=== PATIENT | male | born 1960 | race Caucasian/White ===

== ENCOUNTER 2020-12-28 07:34 | Outpatient (REF) | payer MEDICARE, SELFPAY ==
[2020-12-28 08:38] LABS: Hematocrit 46.5 % (42-52); Hemoglobin 16.2 g/dl (14.0-18.0); Mean Corpuscular HGB Conc 34.8 g/dl (31.0-36.0); Mean Corpuscular Hemoglobin 30.8 pg (27.0-33.0); Mean Corpuscular Volume 88.4 fL (80-98); Mean Platelet Volume 10.3 fL (9.4-12.4); Platelet Count 209 X10*3/uL (160-400); Red Blood Count 5.26 X10*6/uL (4.60-5.80); Red Cell Distribution Width 12.3 % (11.0-16.0); White Blood Count 6.2 X10*3/uL (4.8-10.8)
[2020-12-28 08:49] LABS: Estimated Average Glucose 100 mg/dL; Hemoglobin A1c % 5.1 %
[2020-12-28 09:09] LABS: Alanine Aminotransferase 17 U/L (0-40); Albumin Level 4.7 g/dL (3.5-5.0); Alkaline Phosphatase 126 U/L (39-117); Anion Gap 12 (12-20); Aspartate Amino Transferase 16 U/L (5-37); Bilirubin Total 0.7 mg/dL (0.0-1.0); Blood Urea Nitrogen 15 mg/dL (9-16); Calcium 9.8 mg/dL (8.4-10.2); Carbon Dioxide 29 mmol/L (22-29); Chloride 103 mmol/L (96-108); Cholesterol 185 mg/dL; Estimated Glomerular Filt Rate 51; Glucose Fasting 109 mg/dL (60-99); HDL Cholesterol 32 mg/dL; LDL Cholesterol Calculated 122 mg/dl; Potassium 4.4 mmol/L (3.3-5.1); Sodium 140 mmol/L (135-145); Total Protein 7.2 g/dL (6.5-8.0); Triglycerides 159 mg/dL
[2020-12-28 09:32] LABS: Prostate Specific Antigen Scr 2.63 ng/mL (<0.05-4.0); TSH reflex Free T4 0.96 uIU/mL (0.32-4.0)
== END 2020-12-28 07:35 | disposition home or self-care (01) ==
LOC: HO.LAB 07:34
PROVIDERS: PCP Physician Assistant; Visit Provider Physician Assistant
DX: I10 Essential (primary) hypertension (principal); J45.909 Unspecified asthma, uncomplicated; Z13.1 Encounter for screening for diabetes mellitus; Z13.220 Encounter for screening for lipoid disorders; Z13.29 Encounter for screening for other suspected endocrine disorder; Z12.5 Encounter for screening for malignant neoplasm of prostate
CPT/HCPCS: 36415; 80053; 80061; 83036; 84153; 84443; 85027

== ENCOUNTER 2022-01-06 12:17 | Outpatient (REF) | payer MEDICARE, SELFPAY ==
[2022-01-06 13:05] LABS: Hematocrit 49.1 % (42.0-52.0); Hemoglobin 16.8 g/dl (14.0-18.0); Mean Corpuscular HGB Conc 34.2 g/dl (31.0-36.0); Mean Corpuscular Hemoglobin 29.3 pg (27.0-33.0); Mean Corpuscular Volume 85.7 fL (80.0-98.0); Platelet Count 181 X10*3/uL (160-400); Red Blood Count 5.73 X10*6/uL (4.60-5.80); White Blood Count 6.5 X10*3/uL (4.8-10.8)
[2022-01-06 13:27] LABS: Alanine Aminotransferase 18 U/L (0-40); Albumin Level 4.6 g/dL (3.5-5.0); Alkaline Phosphatase 103 U/L (39-117); Anion Gap 11 (12-20); Aspartate Amino Transferase 13 U/L (5-37); Bilirubin Total 0.5 mg/dL (0.0-1.0); Blood Urea Nitrogen 11 mg/dL (9-16); Calcium 9.4 mg/dL (8.4-10.2); Carbon Dioxide 30 mmol/L (22-29); Chloride 101 mmol/L (96-108); Cholesterol 184 mg/dL; Estimated Glomerular Filt Rate 54; Glucose Fasting 109 mg/dL (60-99); HDL Cholesterol 32 mg/dL; LDL Cholesterol Calculated 126 mg/dl; Sodium 138 mmol/L (135-145); Triglycerides 134 mg/dL
[2022-01-06 13:50] LABS: Prostate Specific Antigen Scr 2.54 ng/mL (<0.05-4.0); TSH reflex Free T4 1.48 uIU/mL (0.32-4.0)
== END 2022-01-06 12:18 | disposition home or self-care (01) ==
LOC: HO.LAB 12:17
PROVIDERS: PCP Physician Assistant; Visit Provider Physician Assistant
DX: Z12.5 Encounter for screening for malignant neoplasm of prostate (principal); I10 Essential (primary) hypertension; E78.5 Hyperlipidemia, unspecified
CPT/HCPCS: 36415; 80053; 80061; 82043; 84153; 84443; 85027

== ENCOUNTER 2022-05-23 07:09 | Inpatient (IN) | payer MEDICARE, SELFPAY ==
--- NOTE | ~2022-05-23 | CT_ITS ---
EXAMINATION: CT HEAD WITHOUT CONTRAST CLINICAL INFORMATION: Question previous ectopic episode. Change in mental status COMPARISON: 04/09/2010 TECHNIQUE: Contiguous axial imaging was performed from the skull base to vertex without intravenous administration of contrast. This CT examination was performed using dose optimization techniques as appropriate, variously including the following: *Automated exposure control *Adjustment of mA and/or kV according to patient size (this includes techniques or standardized protocols for targeted exams where dose is matched to indication/reason for exam; i.e. extremities or head) *Use of iterative reconstruction technique DLP: 717 mGy-cm FINDINGS: There is no evidence of acute intracranial hemorrhage or territorial infarction. No abnormal mass effect or midline shift is seen. [place]ar to white matter differentiation is well preserved. No extra-axial fluid collections are identified. No significant volume loss. No hydrocephalus. Similar appearance of patchy low density adjacent the basal ganglia bilaterally, present in 2010 as well. No new parenchymal abnormalities seen. The osseous structures and soft tissues are normal. The mastoid air cells and visualized portions of the paranasal sinuses are well aerated. CT/CT head/brain wo IV con IMPRESSION: No acute intracranial pathology.
[2022-05-23 07:31] VITALS: BP 164/72; BP 181/115; PULSE 61; PULSE 83; RESP 16; TEMP 36.4; O2SAT 100; O2SAT 97; BMI 26.6
[2022-05-23 08:00] LABS: Appearance Urine Turbid; Color Urine Yellow; Glucose Urine UA Negative (Negative); Leukocyte Esterase Urine Negative (Negative); Nitrite Urine Negative (Negative); Specific Gravity - Urine 1.015 (1.005-1.025); UMIC TRIGGER UACC YES; Urine Blood Negative (Negative); Urine Ketones 15 mg/dL (Negative); Urine Protein 30 (1+) mg/dL (Neg-Trace)
[2022-05-23 08:05] LABS: Bacteria Urine None Seen (None Seen); Hyaline Casts Urine 0-2 /LPF (0-2); RBC Urine 0-2 /HPF (0-2); Squamous Epithelial Cell Urine 0-2 /HPF (0-2); WBC Urine 0-5 /HPF (0-5)
[2022-05-23 08:14] LABS: Amphetamine Screen Urine Not Detected (Not Detect); Barbiturates, Urine Not Detected (Not Detect); Benzodiazepines Screen Urine Not Detected (Not Detect); Cannabinoid Screen Urine Not Detected (Not Detect); Cocaine Screen Urine Not Detected (Not Detect); Fentanyl, urine Not Detected (Not Detect); Opiate Screen Urine Not Detected (Not Detect); Phencyclidine Screen Urine Not Detected (Not Detect)
[2022-05-23 08:20] LABS: COVID-19 Test Negative (Negative); IDNOW Serial# 16C4AD1C
[2022-05-23 08:53] LABS: MANUAL DIFF FLAG NO
[2022-05-23 08:54] LABS: Basophils Percent Auto 0.2 % (0-2); Eosinophils Percent Auto 0.3 % (0-4); Hematocrit 44.7 % (42.0-52.0); Hemoglobin 15.6 g/dl (14.0-18.0); Imm Gran Abs Auto 0.02 X10*3/uL (0.00-0.03); Imm Gran Pct Auto 0.2 % (0.0-0.4); Lymphocytes Absolute Auto 0.7 X10*3/uL (1.2-4.9); Lymphocytes Percent Auto 6.6 % (20-40); Mean Corpuscular HGB Conc 34.9 g/dl (31.0-36.0); Mean Corpuscular Hemoglobin 29.7 pg (27.0-33.0); Mean Platelet Volume 9.6 fL (9.4-12.4); Monocytes Absolute Auto 0.4 X10*3/uL (0.1-1.2); Neutrophils Percent Auto 88.7 % (45-73); Platelet Count 177 X10*3/uL (160-400); Red Blood Count 5.26 X10*6/uL (4.60-5.80); Red Cell Distribution Width 12.1 % (11.0-16.0); White Blood Count 10.1 X10*3/uL (4.8-10.8)
[2022-05-23 09:10] LABS: Acetaminophen LAB < 1 mcg/mL (<30); Alanine Aminotransferase 15 U/L (0-40); Albumin Level 4.5 g/dL (3.5-5.0); Alkaline Phosphatase 81 U/L (39-117); Anion Gap 14 (12-20); Aspartate Amino Transferase 12 U/L (5-37); Bilirubin Total 0.7 mg/dL (0.0-1.0); Blood Urea Nitrogen 11 mg/dL (9-16); Calcium 9.3 mg/dL (8.4-10.2); Carbon Dioxide 28 mmol/L (22-29); Chloride 104 mmol/L (96-108); Creatinine Clr Calc Pharmacy 52.9; Estimated Glomerular Filt Rate 57; Ethanol < 10 mg/dL; Glucose Random 128 mg/dL (60-115); Potassium 3.9 mmol/L (3.3-5.1); Salicylate < 5.0 mg/dL (15-30); Sodium 142 mmol/L (135-145); Total Protein 6.7 g/dL (6.5-8.0)
[2022-05-23 10:04] LABS: Troponin-I High Sensitivity 5.6 ng/L (<3.5-35.0)
--- NOTE | 2022-05-23 10:20 | PC.NURSE ---
Cecilia HICKEY evaluated César & also spoke with his (Miriam) who is at the bedside. Pt is confused and requires one-word answer questions, or yes/no questions. states that a similar episode happened 12 years ago. Pt is cooperative and redirectable at this time. Just returned from CT scan. Awaiting results. Labs obtained and resulted.
--- NOTE | 2022-05-23 10:58 | ED_ITS ---
HPI - Psych General Chief Complaint: Psychiatric Symptoms <RUPERTO Antonio Last Filed: 05/23/22 17:31> Stated Complaint: Crisis <RUPERTO Antonio Last Filed: 05/23/22 17:31> Time Seen by Provider: 05/23/22 09:15 <RUPERTO Antonio Last Filed: 05/23/22 17:31> Source: patient <RUPERTO Antonio Last Filed: 05/23/22 17:31> Mode of arrival: ambulatory <RUPERTO Antonio Last Filed: 05/23/22 17:31> History of Present Illness HPI Narrative: 62-year-old male with a past medical history of osteoarthritis, HLD, HTN, GERD, asthma, presenting to ED with for brief psychotic episode this morning. states she was leaving for work when noted patient was not at baseline, starring into space, paranoid, nonverbal, then yelling out random words/phrases. ?Auditory and visual hallucinations reported by EMS. Reports similar symptoms in the past 12 years ago. Unknown if patient is compliant with medications does not keep track. Patient reports compliance. Admits patient is more lucid at this time. Denies SI/HI, ETOH or other illicit substances. Denies CP/SOB, abdominal pain, nausea/vomiting, fever <URPERTO Antonio Last Filed: 05/23/22 17:31> MD complaint: altered mental status and hallucinations <RUPERTO Antonio Last Filed: 05/23/22 17:31> Onset (ago): hour(s) <RUPERTO Antonio Last Filed: 05/23/22 17:31> Related Data Home Medications: Home Medications Medication Instructions Recorded Confirmed albuterol sulfate 90 mcg/actuation 1 inh inhalation QID 01/06/22 05/23/22 aerosol inhaler cyclobenzaprine 10 mg tablet 1 tab PO BEDTIME 05/23/22 05/23/22 Previous Rx's Medication Instructions Recorded blood pressure monitor (Blood #1 ea 01/11/21 Pressure Kit) amlodipine 2.5 mg tablet 2.5 mg PO DAILY 90 days #90 tabs 01/06/22 cetirizine 10 mg tablet 10 mg PO DAILY 90 days #90 tabs 01/06/22 bupropion HCl 150 mg tablet,12 hr 150 mg PO DAILY #90 tabs 04/26/22 sustained-release <RUPERTO Antonio Last Filed: 05/23/22 17:31> Allergies/Adverse Reactions: Allergies Allergy/AdvReac Type Severity Reaction Status Date / Time penicillin G Allergy Unknown Unknown Verified 05/23/22 07:37 penicillin V Allergy Unknown hives Verified 05/23/22 07:37 Penicillins Allergy Unknown UNKNOWN Verified 05/23/22 07:37 Quinolones Allergy Unknown Unknown Verified 05/23/22 07:37 trazodone Allergy Unknown Unknown Verified 05/23/22 07:37 lisinopril Allergy Unknown cough Uncoded 05/23/22 07:37 losartan AdvReac Intermediate Dizziness Uncoded 05/23/22 07:37 <RUPERTO Antonio Last Filed: 05/23/22 17:31> Review of Systems Review of Systems: Constitutional: No Fever, No Chills, , No Fatigue, No Malaise ENT/Mouth: No Ear Pain, No Nasal Congestion, No sore throat, No Rhinorrhea, No Swallowing Difficulty Eyes: No Eye Pain, No Swelling, No Redness, No Foreign Body, No Discharge, No Vision Changes Cardiovascular: No Chest Pain, No SOB, No Edema, No Palpitations Respiratory: No Cough, No Sputum, No Dyspnea Gastrointestinal: No Nausea, No Vomiting, No Diarrhea, No Constipation, No Abdominal pain Genitourinary: No Dysuria, No Urinary Frequency, No Hematuria, No Urinary Incontinence/retention, No Flank Pain Musculoskeletal: No joint pain, No Myalgias, No Joint Swelling Skin: No Skin Lesions, No rash Neuro: No Weakness, No Dizziness, No Headache Psych: + Anxiety/Panic, No Depression, No SI/HI/AH/VH, No Social Issues <RUPERTO Antonio Last Filed: 05/23/22 17:31> Yes all other systems are reviewed and are negative <RUPERTO Antonio Last Filed: 05/23/22 17:31> Constitutional: Constitutional: Reports as per HPI <RUPERTO Antonio Last Filed: 05/23/22 17:31> Neurologic: Denies Abnormal speech present <RUPERTO Antonio Last Filed: 05/23/22 17:31> [facility] Past Medical History Attestation statement: The following information was validated with the patient. <RUPERTO Antonio - Last Filed: 05/23/22 17:31> Medical History: Medical History Colonoscopy refused <RUPERTO Antonio - Last Filed: 05/23/22 17:31> Surgical History: Surgical History History of eye surgery <RUPERTO Antonio - Last Filed: 05/23/22 17:31> Family History Family History: Family History Mother No problems noted. Father No problems noted. <RUPERTO Antonio - Last Filed: 05/23/22 17:31> Social History Social History: Social History Housing: House Alcohol intake: never Patient Tobacco Use Status: Never used Tobacco Use of substances other than those prescribed or required for medical reasons: No Advance Directives: No Advance Directives Information Provided: No Guardian: No Current occupational status: disabled Cognitive needs: No Hearing needs: No Vision needs: No <RUPERTO Antonio - Last Filed: 05/23/22 17:31> Physical Exam Vital Signs: Vital Signs: Last Vital Signs Temp 98.3 F 05/24/22 00:27 Pulse 63 05/24/22 00:27 Resp 16 05/24/22 00:27 BP 167/81 H 05/24/22 00:27 Pulse Ox 96 05/24/22 00:27 O2 Del Method 05/24/22 00:27 BMI result Body Mass Index 26.6 <RUPERTO Antonio - Last Filed: 05/23/22 17:31> Vital Signs: Last Vital Signs Temp 98.3 F 05/24/22 00:27 Pulse 63 05/24/22 00:27 Resp 16 05/24/22 00:27 BP 167/81 H 05/24/22 00:27 Pulse Ox 96 05/24/22 00:27 O2 Del Method 05/24/22 00:27 BMI result Body Mass Index 26.6 <Magaly Armando DO - Last Filed: 05/24/22 07:18> Const: General: cooperative, healthy appearing and no acute distress <RUPERTO Antonio - Last Filed: 05/23/22 17:31> Orientation/consciousness: patient oriented x3 <RUPERTO Antonio - Last Filed: 05/23/22 17:31> Limitations: no limitations <RUPERTO Antonio - Last Filed: 05/23/22 17:31> HEENT: Head: Yes normal to inspection and Yes atraumatic <RUPERTO Antonio - Last Filed: 05/23/22 17:31> Ears: hearing grossly normal bilaterally <RUPERTO Antonio - Last Filed: 05/23/22 17:31> General nose exam: Normal external nose present <RUPERTO Antonio - Last Filed: 05/23/22 17:31> Face and sinus: Yes normal facial exam <RUPERTO Antonio - Last Filed: 1 17:31> Throat: Yes posterior oropharynx normal, Yes tonsils normal and Yes uvula midline <RUPERTO Antonio - Last Filed: 05/23/22 17:31> Eyes: General: appearance normal, both eyes and all related structures <RUPERTO Antonio - Last Filed: 05/23/22 17:31> Pupils: Equal, round and reactive pupils present <RUPERTO Antonio - Last Filed: 05/23/22 17:31> EOM: EOMs intact bilaterally <RUPERTO Antonio - Last Filed: 05/23/22 17:31> Neck: Neck: Yes normal visual inspection and Yes no meningeal signs <RUPERTO Antonio - Last Filed: 05/23/22 17:31> Resp: Effort & Inspection: normal respiratory effort and no respiratory distress <RUPERTO Antonio - Last Filed: 05/23/22 17:31> Auscultation: clear to auscultation bilaterally, no crackles, no rales, no rhon chi and no wheezes <RUPERTO Antonio - Last Filed: 05/23/22 17:31> Cardio: Rate: regular rate <Cecilia Pouliot, PA - Last Filed: 05/23/22 17:31> Heart sounds: S1 normal heart sound present and S2 normal heart sound present <Cecilia Pouliot, PA - Last Filed: 05/23/22 17:31> GI: Inspection: Yes normal to inspection <Cecilia Pouliot, PA - Last Filed: 05/23/22 17:31> Palpation (GI): Soft to palpation, nontender, no guarding and not rigid <Cecilia Pouliot, PA - Last Filed: 05/23/22 17:31> : General: Yes no CVA tenderness <Cecilia Pouliot, PA - Last Filed: 05/23/22 17:31> Back/Spine/Pelvis: Back: no CVA tenderness <Cecilia Pouliot, PA - Last Filed: 05/23/22 17:31> Skin: Rashes: no rashes <Cecilia Pouliot, PA - Last Filed: 05/23/22 17:31> Wounds: no wounds <Cecilia Pouliot, PA - Last Filed: 05/23/22 17:31> Neuro: General: patient oriented x3, tone normal, moves all extremities, no meningeal signs, no focal motor deficits and CN's II-XI intact bilaterally <Cecilia Pouliot, PA - Last Filed: 05/23/22 17:31> Cranial nerves: Yes Equal, round and reactive pupils present <Cecilia Pouliot, PA - Last Filed: 05/23/22 17:31> Speech: No Abnormal speech present <Cecilia Pouliot, PA - Last Filed: 05/23/22 17:31> Gait exam (Neuro): Normal gait present <Cecilia Pouliot, PA - Last Filed: 05/23/22 17:31> Extrem: General: Yes normal to inspection <Cecilia Pouliot, PA - Last Filed: 05/23/22 17:31> Psych: Appearance: grossly normal <Cecilia Poulsalomet, PA - Last Filed: 05/23/22 17:31> Affect: Blunted affect present <Cecilia Pouliot, PA - Last Filed: 05/23/22 17:31> Attitude: cooperative <Cecilia Pouliot, PA - Last Filed: 05/23/22 17:31> Thought content: suicidality and no homicidality <RUPERTO Antonio - Last Filed: 05/23/22 17:31> Insight: Poor insight present (Psych) <RUPERTO Antonio - Last Filed: 05/23/22 17:31> Course Course Course Narrative: -1113--no leukocytosis. Labs otherwise reassuring. UA not infected. Tox screen negative. COVID-[address] head/brain wo IV conIMPRESSION: No acute intracranial pathology. >1205--patient is medically cleared for BHN evaluation. Physician observation initiated as patient needs more time to be evaluated -1800--ED care transferred to RUPERTO Castillo pending Crisis and Psych eval <RUPERTO Antonio - Last Filed: 05/23/22 17:31> -1113--no leukocytosis. Labs otherwise reassuring. UA not infected. Tox screen negative. COVID-[address] head/brain wo IV conIMPRESSION: No acute intracranial pathology. >1205--patient is medically cleared for BHN evaluation. Physician observation initiated as patient needs more time to be evaluated -1800--ED care transferred to RUPERTO Castillo pending Crisis and Psych eval <Magaly Armando DO - Last Filed: 05/24/22 07:18> Reevaluation(s) Reevaluation #1: addendum 05/24/22 717am Physician observation continued. VS stable, no acute events overnight. CARE team eval pending this AM. Patient resting comfortably, NAD. Work up negative so far at this time. <Magaly Armando DO - Last Filed: 05/24/22 07:18> MDM - Psych MDM Narrative Medical decision making narrative: 62-year-old male with a past medical history of osteoarthritis, HLD, HTN, GERD, asthma, presenting to ED with for brief psychotic episode this morning. states she was leaving for work when noted patient was not at baseline, starring into space, paranoid, nonverbal, then yelling out random words/phrases. ?Auditory and visual hallucinations reported by EMS. On exam vital signs stable, NAD, appears withdrawn/paranoid. Concern for brief psychotic episode vs medication noncompliance. Rule out metabolic and infectious etiologies Plan: EKG, labs, UA, drug screen, head CT, crisis eval <RUPERTO Antonio - Last Filed: 05/23/22 17:31> Differential Diagnosis Differential diagnosis: Likely acute psychosis, drug-induced psychotic disorder, mood disorder and schizoaffective disorder <RUPERTO Antonio - Last Filed: 05/23/22 17:31> Medical Records Attestation: I reviewed the patient's medical records. <RUPERTO Antonio - Last Filed: 05/23/22 17:31> Lab Data Attestation: I reviewed the patient's lab results. <RUPERTO Antonio - Last Filed: 05/23/22 17:31> Result diagrams: : 05/23/22 08:47 05/23/22 08:47 <RUPERTO Antonio - Last Filed: 05/23/22 17:31> Labs: Lab Results 05/23/22 05/23/22 05/23/22 Range/Units 07:46 07:46 07:46 WBC (4.8-10.8) X10*3/uL RBC (4.60-5.80) X10*6/uL Hgb (14.0-18.0) g/dl Hct (42.0-52.0) % MCV (80.0-98.0) fL MCH (27.0-33.0) pg MCHC (31.0-36.0) g/dl RDW (11.0-16.0) % Plt Count (160-400) X10*3/uL MPV (9.4-12.4) fL Immature Gran % (Auto) (0.0-0.4) % Neut % (Auto) (45-73) % Lymph % (Auto) (20-40) % [place] % (Auto) (2-11) % Eos % (Auto) (0-4) % Baso % (Auto) (0-2) % Lymph # (Auto) (1.2-4.9) X10*3/uL [place] # (Auto) (0.1-1.2) X10*3/uL Eos # (Auto) (0.0-0.4) X10*3/uL Baso # (Auto) (0.0-0.2) X10*3/uL Abs Immat Gran (auto) (0.00-0.03) X10*3/uL Absolute Neuts (auto) (2.0-8.3) x10*3/uL Absolute Nucleated RBC (0.0-0.012) X10*3/uL Nucleated RBC % (auto) (0.0-0.2) /100WBC Sodium (135-145) mmol/L Potassium (3.3-5.1) mmol/L Chloride (96-108) mmol/L Carbon Dioxide (22-29) mmol/L Anion Gap (12-20) BUN (9-16) mg/dL Creatinine (0.5-1.4) mg/dL Estim Creat Clear Calc Estimated GFR Random Glucose (60-115) mg/dL Calcium (8.4-10.2) mg/dL Magnesium (1.6-2.6) mg/dL Total Bilirubin (0.0-1.0) mg/dL AST (5-37) U/L ALT (0-40) U/L Alkaline Phosphatase (39-117) U/L Troponin I High Sens (<3.5-35.0) ng/L Total Protein (6.5-8.0) g/dL Albumin (3.5-5.0) g/dL Urine Color Yellow Urine Appearance Turbid Urine pH 8.0 (5.0-9.0) Ur Specific [place] 1.015 (1.005-1.025) Urine Protein 30 (1+) H (Neg-Trace) mg/dL Urine Glucose (UA) Negative (Negative) mg/dL Urine Ketones 15 (Negative) mg/dL Urine Blood Negative (Negative) Urine Nitrite Negative (Negative) Ur Leukocyte Esterase Negative (Negative) Urine RBC 0-2 (0-2) /HPF Urine WBC 0-5 (0-5) /HPF Ur Squamous Epith Cells 0-2 (0-2) /HPF Urine Bacteria None Seen (None Seen) Hyaline Casts 0-2 (0-2) /LPF Salicylates (15-30) mg/dL Urine Opiates Screen Not Detected (Not Detect) Urine Fentanyl Screen Not Detected (Not Detect) Acetaminophen (<30) mcg/mL Ur Barbiturates Screen Not Detected (Not Detect) Ur Phencyclidine Scrn Not Detected (Not Detect) Ur Amphetamines Screen Not Detected (Not Detect) U Benzodiazepines Scrn Not Detected (Not Detect) Urine Cocaine Screen Not Detected (Not Detect) U Marijuana (THC) Screen Not Detected (Not Detect) Ethyl Alcohol mg/dL COVID-19 (DILEEP) Negative (Negative) COVID-19 Clin Com See Note 05/23/22 05/23/22 05/23/22 Range/Units 08:47 08:47 08:47 WBC 10.1 (4.8-10.8) X10*3/uL RBC 5.26 (4.60-5.80) X10*6/uL Hgb 15.6 (14.0-18.0) g/dl Hct 44.7 (42.0-52.0) % MCV 85.0 (80.0-98.0) fL MCH 29.7 (27.0-33.0) pg MCHC 34.9 (31.0-36.0) g/dl RDW 12.1 (11.0-16.0) % Plt Count 177 (160-400) X10*3/uL MPV 9.6 (9.4-12.4) fL Immature Gran % (Auto) 0.2 (0.0-0.4) % Neut % (Auto) 88.7 H (45-73) % Lymph % (Auto) 6.6 L (20-40) % [place] % (Auto) 4.0 (2-11) % Eos % (Auto) 0.3 (0-4) % Baso % (Auto) 0.2 (0-2) % Lymph # (Auto) 0.7 L (1.2-4.9) X10*3/uL [place] # (Auto) 0.4 (0.1-1.2) X10*3/uL Eos # (Auto) 0.0 (0.0-0.4) X10*3/uL Baso # (Auto) 0.0 (0.0-0.2) X10*3/uL Abs Immat Gran (auto) 0.02 (0.00-0.03) X10*3/uL Absolute Neuts (auto) 9.0 H (2.0-8.3) x10*3/uL Absolute Nucleated RBC 0.000 (0.0-0.012) X10*3/uL Nucleated RBC % (auto) 0.0 (0.0-0.2) /100WBC Sodium 142 (135-145) mmol/L Potassium 3.9 (3.3-5.1) mmol/L Chloride 104 (96-108) mmol/L Carbon Dioxide 28 (22-29) mmol/L Anion Gap 14 (12-20) BUN 11 (9-16) mg/dL Creatinine 1.29 (0.5-1.4) mg/dL Estim Creat Clear Calc 52.9 Estimated GFR 57 Random Glucose 128 H (60-115) mg/dL Calcium 9.3 (8.4-10.2) mg/dL Magnesium 2.0 (1.6-2.6) mg/dL Total Bilirubin 0.7 (0.0-1.0) mg/dL AST 12 (5-37) U/L ALT 15 (0-40) U/L Alkaline Phosphatase 81 D (39-117) U/L Troponin I High Sens 5.6 (<3.5-35.0) ng/L Total Protein 6.7 (6.5-8.0) g/dL Albumin 4.5 (3.5-5.0) g/dL Urine Color Urine Appearance Urine pH (5.0-9.0) Ur Specific [place] (1.005-1.025) Urine Protein (Neg-Trace) mg/dL Urine Glucose (UA) (Negative) mg/dL Urine Ketones (Negative) mg/dL Urine Blood (Negative) Urine Nitrite (Negative) Ur Leukocyte Esterase (Negative) Urine RBC (0-2) /HPF Urine WBC (0-5) /HPF Ur Squamous Epith Cells (0-2) /HPF Urine Bacteria (None Seen) Hyaline Casts (0-2) /LPF Salicylates < 5.0 L (15-30) mg/dL Urine Opiates Screen (Not Detect) Urine Fentanyl Screen (Not Detect) Acetaminophen < 1 (<30) mcg/mL Ur Barbiturates Screen (Not Detect) Ur Phencyclidine Scrn (Not Detect) Ur Amphetamines Screen (Not Detect) U Benzodiazepines Scrn (Not Detect) Urine Cocaine Screen (Not Detect) U Marijuana (THC) Screen (Not Detect) Ethyl Alcohol < 10 mg/dL COVID-19 (DILEEP) (Negative) COVID-19 Clin Com <Cecilia StricklandRUPERTO chow - Last Filed: 05/23/22 17:31> Lab Results 05/23/22 05/23/22 05/23/22 Range/Units 07:46 07:46 07:46 WBC (4.8-10.8) X10*3/uL RBC (4.60-5.80) X10*6/uL Hgb (14.0-18.0) g/dl Hct (42.0-52.0) % MCV (80.0-98.0) fL MCH (27.0-33.0) pg MCHC (31.0-36.0) g/dl RDW (11.0-16.0) % Plt Count (160-400) X10*3/uL MPV (9.4-12.4) fL Immature Gran % (Auto) (0.0-0.4) % Neut % (Auto) (45-73) % Lymph % (Auto) (20-40) % [place] % (Auto) (2-11) % Eos % (Auto) (0-4) % Baso % (Auto) (0-2) % Lymph # (Auto) (1.2-4.9) X10*3/uL [place] # (Auto) (0.1-1.2) X10*3/uL Eos # (Auto) (0.0-0.4) X10*3/uL Baso # (Auto) (0.0-0.2) X10*3/uL Abs Immat Gran (auto) (0.00-0.03) X10*3/uL Absolute Neuts (auto) (2.0-8.3) x10*3/uL Absolute Nucleated RBC (0.0-0.012) X10*3/uL Nucleated RBC % (auto) (0.0-0.2) /100WBC Sodium (135-145) mmol/L Potassium (3.3-5.1) mmol/L Chloride (96-108) mmol/L Carbon Dioxide (22-29) mmol/L Anion Gap (12-20) BUN (9-16) mg/dL Creatinine (0.5-1.4) mg/dL Estim Creat Clear Calc Estimated GFR Random Glucose (60-115) mg/dL Calcium (8.4-10.2) mg/dL Magnesium (1.6-2.6) mg/dL Total Bilirubin (0.0-1.0) mg/dL AST (5-37) U/L ALT (0-40) U/L Alkaline Phosphatase (39-117) U/L Troponin I High Sens (<3.5-35.0) ng/L Total Protein (6.5-8.0) g/dL Albumin (3.5-5.0) g/dL Urine Color Yellow Urine Appearance Turbid Urine pH 8.0 (5.0-9.0) Ur Specific [place] 1.015 (1.005-1.025) Urine Protein 30 (1+) H (Neg-Trace) mg/dL Urine Glucose (UA) Negative (Negative) mg/dL Urine Ketones 15 (Negative) mg/dL Urine Blood Negative (Negative) Urine Nitrite Negative (Negative) Ur Leukocyte Esterase Negative (Negative) Urine RBC 0-2 (0-2) /HPF Urine WBC 0-5 (0-5) /HPF Ur Squamous Epith Cells 0-2 (0-2) /HPF Urine Bacteria None Seen (None Seen) Hyaline Casts 0-2 (0-2) /LPF Salicylates (15-30) mg/dL Urine Opiates Screen Not Detected (Not Detect) Urine Fentanyl Screen Not Detected (Not Detect) Acetaminophen (<30) mcg/mL Ur Barbiturates Screen Not Detected (Not Detect) Ur Phencyclidine Scrn Not Detected (Not Detect) Ur Amphetamines Screen Not Detected (Not Detect) U Benzodiazepines Scrn Not Detected (Not Detect) Urine Cocaine Screen Not Detected (Not Detect) U Marijuana (THC) Screen Not Detected (Not Detect) Ethyl Alcohol mg/dL COVID-19 (DILEEP) Negative (Negative) COVID-19 Clin Com See Note 05/23/22 05/23/22 05/23/22 Range/Units 08:47 08:47 08:47 WBC 10.1 (4.8-10.8) X10*3/uL RBC 5.26 (4.60-5.80) X10*6/uL Hgb 15.6 (14.0-18.0) g/dl Hct 44.7 (42.0-52.0) % MCV 85.0 (80.0-98.0) fL MCH 29.7 (27.0-33.0) pg MCHC 34.9 (31.0-36.0) g/dl RDW 12.1 (11.0-16.0) % Plt Count 177 (160-400) X10*3/uL MPV 9.6 (9.4-12.4) fL Immature Gran % (Auto) 0.2 (0.0-0.4) % Neut % (Auto) 88.7 H (45-73) % Lymph % (Auto) 6.6 L (20-40) % [place] % (Auto) 4.0 (2-11) % Eos % (Auto) 0.3 (0-4) % Baso % (Auto) 0.2 (0-2) % Lymph # (Auto) 0.7 L (1.2-4.9) X10*3/uL [place] # (Auto) 0.4 (0.1-1.2) X10*3/uL Eos # (Auto) 0.0 (0.0-0.4) X10*3/uL Baso # (Auto) 0.0 (0.0-0.2) X10*3/uL Abs Immat Gran (auto) 0.02 (0.00-0.03) X10*3/uL Absolute Neuts (auto) 9.0 H (2.0-8.3) x10*3/uL Absolute Nucleated RBC 0.000 (0.0-0.012) X10*3/uL Nucleated RBC % (auto) 0.0 (0.0-0.2) /100WBC Sodium 142 (135-145) mmol/L Potassium 3.9 (3.3-5.1) mmol/L Chloride 104 (96-108) mmol/L Carbon Dioxide 28 (22-29) mmol/L Anion Gap 14 (12-20) BUN 11 (9-16) mg/dL Creatinine 1.29 (0.5-1.4) mg/dL Estim Creat Clear Calc 52.9 Estimated GFR 57 Random Glucose 128 H (60-115) mg/dL Calcium 9.3 (8.4-10.2) mg/dL Magnesium 2.0 (1.6-2.6) mg/dL Total Bilirubin 0.7 (0.0-1.0) mg/dL AST 12 (5-37) U/L ALT 15 (0-40) U/L Alkaline Phosphatase 81 D (39-117) U/L Troponin I High Sens 5.6 (<3.5-35.0) ng/L Total Protein 6.7 (6.5-8.0) g/dL Albumin 4.5 (3.5-5.0) g/dL Urine Color Urine Appearance Urine pH (5.0-9.0) Ur Specific [place] (1.005-1.025) Urine Protein (Neg-Trace) mg/dL Urine Glucose (UA) (Negative) mg/dL Urine Ketones (Negative) mg/dL Urine Blood (Negative) Urine Nitrite (Negative) Ur Leukocyte Esterase (Negative) Urine RBC (0-2) /HPF Urine WBC (0-5) /HPF Ur Squamous Epith Cells (0-2) /HPF Urine Bacteria (None Seen) Hyaline Casts (0-2) /LPF Salicylates < 5.0 L (15-30) mg/dL Urine Opiates Screen (Not Detect) Urine Fentanyl Screen (Not Detect) Acetaminophen < 1 (<30) mcg/mL Ur Barbiturates Screen (Not Detect) Ur Phencyclidine Scrn (Not Detect) Ur Amphetamines Screen (Not Detect) U Benzodiazepines Scrn (Not Detect) Urine Cocaine Screen (Not Detect) U Marijuana (THC) Screen (Not Detect) Ethyl Alcohol < 10 mg/dL COVID-19 (DILEEP) (Negative) COVID-19 Clin Com <Magaly Armando DO - Last Filed: 05/24/22 07:18> Discharge Plan Discharge Clinical Impression: Brief psychotic disorder <RUPERTO Antonio - Last Filed: 05/23/22 17:31> Patient Disposition: Still a Patient <RUPERTO Antonio - Last Filed: 05/23/22 17:31> Prescriptions: No Action cyclobenzaprine 10 mg tablet 1 tab PO BEDTIME (DME) blood pressure monitor [Blood Pressure Kit] Kit See Rx Instructions .ROUTE .MEDSUPPLY Qty: 1 0RF Rx Instructions: As directed albuterol sulfate 90 mcg/actuation HFA aerosol inhaler 1 inh inhalation QID cetirizine 10 mg tablet 10 mg PO DAILY 90 Days Qty: 90 1RF amlodipine 2.5 mg tablet 2.5 mg PO DAILY 90 Days Qty: 90 1RF bupropion HCl 150 mg tablet sustained-release 12 hr 150 mg PO DAILY Qty: 90 1RF <RUPERTO Antonio - Last Filed: 05/23/22 17:31>
--- NOTE | 2022-05-23 11:04 | PHA.MEDREC ---
Pharmacy Consult ? Medication Reconciliation Pharmacy has reviewed the medication reconciliation completed by Catarina. Janet Cole, UrsulaD
--- NOTE | 2022-05-23 11:12 | ECG_ITS ---
Test Reason : [facility] MED Blood Pressure : / mmHG Vent. Rate : 070 BPM Atrial Rate : 070 BPM P-R Int : 136 ms QRS Dur : 086 ms QT Int : 378 ms P-R-T Axes : 075 050 052 degrees QTc Int : 408 ms Normal sinus rhythm RSR' or QR pattern in V1 suggests right ventricular conduction delay Possible Left atrial enlargement Nonspecific T wave abnormality Inferior leads Abnormal ECG When compared with ECG of 03-JUN-2016 14:11, No significant change was found Referred By: Cecilia Casas Electronically Signed By:IVAN GUTIÉRREZ MD
--- NOTE | 2022-05-23 11:45 | PC.NURSE ---
bhn sheet sent
--- NOTE | 2022-05-23 13:45 | PC.NURSE ---
care team (nadira) at bedside. pt/ aware of plan of care.
--- NOTE | 2022-05-23 15:22 | PC.NURSE ---
assumed care of pt at 1500, per pt had an episode of fecal incontinence, undergarments thrown away per request, pt provided w shower supplies. remains at bedside.
[2022-05-23] MEDS: amLODIPine Besylate 2.5 MG TABLET PO (17:30)
--- NOTE | 2022-05-23 17:41 | MHC.CARE ---
Patient evaluated by CARE Team, disposition reassess in the AM with recommendations from psychiatric provider. See written report for details.
[2022-05-23 19:49] VITALS: BP 161/78; PULSE 70; RESP 18; TEMP 36.9; O2SAT 97
[2022-05-23] MEDS: Cyclobenzaprine HCl 10 MG TABLET PO (20:33)
[2022-05-24 00:27] VITALS: BP 167/81; PULSE 63; RESP 16; TEMP 36.8; O2SAT 96
--- NOTE | 2022-05-24 07:19 | PC.NURSE ---
patient appears to remain asleep at present, respirations are even and unlabored, patient appears in no distress
[2022-05-24] MEDS: Albuterol Sulfate 90 MCG 8 GM INHALER 1 PUFF INHALE (09:57)
[2022-05-24] MEDS: amLODIPine Besylate 2.5 MG TABLET PO (10:02)
[2022-05-24 10:03] VITALS: BP 167/81; PULSE 72; RESP 16; TEMP 36.6; O2SAT 98
[2022-05-24] MEDS: buPROPion HCL 75 MG TABLET PO (10:03)
[2022-05-24] MEDS: Loratadine 10 MG TABLET PO (10:04)
--- NOTE | 2022-05-24 15:10 | PC.NURSE ---
[facility] cognitive assessment administered this date, environment modified to decrease auditory and visual distraction for most objective outcome. Pts score 16/30 is indicative of moderate cognitive deficit present at this time. Pts attending OTR and [employer] [employer] notified of pt result. Pt presents initially with flat/blunted affect however during assessment exhibits an episode of transient bizarre manic type behavior, pts [employer] notified and aware of behavior.
--- NOTE | 2022-05-24 15:29 | PC.NURSE ---
offered pt 1600 inhaler, pt declined, typically only uses PRN.
[2022-05-24] MEDS: LORazepam 1 MG TABLET 2 MG PO (15:56)
[2022-05-24 21:24] VITALS: BP 185/85; PULSE 72; RESP 18; TEMP 37.4; O2SAT 97
[2022-05-24] MEDS: Cyclobenzaprine HCl 10 MG TABLET PO (21:24)
[2022-05-24] MEDS: OLANZapine 5 MG TABLET PO (21:24)
--- NOTE | 2022-05-24 21:29 | PC.NURSE ---
pt sleeping comfortably on stretcher, respirations even and unlabored. no apparent distress. pt has no current complaints or pain. bedtime medications given. water jug refilled.
[2022-05-24 23:30] VITALS: BP 161/90; PULSE 70; RESP 18; TEMP 36.1; O2SAT 99
--- NOTE | 2022-05-25 02:44 | PC.ADMIT ---
Pt is a 62 year old male admitted to the unit after referral from the CARE team at [facility]. Arrived on the unit at 2330 on a section 12b. Medical issues:osteoarthritis, HLD, HTN, GERD, asthma, c/o right hip pain of unknown etiology, hx surgery for detached retina as a child . Substance use: denies current or history of substance use. Precipitant (gathered from crisis eval): Pt was transferred to the ED by ambulance, which was initiated by his . Per her report, pt was lying in bed, wide-eyed, seemed to not be himself . She stated that he was unresponsive, then became very agitated, incoherent, and non-sensical. His recalled an incident similar to this in 2009, which resulted in an inpatient admission in [place]; during this event he was behaving erratically and appeared psychotic. She notes that there have not been any such events in the last 12 years and he has not had any outpatient mental health providers; pt's medications are prescribed by his PCP. Per crisis eval, the patient's baseline is unknown. It is noted that the patient's parents when he was 8 years old, and he had witnessed his father being angry, which he had identified as traumatic. At the time of admission, pt seemed focus on when he was going to be able to leave and the pain in his right hip, which he says he thought was going to be checked out . He denied all psych symptoms, acknowledging only disturbed sleep due to not being able to get comfortable due to the hip pain; pt denies any recent fall or injury, unsure of the cause of the pain. He reported being started on bupropion a couple years ago for his mood , states that he does feel it is working, denies any current depression or anxiety. Denies SI/HI. Pt presents slightly unsteady on his feet due to hip pain, reports ambulating independently at home. Nurse to nurse completed prior to admission. Provider notified of admission and orders obtained. Treatment plan initiated. Pt placed on 15 minute safety checks, verbalizes understanding to seek out staff if needed.
[2022-05-25 10:00] VITALS: BP 153/81; PULSE 74; RESP 16; TEMP 36.2; O2SAT 96
[2022-05-25] MEDS: amLODIPine Besylate 2.5 MG TABLET PO (10:01)
[2022-05-25] MEDS: OLANZapine 5 MG TABLET PO ×2 (10:01→21:29)
[2022-05-25 10:04] LABS: Alanine Aminotransferase 14 U/L (0-40); Albumin Level 4.3 g/dL (3.5-5.0); Alkaline Phosphatase 79 U/L (39-117); Anion Gap 13 (12-20); Aspartate Amino Transferase 11 U/L (5-37); Bilirubin Total 0.8 mg/dL (0.0-1.0); Blood Urea Nitrogen 13 mg/dL (9-16); Calcium 9.5 mg/dL (8.4-10.2); Carbon Dioxide 30 mmol/L (22-29); Chloride 102 mmol/L (96-108); Cholesterol 172 mg/dL; Creatinine Clr Calc Pharmacy 55.5; Estimated Glomerular Filt Rate > 60; Glucose Fasting 95 mg/dL (60-99); HDL Cholesterol 28 mg/dL; LDL Cholesterol Calculated 108 mg/dl; Potassium 4.3 mmol/L (3.3-5.1); Sodium 141 mmol/L (135-145); Total Protein 6.6 g/dL (6.5-8.0); Triglycerides 183 mg/dL
[2022-05-25] MEDS: Acetaminophen 325 MG TABLET 650 MG PO (10:05)
--- NOTE | 2022-05-25 10:21 | HO.PSYADMNOT ---
HPI Date of Service: 05/25/22 Chief Complaint: Mood Sources of Information: patient interviewed, chart reviewed and crisis/core team assessment reviewed Additional Sources of Information: collateral from HPI Subjective Notes: [place] Warning and Section 12B Narrative: Mr. Byrd is a 62 year-old male with unclear psych hx. Pt was brought by to [facility] after she found him, staring at ceiling not making much sense. In the ED, utox is negative. In the ED, he appears internally preoccupied. He seemed to be thought blocking some degree of catatonic features. He also noted to be crying but could not explained. Confused as to why he is here reporting he is having hip surgery. Prior, pt telling staff that he was praying for others. He had episodes of of psychomotor agitation, to episodes of staring at ceiling, lying in bed in the ED. No waxy flexibility. CBC wnl. CMP wnl. On the unit, pt reports he couldn't talk, was feeling very anxious, the day prior to bring him here. He reports he slept. He denies VH/AH but appears internally preoccupied. He denies SI/HI. He is oriented to place, month, date, some confusion still about situation and reason for hospitalization. Per , pt had mental break down in 2009. reports that he continued psychiatric treatment but she is not aware of his diagnosis or past medication trials. It does seem that there was prescription for wellbutrin which PCP continued prescribing unclear if other meds have been tried. 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 No hx of suicide attempt. does report that back then he was paranoid, not talking. Medical Evaluation Reviewed: Yes [facility] Medical History Colonoscopy refused Surgical History History of eye surgery Family History: none Social History: lives with and children Substance History: none Trauma History: none Diagnostics Vital Signs (24Hr): Vital Signs - 24 hr 05/24/22 21:24 05/24/22 23:30 05/25/22 10:00 Temperature 99.3 F 97 F 97.2 F Pulse Rate 72 70 74 Respiratory Rate 18 18 16 Blood Pressure 185/85 H 161/90 H 153/81 H Pulse Oximetry 97 99 96 Oxygen Delivery Method Room Air Room Air Room Air BMI result Body Mass Index 26.6 Labs Results: 05/23/22 08:47 05/25/22 09:00 Labs: Laboratory Results - last 48 hr 05/25/22 09:00 Sodium 141 Potassium 4.3 Chloride 102 Carbon Dioxide 30 H Anion Gap 13 BUN 13 Creatinine 1.23 Estim Creat Clear Calc 55.5 Estimated GFR > 60 Fasting Glucose 95 Calcium 9.5 Total Bilirubin 0.8 AST 11 ALT 14 Alkaline Phosphatase 79 Total Protein 6.6 Albumin 4.3 Triglycerides 183 Cholesterol 172 LDL Cholesterol, Calc 108 HDL Cholesterol 28 Imaging Radiology Impressions: ITS Impressions Head CT 05/23/22 10:24 IMPRESSION: No acute intracranial pathology. Meds/Allergies Meds Home Medications Medication Instructions Recorded Confirmed Type albuterol sulfate 90 mcg/actuation 1 inh inhalation QID 01/06/22 05/23/22 History aerosol inhaler cyclobenzaprine 10 mg tablet 1 tab PO BEDTIME 05/23/22 05/25/22 History Allergies Allergies Allergy/AdvReac Type Severity Reaction Status Date / Time penicillin G Allergy Unknown Unknown Verified 05/23/22 07:37 penicillin V Allergy Unknown hives Verified 05/23/22 07:37 Penicillins Allergy Unknown UNKNOWN Verified 05/23/22 07:37 Quinolones Allergy Unknown Unknown Verified 05/23/22 07:37 trazodone Allergy Unknown Unknown Verified 05/23/22 07:37 lisinopril Allergy Unknown cough Uncoded 05/23/22 07:37 losartan AdvReac Intermediate Dizziness Uncoded 05/23/22 07:37 Mental Status Exam Mental Status Exam Narrative: Appearance: casually groomed, fair hygiene in NAD Behavior:cooperative psychomotor:less retardation Speech:clear, some delayed in response, spontaneous Thought process:mostly linear Thought content:still appears internally preoccupied, Mood: better Affect: constricted SI:denies HI:denies VH/AH:appears internally preoccupied Delusions:overly fearful but unclear content of delusion Insight/judgment:impaired x 2. Memory/cog: alert, not oriented to situation. Assessment & Plan Assessment & Plan (1) Bipolar I disorder, most recent episode manic with catatonic features: Status: Acute Code(s): F31.10 - Bipolar disorder, current episode manic without psychotic features, unspecified; F06.1 - Catatonic disorder due to known physiological condition Patient educated on: diagnosis Guardian/Caregiver educated on: medication risk/benefits Informed Consent: understands Reason for continued inpatient stay Substantial Risk for: inability to function
[2022-05-25 14:26] LABS: Appearance Urine Clear; Color Urine Yellow; Glucose Urine UA Negative (Negative); Leukocyte Esterase Urine Negative (Negative); Nitrite Urine Negative (Negative); PH 5.5 (5.0-9.0); Specific Gravity - Urine <= 1.005 (1.005-1.025); Urine Blood Negative (Negative); Urine Ketones Negative (Negative); Urine Protein Negative (Neg-Trace)
[2022-05-25 21:22] VITALS: BP 146/89; PULSE 64; RESP 16; TEMP 36.4; O2SAT 97
[2022-05-25] MEDS: Cyclobenzaprine HCl 10 MG TABLET PO (21:29)
[2022-05-26 06:00] VITALS: BP 131/79; PULSE 86; RESP 16; TEMP 36.8; O2SAT 97
[2022-05-26 07:00] VITALS: BMI 26.8
[2022-05-26] MEDS: OLANZapine 5 MG TABLET PO (09:36)
[2022-05-26] MEDS: amLODIPine Besylate 2.5 MG TABLET PO (09:36)
[2022-05-26] MEDS: Loratadine 10 MG TABLET PO (09:36)
[2022-05-26] MEDS: LORazepam 1 MG TABLET PO ×2 (10:37→15:50)
--- NOTE | 2022-05-26 16:00 | PC.NURSE ---
Miriam Byrd: Home: ; cell [phone]
--- NOTE | 2022-05-26 16:08 | P.PNPSI_ITS ---
Subjective Subjective Date of Service: 05/26/22 Reason For Visit: Mood Subjective Notes: Section 12B Interim History: Pt more linear and coherent. Pt reports that he was feeling very anxious, unable to talk, feeling sad at times. It difficult for him to explain he denies AH/VH. Pt reports sleeping well He states he felt woozy with ativan- will d/c He denies SI/HI. MOre visible and social with peers Medication Compliance: Yes Side effects from medications: No Diagnostics Vital Signs (24Hr): Vital Signs - 24 hr 05/25/22 21:22 05/26/22 06:00 Temperature 97.6 F 98.2 F Pulse Rate 64 86 Respiratory Rate 16 16 Blood Pressure 146/89 H 131/79 Pulse Oximetry 97 97 Oxygen Delivery Method Room Air Room Air BMI result Body Mass Index 26.8 Labs Results: 05/23/22 08:47 05/25/22 09:00 Labs: Laboratory Results - last 48 hr 05/25/22 05/25/22 09:00 14:11 Sodium 141 Potassium 4.3 Chloride 102 Carbon Dioxide 30 H Anion Gap 13 BUN 13 Creatinine 1.23 Estim Creat Clear Calc 55.5 Estimated GFR > 60 Fasting Glucose 95 Calcium 9.5 Total Bilirubin 0.8 AST 11 ALT 14 Alkaline Phosphatase 79 Total Protein 6.6 Albumin 4.3 Triglycerides 183 Cholesterol 172 LDL Cholesterol, Calc 108 HDL Cholesterol 28 Urine Color Yellow Urine Appearance Clear Urine pH 5.5 Ur Specific [place] <= 1.005 Urine Protein Negative Urine Glucose (UA) Negative Urine Ketones Negative Urine Blood Negative Urine Nitrite Negative Ur Leukocyte Esterase Negative Imaging Radiology Impressions: ITS Impressions Head CT 05/23/22 10:24 IMPRESSION: No acute intracranial pathology. Medications Medications Current Medications Acetaminophen (Acetaminophen 325 Mg Tablet) 650 mg PO Q6H PRN PRN Reason: Headache/Pain Mild Scale (1-3) Last Admin: 05/25/22 10:05 Dose: 650 mg Al Hydroxide/Mg Hydroxide (Magnesium Hydrox/Alum Hydrox 30 Ml Oral.Susp) 30 ml PO Q6H PRN PRN Reason: Heartburn/Nausea Albuterol Sulfate (Albuterol Sulfate 90 Mcg 8 Gm Inhaler) 1 puff INHALE RQID PRN PRN Reason: wheeze Amlodipine Besylate (Amlodipine Besylate 2.5 Mg Tablet) 2.5 mg PO DAILY [facility]; Protocol Last Admin: 05/26/22 09:36 Dose: 2.5 mg Cyclobenzaprine HCl (Cyclobenzaprine Hcl 10 Mg Tablet) 10 mg PO BEDTIME [facility] Last Admin: 05/25/22 21:29 Dose: 10 mg Hydroxyzine HCl (Hydroxyzine Hcl 25 Mg Tablet) 25 mg PO Q6H PRN PRN Reason: Anxiety Loratadine (Loratadine 10 Mg Tablet) 10 mg PO DAILY [facility] Last Admin: 05/26/22 09:36 Dose: 10 mg Lorazepam (Lorazepam 1 Mg Tablet) 1 mg PO TID [facility] Last Admin: 05/26/22 15:50 Dose: 1 mg Magnesium Hydroxide (Milk Of Magnesia 30 Ml Oral.Susp) 30 ml PO DAILY PRN PRN Reason: Constipation Olanzapine (Olanzapine 5 Mg Tablet) 5 mg PO DAILY [facility] Olanzapine (Olanzapine 10 Mg Tablet) 10 mg PO BEDTIME [facility] Pharmacy Consult (Consult Rx Perform Med Rec) 1 each MISCELLANE ONCE PRN PRN Reason: Consult order Trazodone HCl (Trazodone Hcl 50 Mg Tablet) 50 mg PO BEDTIME PRN PRN Reason: Insomnia Allergies Allergies Allergy/AdvReac Type Severity Reaction Status Date / Time penicillin G Allergy Unknown Unknown Verified 05/23/22 07:37 penicillin V Allergy Unknown hives Verified 05/23/22 07:37 Penicillins Allergy Unknown UNKNOWN Verified 05/23/22 07:37 Quinolones Allergy Unknown Unknown Verified 05/23/22 07:37 trazodone Allergy Unknown Unknown Verified 05/23/22 07:37 lisinopril Allergy Unknown cough Uncoded 05/23/22 07:37 losartan AdvReac Intermediate Dizziness Uncoded 05/23/22 07:37 Assessment & Plan Assessment & Plan (1) Bipolar I disorder, most recent episode manic with catatonic features: Status: Acute Code(s): F31.10 - Bipolar disorder, current episode manic without psychotic features, unspecified; F06.1 - Catatonic disorder due to known physiological condition Plan 05/26 continue olanzapine, mostly at night time as AM dose makes him somnolent. I spent minutes with the patient and/or on the patient floor today, greater than?50% of which was spent counseling/coordinating care. Reason for contiued inpatient stay Substantial Risk for: inability to function
[2022-05-26 22:14] VITALS: BP 145/78; PULSE 86; RESP 18; TEMP 36.5; O2SAT 95
[2022-05-26] MEDS: OLANZapine 10 MG TABLET PO (22:20)
[2022-05-26] MEDS: Cyclobenzaprine HCl 10 MG TABLET PO (22:20)
[2022-05-26] MEDS: Acetaminophen 325 MG TABLET 650 MG PO (22:21)
[2022-05-26] MEDS: hydrOXYzine HCL 25 MG TABLET PO (22:22)
[2022-05-27 09:00] VITALS: BP 162/81; PULSE 68; RESP 20; TEMP 36.4; O2SAT 96
[2022-05-27] MEDS: Loratadine 10 MG TABLET PO (09:12)
[2022-05-27] MEDS: amLODIPine Besylate 2.5 MG TABLET PO (09:12)
[2022-05-27] MEDS: Acetaminophen 325 MG TABLET 650 MG PO ×2 (09:16→20:44)
[2022-05-27] MEDS: LORazepam 0.5 MG TABLET PO ×2 (15:00→20:45)
--- NOTE | 2022-05-27 16:16 | HO.PSYCHPN ---
Subjective Subjective Date of Service: 05/27/22 Reason For Visit: Mood Interim History: calm, cooperative. linear and relatively logical today. presents well compared with his arrival. states he slept well last night. reports his mood is good and denies safety concerns. hip feeling better with tylenol. SW joins mtg partway through as pt expressing desire to discharge today and Tx team and want him to stay. ultimately pt is convinced to stay the weekend and signs in voluntarily. agrees to restart ativan for catatonic Sx but at 0.5 mg TID rather than 1 mg TID. per staff, 12b up today. attending groups. started ativan 1 TID yesterday but it was DCed due to wooziness. clearer yesterday. took HS meds, slept well. Mental Status Exam Mental Status Exam Narrative: Appearance: casually groomed, fair hygiene in NAD Behavior:cooperative psychomotor:less retardation Speech:clear, some delayed in response, spontaneous Thought process:linear Thought content: no delusions or paranoia evident Mood: good Affect: constricted SI:denies HI:denies VH/AH:denies Insight/judgment:impaired x 2. Memory/cog: alert, oriented to situation. Diagnostics Vital Signs (24Hr): Vital Signs - 24 hr 05/26/22 22:14 05/27/22 09:00 Temperature 97.7 F 97.6 F Pulse Rate 86 68 Respiratory Rate 18 20 Blood Pressure 145/78 H 162/81 H Pulse Oximetry 95 96 Oxygen Delivery Method Room Air Room Air BMI result Body Mass Index 26.8 Labs Results: 05/23/22 08:47 05/25/22 09:00 Imaging Radiology Impressions: ITS Impressions Head CT 05/23/22 10:24 IMPRESSION: No acute intracranial pathology. Medications Medications Current Medications Acetaminophen (Acetaminophen 325 Mg Tablet) 650 mg PO Q6H PRN PRN Reason: Headache/Pain Mild Scale (1-3) Last Admin: 05/27/22 09:16 Dose: 650 mg Al Hydroxide/Mg Hydroxide (Magnesium Hydrox/Alum Hydrox 30 Ml Oral.Susp) 30 ml PO Q6H PRN PRN Reason: Heartburn/Nausea Albuterol Sulfate (Albuterol Sulfate 90 Mcg 8 Gm Inhaler) 1 puff INHALE RQID PRN PRN Reason: wheeze Amlodipine Besylate (Amlodipine Besylate 2.5 Mg Tablet) 2.5 mg PO DAILY [facility]; Protocol Last Admin: 05/27/22 09:12 Dose: 2.5 mg Cyclobenzaprine HCl (Cyclobenzaprine Hcl 10 Mg Tablet) 10 mg PO BEDTIME [facility] Last Admin: 05/26/22 22:20 Dose: 10 mg Hydroxyzine HCl (Hydroxyzine Hcl 25 Mg Tablet) 25 mg PO Q6H PRN PRN Reason: Anxiety Last Admin: 05/26/22 22:22 Dose: 25 mg Loratadine (Loratadine 10 Mg Tablet) 10 mg PO DAILY [facility] Last Admin: 05/27/22 09:12 Dose: 10 mg Lorazepam (Lorazepam 0.5 Mg Tablet) 0.5 mg PO TID [facility] Last Admin: 05/27/22 15:00 Dose: 0.5 mg Magnesium Hydroxide (Milk Of Magnesia 30 Ml Oral.Susp) 30 ml PO DAILY PRN PRN Reason: Constipation Olanzapine (Olanzapine 10 Mg Tablet) 10 mg PO BEDTIME [facility] Last Admin: 05/26/22 22:20 Dose: 10 mg Pharmacy Consult (Consult Rx Perform Med Rec) 1 each MISCELLANE ONCE PRN PRN Reason: Consult order Trazodone HCl (Trazodone Hcl 50 Mg Tablet) 50 mg PO BEDTIME PRN PRN Reason: Insomnia Allergies Allergies Allergy/AdvReac Type Severity Reaction Status Date / Time penicillin G Allergy Unknown Unknown Verified 05/23/22 07:37 penicillin V Allergy Unknown hives Verified 05/23/22 07:37 Penicillins Allergy Unknown UNKNOWN Verified 05/23/22 07:37 Quinolones Allergy Unknown Unknown Verified 05/23/22 07:37 trazodone Allergy Unknown Unknown Verified 05/23/22 07:37 lisinopril Allergy Unknown cough Uncoded 05/23/22 07:37 losartan AdvReac Intermediate Dizziness Uncoded 05/23/22 07:37 Assessment & Plan Assessment & Plan (1) Bipolar I disorder, most recent episode manic with catatonic features: Status: Acute Code(s): F31.10 - Bipolar disorder, current episode manic without psychotic features, unspecified; F06.1 - Catatonic disorder due to known physiological condition Plan 05/26 continue olanzapine, mostly at night time as AM dose makes him somnolent. 05/27: retry ativan at 0.5 mg TID rather than 1 mg TID, which left him woozy. signed CV. otherwise continue current mgmt. I spent ___35___ minutes with the patient and/or on the patient floor today, greater than?50% of which was spent counseling/coordinating care. Reason for contiued inpatient stay Substantial Risk for: inability to function and rapid decompensation
[2022-05-27 20:30] VITALS: BP 162/77; PULSE 69; RESP 16; TEMP 36.6; O2SAT 97
[2022-05-27] MEDS: Cyclobenzaprine HCl 10 MG TABLET PO (20:45)
[2022-05-27] MEDS: OLANZapine 10 MG TABLET PO (20:45)
[2022-05-28 08:31] VITALS: BP 142/88; PULSE 77; RESP 18; TEMP 36.6; O2SAT 97
[2022-05-28] MEDS: LORazepam 0.5 MG TABLET PO ×3 (08:32→22:13)
[2022-05-28] MEDS: amLODIPine Besylate 2.5 MG TABLET PO (08:32)
[2022-05-28] MEDS: Loratadine 10 MG TABLET PO (08:32)
--- NOTE | 2022-05-28 10:26 | HO.PSYCHPN ---
Subjective Subjective Date of Service: 05/28/22 Reason For Visit: Mood Interim History: calm, cooperative. thoughts are linear and logical . Calm, states he slept well last night. reports his mood is good and denies safety concerns. hip feeling better with tylenol. attending groups. Medication Compliance: Yes Side effects from medications: No Attending Groups: Yes Review of Systems Acute medical concerns: No Medical Review of Systems: unchanged Review of Systems Review of Systems Constitutional: No Fever, No Chills, , No Fatigue, No Malaise ENT/Mouth: No Ear Pain, No Nasal Congestion, No sore throat, No Rhinorrhea, No Swallowing Difficulty Eyes: No Eye Pain, No Swelling, No Redness, No Foreign Body, No Discharge, No Vision Changes Cardiovascular: No Chest Pain, No SOB, No Edema, No Palpitations Respiratory: No Cough, No Sputum, No Dyspnea Gastrointestinal: No Nausea, No Vomiting, No Diarrhea, No Constipation, No Abdominal pain Genitourinary: No Dysuria, No Urinary Frequency, No Hematuria, No Urinary Incontinence/retention, No Flank Pain Musculoskeletal: No joint pain, No Myalgias, No Joint Swelling Skin: No Skin Lesions, No rash Neuro: No Weakness, No Dizziness, No Headache Psych: + Anxiety/Panic, No Depression, No SI/HI/AH/VH, No Social Issues Yes all other systems are reviewed and are negative Constitutional: Reports as per HPI Denies Abnormal speech present Mental Status Exam Mental Status Exam Narrative: Appearance: casually groomed, fair hygiene in NAD Behavior:cooperative psychomotor:less retardation Speech:clear, some delayed in response, spontaneous Thought process:linear Thought content: no delusions or paranoia evident Mood: good Affect: constricted SI:denies HI:denies VH/AH:denies Insight/judgment:impaired x 2. Memory/cog: alert, oriented to situation. Diagnostics Vital Signs (24Hr): Vital Signs - 24 hr 05/27/22 20:30 05/28/22 08:31 Temperature 97.9 F 97.8 F Pulse Rate 69 77 Respiratory Rate 16 18 Blood Pressure 162/77 H 142/88 H Pulse Oximetry 97 97 Oxygen Delivery Method Room Air Room Air BMI result Body Mass Index 26.8 Labs Results: 05/23/22 08:47 05/25/22 09:00 Imaging Radiology Impressions: ITS Impressions Head CT 05/23/22 10:24 IMPRESSION: No acute intracranial pathology. Medications Medications Current Medications Acetaminophen (Acetaminophen 325 Mg Tablet) 650 mg PO Q6H PRN PRN Reason: Headache/Pain Mild Scale (1-3) Last Admin: 05/27/22 20:44 Dose: 650 mg Al Hydroxide/Mg Hydroxide (Magnesium Hydrox/Alum Hydrox 30 Ml Oral.Susp) 30 ml PO Q6H PRN PRN Reason: Heartburn/Nausea Albuterol Sulfate (Albuterol Sulfate 90 Mcg 8 Gm Inhaler) 1 puff INHALE RQID PRN PRN Reason: wheeze Amlodipine Besylate (Amlodipine Besylate 2.5 Mg Tablet) 2.5 mg PO DAILY [facility]; Protocol Last Admin: 05/28/22 08:32 Dose: 2.5 mg Cyclobenzaprine HCl (Cyclobenzaprine Hcl 10 Mg Tablet) 10 mg PO BEDTIME [facility] Last Admin: 05/27/22 20:45 Dose: 10 mg Hydroxyzine HCl (Hydroxyzine Hcl 25 Mg Tablet) 25 mg PO Q6H PRN PRN Reason: Anxiety Last Admin: 05/26/22 22:22 Dose: 25 mg Loratadine (Loratadine 10 Mg Tablet) 10 mg PO DAILY [facility] Last Admin: 05/28/22 08:32 Dose: 10 mg Lorazepam (Lorazepam 0.5 Mg Tablet) 0.5 mg PO TID [facility] Last Admin: 05/28/22 08:32 Dose: 0.5 mg Magnesium Hydroxide (Milk Of Magnesia 30 Ml Oral.Susp) 30 ml PO DAILY PRN PRN Reason: Constipation Olanzapine (Olanzapine 10 Mg Tablet) 10 mg PO BEDTIME [facility] Last Admin: 05/27/22 20:45 Dose: 10 mg Pharmacy Consult (Consult Rx Perform Med Rec) 1 each MISCELLANE ONCE PRN PRN Reason: Consult order Trazodone HCl (Trazodone Hcl 50 Mg Tablet) 50 mg PO BEDTIME PRN PRN Reason: Insomnia Allergies Allergies Allergy/AdvReac Type Severity Reaction Status Date / Time penicillin G Allergy Unknown Unknown Verified 05/23/22 07:37 penicillin V Allergy Unknown hives Verified 05/23/22 07:37 Penicillins Allergy Unknown UNKNOWN Verified 05/23/22 07:37 Quinolones Allergy Unknown Unknown Verified 05/23/22 07:37 trazodone Allergy Unknown Unknown Verified 05/23/22 07:37 lisinopril Allergy Unknown cough Uncoded 05/23/22 07:37 losartan AdvReac Intermediate Dizziness Uncoded 05/23/22 07:37 Assessment & Plan Assessment & Plan (1) Bipolar I disorder, most recent episode manic with catatonic features: Status: Acute Code(s): F31.10 - Bipolar disorder, current episode manic without psychotic features, unspecified; F06.1 - Catatonic disorder due to known physiological condition Plan 05/26 continue olanzapine, mostly at night time as AM dose makes him somnolent. 05/27: retry ativan at 0.5 mg TID rather than 1 mg TID, which left him woozy. signed CV. otherwise continue current mgmt. 05/28: Continue current treatment I spent ___15___ minutes with the patient and/or on the patient floor today, greater than?50% of which was spent counseling/coordinating care. Reason for contiued inpatient stay Substantial Risk for: harm to self, inability to function and rapid decompensation
[2022-05-28] MEDS: Acetaminophen 325 MG TABLET 650 MG PO ×2 (15:16→22:13)
[2022-05-28 20:01] VITALS: BP 165/79; PULSE 78; RESP 16; TEMP 36.6; O2SAT 96
[2022-05-28] MEDS: Cyclobenzaprine HCl 10 MG TABLET PO (22:13)
[2022-05-28] MEDS: OLANZapine 10 MG TABLET PO (22:15)
[2022-05-29 08:00] VITALS: BP 143/79; PULSE 74; RESP 18; TEMP 36.1; O2SAT 97
[2022-05-29] MEDS: amLODIPine Besylate 2.5 MG TABLET PO (08:07)
[2022-05-29] MEDS: Acetaminophen 325 MG TABLET 650 MG PO ×2 (08:07→22:14)
[2022-05-29] MEDS: LORazepam 0.5 MG TABLET PO ×3 (08:07→22:14)
[2022-05-29] MEDS: Loratadine 10 MG TABLET PO (08:08)
--- NOTE | 2022-05-29 18:26 | P.PNPSI_ITS ---
Subjective Subjective Date of Service: 05/29/22 Reason For Visit: Mood Interim History: Pt is calm and cooperative. He is more clear, thoughts are linear and logical . He reports he slept well last night. reports his mood is good and denies safety concerns. He says he feels safe on unit. hip feeling better with tylenol. attending groups. Medication Compliance: Yes Side effects from medications: No Attending Groups: Yes Review of Systems Acute medical concerns: No Medical Review of Systems: unchanged Review of Systems Review of Systems Constitutional: No Fever, No Chills, , No Fatigue, No Malaise ENT/Mouth: No Ear Pain, No Nasal Congestion, No sore throat, No Rhinorrhea, No Swallowing Difficulty Eyes: No Eye Pain, No Swelling, No Redness, No Foreign Body, No Discharge, No Vision Changes Cardiovascular: No Chest Pain, No SOB, No Edema, No Palpitations Respiratory: No Cough, No Sputum, No Dyspnea Gastrointestinal: No Nausea, No Vomiting, No Diarrhea, No Constipation, No Abdominal pain Genitourinary: No Dysuria, No Urinary Frequency, No Hematuria, No Urinary Incontinence/retention, No Flank Pain Musculoskeletal: No joint pain, No Myalgias, No Joint Swelling Skin: No Skin Lesions, No rash Neuro: No Weakness, No Dizziness, No Headache Psych: + Anxiety/Panic, No Depression, No SI/HI/AH/VH, No Social Issues Yes all other systems are reviewed and are negative Constitutional: Reports as per HPI Denies Abnormal speech present Mental Status Exam Mental Status Exam Narrative: Appearance: casually groomed, fair hygiene in NAD Behavior:cooperative psychomotor:less retardation Speech:clear, some delayed in response, spontaneous Thought process:linear Thought content: no delusions or paranoia evident Mood: good Affect: constricted SI:denies HI:denies VH/AH:denies Insight/judgment:impaired x 2. Memory/cog: alert, oriented to situation. Diagnostics Vital Signs (24Hr): Vital Signs - 24 hr 05/28/22 20:01 05/29/22 08:00 Temperature 97.8 F 97.0 F Pulse Rate 78 74 Respiratory Rate 16 18 Blood Pressure 165/79 H 143/79 H Pulse Oximetry 96 97 Oxygen Delivery Method Room Air Room Air BMI result Body Mass Index 26.8 Labs Results: 05/23/22 08:47 05/25/22 09:00 Imaging Radiology Impressions: ITS Impressions Head CT 05/23/22 10:24 IMPRESSION: No acute intracranial pathology. Medications Medications Current Medications Acetaminophen (Acetaminophen 325 Mg Tablet) 650 mg PO Q6H PRN PRN Reason: Headache/Pain Mild Scale (1-3) Last Admin: 05/29/22 08:07 Dose: 650 mg Al Hydroxide/Mg Hydroxide (Magnesium Hydrox/Alum Hydrox 30 Ml Oral.Susp) 30 ml PO Q6H PRN PRN Reason: Heartburn/Nausea Albuterol Sulfate (Albuterol Sulfate 90 Mcg 8 Gm Inhaler) 1 puff INHALE RQID PRN PRN Reason: wheeze Amlodipine Besylate (Amlodipine Besylate 2.5 Mg Tablet) 2.5 mg PO DAILY [facility]; Protocol Last Admin: 05/29/22 08:07 Dose: 2.5 mg Cyclobenzaprine HCl (Cyclobenzaprine Hcl 10 Mg Tablet) 10 mg PO BEDTIME AISHWARYA Last Admin: 05/28/22 22:13 Dose: 10 mg Hydroxyzine HCl (Hydroxyzine Hcl 25 Mg Tablet) 25 mg PO Q6H PRN PRN Reason: Anxiety Last Admin: 05/26/22 22:22 Dose: 25 mg Loratadine (Loratadine 10 Mg Tablet) 10 mg PO DAILY AISHWARYA Last Admin: 05/29/22 08:08 Dose: 10 mg Lorazepam (Lorazepam 0.5 Mg Tablet) 0.5 mg PO TID AISHWARYA Last Admin: 05/29/22 14:23 Dose: 0.5 mg Magnesium Hydroxide (Milk Of Magnesia 30 Ml Oral.Susp) 30 ml PO DAILY PRN PRN Reason: Constipation Olanzapine (Olanzapine 10 Mg Tablet) 10 mg PO BEDTIME [facility] Last Admin: 05/28/22 22:15 Dose: 10 mg Pharmacy Consult (Consult Rx Perform Med Rec) 1 each MISCELLANE ONCE PRN PRN Reason: Consult order Allergies Allergies Allergy/AdvReac Type Severity Reaction Status Date / Time penicillin G Allergy Unknown Unknown Verified 05/23/22 07:37 penicillin V Allergy Unknown hives Verified 05/23/22 07:37 Penicillins Allergy Unknown UNKNOWN Verified 05/23/22 07:37 Quinolones Allergy Unknown Unknown Verified 05/23/22 07:37 trazodone Allergy Unknown Unknown Verified 05/23/22 07:37 lisinopril Allergy Unknown cough Uncoded 05/23/22 07:37 losartan AdvReac Intermediate Dizziness Uncoded 05/23/22 07:37 Assessment & Plan Assessment & Plan (1) Bipolar I disorder, most recent episode manic with catatonic features: Status: Acute Code(s): F31.10 - Bipolar disorder, current episode manic without psychotic features, unspecified; F06.1 - Catatonic disorder due to known physiological condition Plan 05/26 continue olanzapine, mostly at night time as AM dose makes him somnolent. 05/27: retry ativan at 0.5 mg TID rather than 1 mg TID, which left him woozy. signed CV. otherwise continue current mgmt. 05/28: Continue current treatment 05/29 Continue treatment plan I spent __15____ minutes with the patient and/or on the patient floor today, greater than?50% of which was spent counseling/coordinating care. Reason for contiued inpatient stay Substantial Risk for: harm to self, inability to function and rapid decompensation
[2022-05-29] MEDS: Cyclobenzaprine HCl 10 MG TABLET PO (22:14)
[2022-05-29] MEDS: OLANZapine 10 MG TABLET PO (22:14)
[2022-05-30 09:00] VITALS: BP 169/83; PULSE 81; RESP 18; TEMP 36.4; O2SAT 98
[2022-05-30] MEDS: amLODIPine Besylate 2.5 MG TABLET PO (09:08)
[2022-05-30] MEDS: Loratadine 10 MG TABLET PO (09:09)
[2022-05-30] MEDS: Acetaminophen 325 MG TABLET 650 MG PO (09:09)
[2022-05-30] MEDS: LORazepam 0.5 MG TABLET PO (09:09)
--- NOTE | 2022-05-30 11:01 | PM.PSYDC ---
DS: Providers Provider Date of Service: 05/30/22 Date of admission: 05/24/22 22:39 Primary care physician: Ryan Velasquez PA-C DS: Diagnosis Discharge Diagnosis (1) Bipolar I disorder, most recent episode manic with catatonic features: Status: Acute DS: Medications Discharge Medications Home Medications: Home Medications Medication Instructions Recorded Confirmed albuterol sulfate 90 mcg/actuation 1 inh inhalation QID 01/06/22 05/23/22 aerosol inhaler cyclobenzaprine 10 mg tablet 1 tab PO BEDTIME 05/23/22 05/25/22 Previous Rx's Medication Instructions Recorded blood pressure monitor (Blood #1 ea 01/11/21 Pressure Kit) amlodipine 2.5 mg tablet 2.5 mg PO DAILY 90 days #90 tabs 01/06/22 cetirizine 10 mg tablet 10 mg PO DAILY 90 days #90 tabs 01/06/22 olanzapine 10 mg tablet 10 mg PO BEDTIME 30 days #30 tabs 05/30/22 Mental Status Exam Mental Status Exam Narrative: Appearance: casually groomed, fair hygiene in NAD Behavior:cooperative psychomotor:moderate retardation Speech:clear, some delayed in response, spontaneous Thought process:linear Thought content: no delusions or paranoia evident Mood: good Affect: blunted SI:denies HI:denies VH/AH:denies Insight/judgment:impaired x 2. Memory/cog: alert, oriented to situation. Data Data Completed and Pending Completed studies during hospitalization [Text1]: 05/25/22 05/25/22 09:00 14:11 Sodium 141 Potassium 4.3 Chloride 102 Carbon Dioxide 30 H Anion Gap 13 BUN 13 Creatinine 1.23 Estim Creat Clear Calc 55.5 Estimated GFR > 60 Fasting Glucose 95 Calcium 9.5 Total Bilirubin 0.8 AST 11 ALT 14 Alkaline Phosphatase 79 Total Protein 6.6 Albumin 4.3 Triglycerides 183 Cholesterol 172 LDL Cholesterol, Calc 108 HDL Cholesterol 28 Urine Color Yellow Urine Appearance Clear Urine pH 5.5 Ur Specific [place] <= 1.005 Urine Protein Negative Urine Glucose (UA) Negative Urine Ketones Negative Urine Blood Negative Urine Nitrite Negative Ur Leukocyte Esterase Negative Imaging Diagnostic Imaging Impressions Head CT 05/23/22 10:24 IMPRESSION: No acute intracranial pathology. DS: Summary Hospital Course Hospital Course: per 05/25 admission note: Mr. Byrd is a 62 year-old male with unclear psych hx. Pt was brought by to [facility] after she found him, staring at ceiling not making much sense. In the ED, utox is negative. In the ED, he appears internally preoccupied. He seemed to be thought blocking some degree of catatonic features. He also noted to be crying but could not explained. Confused as to why he is here reporting he is having hip surgery. Prior, pt telling staff that he was praying for others. He had episodes of of psychomotor agitation, to episodes of staring at ceiling, lying in bed in the ED. No waxy flexibility. CBC wnl. CMP wnl. On the unit, pt reports he couldn't talk, was feeling very anxious, the day prior to bring him here. He reports he slept. He denies VH/AH but appears internally preoccupied. He denies SI/HI. He is oriented to place, month, date, some confusion still about situation and reason for hospitalization. Per , pt had mental break down in 2009. reports that he continued psychiatric treatment but she is not aware of his diagnosis or past medication trials. It does seem that there was prescription for wellbutrin which PCP continued prescribing unclear if other meds have been tried. 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 No hx of suicide attempt. does report that back then he was paranoid, not talking. Medical Evaluation Reviewed: Yes [facility] Medical History? Colonoscopy refused Surgical History? History of eye surgery Family History: none Social History: lives with and children Substance History: none Trauma History: none 05/26: Pt more linear and coherent. Pt reports that he was feeling very anxious, unable to talk, feeling sad at times. It difficult for him to explain he denies AH/VH. Pt reports sleeping well He states he felt woozy with ativan- will d/c He denies SI/HI. MOre visible and social with peers 05/27: calm, cooperative.? linear and relatively logical today.? presents well compared with his arrival.? states he slept well last night.? reports his mood is good and denies safety concerns.? hip feeling better with tylenol.? SW joins mtg partway through as pt expressing desire to discharge today and Tx team and want him to stay.? ultimately pt is convinced to stay the weekend and signs in voluntarily.? agrees to restart ativan for catatonic Sx but at 0.5 mg TID rather than 1 mg TID.? per staff, 12b up today.? attending groups.? started ativan 1 TID yesterday but it was DCed due to wooziness. ? clearer yesterday.? took HS meds, slept well. 05/28: calm, cooperative. thoughts are linear and logical . Calm, states he slept well last night.? reports his mood is good and denies safety concerns.? hip feeling better with tylenol. attending groups. 05/29: Pt is calm and cooperative. He is more clear, thoughts are linear and logical . He reports he slept well last night.? reports his mood is good and denies safety concerns. He says he feels safe on unit.? hip feeling better with tylenol. attending groups. 05/30: calm, cooperative, pleasant. somewhat flat and hypoverbal. discharging at 3 pm. had visit with yesterday. attending groups. eating and sleeping well. Precis: 05/26 continue olanzapine, mostly at night time as AM dose makes him somnolent. 05/27: retry ativan at 0.5 mg TID rather than 1 mg TID, which left him woozy. ? signed CV.? otherwise continue current mgmt. 05/28: Continue current treatment 05/29: Continue treatment plan 05/30: DC ativan at discharge, today. calm, cooperative, pleasant. does appear a bit psychomotorically flat and slow, unclear if that is catatonia expressing itself or neuroleptic. outpt provider will need to tease that out in the coming weeks. may need to be put back on benzo in the one instance, or have zyprexa dose decreased in the other. Time Spent with Patient Time attestation: Total time spent providing and/or coordinating discharge services: Time spent: Greater than 30 minutes Discharge Plan Discharge Anticipated Discharge Date/Time: 05/30/22 15:00 Patient Disposition: Home, Self-Care Discharge Diagnosis: Brief Psychotic Disorder Referrals: Liya Simms (psychiatrist) [Other] - 06/21/22 11:45 am (Appointment will be over the phone) Ryan Velasquez PA-C [Primary Care Provider] - 06/06/22 10:15 am () Discharge Medications: New olanzapine 10 mg Tablet 10 mg PO BEDTIME 30 Days Qty: 30 0RF Continued cyclobenzaprine 10 mg tablet 1 tab PO BEDTIME (DME) blood pressure monitor [Blood Pressure Kit] Kit See Rx Instructions .ROUTE .MEDSUPPLY Qty: 1 0RF Rx Instructions: As directed albuterol sulfate 90 mcg/actuation HFA aerosol inhaler 1 inh inhalation QID cetirizine 10 mg tablet 10 mg PO DAILY 90 Days Qty: 90 1RF Label Comments: P&T interchange to loratadine amlodipine 2.5 mg tablet 2.5 mg PO DAILY 90 Days Qty: 90 1RF Discontinued bupropion HCl 150 mg tablet sustained-release 12 hr 150 mg PO DAILY Qty: 90 1RF Discharge Orders: Discharge Order (Routine); Ordered 05/30/22 Ordered By: Darius Mitchell Diet: Advance to usual diet Activity on Discharge: As tolerated Stand Alone Forms: Patient Portal Discharge page, Community Support Care Plan Goals: remain safe and stable in the outpatient treatment setting Health Concerns: none Plan of Treatment: take medications as prescribed, attend appointments as scheduled Assessment: not at imminent risk of harm to self or others
--- NOTE | 2022-05-30 12:11 | PC.NURSE ---
Patient aware of discharge=- reviewed belongings and discharge instructions, patient verbalized appropriate questions re: medications- answered as asked. Patient denies SI/HI, patient denies AH/VH. Denies any concerns. Verbalized understanding of discharge instructions.
--- NOTE | 2022-05-30 15:49 | PC.NURSE ---
Patient discharged to the care of his .
== END 2022-05-30 15:30 | disposition home or self-care (01) | DRG 885 ==
LOC: HO.ED 05-24 14:45 → HO.PADLT16 05-24 22:43
PROVIDERS: Physician Assistant; Admitting Provider Psychiatry & Neurology Psychiatry; Emergency Provider Student in an Organized Health Care Education/Training Program; PCP Physician Assistant; Visit Provider Social Worker
DX: F31.10 Bipolar disorder, current episode manic without psychotic features, unspecified (principal); E78.5 Hyperlipidemia, unspecified; I10 Essential (primary) hypertension; J45.909 Unspecified asthma, uncomplicated; Z20.822 Contact with and (suspected) exposure to COVID-19; Z88.0 Allergy status to penicillin; Z88.8 Allergy status to other drugs, medicaments and biological substances; Z79.899 Other long term (current) drug therapy
CPT/HCPCS: 36415; 70450; 80053; 80061; 80143; 80179; 80307; 81001; 81003; 82077; 83735; 84484; 85025; 87635; 93005; 99285

== ENCOUNTER 2022-06-06 10:58 | Outpatient (REF) | payer MEDICARE, SELFPAY ==
--- NOTE | ~2022-06-06 | XR_ITS ---
EXAMINATION: XR HIP, RIGHT CLINICAL INFORMATION: Primary osteoarthritis COMPARISON: Previous x-ray February 2018 TECHNIQUE: Two views of the right hip. FINDINGS: There is severe right hip arthritis with joint space narrowing, osteophyte formation and subchondral cyst formation. This appears increased from 2018 exam. There is atherosclerotic disease. XR/XR hip RT min 2V IMPRESSION: Severe osteoarthritis of the right hip increased from 2018 exam.
== END 2022-06-06 10:59 | disposition home or self-care (01) ==
LOC: HO.XRAY 10:58
PROVIDERS: PCP Physician Assistant; Visit Provider Physician Assistant
DX: M16.11 Unilateral primary osteoarthritis, right hip (principal)
CPT/HCPCS: 73502

== ENCOUNTER 2022-06-23 12:18 | Outpatient (REF) | payer MEDICARE, SELFPAY ==
--- NOTE | ~2022-06-23 | XR_ITS ---
EXAMINATION: XR PELVIS CLINICAL INFORMATION: Pain COMPARISON: Right hip radiographs dated 06/06/2022. TECHNIQUE: AP view of the pelvis. FINDINGS: Severe superior right hip joint space narrowing with subchondral sclerosis, subchondral cystic change, and prominent marginal osteophytes. Mild bony remodeling. Findings are similar when compared to the prior examination. Femoral neck buttressing. [id number] left hip joint space narrowing with subchondral sclerosis and marginal osteophytes as well as femoral neck buttressing. Phleboliths within the pelvis. XR/XR pelvis 1-2V IMPRESSION: Severe right hip osteoarthritis with femoral neck buttressing. [id number] left hip osteoarthritis with femoral neck buttressing.
== END 2022-06-23 12:19 | disposition home or self-care (01) ==
LOC: HO.HOSX 12:18
PROVIDERS: Visit Provider Orthopaedic Surgery
DX: M16.11 Unilateral primary osteoarthritis, right hip (principal); F31.9 Bipolar disorder, unspecified
CPT/HCPCS: 72170; 99202

== ENCOUNTER → 2022-09-06 13:33 | Outpatient (BNVA) | payer MEDICARE, SELFPAY | PROVIDERS: PCP Physician Assistant; Visit Provider Orthopaedic Surgery | DX: Z13.89 Encounter for screening for other disorder (principal) ==

== ENCOUNTER → 2022-09-29 11:13 | Outpatient (BNVA) | payer MEDICARE, SELFPAY | PROVIDERS: PCP Physician Assistant; Visit Provider Physician Assistant | DX: M16.11 Unilateral primary osteoarthritis, right hip (principal) | CPT/HCPCS: 99212 ==

== ENCOUNTER 2022-10-04 06:00 | Inpatient (IN) | payer MEDICARE, SELFPAY ==
--- NOTE | 2022-09-06 14:43 | ECG_ITS ---
Test Reason : preop Blood Pressure : / mmHG Vent. Rate : 086 BPM Atrial Rate : 086 BPM P-R Int : 136 ms QRS Dur : 082 ms QT Int : 350 ms P-R-T Axes : 080 035 022 degrees QTc Int : 418 ms Normal sinus rhythm Nonspecific T wave abnormality Abnormal ECG When compared with ECG of 23-MAY-2022 15:36, Criteria for Septal infarct are no longer Present Referred By: Scot Ramos Electronically Signed By:Chidi Warren
[2022-09-06 14:51] LABS: MANUAL DIFF FLAG NO
[2022-09-06 15:00] LABS: Basophils Percent Auto 0.6 % (0-2); Eosinophils Absolute Auto 0.1 X10*3/uL (0.0-0.4); Eosinophils Percent Auto 1.9 % (0-4); Hematocrit 45.8 % (42.0-52.0); Hemoglobin 16.1 g/dl (14.0-18.0); Imm Gran Abs Auto 0.01 X10*3/uL (0.00-0.03); Imm Gran Pct Auto 0.2 % (0.0-0.4); Lymphocytes Absolute Auto 1.3 X10*3/uL (1.2-4.9); Lymphocytes Percent Auto 19.4 % (20-40); Mean Corpuscular HGB Conc 35.2 g/dl (31.0-36.0); Mean Corpuscular Hemoglobin 28.9 pg (27.0-33.0); Mean Corpuscular Volume 82.1 fL (80.0-98.0); Mean Platelet Volume 9.3 fL (9.4-12.4); Monocytes Absolute Auto 0.6 X10*3/uL (0.1-1.2); Monocytes Percent Auto 9.6 % (2-11); Neutrophils Absolute Auto 4.4 x10*3/uL (2.0-8.3); Neutrophils Percent Auto 68.3 % (45-73); Platelet Count 161 X10*3/uL (160-400); Red Blood Count 5.58 X10*6/uL (4.60-5.80); Red Cell Distribution Width 12.4 % (11.0-16.0); White Blood Count 6.5 X10*3/uL (4.8-10.8)
[2022-09-06 15:52] LABS: Anion Gap 14 (12-20); Blood Urea Nitrogen 11 mg/dL (9-16); Calcium 9.5 mg/dL (8.4-10.2); Carbon Dioxide 27 mmol/L (22-29); Chloride 103 mmol/L (96-108); Estimated Glomerular Filt Rate > 60; Glucose Random 110 mg/dL (60-115); Potassium 4.1 mmol/L (3.3-5.1); Sodium 140 mmol/L (135-145)
[2022-09-19 13:00] LABS: Prostate Specific Antigen Scr 2.72 ng/mL (<0.05-4.0)
[2022-09-19 13:05] LABS: TSH reflex Free T4 1.81 uIU/mL (0.32-4.0)
[2022-09-27 12:14] VITALS: BP 152/89; PULSE 78; RESP 20; O2SAT 97; BMI 32.8
--- NOTE | 2022-09-27 12:27 | HO.ANESPROP2 ---
Documented by User: Veda Guzmán NP 10/03/22 09:52 HPI - Anesthesia Eval Consult details Narrative: 62yo M for Right Hip Total Replacement PCP cleared [facility] Active Problems Active Problems: All Active Problems (Updated 09/27/22 @ 12:17 by Lisa David RN) JOSE (generalized anxiety disorder) (Acute) Asthma (Acute) GERD (gastroesophageal reflux disease) (Acute) Screening for diabetes mellitus (DM) (Acute) Screening for hypercholesterolemia (Acute) Screening for hypothyroidism (Acute) Screening for prostate cancer (Acute) Adult general medical exam (Acute) Hypertension (Acute) Dyslipidemia (Acute) Obese (Acute) Osteoarthritis of right hip (Acute) Myalgia (Acute) Bipolar I disorder (Acute) Past Medical History Medical History Anxiety Asthma Bipolar disorder Colonoscopy refused Depression Elevated cholesterol GERD (gastroesophageal reflux disease) History of COVID-19 HTN (hypertension) Nephrotic syndrome Osteoarthritis Family History Family History Mother No problems noted. Father No problems noted. Family history of problems with anesthesia: No Surgical History Surgical History History of eye surgery History of Problems with Anesthesia: No Social History Social History Household Members: Significant Other Housing: House Are you a primary personal care attendant to a significant other at home: No Do you presently have visiting nurse or other home services: No Alcohol intake: never Patient Tobacco Use Status: Never used Tobacco e-Cigarette/Vaping Use: Never Used Use of substances other than those prescribed or required for medical reasons: No Currently Displaying Signs/Symptoms of Drug Intoxication Withdrawal: No Have you been hit, kicked, punched, or otherwise hurt by someone within the past year? If so, by whom?: No Are you DNR?: No Advance Directives: No ( is primary contact) Advance Directives Information Provided: Yes (brochure given) Advance Directives on File: No Recently lost weight without trying: No Eating poorly because of decreased appetite: No Nutrition Risks: No Nutritional Risk Poor oral hygiene: No (broken teeth-right upper & some missing teeth) service: No Current occupational status: disabled Sexual orientation: Straight/Heterosexual Cognitive needs: No Hearing needs: No Vision needs: No Narrative Narrative: No recent illness. No CP/SOB within limits of pain. Meds Allergies Allergy/AdvReac Type Severity Reaction Status Date / Time Penicillins Allergy Intermediate Hives Verified 09/29/22 11:25 Quinolones Allergy Intermediate Rash Verified 09/29/22 11:25 trazodone Allergy Intermediate Rash/restless Verified 09/29/22 11:25 legs lisinopril AdvReac Intermediate Cough Verified 09/29/22 11:25 losartan AdvReac Intermediate Dizziness Verified 09/29/22 11:25 Home Medications Medication Instructions Recorded Confirmed Last Taken Type albuterol sulfate 90 mcg/actuation 1 inh inhalation QID 01/06/22 10/04/22 Unknown History aerosol inhaler Exam Exam Date and Time: September 27, 2022 1227 Height,Weight and Vital Signs: Height 5 ft 4 in Weight 86.636 kg Last Vital Signs Pulse 78 09/27/22 12:14 Resp 20 09/27/22 12:14 BP 152/89 H 09/27/22 12:14 Pulse Ox 97 09/27/22 12:14 O2 Del Method 09/27/22 12:14 Pertinent Lab Results Pertinent Lab Results: Laboratory Tests 09/06/22 09/06/22 09/19/22 14:50 14:50 09:49 WBC 6.5 RBC 5.58 Hgb 16.1 Hct 45.8 MCV 82.1 MCH 28.9 MCHC 35.2 RDW 12.4 Plt Count 161 MPV 9.3 L Immature Gran % (Auto) 0.2 Neut % (Auto) 68.3 Lymph % (Auto) 19.4 L [place] % (Auto) 9.6 Eos % (Auto) 1.9 Baso % (Auto) 0.6 Lymph # (Auto) 1.3 [place] # (Auto) 0.6 Eos # (Auto) 0.1 Baso # (Auto) 0.0 Abs Immat Gran (auto) 0.01 Absolute Neuts (auto) 4.4 Absolute Nucleated RBC 0.000 Nucleated RBC % (auto) 0.0 PT INR Sodium 140 Potassium 4.1 Chloride 103 Carbon Dioxide 27 Anion Gap 14 BUN 11 Creatinine 1.18 Estim Creat Clear Calc TNP Estimated GFR > 60 Random Glucose 110 Calcium 9.5 PSA Screen 2.72 TSH 09/19/22 09/19/22 09:49 09:49 WBC RBC Hgb Hct MCV MCH MCHC RDW Plt Count MPV Immature Gran % (Auto) Neut % (Auto) Lymph % (Auto) [place] % (Auto) Eos % (Auto) Baso % (Auto) Lymph # (Auto) [place] # (Auto) Eos # (Auto) Baso # (Auto) Abs Immat Gran (auto) Absolute Neuts (auto) Absolute Nucleated RBC Nucleated RBC % (auto) PT 11.0 INR 1.0 Sodium Potassium Chloride Carbon Dioxide Anion Gap BUN Creatinine Estim Creat Clear Calc Estimated GFR Random Glucose Calcium PSA Screen TSH 1.81 Narrative Narrative: EKG 08/2022 Vent. Rate : 086 BPM ? ? Atrial Rate : 086 BPM ?? P-R Int : 136 ms? QRS Dur : 082 ms ? ? QT Int : 350 ms ? ? ? P-R-T Axes : 080 035 022 degrees ?? QTc Int : 418 ms ? Normal sinus rhythm Nonspecific T wave abnormality Abnormal ECG When compared with ECG of 23-MAY-2022 15:36, Criteria for Septal infarct are no longer Present Airway TM Dist: >3cm Neck ROM: Full Loose/Missing/Broken Teeth: Yes (Missing teeth throughout. Broken teeth upper and lower right.) Heart: RRR Lungs: CTA Assessment and Plan Assessment Anesthesia Assessment: Anesthesia Plan Discussed and PAT Visit Final Anesthetic Review Family History of Problems with Anesthesia: No History of Problems with Anesthesia: No Documented by User: Turner Westbrook MD 10/04/22 17:13 HPI - Anesthesia Eval Consult details Narrative: 62yo M for Right Hip Total Replacement Optimized per PCP [facility] Past Medical History Medical History Anxiety Asthma Bipolar disorder Colonoscopy refused Depression Elevated cholesterol GERD (gastroesophageal reflux disease) History of COVID-19 HTN (hypertension) Nephrotic syndrome Osteoarthritis Family History Family History Mother No problems noted. Father No problems noted. Surgical History Surgical History History of eye surgery History of Problems with Anesthesia: Yes (Ponv ) Social History Social History Household Members: Significant Other Housing: House Are you a primary personal care attendant to a significant other at home: No Do you presently have visiting nurse or other home services: No Alcohol intake: never Patient Tobacco Use Status: Never used Tobacco e-Cigarette/Vaping Use: Never Used Use of substances other than those prescribed or required for medical reasons: No Currently Displaying Signs/Symptoms of Drug Intoxication Withdrawal: No Have you been hit, kicked, punched, or otherwise hurt by someone within the past year? If so, by whom?: No Are you DNR?: No Advance Directives: No ( is primary contact) Advance Directives Information Provided: Yes (brochure given) Advance Directives on File: No Recently lost weight without trying: No Eating poorly because of decreased appetite: No Nutrition Risks: No Nutritional Risk Poor oral hygiene: No (broken teeth-right upper & some missing teeth) service: No Current occupational status: disabled Sexual orientation: Straight/Heterosexual Cognitive needs: No Hearing needs: No Vision needs: No Meds Allergies Allergy/AdvReac Type Severity Reaction Status Date / Time Penicillins Allergy Intermediate Hives Verified 09/29/22 11:25 Quinolones Allergy Intermediate Rash Verified 09/29/22 11:25 trazodone Allergy Intermediate Rash/restless Verified 09/29/22 11:25 legs lisinopril AdvReac Intermediate Cough Verified 09/29/22 11:25 losartan AdvReac Intermediate Dizziness Verified 09/29/22 11:25 Home Medications Medication Instructions Recorded Confirmed Last Taken Type albuterol sulfate 90 mcg/actuation 1 inh inhalation QID 01/06/22 10/04/22 Unknown History aerosol inhaler Exam Airway Mallampati Class: III Assessment and Plan Assessment Anesthesia Assessment: Chart Reviewed Final Anesthetic Review History of Problems with Anesthesia: Yes (Ponv ) NPO: Yes ASA Class: III Final Preanesthetic Review: Meds/Allgs Chart Reviewed, Consent Obtained/Reviewed and Anes Risks/Benef Reviewed Anesthetic Plan Anesthetic Plan: GA Disposition: Standard PACU
[2022-09-27 14:44] LABS: MRSA Nasal PCR NEGATIVE (Negative); SA Nasal PCR POSITIVE (Negative)
[2022-10-04] VITALS (16 sets, daily range): BP systolic 117–157; BP diastolic 66–81; PULSE 73–95; RESP 12–19; TEMP 36.1–37.9; O2SAT 93–97; BMI 31.7
--- NOTE | ~2022-10-04 | XR_ITS ---
EXAMINATION: XR PELVIS CLINICAL INFORMATION: Right total hip replacement COMPARISON: 06/23/2022 TECHNIQUE: AP view of the pelvis. FINDINGS: Since the prior study there has been a right total hip replacement. Normal immediate postoperative findings are seen with surgical loren and air in the joint space and soft tissues. The prosthesis appears normal and in good position. Severe degenerative changes are seen in the left hip. No acute fractures. XR/XR pelvis 1-2V IMPRESSION: Newly placed right total hip prosthesis in good position.
[2022-10-04 06:42] LABS: COVID-19 Test Negative (Negative)
[2022-10-04] MEDS: oxyCODONE HCl ER 10 MG TAB.ER.12H PO ×2 (06:42→20:59)
[2022-10-04] MEDS: vancomycin HCL 1,500 MG in 0.9 % Sodium Chloride 500 ML 333.33 MG IV (06:54)
[2022-10-04] MEDS: Lactated Ringers 1,000 ML 100 ML IVCONT ×3 (07:17→21:03)
--- NOTE | 2022-10-04 07:17 | PC.NURSE ---
pt with vasovagal response to iv start. bp 106/58 pale, clammy, hob flat to trendelenberg iv start #20 r fa, ivf LR w.o. diaphoretic, cool cloth, with improvement to 128/64. ivf slowed. feeling better . extra secured iv, wrapped. prep done by tour consultant, pt joking.
--- NOTE | 2022-10-04 07:35 | MHC.SHP ---
Pre-Procedural Eval Section A Date of Service: 10/04/22 The patient is an INPATIENT: No Changes since office visit: No Cold of Flu in the past 2 weeks, No New Medical Problems, No Changes in Medication and No Patient answered all questions The History & Physical has been completed within 30 days and I have reviewed it.: Yes Section B Chief Complaint: RT KAE Allergies: Allergies Allergy/AdvReac Type Severity Reaction Status Date / Time Penicillins Allergy Intermediate Hives Verified 09/29/22 11:25 Quinolones Allergy Intermediate Rash Verified 09/29/22 11:25 trazodone Allergy Intermediate Rash/restless Verified 09/29/22 11:25 legs lisinopril AdvReac Intermediate Cough Verified 09/29/22 11:25 losartan AdvReac Intermediate Dizziness Verified 09/29/22 11:25 Plan I have reviewed the history and physical and performed a pertinent physical examination on my patient. No changes have occurred unless specified. Time Spent With Patient Time: Total time managing care of this patient today ____ minutes.
--- NOTE | 2022-10-04 07:37 | PHA.MEDREC ---
Pharmacy Consult ? Medication Reconciliation Pharmacy has completed the medication reconciliation. Carlos
--- NOTE | 2022-10-04 09:54 | P.BOP_ITS ---
Brief Operative Note Date of Service: 10/04/22 Pre-op diagnosis: Right hip OA Post-op diagnosis: same Procedure: Right KAE Implants: Allyson Trident2 56/230 deg lip liner Allyson Accolade2 # 6 127 deg/ +0 26 cermic femoral head Surgeon: Scot Ramos MD Anesthesia: GETA and local Was an Training Program Assistant used for this Procedure?: No Estimated blood loss (mL): 200 IV fluids (mL): 1,000 Pathology: other Condition: stable Disposition: PACU
--- NOTE | 2022-10-04 10:10 | W.PM.OPN ---
Operative Note Operative Note Date of Service: 10/04/22 Narrative: Date of Service: 10/04/22 Pre-op diagnosis: Right hip OA Post-op diagnosis: same Procedure: Right KAE Implants: [place] Trident2 56/230 deg lip liner Allyson Accolade2 # 6 127 deg/ +0 26 ceramic femoral head Surgeon: Scot Ramos MD Anesthesia: GETA and local Was an Log Turner used for this Procedure?: No Estimated blood loss (mL): 200 IV fluids (mL): 1,000 Pathology: other Condition: stable Disposition: PACU Procedure in detail: Patient was brought into the operating room and placed in the right lateral decubitus position. All bony prominences were well padded and the limb was prepped and draped in standard sterile fashion. A time-out was called to identify proper site procedure proper surgeon IV antibiotics and 1 g of transaxemic acid were administered. I began by making a curvilinear incision over the posterolateral aspect of the greater trochanter. Dissection was taken down to the tensor fascia which was incised in line with the incision and a Charnley retractor was placed. Cautery was used to maintain hemostasis. The hip was internally rotated and the external rotators were identified. The vessels were cauterized and a full-thickness capsular/external rotator layer was developed starting just proximal to the piriformis. This layer was tagged and a dull Hohmann retractor was placed underneath the neck in the hip was dislocated. The hip was very tight with no internal rotation at baseline. A neck cut was made 1 cm proximal to the lesser trochanter and the head and neck were removed and measured 52-4mm on the back table. The head was eburnated and deformed. I then removed the labrum and cauterized the fovea. I started with a 46 reamer and medialized to the inner table. I sequentially reamed up to a size 55 and impacted a 56mm cup at 45 degrees of inclination and 20 degrees of version. I then placed a 20 deg posterior lipped liner and turned my attention to the femur. I identified the piriformis insertion and used this as a starting point for my samuel cutter. The medius tendon was protected with a Hibs retractor. A Charnley awl was inserted in the canal and a curved curette used to remove the lateral bone. I irrigated copiously. I then sequentially broached in the patient's natural version to a size 6 and placed my trial implants. I used a #6/127/+0 based on my pre-operative template. Using a trail head I took the hip through range of motion. I was satisfied with the stability and length. I removed all instrumentation and copiously irrigated. I placed my final femoral implant and again took the hip through range of motion and was satisfied with the stability and length. The final +0 implant was impacted in place and the hip reduced. I then irrigated for 3 minutes with iodine and placed 1 g of local transaxemic acid. I performed a capsular closure with 2.0 fiberwire, Salvatore's fascia with 0 Vicryl, subcuticular with 2-0 Vicryl and the skin with loren. Patient was placed into a sterile dressing. Patient was extubated brought to the recovery room in stable condition. There were no known complications.
[2022-10-04] MEDS: HYDROmorphone HCl 0.5 MG/0.5 ML SYRINGE 0.25 MG IVPUSH ×3 (10:27→22:44)
[2022-10-04] MEDS: 0.9 % Sodium Chloride Flush 3 ML SYRINGE IVFLUSH ×2 (12:43→21:00)
[2022-10-04] MEDS: Acetaminophen 325 MG TABLET 650 MG PO ×2 (12:50→23:46)
[2022-10-04] MEDS: oxyCODONE HCl Immed Release 5 MG TABLET PO (12:50)
--- NOTE | 2022-10-04 15:37 | P.CONHOSP_ITS ---
History of Present Illness Data of Consult Service Date: 10/04/22 Requesting physician: Jacqueline Soto Primary Care Provider: Ryan Velasquez PA-C HPI Reason for consult: medical management 62-year-old male with history of GERD, mild persistent asthma, general anxiety, bipolar disorder, hypertension, hyperlipidemia admitted to Orthopedic surgery for management of osteoarthritis of the right hip s/p right total hip arthroplasty pod 0 with consult placed to Hospital Medicine for medical management. According to nursing staff, the patient did experience a vasovagal episode preoperatively during IV placement. He reports he is still feeling somewhat lightheaded and nauseous but has had some improvement with scopolamine patch. Vital signs are stable blood pressure of 146/76, HR 85. He reports pain is reasonably controlled. Denies any vomiting, abdominal pain, palpitations, shortness of breath, chest pain. Review of Systems Review of Systems: Yes all other systems are reviewed and are negative [facility] Medical History Anxiety Asthma Bipolar disorder Colonoscopy refused Depression Elevated cholesterol GERD (gastroesophageal reflux disease) History of COVID-19 HTN (hypertension) Nephrotic syndrome Osteoarthritis Family History Mother No problems noted. Father No problems noted. Surgical History History of eye surgery Social History Household Members: Significant Other Housing: House Are you a primary client care specialist to a significant other at home: No Do you presently have visiting nurse or other home services: No Alcohol intake: never Patient Tobacco Use Status: Never used Tobacco e-Cigarette/Vaping Use: Never Used Use of substances other than those prescribed or required for medical reasons: No Currently Displaying Signs/Symptoms of Drug Intoxication Withdrawal: No Have you been hit, kicked, punched, or otherwise hurt by someone within the past year? If so, by whom?: No Are you DNR?: No Advance Directives: No ( is primary contact) Advance Directives Information Provided: Yes (brochure given) Advance Directives on File: No Recently lost weight without trying: No Eating poorly because of decreased appetite: No Nutrition Risks: No Nutritional Risk Poor oral hygiene: No (broken teeth-right upper & some missing teeth) service: No Current occupational status: disabled Sexual orientation: Straight/Heterosexual Cognitive needs: No Hearing needs: No Vision needs: No Meds Allergies Allergy/AdvReac Type Severity Reaction Status Date / Time Penicillins Allergy Intermediate Hives Verified 09/29/22 11:25 Quinolones Allergy Intermediate Rash Verified 09/29/22 11:25 trazodone Allergy Intermediate Rash/restless Verified 09/29/22 11:25 legs lisinopril AdvReac Intermediate Cough Verified 09/29/22 11:25 losartan AdvReac Intermediate Dizziness Verified 09/29/22 11:25 Active Medications: Current Medications Acetaminophen (Acetaminophen 325 Mg Tablet) 650 mg PO Q6H PRN PRN Reason: Pain, Mild (Pain Scale 1-3) Last Admin: 10/04/22 12:50 Dose: 650 mg Albuterol Sulfate (Albuterol Sulfate 90 Mcg 8 Gm Inhaler) 1 puff INHALE QID [facility] Cyclobenzaprine HCl (Cyclobenzaprine Hcl 10 Mg Tablet) 10 mg PO BEDTIME [facility] Fentanyl (Fentanyl Citrate/Pf 100 Mcg/2 Ml Vial) 25 mcg IVPUSH Q5M PRN; Protocol PRN Reason: Pain, Moderate (Pain Scale 4-6 Hydromorphone HCl (Hydromorphone Hcl 0.5 Mg/0.5 Ml Syringe) 0.25 mg IVPUSH Q5M PRN; Protocol PRN Reason: Pain, Severe (Pain Scale 7-10) Last Admin: 10/04/22 10:36 Dose: 0.25 mg Hydromorphone HCl (Hydromorphone Hcl 0.5 Mg/0.5 Ml Syringe) 0.25 mg IVPUSH Q4H PRN; Protocol PRN Reason: Pain, Severe (Pain Scale 7-10) Lactated Ringer's (Lr) 1,000 mls @ 100 mls/hr IVCONT .Q10H AISHWARYA Stop: 10/05/22 11:34 Last Admin: 10/04/22 12:43 Dose: 100 mls/hr Vancomycin HCl 1,500 mg/ (Sodium Chloride) 250 mls @ 250 mls/hr IV POSTOP ONE Stop: 10/04/22 19:59 Loratadine (Loratadine 10 Mg Tablet) 10 mg PO DAILY [facility] Olanzapine (Olanzapine 10 Mg Tablet) 10 mg PO BEDTIME AISHWARYA Ondansetron HCl (Ondansetron Hcl 4 Mg/2 Ml Vial) 4 mg IVPUSH Q8H PRN PRN Reason: Nausea and Vomiting Oxycodone HCl (Oxycodone Hcl Immed Release 5 Mg Tablet) 5 mg PO Q4H PRN PRN Reason: Pain, Moderate (Pain Scale 4-6 Last Admin: 10/04/22 12:50 Dose: 5 mg Oxycodone HCl (Oxycodone Hcl Er 10 Mg Tab.Er.12h) 10 mg PO BID [facility] Sodium Chloride (0.9 % Sodium Chloride Flush 3 Ml Syringe) 3 ml IVFLUSH QSHIFT [facility] Last Admin: 10/04/22 12:43 Dose: 3 ml Home Medications Medication Instructions Recorded Confirmed Last Taken Type albuterol sulfate 90 mcg/actuation 1 inh inhalation QID 01/06/22 10/04/22 Unknown History aerosol inhaler Physical Exam Vital Signs and Narrative: Vital Signs: Last Vital Signs Temp 98 F 10/04/22 15:09 Pulse 85 10/04/22 15:09 Resp 18 10/04/22 15:09 BP 146/76 H 10/04/22 15:09 Pulse Ox 94 10/04/22 15:09 O2 Del Method 10/04/22 15:09 O2 Flow Rate 3 10/04/22 11:35 BMI result Body Mass Index 31.7 Constitutional - Awake and Alert, No apparent distress Eyes - PERRLA, EOMI Cardiovascular - S1S2, RRR, No edema Respiratory - Normal lung expansion, Normal respiratory effort, No respiratory distress, CTA bilaterally Gastrointestinal - NT / ND; +BS; No rebound or guarding Extremities - no calf tenderness bilaterally, no swelling Skin - Warm/Dry Neurological - Alert & oriented x3, CN II- XII in tact Psychological - Appropriate affect Results Labs 09/06/22 14:50 09/06/22 14:50 Labs: Laboratory Results - last 24 hr 10/04/22 06:02 COVID-19 (DILEEP) Negative COVID-19 Clin Com See Note Assessment and Plan (1) Routine medical exam: Status: Acute Plan 62-year-old male with history of GERD, mild persistent asthma, general anxiety, bipolar disorder, hypertension, hyperlipidemia admitted to Orthopedic surgery for management of osteoarthritis of the right hip s/p right total hip arthroplasty pod 0 with consult placed to Hospital Medicine for medical management. # right hip osteoarthritis s/p right total hip arthroplasty -pod 0 -plan for general surgery # postoperative lightheadedness and nausea -likely effect of anesthesia -vital signs are stable. No focal neuro deficits -continue IV fluids, scopolamine patch -monitor for worsening symptoms # mild persistent asthma -not well controlled. Patient reports using albuterol inhaler twice daily every day ongoing for about 2 months -add Flovent inhaler b.i.d.. Advised to rinse mouth well following each use. Continue on discharge -continue albuterol p.r.n. # bipolar disorder/anxiety -continue home meds # hypertension-reasonably controlled -resume amlodipine a.m. Thank you for allowing me to participate in this consult. Signing off at this time. Please do not hesitate to call for further questions. Time Spent With Patient Time: Total time managing care of this patient today ____ minutes.
[2022-10-04] MEDS: vancomycin HCL 1,500 MG in 0.9 % Sodium Chloride 500 ML 250 MG IV (19:16)
[2022-10-04] MEDS: Fluticasone Propionate 100 MCG BLST.W.DEV 1 PUFF INHALE (19:50)
[2022-10-04] MEDS: Albuterol Sulfate 90 MCG 8 GM INHALER 1 PUFF INHALE (19:51)
[2022-10-04] MEDS: Cyclobenzaprine HCl 10 MG TABLET PO (20:59)
[2022-10-04] MEDS: OLANZapine 10 MG TABLET PO (21:00)
[2022-10-05] VITALS (13 sets, daily range): BP systolic 148–168; BP diastolic 71–78; PULSE 87–98; RESP 16–20; TEMP 36.8–38; O2SAT 93–95
[2022-10-05] MEDS: Acetaminophen 325 MG TABLET 650 MG PO ×2 (06:10→19:59)
[2022-10-05 07:03] LABS: MANUAL DIFF FLAG NO
[2022-10-05 07:12] LABS: Basophils Percent Auto 0.2 % (0-2); Eosinophils Absolute Auto 0.1 X10*3/uL (0.0-0.4); Eosinophils Percent Auto 0.6 % (0-4); Hematocrit 35.3 % (42.0-52.0); Hemoglobin 12.3 g/dl (14.0-18.0); Imm Gran Abs Auto 0.02 X10*3/uL (0.00-0.03); Imm Gran Pct Auto 0.2 % (0.0-0.4); Lymphocytes Absolute Auto 1.2 X10*3/uL (1.2-4.9); Lymphocytes Percent Auto 15.1 % (20-40); Mean Corpuscular HGB Conc 34.8 g/dl (31.0-36.0); Mean Corpuscular Hemoglobin 29.9 pg (27.0-33.0); Mean Corpuscular Volume 85.7 fL (80.0-98.0); Mean Platelet Volume 10.1 fL (9.4-12.4); Monocytes Absolute Auto 0.7 X10*3/uL (0.1-1.2); Monocytes Percent Auto 8.4 % (2-11); Neutrophils Absolute Auto 6.2 x10*3/uL (2.0-8.3); Neutrophils Percent Auto 75.5 % (45-73); Platelet Count 141 X10*3/uL (160-400); Red Blood Count 4.12 X10*6/uL (4.60-5.80); Red Cell Distribution Width 13.1 % (11.0-16.0); White Blood Count 8.2 X10*3/uL (4.8-10.8)
[2022-10-05 07:23] LABS: Anion Gap 11 (12-20); Blood Urea Nitrogen 11 mg/dL (9-16); Calcium 8.1 mg/dL (8.4-10.2); Carbon Dioxide 27 mmol/L (22-29); Chloride 104 mmol/L (96-108); Creatinine Clr Calc Pharmacy 62.9; Estimated Glomerular Filt Rate > 60; Glucose Fasting 136 mg/dL (60-99); Sodium 138 mmol/L (135-145)
--- NOTE | 2022-10-05 07:31 | PM.PNORT ---
Subjective Subjective Date of Service: 10/05/22 Interval history: POD1 s/p RTHA. Patient is resting in bed comfortably. No overnight events. Pain is well managed. No additional complaints. Physical Exam Vital Signs: Vital Signs: Last Vital Signs Temp 99.5 F 10/05/22 03:40 Pulse 98 10/05/22 03:40 Resp 18 10/05/22 03:40 BP 155/74 H 10/05/22 03:40 Pulse Ox 94 10/05/22 03:40 O2 Del Method 10/05/22 03:40 O2 Flow Rate 3 10/04/22 11:35 BMI result Body Mass Index 31.7 Const: General: cooperative, healthy appearing and no acute distress Resp: Effort & Inspection: normal respiratory effort and able to speak in complete sentences Cardio: Rate: regular rate Peripheral pulses: Peripheral pulses 2+ throughout GI: Palpation (GI): Soft to palpation Skin: Lesions: no lesions Rashes: no rashes Extrem: Other: Right hip Aquacel is c/d/i. able to dorsiflex and plantarflex. NVI. Procedures Date of Service Date of Service: 10/05/22 Progress Note: A&P Assessment and plan (1) S/P total right hip arthroplasty: Status: Acute Plan Continue pain mgmnt Begin Lovenox for dvt ppx begin PT for RTHA Dispo planning-PT, pain mgmnt Time Spent With Patient Time: Total time managing care of this patient today ____ minutes. Quality Stroke Does the patient have a stroke diagnosis?: No VTE Prior VTE?: No VTE Risk Level:: Medical - moderate - high VTE Device Contraindication: N/A - Device Ordered VTE Drug Contraindication: N/A - Med Ordered
[2022-10-05] MEDS: Fluticasone Propionate 100 MCG BLST.W.DEV 1 PUFF INHALE ×2 (07:53→20:27)
[2022-10-05] MEDS: Albuterol Sulfate 90 MCG 8 GM INHALER 1 PUFF INHALE ×4 (07:54→20:26)
[2022-10-05] MEDS: oxyCODONE HCl ER 10 MG TAB.ER.12H PO ×2 (08:13→20:57)
[2022-10-05] MEDS: Enoxaparin Sodium 40 MG/0.4 ML SYRINGE SUBCUT (08:13)
[2022-10-05] MEDS: Lactated Ringers 1,000 ML 100 ML IVCONT (08:17)
[2022-10-05] MEDS: 0.9 % Sodium Chloride Flush 3 ML SYRINGE IVFLUSH ×3 (08:18→20:14)
[2022-10-05] MEDS: Loratadine 10 MG TABLET PO (08:19)
--- NOTE | 2022-10-05 10:23 | MHC.CM.PN ---
pt lives has no previous servceis pt is not vax has own ride home per ptsreceoomdation pt to go homewith home servceis thru rajesh
--- NOTE | 2022-10-05 11:33 | HO.POSTANES ---
Post Anesthesia Evaluation Post Anesthesia Evaluation Vital Signs: Vital Signs Temp Pulse Resp BP Pulse Ox O2 Del Method 10/05/22 09:21 91 10/05/22 09:48 93 Room Air 10/05/22 07:53 98.2 F 87 18 148/71 H 93 Room Air 10/05/22 07:54 91 16 10/05/22 03:40 99.5 F 98 18 155/74 H 94 Room Air Anesthesia: General Mental Status: Awake Pain Control: Satisfactory Nausea/Vomiting: None Hydration: Adequate Anesthesia-Related Issues: No Anes. Related Issues
[2022-10-05] MEDS: oxyCODONE HCl Immed Release 5 MG TABLET PO ×2 (11:37→16:41)
[2022-10-05] MEDS: HYDROmorphone HCl 0.5 MG/0.5 ML SYRINGE 0.25 MG IVPUSH ×2 (12:51→19:59)
[2022-10-05] MEDS: Cyclobenzaprine HCl 10 MG TABLET PO (20:14)
[2022-10-05] MEDS: OLANZapine 10 MG TABLET PO (20:14)
[2022-10-06 03:22] VITALS: BP 139/69; PULSE 93; RESP 18; TEMP 37.5; O2SAT 94
[2022-10-06] MEDS: Acetaminophen 325 MG TABLET 650 MG PO (05:12)
[2022-10-06 06:33] LABS: MANUAL DIFF FLAG NO
[2022-10-06 06:38] LABS: Basophils Percent Auto 0.3 % (0-2); Eosinophils Absolute Auto 0.2 X10*3/uL (0.0-0.4); Eosinophils Percent Auto 2.2 % (0-4); Hematocrit 34.5 % (42.0-52.0); Hemoglobin 11.8 g/dl (14.0-18.0); Imm Gran Abs Auto 0.03 X10*3/uL (0.00-0.03); Imm Gran Pct Auto 0.3 % (0.0-0.4); Lymphocytes Absolute Auto 1.7 X10*3/uL (1.2-4.9); Lymphocytes Percent Auto 19.6 % (20-40); Mean Corpuscular HGB Conc 34.2 g/dl (31.0-36.0); Mean Corpuscular Hemoglobin 29.4 pg (27.0-33.0); Mean Platelet Volume 9.4 fL (9.4-12.4); Monocytes Absolute Auto 0.9 X10*3/uL (0.1-1.2); Monocytes Percent Auto 9.9 % (2-11); Neutrophils Absolute Auto 5.8 x10*3/uL (2.0-8.3); Neutrophils Percent Auto 67.7 % (45-73); Platelet Count 107 X10*3/uL (160-400); Red Blood Count 4.01 X10*6/uL (4.60-5.80); White Blood Count 8.6 X10*3/uL (4.8-10.8)
[2022-10-06 07:01] LABS: Anion Gap 11 (12-20); Blood Urea Nitrogen 11 mg/dL (9-16); Calcium 8.3 mg/dL (8.4-10.2); Carbon Dioxide 30 mmol/L (22-29); Chloride 101 mmol/L (96-108); Creatinine Clr Calc Pharmacy 57.2; Estimated Glomerular Filt Rate 54; Glucose Fasting 118 mg/dL (60-99); Potassium 3.9 mmol/L (3.3-5.1); Sodium 138 mmol/L (135-145)
[2022-10-06 07:21] VITALS: BP 128/61; PULSE 85; RESP 16; TEMP 36.6; O2SAT 95
[2022-10-06] MEDS: oxyCODONE HCl ER 10 MG TAB.ER.12H PO (07:50)
[2022-10-06] MEDS: Enoxaparin Sodium 40 MG/0.4 ML SYRINGE SUBCUT (07:51)
[2022-10-06] MEDS: Loratadine 10 MG TABLET PO (07:51)
[2022-10-06] MEDS: 0.9 % Sodium Chloride Flush 3 ML SYRINGE IVFLUSH (07:51)
[2022-10-06 08:16] VITALS: BP 128/61; PULSE 85; O2SAT 95
--- NOTE | 2022-10-06 09:12 | P.DS_ITS ---
DS: Providers Provider Date of Service: 10/06/22 Date of admission: 10/04/22 06:00 Primary care physician: Ryan Velasquez PA-C Consults: 10/04/22 11:35 Consult to Hospitalist Routine Consulting Provider: Hospitalist Reason For Exam: medical managment, h/o nephrotic syndrome DS: Diagnosis Discharge Diagnosis (1) S/P total right hip arthroplasty: Status: Acute DS: Summary Hospital Course Hospital Course: The patient underwent a successful Right total hip arthroplasty, they were transferred to PACU and then to the floor to recover. During their stay, their vitals were stable, afebrile at 97.9. Labs were unremarkable, H/H 11.8/34.5. POD 1 they were started on Lovenox for DVT ppx, they also received Physical Therapy services twice a day. Prior to discharge, their dressing was changed, incision clean dry and intact, new Aquacel dressing applied and the plan was to be discharged home with VNA services. Time Spent with Patient Time attestation: Total time managing care of this patient today ____ minutes. Discharge coordination time: Less than 30 minutes Quality: Safe Use of Opioids Does Pt have an Active Cancer Diagnosis on the Problem List?: No Quality: Stroke Does the patient have a stroke diagnosis?: No Physical Exam Vital Signs: Vital Signs: Last Vital Signs Temp 97.9 F 10/06/22 07:21 Pulse 85 10/06/22 08:16 Resp 16 10/06/22 07:21 BP 128/61 10/06/22 08:16 Pulse Ox 95 10/06/22 08:16 O2 Del Method 10/06/22 07:52 O2 Flow Rate 3 10/04/22 11:35 BMI result Body Mass Index 31.7 Const: General: cooperative, healthy appearing and no acute distress Resp: Effort & Inspection: normal respiratory effort and able to speak in complete sentences Cardio: Rate: regular rate Peripheral pulses: Peripheral pulses 2+ throughout GI: Palpation (GI): Soft to palpation Skin: Lesions: no lesions Rashes: no rashes Extrem: Other: Right hip Ramila intact. No erythema or drainage. Able to dorsiflex and plantarflex. NVI. DS: Data Data Completed and Pending Pending studies at discharge: Pending at discharge 10/04/22 09:16 Surgical [PTH] Routine Labs on day of discharge: Laboratory Results - last 24 hr 10/06/22 10/06/22 06:23 06:23 WBC 8.6 RBC 4.01 L Hgb 11.8 L Hct 34.5 L MCV 86.0 MCH 29.4 MCHC 34.2 RDW 13.0 Plt Count 107 L MPV 9.4 Immature Gran % (Auto) 0.3 Neut % (Auto) 67.7 Lymph % (Auto) 19.6 L Baldwin % (Auto) 9.9 Eos % (Auto) 2.2 Baso % (Auto) 0.3 Lymph # (Auto) 1.7 Baldwin # (Auto) 0.9 Eos # (Auto) 0.2 Baso # (Auto) 0.0 Abs Immat Gran (auto) 0.03 Absolute Neuts (auto) 5.8 Absolute Nucleated RBC 0.000 Nucleated RBC % (auto) 0.0 Sodium 138 Potassium 3.9 Chloride 101 Carbon Dioxide 30 H Anion Gap 11 L BUN 11 Creatinine 1.34 Estim Creat Clear Calc 57.2 Estimated GFR 54 Fasting Glucose 118 H Calcium 8.3 L Discharge Plan Discharge Anticipated Discharge Date/Time: 10/06/22 12:00 Patient Disposition: Home Health Service Discharge Diagnosis: s/p RTHA Referrals: Jacqueline Soto PA-C [Physician Day Habilitation Supervisor] - 10/20/22 1:00 pm Discharge Medications: New acetaminophen 325 mg Tablet 650 mg PO Q6H PRN (Reason: Pain, Mild (Pain Scale 1-3)) 30 Days Qty: 240 0RF oxycodone 5 mg Tablet 5 mg PO Q4H PRN (Reason: Pain, Moderate (Pain Scale 4-6) 7 Days Qty: 42 0RF Rx Instructions: Partial Fill upon patient request. enoxaparin 40 mg/0.4 mL Syringe 40 mg subcut Q24H 42 Days Qty: 16.8 0RF Continued cyclobenzaprine 10 mg tablet 10 mg PO BEDTIME 90 Days Qty: 90 1RF (DME) walker Misc See Rx Instructions .MEDSUPPLY Qty: 1 0RF Rx Instructions: Folding Front wheeled walker (DME) Raised toilet seat See Rx Instructions .ROUTE .MEDSUPPLY Qty: 1 0RF Rx Instructions: As directed (DME) blood pressure monitor [Blood Pressure Kit] Kit See Rx Instructions .ROUTE .MEDSUPPLY Qty: 1 0RF Rx Instructions: As directed albuterol sulfate 90 mcg/actuation HFA aerosol inhaler 1 inh inhalation QID amlodipine 5 mg tablet 5 mg PO DAILY 90 Days Qty: 90 1RF cetirizine 10 mg tablet 10 mg PO DAILY 90 Days Qty: 90 1RF Label Comments: P&T interchange to loratadine olanzapine 10 mg tablet 10 mg PO BEDTIME 90 Days Qty: 90 1RF Discharge Orders: Discharge Order (Routine); Ordered 10/06/22 Ordered By: Opal Shirley Diet: Advance to usual diet Activity on Discharge: Use cane or walker Stand Alone Forms: Patient Portal Discharge page Care Plan Goals: Restore fxn to right hip Health Concerns: None Plan of Treatment: Physical Therapy for total hip arthroplasty: posterior precautions, gait training, ROM, strength Limit stair climbing No showering, no tub bath-keep dressing clean, dry and intact No driving x6 weeks Continue Lovenox tabs once a day x 4 weeks Follow up with [facility] in 2 weeks Assessment: Stable for D/C
[2022-10-06] MEDS: oxyCODONE HCl Immed Release 5 MG TABLET PO (11:15)
--- NOTE | 2022-10-06 11:22 | P.F2F_ITS ---
Service Date Service Date: 10/06/22 Encounter Date of encounter: 10/06/22 Reasons for Services Signs and symptoms assessed: Pt. is considered homebound due to recent surgery. Unable to drive, poor balance, poor gait mechanics. S/P RTHA. Homebound: Leaving the home is medically contraindicated at this time without the asist of a device and/or another person due th the listed conditions above and below. Reason homebound: unsteady gait / fall risk, leg weakness, pain with ambulation, pain with transfers, poor balance / fall risk and unable to drive Homebound supporting statement: Pt. is considered homebound due to recent surgery. Unable to drive, poor balance, poor gait mechanics. Certification: Based on the above findings, I certify that this patient is confined to the home and needs intermittent assisted care, physical therapy and/or speech therapy, or continues to need occupational therapy. The patient is under my care, and I have initiated the establishment of the plan of care. The patient will be followed by a physician who will periodically review the plan of care. Time Spent With Patient Time: Total time managing care of this patient today ____ minutes.
[2022-10-06] MEDS: Albuterol Sulfate 90 MCG 8 GM INHALER 1 PUFF INHALE (11:26)
[2022-10-06 11:27] VITALS: PULSE 95; RESP 16; O2SAT 93
--- NOTE | 2022-10-06 11:29 | MHC.CM.PN ---
IMM 10/05 Patient is discharged to home with D[facility]. All info including face 2 face have been sent to the agency. The patient has arranged for transportation home.
== END 2022-10-06 13:32 | disposition home health service (06) | DRG 470 ==
LOC: HO.SSSA 07:28 → HO.S3 10:16
PROVIDERS: Nurse Practitioner Family; Physician Assistant; Admitting Provider Orthopaedic Surgery; PCP Physician Assistant; Visit Provider Orthopaedic Surgery
PROC: 0SR903A Replacement of Right Hip Joint with Ceramic Synthetic Substitute, Uncemented, Open Approach (ICD-10-PCS; CPT 27130; principal; 2022-10-04 07:30)
DX: M16.11 Unilateral primary osteoarthritis, right hip (principal); F31.9 Bipolar disorder, unspecified; J45.30 Mild persistent asthma, uncomplicated; F41.1 Generalized anxiety disorder; E78.5 Hyperlipidemia, unspecified; I10 Essential (primary) hypertension; Z20.822 Contact with and (suspected) exposure to COVID-19; Z88.0 Allergy status to penicillin; Z88.1 Allergy status to other antibiotic agents; Z88.8 Allergy status to other drugs, medicaments and biological substances; Z79.899 Other long term (current) drug therapy; Z12.5 Encounter for screening for malignant neoplasm of prostate
CPT/HCPCS: 27130; 36415; 72170; 80048; 84153; 84443; 85025; 85610; 86850; 86900; 86901; 87635; 87640; 87641; 88304; 88311; 93005; 94640; 97110; 97116; 97162; 97166; 97530; 97535; C1776; J0131; J1170; J1650; J2250; J2370; J2405; J2550; J2795; J3010; J3371

== ENCOUNTER 2022-10-20 09:43 | Outpatient (RCR) | payer MEDICARE, SELFPAY | END 2023-01-26 13:19 | disposition home or self-care (01) | LOC: HO.PT 09:43 | PROVIDERS: Visit Provider Physician Assistant | DX: M16.11 Unilateral primary osteoarthritis, right hip (principal) ==

== ENCOUNTER → 2022-10-20 12:28 | Outpatient (BNVA) | payer MEDICARE, SELFPAY | PROVIDERS: PCP Physician Assistant; Visit Provider Physician Assistant | DX: Z47.1 Aftercare following joint replacement surgery (principal); M16.11 Unilateral primary osteoarthritis, right hip; Z96.641 Presence of right artificial hip joint | CPT/HCPCS: 99212 ==

== ENCOUNTER 2022-11-17 07:08 | Outpatient (REF) | payer MEDICARE, SELFPAY ==
--- NOTE | ~2022-11-17 | XR_ITS ---
EXAMINATION: XR HIP, RIGHT CLINICAL INFORMATION: Pain in the hip COMPARISON: 10/04/2022 TECHNIQUE: Two views of the right hip. Lateral view of the pelvis. FINDINGS: There is a total right hip arthroplasty. The femoral component articulates appropriately with the acetabular component. No periprosthetic lucency or fracture. Vascular calcification seen. There is severe degenerative change of the left hip with superior joint space narrowing and [id number] appearance. Subchondral sclerosis with osteophyte formation. The pelvic rim is intact. The sacroiliac joints and pubic sepsis are intact. Normal bowel gas pattern. XR/XR hip RT w PEL1V IMPRESSION: Total right hip arthroplasty without evidence of failure. Severe degenerative changes of the left hip.
== END 2022-11-17 07:09 | disposition home or self-care (01) ==
LOC: HO.HOSX 07:08
PROVIDERS: Visit Provider Physician Assistant
DX: M25.551 Pain in right hip (principal)
CPT/HCPCS: 73502; 99212

== ENCOUNTER 2022-12-14 14:00 | Outpatient (RCR) | payer MEDICARE, SELFPAY ==
--- NOTE | 2022-10-26 15:14 | MHC.PT.EP ---
[facility] [place] Office [place] Office [place] Office [address] [phone] F: [phone] F: [phone] F: [phone] F: [phone] Physical Therapy Plan of Care Date of Evaluation: Date of Surgery: 10/04/22 Diagnosis: POST OP Rt KAE Assessment: 62 YO MALE REF TO PT S/P RIGHT KAE ON 10/04/22. HE RESIDES W HIS IN A 1 LEVEL HOME AND IS CURRENTLY AMB W A CANE. OBJECTIVE FINDINGS: PO ROM DEFICITS RIGHT HIP, TIGHT HIP FLEXORS/ CALF MM, (+) STRENGTH DEFICITS, AND MILD RIGHT PROX LE PAIN. Pt IS AWARE OF KAE RESTRICTIONS/ PRECAUTIONS. FUNCTIONALLY, Pt HAS DECR STANDING, ALTERED GAIT MECHANICS, STAIR MGMT(CURRENTLY 1 STEP AT A TIME, AND RESTRICTED WITH MORE PHYSICALLY DEMANDING ADLs. Pt WOULD BENEFIT FROM PT AT THIS TIME TO GUIDE HIM IN HIS POST-OP COURSE, DEV A PROGR HEP, ADDRESS PAIN MGMT, AND OBTAINING MAXIMAL LEVEL OF FUNCTIONAL INDEPENDENCE. Frequency and Duration: The patient will be seen 2 x WK x 5 WKS Short Term Goals: *Pt INDEP W KAE POSTERIOR APPROACH PRECAUTIONS AND SELF-MGMT OF POST-OP STATUS TO PROMOTE OPTIMAL HEALING *Pt WILL DEMON EFFICIENT GAIT MECHANICS W LEAST RESTRICTIVE ASST DEVICE ON LEVEL GROUND AND STAIRS *Pt'S LEFT HIP PAIN WILL DECR TO 2-3/10 AT MAX Long-Term Goals: *Pt WILL IMPROVE LUMBOPELVIC/ Lt LE STRENGTH TO AT LEAST 5-/5 *Pt RESUME AT LEAST PLOF EVIDENT W IMPROVED LEFI SCORE (AT EVAL 26/80 ) *Pt INDEP W PROGR HEP AND SELF-SX MGMT TECHN Treatment Plan: Modalities to reduce pain, spasms and effusion. Manual therapy to restore motion and function. Therapeutic exercise to improve strength and flexibility. Neuromuscular re-education for posture and balance. Therapeutic activities to return to functional activities of daily living. Electronically signed by: TOLU FINNEY,PT Please sign and return to therapist. Thank you for your referral.
--- NOTE | 2022-12-14 15:28 | MHC.PT.DC ---
[facility] [place] Office [place] Office [place] Office [address] Addis Harmon [address] [phone] F: [phone] F: [phone] F: [phone] F: [phone] Physical Therapy Discharge Report Diagnosis: POST OP Rt KAE Date of Surgery: 10/04/22 Date of Evaluation: 10/26/22 Date of Discharge: 12/14/22 Treatments to Date: 10 Cancellations to Date: 3 No Shows to Date: 1 Discharge Status: Achieved Goals Improved Function Independent with HEP Discharge Summary: Pt HAS PROGRESSED NICELY IN PT POST-OP Rt KAE- EVIDENT W IMPROVED LEFI SCORE FROM 32% AT EVAL TO to 78% AT DISCHARGE. THE Pt IS INDEP W HIS HEP AND HAS BEEN ABLE TO INCREASE HIS ACTIVITY GABE- HE DEMON MORE EFFICIENT GAIT MECHIANICS ON LEVAL GROUND AND STAIRS. HIS RIGHT LE STRENGTH IS 5/5 R Knee flex/Ext and 5/5 hip flex R. Electronically signed by: TOLU FINNEY,PT Please sign and return to therapist. Thank you for your referral.
== END 2022-12-14 15:28 | disposition home or self-care (01) ==
LOC: HO.PT 14:00
PROVIDERS: Visit Provider Orthopaedic Surgery
DX: M16.11 Unilateral primary osteoarthritis, right hip (principal)
CPT/HCPCS: 97110; 97140; 97161; 97530

== ENCOUNTER 2022-12-23 09:21 | Outpatient (REF) | payer MEDICARE, SELFPAY ==
--- NOTE | ~2022-12-23 | XR_ITS ---
Examination: AP pelvis and right hip COMPARISON: 11/17/2022 CLINICAL INDICATION: Pain TECHNIQUE: 2 views of the pelvis and 2 views of right hip. 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 Soft tissues of the right unremarkable. Left hip reveal changes of degenerative osteoarthritis with marginal spurring and joint space narrowing with subchondral sclerosis in the acetabulum. Pelvic bones are unremarkable. XR/XR pelvis 1-2V IMPRESSION: 1. Well-positioned right hip prosthesis. 2. Changes of osteoarthritis in the left hip.
--- NOTE | ~2022-12-23 | XR_ITS ---
Examination: AP pelvis and right hip COMPARISON: 11/17/2022 CLINICAL INDICATION: Pain TECHNIQUE: 2 views of the pelvis and 2 views of right hip. 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 Soft tissues of the right unremarkable. Left hip reveal changes of degenerative osteoarthritis with marginal spurring and joint space narrowing with subchondral sclerosis in the acetabulum. Pelvic bones are unremarkable. XR/XR hip RT 1V IMPRESSION: 1. Well-positioned right hip prosthesis. 2. Changes of osteoarthritis in the left hip.
== END 2022-12-23 09:22 | disposition home or self-care (01) ==
LOC: HO.HOSX 09:21
PROVIDERS: PCP Physician Assistant; Visit Provider Orthopaedic Surgery
DX: Z47.1 Aftercare following joint replacement surgery (principal); Z96.641 Presence of right artificial hip joint
CPT/HCPCS: 72170; 73501; 73502; 99212

== ENCOUNTER 2023-03-08 15:03 | Emergency (ER) | payer MEDICARE, SELFPAY ==
[2023-03-08] VITALS (8 sets, daily range): BP systolic 149–171; BP diastolic 81–92; PULSE 71–79; RESP 13–18; TEMP 36.4–36.7; O2SAT 94–99; BMI 34.8
--- NOTE | ~2023-03-08 | XR_ITS ---
EXAMINATION: XR CHEST CLINICAL INFORMATION: Chest pain COMPARISON: 08/22/2017 TECHNIQUE: Frontal view of the chest was obtained. FINDINGS: No significant abnormality is noted involving the heart, lungs, mediastinum, bony thorax or soft tissues. XR/XR chest 1V IMPRESSION: Unremarkable examination.
--- NOTE | 2023-03-08 15:06 | ECG_ITS ---
Test Reason : ALONSO COLLIER Blood Pressure : / mmHG Vent. Rate : 073 BPM Atrial Rate : 073 BPM P-R Int : 144 ms QRS Dur : 080 ms QT Int : 370 ms P-R-T Axes : 069 033 013 degrees QTc Int : 407 ms Normal sinus rhythm Nonspecific T wave abnormality Septal infarct , age undetermined Abnormal ECG When compared with ECG of 06-SEP-2022 14:59, Septal infarct is now Present Referred By: Generic ED Physician Electronically Signed By:BEL GONZALEZ
--- NOTE | 2023-03-08 16:15 | MHC.EDTECH ---
PATIENT BLOOD DRAWN AND SENT TO LAB .
[2023-03-08 16:17] LABS: MANUAL DIFF FLAG NO
[2023-03-08 16:19] LABS: Basophils Percent Auto 0.6 % (0-2); Eosinophils Absolute Auto 0.1 X10*3/uL (0.0-0.4); Eosinophils Percent Auto 1.8 % (0-4); Hematocrit 46.8 % (42.0-52.0); Hemoglobin 16.8 g/dl (14.0-18.0); Imm Gran Abs Auto 0.01 X10*3/uL (0.00-0.03); Imm Gran Pct Auto 0.1 % (0.0-0.4); Lymphocytes Absolute Auto 1.8 X10*3/uL (1.2-4.9); Lymphocytes Percent Auto 24.9 % (20-40); Mean Corpuscular HGB Conc 35.9 g/dl (31.0-36.0); Mean Corpuscular Hemoglobin 30.1 pg (27.0-33.0); Mean Corpuscular Volume 83.9 fL (80.0-98.0); Monocytes Absolute Auto 0.4 X10*3/uL (0.1-1.2); Neutrophils Absolute Auto 4.8 x10*3/uL (2.0-8.3); Neutrophils Percent Auto 67.6 % (45-73); Platelet Count 165 X10*3/uL (160-400); Red Blood Count 5.58 X10*6/uL (4.60-5.80); Red Cell Distribution Width 13.2 % (11.0-16.0); White Blood Count 7.2 X10*3/uL (4.8-10.8)
[2023-03-08 16:31] LABS: Prothrombin Time 11.6 SEC (11.1-13.3)
[2023-03-08 16:37] LABS: Alanine Aminotransferase 77 U/L (0-40); Albumin Level 4.7 g/dL (3.5-5.0); Alkaline Phosphatase 87 U/L (39-117); Anion Gap 14 (12-20); Aspartate Amino Transferase 34 U/L (5-37); Bilirubin Direct 0.1 mg/dL (0.0-0.5); Bilirubin Total 0.4 mg/dL (0.0-1.0); Blood Urea Nitrogen 13 mg/dL (9-16); Carbon Dioxide 29 mmol/L (22-29); Chloride 99 mmol/L (96-108); Creatinine Clr Calc Pharmacy 53.2; Estimated Glomerular Filt Rate 48; Glucose Random 126 mg/dL (60-115); Magnesium 2.4 mg/dL (1.6-2.6); Sodium 138 mmol/L (135-145); Total Protein 8.1 g/dL (6.5-8.0)
[2023-03-08 16:41] LABS: B Type Natriuretic Peptide < 10 pg/mL (<100)
[2023-03-08 16:44] LABS: Troponin-I High Sensitivity 5.1 ng/L (<3.5-35.0)
--- NOTE | 2023-03-08 17:41 | ED.DIZZY ---
HPI - Dizziness General Chief Complaint: Dizziness Stated Complaint: Dizzy Chest Pressure High Blood Pressure Time Seen by Provider: 03/08/23 17:33 Source: patient Mode of arrival: ambulatory Limitations: no limitations History of Present Illness HPI Narrative: Patient is a 63-year-old male presents emergency department for evaluation of chest pain improved. Patient reports intermittent symptoms since yesterday. States that he experiences dizziness described as the room spinning sensation that presents with position changing and rapid head movement, episodes are brief in nature lasting a few seconds before self-resolving though he does report that it feels severe like he is going to lose his balance. He additionally reports a chest pain that began today which is described as a burning in nature, and feels consistent with prior acid reflux. At this time he denies signs chest pain currently. He states that he was working outdoors 2 days ago, and endorses not drinking enough water, and feels that he may be dehydrated from this. Denies headache, shortness of breath difficulty breathing, vision changes, nausea, vomiting, abdominal pain, genitourinary symptoms, numbness or tingling of the extremities. Related Data Previous Rx's Medication Instructions Recorded blood pressure monitor (Blood #1 ea 01/11/21 Pressure Kit) Raised toilet seat #1 ea 09/26/22 walker #1 ea 09/26/22 acetaminophen 325 mg tablet 650 mg PO Q6H PRN Pain, Mild (Pain 10/06/22 Scale 1-3) 30 days #240 tabs enoxaparin 40 mg/0.4 mL 40 mg (0.4 mL) subcut Q24H 42 days 10/06/22 subcutaneous syringe #16.8 mL albuterol sulfate 90 mcg/actuation 1 inh inhalation QID #8.5 grams 10/21/22 aerosol inhaler azithromycin 250 mg tablet See Rx Instructions PO .COMPLEX #6 11/07/22 tabs hydrochlorothiazide 12.5 mg tablet 12.5 mg PO DAILY 90 days #90 tabs 11/07/22 olanzapine 10 mg tablet 10 mg PO BEDTIME 90 days #90 tabs 11/07/22 prednisone 20 mg tablet 20 mg PO DAILY 5 days #5 tabs 11/07/22 amlodipine 5 mg tablet 10 mg PO DAILY 90 days #180 tabs 12/23/22 blood pressure test kit-large #1 ea 12/23/22 cetirizine 10 mg tablet 10 mg PO DAILY 90 days #90 tabs 01/09/23 cyclobenzaprine 10 mg tablet 10 mg PO BEDTIME 90 days #90 tabs 01/09/23 meclizine 25 mg tablet 25 mg PO BID PRN dizziness #14 tabs 03/08/23 Allergies Allergy/AdvReac Type Severity Reaction Status Date / Time Penicillins Allergy Intermediate Hives Verified 12/23/22 09:31 Quinolones Allergy Intermediate Rash Verified 12/23/22 09:31 trazodone Allergy Intermediate Rash/restless Verified 12/23/22 09:31 legs lisinopril AdvReac Intermediate Cough Verified 12/23/22 09:31 losartan AdvReac Intermediate Dizziness Verified 12/23/22 09:31 Review of Systems Review of Systems: Pertinent positives as per HPI Yes all other systems are reviewed and are negative [facility] Past Medical History Attestation statement: The following information was validated with the patient. Source: old records reviewed Medical History Anxiety Asthma Bipolar disorder Colonoscopy refused Depression Elevated cholesterol GERD (gastroesophageal reflux disease) History of COVID-19 HTN (hypertension) Nephrotic syndrome Osteoarthritis Routine medical exam Surgical History History of eye surgery Family History Family History Mother No problems noted. Father No problems noted. Social History Social History Household Members: Significant Other Housing: House Are you a primary manager care to a significant other at home: No Do you presently have visiting nurse or other home services: No Alcohol intake: never Patient Tobacco Use Status: Never used Tobacco Smoked in Last 30 Days: No e-Cigarette/Vaping Use: Never Used Use of substances other than those prescribed or required for medical reasons: No Advance Directives: No Advance Directives Information Provided: No service: No Current occupational status: disabled Sexual orientation: Straight/Heterosexual Cognitive needs: No Hearing needs: No Vision needs: No Physical Exam Vital Signs: Vital Signs: Last Vital Signs Temp 97.5 F 03/08/23 20:00 Pulse 73 03/08/23 20:00 Resp 13 03/08/23 20:00 BP 169/82 H 03/08/23 20:00 Pulse Ox 96 03/08/23 20:00 O2 Del Method Room Air 03/08/23 20:00 BMI result Body Mass Index 34.8 Appearance: Alert.?Oriented to person, place and time. No acute distress.?Normal affect. Eyes: Pupils equal, round and reactive to light.? EOMI. No nystagmus. ENT: Pharynx normal.? TM normal bilaterally. ? Neck: Normal inspection.? Neck supple.??No midline cervical spine tenderness, step-offs, deformities. CVS: Heart sounds normal. Normal heart rate and rhythm.? Pulses normal.?? Respiratory: No respiratory distress.? Lung sounds clear to auscultation bilaterally?? Abdomen: Soft and non-tender. Normoactive bowel sounds. ? Skin: Skin warm and dry.? Normal skin color.? Normal skin turgor.?? Extremities: No lower extremity edema.? No calf ttp? Neuro: Moves all extremities spontaneously. Sensation intact bilaterally. CN II-XII intact. No focal neuro deficits. Ambulates with normal steady gait. Course Reevaluation(s) Reevaluation #1: CBC is overall unremarkable, CMP overall unremarkable, mildly elevated creatinine from baseline at 1.49, likely due to mild dehydration patient received 1 L normal saline IV fluids. Trialed course of meclizine for management of BPPV and reports significant improvement in his symptoms. He was ambulatory with steady gait. Denies episodic dizziness with head movement as was experiencing previously. She reviewed these findings with patient, sent prescription for meclizine to pharmacy, advised outpatient follow-up primary care provider. Discussed worrisome signs symptoms that would warrant re-evaluation emergency department. All questions were answered. Stable for discharge home at this time of his Time: 21:22 Medications Administered Discontinued Medications Generic Name Dose Route Start Last Admin Trade Name Freq PRN Reason Stop Dose Admin Sodium Chloride 1,000 mls @ 999 mls/hr 03/08/23 18:45 03/08/23 19:58 Ns IV 03/08/23 19:45 999 mls/hr .Q1H1M AISHWARYA Administration Meclizine HCl 25 mg 03/08/23 18:43 03/08/23 19:58 Meclizine Hcl 25 Mg Tablet PO 03/08/23 18:44 25 mg ONCE ONE Administration Medical Decision Making Medical Decision Making MDM Narrative: Patient is a 63-year-old male with past medical history of osteoarthritis, dyslipidemia, hypertension, GERD, asthma presenting to emergency department for evaluation of chest pain and dizziness as per HPI. At the time of my examination he is overall well-appearing. He is ambulatory with a steady gait. Has no focal neurological deficits. NIH stroke scale of 0, lower suspicion for cerebellar stroke at this time. Presentation concerning for orthostatic hypotension v. BPPV; most likely peripheral cause as it was sudden onset with severe intensity has been episodic in associated nausea, less likely central etiology, and he is without diplopia, dysarthria, dysphagia, or ataxia. Will obtain CBC to evaluate for leukocytosis/ anemia, CMP to evaluate for abnormal electrolytes /abnormal renal function/ abnormal hepatic function, EKG and troponin to evaluate for ischemia/ACS. Chest x-ray to evaluate for consolidation/ infiltrate/ mass/ pulmonary congestion and Urinalysis. Differential Diagnosis Differential Diagnoses: The differential diagnosis associated with the presentation includes (As noted above) Admission/Observation Consideration of admission/observation: Escalation of care including admission/observation considered (I considered admission for dizziness undifferentiated, see course narrative for further detail) Lab Data MDM Lab Attestation statement: I reviewed the patient's lab results. (See course narrative for further detail) 03/08/23 16:11 03/08/23 16:11 Labs: Lab Results 03/08/23 03/08/23 03/08/23 Range/Units 16:11 16:11 16:11 WBC 7.2 (4.8-10.8) X10*3/uL RBC 5.58 D (4.60-5.80) X10*6/uL Hgb 16.8 D (14.0-18.0) g/dl Hct 46.8 D (42.0-52.0) % MCV 83.9 (80.0-98.0) fL MCH 30.1 (27.0-33.0) pg MCHC 35.9 (31.0-36.0) g/dl RDW 13.2 (11.0-16.0) % Plt Count 165 D (160-400) X10*3/uL MPV 10.0 (9.4-12.4) fL Immature Gran % (Auto) 0.1 (0.0-0.4) % Neut % (Auto) 67.6 (45-73) % Lymph % (Auto) 24.9 (20-40) % [place] % (Auto) 5.0 (2-11) % Eos % (Auto) 1.8 (0-4) % Baso % (Auto) 0.6 (0-2) % Lymph # (Auto) 1.8 (1.2-4.9) X10*3/uL [place] # (Auto) 0.4 (0.1-1.2) X10*3/uL Eos # (Auto) 0.1 (0.0-0.4) X10*3/uL Baso # (Auto) 0.0 (0.0-0.2) X10*3/uL Abs Immat Gran (auto) 0.01 (0.00-0.03) X10*3/uL Absolute Neuts (auto) 4.8 (2.0-8.3) x10*3/uL Absolute Nucleated RBC 0.000 (0.0-0.012) X10*3/uL Nucleated RBC % (auto) 0.0 (0.0-0.2) /100WBC PT 11.6 (11.1-13.3) SEC INR 1.0 (0.9-1.1) Sodium 138 (135-145) mmol/L Potassium 4.0 (3.3-5.1) mmol/L Chloride 99 (96-108) mmol/L Carbon Dioxide 29 (22-29) mmol/L Anion Gap 14 (12-20) BUN 13 (9-16) mg/dL Creatinine 1.49 H (0.5-1.4) mg/dL Estim Creat Clear Calc 53.2 Estimated GFR 48 Random Glucose 126 H (60-115) mg/dL Calcium 10.0 D (8.4-10.2) mg/dL Magnesium 2.4 (1.6-2.6) mg/dL Total Bilirubin 0.4 (0.0-1.0) mg/dL Direct Bilirubin 0.1 (0.0-0.5) mg/dL AST 34 (5-37) U/L ALT 77 H (0-40) U/L Alkaline Phosphatase 87 (39-117) U/L Troponin I High Sens (<3.5-35.0) ng/L B-Natriuretic Peptide (<100) pg/mL Total Protein 8.1 H (6.5-8.0) g/dL Albumin 4.7 (3.5-5.0) g/dL 03/08/23 03/08/23 Range/Units 16:11 16:11 WBC (4.8-10.8) X10*3/uL RBC (4.60-5.80) X10*6/uL Hgb (14.0-18.0) g/dl Hct (42.0-52.0) % MCV (80.0-98.0) fL MCH (27.0-33.0) pg MCHC (31.0-36.0) g/dl RDW (11.0-16.0) % Plt Count (160-400) X10*3/uL MPV (9.4-12.4) fL Immature Gran % (Auto) (0.0-0.4) % Neut % (Auto) (45-73) % Lymph % (Auto) (20-40) % [place] % (Auto) (2-11) % Eos % (Auto) (0-4) % Baso % (Auto) (0-2) % Lymph # (Auto) (1.2-4.9) X10*3/uL [place] # (Auto) (0.1-1.2) X10*3/uL Eos # (Auto) (0.0-0.4) X10*3/uL Baso # (Auto) (0.0-0.2) X10*3/uL Abs Immat Gran (auto) (0.00-0.03) X10*3/uL Absolute Neuts (auto) (2.0-8.3) x10*3/uL Absolute Nucleated RBC (0.0-0.012) X10*3/uL Nucleated RBC % (auto) (0.0-0.2) /100WBC PT (11.1-13.3) SEC INR (0.9-1.1) Sodium (135-145) mmol/L Potassium (3.3-5.1) mmol/L Chloride (96-108) mmol/L Carbon Dioxide (22-29) mmol/L Anion Gap (12-20) BUN (9-16) mg/dL Creatinine (0.5-1.4) mg/dL Estim Creat Clear Calc Estimated GFR Random Glucose (60-115) mg/dL Calcium (8.4-10.2) mg/dL Magnesium (1.6-2.6) mg/dL Total Bilirubin (0.0-1.0) mg/dL Direct Bilirubin (0.0-0.5) mg/dL AST (5-37) U/L ALT (0-40) U/L Alkaline Phosphatase (39-117) U/L Troponin I High Sens 5.1 (<3.5-35.0) ng/L B-Natriuretic Peptide < 10 (<100) pg/mL Total Protein (6.5-8.0) g/dL Albumin (3.5-5.0) g/dL Independent Interpretation I performed an independent interpretation of an: EKG and Plain X-Ray (I have personally interpreted chest x-ray and agree with radiologist impression, no acute cardiopulmonary process, no evidence of infiltrate or pulmonary congestion) Interpretation: Rate: 73 Rhythm:? Normal sinus rhythm Normal P waves.? Normal ELLIS.?? Normal QRS complex.?? ST T wave :??No ST elevation, no ST depression, T-wave inversion in III, and aVF qTC: 407 prior studies:? August 2022 The study has been interpreted contemporaneously by me. Radiology Impression Discussion of test interpretation with radiology: I have reviewed the radiologist's reading. Radiologist Impression: XR/XR chest 1V IMPRESSION: Unremarkable examination. Independent Historian Clinical information obtained from an independent historian. History obtained from or confirmed by: Spouse ( who confirms history) External Record Review External record reviewed: Outpatient record (Primary care records from August and October of 2022) Tests considered The following testing was considered but not selected: CT of the head, see narrative above for further detail Prescription Management I considered prescription management with: Other (Meclizine) Discharge Plan Discharge Clinical Impression: Benign paroxysmal positional vertigo Patient Disposition: Home, Self-Care Instructions: Benign Paroxysmal Positional Vertigo (ED) Additional Instructions: Contact your primary care provider to schedule follow-up visit within the next 3 days. Return back to emergency department any new or worsening symptoms or concerns. Take meclizine as needed for vertigo symptoms. Prescriptions: New meclizine 25 mg tablet 25 mg PO BID PRN (Reason: dizziness) Qty: 14 0RF No Action (DME) walker Misc See Rx Instructions .MEDSUPPLY Qty: 1 0RF Rx Instructions: Folding Front wheeled walker (DME) Raised toilet seat See Rx Instructions .ROUTE .MEDSUPPLY Qty: 1 0RF Rx Instructions: As directed albuterol sulfate 90 mcg/actuation HFA aerosol inhaler 1 inh inhalation QID Qty: 8.5 0RF amlodipine 5 mg tablet 10 mg PO DAILY 90 Days Qty: 180 1RF (DME) blood pressure test kit-large Kit See Rx Instructions .Route Qty: 1 0RF Rx Instructions: As directed cyclobenzaprine 10 mg tablet 10 mg PO BEDTIME 90 Days Qty: 90 1RF cetirizine 10 mg tablet 10 mg PO DAILY 90 Days Qty: 90 2RF Patient Comments: P&T interchange to loratadine acetaminophen 325 mg Tablet 650 mg PO Q6H PRN (Reason: Pain, Mild (Pain Scale 1-3)) 30 Days Qty: 240 0RF enoxaparin 40 mg/0.4 mL Syringe 40 mg subcut Q24H 42 Days Qty: 16.8 0RF (DME) blood pressure monitor [Blood Pressure Kit] Kit See Rx Instructions .ROUTE .MEDSUPPLY Qty: 1 0RF Rx Instructions: As directed prednisone 20 mg tablet 20 mg PO DAILY 5 Days Qty: 5 0RF azithromycin 250 mg tablet See Rx Instructions PO .COMPLEX Qty: 6 0RF Rx Instructions: For 250 mg dose pack: take 500 mg today (day 1), then 250 mg for 4 days (days 2-5) PO olanzapine 10 mg tablet 10 mg PO BEDTIME 90 Days Qty: 90 2RF hydrochlorothiazide 12.5 mg tablet 12.5 mg PO DAILY 90 Days Qty: 90 1RF Referrals: Ryan Velasquez PA-C [Primary Care Provider] - Interventions: ED Discharge Assessment Last Done: 03/08/23 21:30 Discharge Date/Time: 03/08/23 21:31
[2023-03-08] MEDS: Meclizine HCl 25 MG TABLET PO (19:58)
[2023-03-08] MEDS: 0.9 % Sodium Chloride 1,000 ML 999 ML IV (19:58)
== END 2023-03-08 21:31 | disposition home or self-care (01) ==
PROVIDERS: Physician Assistant; Emergency Provider Emergency Medicine; PCP Physician Assistant
DX: H81.13 Benign paroxysmal vertigo, bilateral (principal); R07.89 Other chest pain; R06.02 Shortness of breath; Z79.899 Other long term (current) drug therapy
CPT/HCPCS: 36415; 71045; 80048; 80076; 83735; 83880; 84484; 85025; 85610; 93005; 99285

== ENCOUNTER 2023-03-16 13:44 | Outpatient (AMB) | payer MEDICARE, SELFPAY ==
[2023-03-16 13:45] VITALS: BP 144/72; PULSE 85; O2SAT 97; BMI 34.8
--- NOTE | 2023-03-16 13:45 | A.OFFPC_ITS ---
Vital Signs 03/16/23 13:45 Height 5 ft 4 in Weight 203 lb BMI 34.8 BP 144/72 H Blood Pressure Location Lt brachial Position Sitting Pulse 85 Pulse Source Pulse Oximeter Pulse Oximetry (%) 97 Oxygen Delivery Method Room Air Intake [place] [facility] [place]igo Intake Note: Patient is here to follow-up after a visit the emergency department at [facility] [place]23 for Vertigo. Extrusion Process Operator Required: No Accompanied by: Self / Same As Patient Allergies Penicillins Allergy (Intermediate, Verified 03/16/23 13:55) Hives Quinolones Allergy (Intermediate, Verified 03/16/23 13:55) Rash trazodone Allergy (Intermediate, Verified 03/16/23 13:55) Rash/restless legs lisinopril Adverse Reaction (Intermediate, Verified 03/16/23 13:55) Cough losartan Adverse Reaction (Intermediate, Verified 03/16/23 13:55) Dizziness Medication List - Last Reconciled 03/16/23 by WIL [place] acetaminophen 650 mg (2 x 325 mg) PO Q6H PRN 30 days albuterol sulfate 90 mcg/actuation 1 inh inhalation QID amlodipine 10 mg (2 x 5 mg) PO DAILY 90 days blood pressure monitor (Blood Pressure Kit) As directed blood pressure test kit-large As directed cetirizine 10 mg PO DAILY 90 days cyclobenzaprine 10 mg PO BEDTIME 90 days enoxaparin 40 mg (0.4 mL) subcut Q24H 42 days hydrochlorothiazide 12.5 mg PO DAILY 90 days meclizine 25 mg PO BID PRN olanzapine 10 mg PO BEDTIME 90 days [Raised toilet seat As directed] walker Folding Front wheeled walker Tobacco use date assessed: 11/07/22 Dental Screening Dental Screen Date: 03/16/23 Did you have a dental visit in the last 12 months?: No Did you have a dental problem in the last 6 months where you did not have access to dental care?: No Was dental information given to patient?: Patient has dentist H[place] [facility] [place] Vertigo HPI Details Patient is a 63-year-old male who presents today to follow-up after [place] [facility] visit 03/08/2023 due to vertigo. Patient of PA. Ron Per ED notes: Patient is a 63-year-old male presents emergency department for evaluation of chest pain improved. Patient reports intermittent symptoms since yesterday. States that he experiences dizziness described as the room spinning sensation that presents with position changing and rapid head movement, episodes are brief in nature lasting a few seconds before self-resolving though he does report that it feels severe like he is going to lose his balance. He additionally reports a chest pain that began today which is described as a burning in nature, and feels consistent with prior acid reflux. At this time he denies signs chest pain currently. He states that he was working outdoors 2 days ago, and endorses not drinking enough water, and feels that he may be dehydrated from this. Denies headache, shortness of breath difficulty breathing, vision changes, nausea, vomiting, abdominal pain, genitourinary symptoms, numbness or tingling of the extremities. CBC is overall unremarkable, CMP overall unremarkable, mildly elevated creatinine from baseline at 1.49, likely due to mild dehydration patient received 1 L normal saline IV fluids. Trialed course of meclizine for management of BPPV and reports significant improvement in his symptoms. He was ambulatory with steady gait. Denies episodic dizziness with head movement as was experiencing previously. She reviewed these findings with patient, sent prescription for meclizine to pharmacy, advised outpatient follow-up primary care provider. Discussed worrisome signs symptoms that would warrant re- evaluation emergency department. All questions were answered. Stable for discharge home at this time of his Today, patient reports that he takes meclizine daily and it helps with his dizziness. He denies shortness of breath or chest pain, no headache. Reports dizziness when changing position quickly or turn his head to the right side - describes as room spinning sensation. He denies any dizziness in the office today. No other concerns in the office. FOR[facility]LY [facility], [facility] Medical History Anxiety Asthma Bipolar disorder Colonoscopy refused Depression Elevated cholesterol GERD (gastroesophageal reflux disease) History of COVID-19 HTN (hypertension) Nephrotic syndrome Osteoarthritis Routine medical exam Surgical History History of eye surgery Family History Mother No problems noted. Father No problems noted. Social History Household Members: Significant Other Housing: House Are you a primary manager urgent care to a significant other at home: No Do you presently have visiting nurse or other home services: No Alcohol intake: never Patient Tobacco Use Status: Never used Tobacco e-Cigarette/Vaping Use: Never Used service: No Current occupational status: disabled Sexual orientation: Straight/Heterosexual Cognitive needs: No Hearing needs: No Vision needs: No Questionnaire Thrive Questionnaire Date Thrive assessed: 11/07/22 JOSE-7 AMB Questionnaire JOSE-7 Date JOSE - 7 assessed: 11/07/22 Source: Developed by Drs. Rohan Herndon, Lexi Graham, Jose Lorenzo and colleagues, with an educational pablo from [employer]. Review of Systems Const Denies body aches, Denies chills, Denies fever(s) and Denies headache(s) Eyes Denies change in vision ENT Reports as per HPI, Reports dizziness (Intermittent), Denies otalgia, Denies headache(s), Denies nasal discharge, Denies sinus pain and Denies sore throat Card Denies chest pain, Denies edema, Denies lightheadedness and Denies dyspnea Resp Denies cough, Denies dyspnea and Denies wheezing GI Denies abdominal pain Denies dysuria Musc Denies myalgias Skin/Breast Denies rash Neuro Reports dizziness (Intermittent) and Denies headache(s) Aller/Immun Denies wheezing Physical exam (Primary Care) Vital Signs: Last Vital Signs Pulse 85 03/16/23 13:45 BP 144/72 H 03/16/23 13:45 Pulse Ox 97 03/16/23 13:45 Oxygen Delivery Method Room Air 03/16/23 13:45 BMI result Body Mass Index 34.8 Tobacco/Smoking Status: Tobacco use Status Tobacco use date assessed 11/07/22 03/16/23 13:45 Patient Tobacco Use Status Never used Tobacco 03/16/23 13:45 e-Cigarette/Vaping Use Never Used 03/16/23 13:45 Thrive Assessment: Date of Thrive Assessment Date Thrive assessed 11/07/22 03/16/23 13:45 Const General: cooperative and no acute distress Orientation/consciousness: patient oriented x3 HENMT Head: Yes normocephalic and Yes atraumatic Mouth: oropharynx normal and moist mucous membranes Throat: Yes posterior oropharynx normal Eyes General: appearance normal, both eyes and all related structures Neck Neck: Yes normal visual inspection, Yes full ROM and Yes no lymphadenopathy Resp Effort & Inspection: normal respiratory effort and able to speak in complete sentences Auscultation: clear to auscultation bilaterally, no crackles, no rales, no rhonchi and no wheezes Cardio Rate: regular rate Rhythm: regular rhythm Heart sounds: S1 normal heart sound present and S2 normal heart sound present GI Auscultation: normal bowel sounds Skin General skin exam: no rashes or lesions noted Neuro General: patient oriented x3 Gait exam (Neuro): Normal gait present Extrem General: Yes full ROM and No edema Results AMB Hemoglobin A1c AMB Hemoglobin A1c 5.0 % Last Edit by LAURA Lubin on 03/16/23 13:57 Results Reviewed Results Reviewed: Laboratory Last Values Hgb A1c (Clinic) 5.0 % (4.0-6.0) 03/16/23 13:46 Assessment and Plan Assessment & Plan (1) Benign paroxysmal positional vertigo: Code(s): H81.10 - Benign paroxysmal vertigo, unspecified ear Plan: Physical exam normal in the office today Patient reports that he is improving Continue meclizine 25 mg b.i.d. p.r.n. Will refer to physical therapy Signs and symptoms reviewed when to notify provider or go to the emergency department Patient agreed with the plan Orders: Orders PT Evaluation and Treatment 03/16/23 H81.10 - Benign paroxysmal vertigo, unspecified ear AMB Hemoglobin A1c 03/16/23 Z13.1 - Encounter for screening for diabetes mellitus Medications: Refilled meclizine 25 mg PO BID PRN 14 tabs 0RF dizziness Coding Level of Care Code Est Pt Level 3 (19796) Diagnoses Benign paroxysmal positional vertigo H81.10
== END 2023-03-16 14:11 | disposition home or self-care (01) ==
PROVIDERS: PCP Physician Assistant; Visit Provider Nurse Practitioner Family
DX: H81.13 Benign paroxysmal vertigo, bilateral (principal); Z13.1 Encounter for screening for diabetes mellitus
CPT/HCPCS: 83036; 99213

== ENCOUNTER 2023-05-09 09:46 | Outpatient (REF) | payer MEDICARE, SELFPAY ==
[2023-05-09 10:12] LABS: Hematocrit 46.5 % (42.0-52.0); Hemoglobin 16.2 g/dl (14.0-18.0); Mean Corpuscular HGB Conc 34.8 g/dl (31.0-36.0); Mean Corpuscular Hemoglobin 29.5 pg (27.0-33.0); Mean Corpuscular Volume 84.7 fL (80.0-98.0); Mean Platelet Volume 9.6 fL (9.4-12.4); Platelet Count 165 X10*3/uL (160-400); Red Blood Count 5.49 X10*6/uL (4.60-5.80); Red Cell Distribution Width 12.7 % (11.0-16.0); White Blood Count 6.8 X10*3/uL (4.8-10.8)
[2023-05-09 10:58] LABS: Alanine Aminotransferase 61 U/L (0-40); Albumin Level 4.3 g/dL (3.5-5.0); Alkaline Phosphatase 91 U/L (39-117); Anion Gap 16 (12-20); Aspartate Amino Transferase 20 U/L (5-37); Bilirubin Total 0.5 mg/dL (0.0-1.0); Blood Urea Nitrogen 14 mg/dL (9-16); Calcium 9.7 mg/dL (8.4-10.2); Carbon Dioxide 27 mmol/L (22-29); Chloride 101 mmol/L (96-108); Cholesterol 214 mg/dL (<200); Estimated Glomerular Filt Rate 58; Glucose Fasting 115 mg/dL (60-99); HDL Cholesterol 32 mg/dL (>40); Potassium 3.9 mmol/L (3.3-5.1); Sodium 140 mmol/L (135-145); Total Protein 7.3 g/dL (6.5-8.0); Triglycerides 586 mg/dL (<150)
[2023-05-09 11:10] LABS: Prostate Specific Antigen Scr 2.04 ng/mL (<0.05-4.0)
== END 2023-05-09 09:47 | disposition home or self-care (01) ==
LOC: HO.LAB 09:46
PROVIDERS: PCP Physician Assistant; Visit Provider Physician Assistant
DX: I10 Essential (primary) hypertension (principal); E66.09 Other obesity due to excess calories; Z68.30 Body mass index [BMI] 30.0-30.9, adult; Z12.5 Encounter for screening for malignant neoplasm of prostate
CPT/HCPCS: 36415; 80053; 80061; 84153; 84443; 85027

== ENCOUNTER 2023-05-11 11:20 | Outpatient (AMB) | payer MEDICARE, SELFPAY ==
[2023-05-11 11:42] VITALS: BP 142/70; PULSE 88; RESP 16; O2SAT 96; BMI 35.1
--- NOTE | 2023-05-11 11:42 | A.OFFPC_ITS ---
Vital Signs 05/11/23 11:42 Height 5 ft 4 in Weight 204 lb 4 oz BMI 35.1 BP 142/70 H Blood Pressure Location Lt brachial Position Sitting Respiration 16 Pulse 88 Pulse Source Pulse Oximeter Pulse Oximetry (%) 96 Oxygen Delivery Method Room Air Intake Visit Reasons: PE Intake Note: Patient is here today for a physical. Manager Creative Required: No Accompanied by: Self / Same As Patient Allergies Penicillins Allergy (Intermediate, Verified 05/11/23 12:09) Hives Quinolones Allergy (Intermediate, Verified 05/11/23 12:09) Rash trazodone Allergy (Intermediate, Verified 05/11/23 12:09) Rash/restless legs lisinopril Adverse Reaction (Intermediate, Verified 05/11/23 12:09) Cough losartan Adverse Reaction (Intermediate, Verified 05/11/23 12:09) Dizziness Medication List - Last Reconciled 05/11/23 by Ryan Velasquez PA-C acetaminophen 650 mg (2 x 325 mg) PO Q6H PRN 30 days albuterol sulfate 90 mcg/actuation 1 inh inhalation QID amlodipine 10 mg (2 x 5 mg) PO DAILY 90 days blood pressure monitor (Blood Pressure Kit) As directed blood pressure test kit-large As directed cetirizine 10 mg PO DAILY 90 days cyclobenzaprine 10 mg PO BEDTIME 90 days hydrochlorothiazide 12.5 mg PO DAILY 90 days olanzapine 10 mg PO BEDTIME 90 days prednisone 10 mg PO DAILY 9 days [Raised toilet seat As directed] walker Folding Front wheeled walker Tobacco use date assessed: 11/07/22 Dental Screening Dental Screen Date: 05/11/23 Did you have a dental visit in the last 12 months?: No Did you have a dental problem in the last 6 months where you did not have access to dental care?: No Was dental information given to patient?: Yes HPI PE HPI Details Patient is a 62-year-old male here today for a follow-up visit.? Patient has a past medical history significant for moderate persistent asthma, generalized anxiety disorder, HLD, GERD and hypertension Concern--> reports having right great toe pain. Was given prednisone and reports pain gotten better. Does have history of gout was on allopurinol though felt a side effect of this medication of rash. He reports his diet has been fairly low purine. Will transition to colchicine 0.6 mg daily for gout prophylaxis. He also reports lately has noted a lot of weight gain in having gastric reflux symptoms at night. This is likely secondary to his olanzapine.. Will try to reduce his dose to 5 mg olanzapine. .. Asthma: Asthma has been generally well controlled . Only seldom using ALbuterol inhaler. He reports his asthma has been more controlled since starting antihistamine therapy. . JOSE:? He continues on olanzapine 10 mg daily has he does still suffer from anxiety from time to time.? Most of his anxiety revolves around finances. Reports he feels stable on his current dose of olanzapine. .. HTN:? Has been started on amlodipine 5mg and hydrochlorothiazide and feels better.? Blood pressure readings have been better though still slightly elevated..? He is reluctant to increase his amlodipine dose due to fears of side effects. ? He reports he feels well without any headaches, vision issues or chest discomforts. Labs: Reviewed with patient and noted elevated triglyceride. Likely secondary to anti psychotic medication and recent weight gain. Colon cancer screening: Has not had colonoscopy. Continues to decline colonoscopy. He is somewhat willing to do a Cologuard Vaccines: Up-to-date with tetanus vaccine, declines flu, COVID and pneumonia vaccines [facility] Medical History Routine medical exam History of COVID-19 Nephrotic syndrome Depression Osteoarthritis Anxiety GERD (gastroesophageal reflux disease) Asthma Elevated cholesterol HTN (hypertension) Bipolar disorder Colonoscopy refused Surgical History History of eye surgery Family History Mother No problems noted. Father No problems noted. Social History Household Members: Significant Other Housing: House Are you a primary child care attendant school to a significant other at home: No Do you presently have visiting nurse or other home services: No Alcohol intake: never Patient Tobacco Use Status: Never used Tobacco e-Cigarette/Vaping Use: Never Used service: No Current occupational status: disabled Sexual orientation: Straight/Heterosexual Cognitive needs: No Hearing needs: No Vision needs: No Questionnaire Thrive Questionnaire Date Thrive assessed: 11/07/22 JOSE-7 AMB Questionnaire JOSE-7 Date JOSE - 7 assessed: 11/07/22 Source: Developed by Drs. Rohan Herndon, Lexi Graham, Jose Lorenzo and colleagues, with an educational pablo from [employer]. Review of Systems Const Denies body aches, Denies chills, Denies excessive sweating, Denies fatigue, D enies fever(s) and Denies headache(s) Eyes Denies blurry vision ENT Denies dysphagia, Denies vertigo, Denies dizziness, Denies headache(s), Denies hearing loss and Denies tinnitus Card Denies chest pain, Denies chest pain with activity, Denies syncope, Denies irregular heart rhythm and Denies dyspnea Resp Denies chest congestion, Denies cough, Denies hemoptysis, Denies dyspnea and Denies wheezing GI Denies abdominal pain, Denies melena, Denies hematochezia, Denies coffee ground emesis, Denies dysphagia, Denies diarrhea, Denies nausea and Denies vomiting Denies difficulty urinating, Denies dysuria, Denies urinary frequency, Denies urinary hesitancy and Denies urinary urgency Musc Denies arthralgias, Denies limited range of motion, Denies muscle cramps and Denies muscle weakness Skin/Breast Denies rash and Denies skin ulcer Neuro Denies Abnormal speech present, Denies confusion, Denies vertigo, Denies dizziness, Denies syncope, Denies headache(s), Denies memory loss and Denies seizure-like activity Psych Denies anxiety, Denies confusion, Denies depression, Denies memory loss, Denies panic attacks and Denies paranoia Endo Denies excessive sweating, Denies fatigue, Denies flushing, Denies polydipsia and Denies polyuria Aller/Immun Denies wheezing Physical exam (Primary Care) Vital Signs: Last Vital Signs Pulse 88 05/11/23 11:42 Resp 16 05/11/23 11:42 BP 142/70 H 05/11/23 11:42 Pulse Ox 96 05/11/23 11:42 Oxygen Delivery Method Room Air 05/11/23 11:42 BMI result Body Mass Index 35.1 Tobacco/Smoking Status: Tobacco use Status Tobacco use date assessed 11/07/22 05/11/23 11:44 Patient Tobacco Use Status Never used Tobacco 05/11/23 11:44 e-Cigarette/Vaping Use Never Used 05/11/23 11:44 Thrive Assessment: Date of Thrive Assessment Date Thrive assessed 11/07/22 05/11/23 11:44 Const General: cooperative, comfortable, no acute distress, alert and awake; No confusion Orientation/consciousness: oriented to person, oriented to place, patient oriented x3 and No confusion HENMT Head: Yes normocephalic Ears: external ears normal and TM's normal bilaterally Face and sinus: No sinus tenderness Mouth: Normal oral and palatal mucosa present and tongue normal Teeth and gingiva: dentition normal and gingiva normal Throat: Yes posterior oropharynx normal, Yes tonsils normal and Yes uvula midline Eyes Conjunctivae: conjunctivae normal Sclerae: sclerae normal Pupils: Equal, round and reactive pupils present EOM: EOMs intact bilaterally Direct Ophthalmoscopy: No no photophobia Neck Neck: Yes no lymphadenopathy, No tender and Yes no JVD Thyroid: Thyroid normal Carotids: no bruits Chest Chest palpation & inspection: no tenderness Resp Effort & Inspection: normal respiratory effort, no audible wheezes, not labored and no stridor Auscultation: no crackles, no rales, no rhonchi and no wheezes Cardio Jugular venous distension: no JVD Rate: regular rate, not bradycardic and not tachycardic Rhythm: regular rhythm Bruits: no carotid bruits Peripheral pulses: Peripheral pulses 2+ throughout GI Inspection: Yes normal to inspection, No abdominal wall ecchymosis and No visible herniation Palpation (GI): Soft to palpation, nontender, no guarding, not rigid and No hepatosplenomegaly present Auscultation: normoactive bowel sounds General: Yes no CVA tenderness Back/Spine/Pelvis Back: no CVA tenderness and No back tenderness Cervical Spine: cervical ROM normal Thoracic/Lumbar Spine: thoracic and lumbar spine normal to inspection, straight leg raise negative bilaterally, No thoraco-lumbar ROM limited and No lumbar spinal tenderness Skin Lesions: no lesions Rashes: no rashes Wounds: no wounds Neuro General: oriented to person, oriented to place, patient oriented x3, CN's II-XI intact bilaterally and No confusion Cranial nerves: Yes Equal, round and reactive pupils present and Yes Normal accommodation reflex present Cognition (Neuro): normal cognition Speech: No Abnormal speech present Gait exam (Neuro): Normal gait present Motor exam (neuro): 5/5 motor strength present throughout Extrem Right upper extremity: full ROM; no cyanosis Left upper extremity: full ROM; no cyanosis Right lower extremity: no edema Left lower extremity: no edema Psych Appearance: grossly normal Mental Status: mental status grossly normal Affect: normal affect Attitude: cooperative Thought process: Normal thought process present Assessment and Plan Assessment & Plan (1) Adult general medical exam: Code(s): Z00.00 - Encounter for general adult medical examination without abnormal findings (2) Asthma: Code(s): J45.909 - Unspecified asthma, uncomplicated Qualifiers: Asthma complication type: uncomplicated Asthma persistence: intermittent Asthma severity: mild Qualified Code(s): J45.20 - Mild intermittent asthma, uncomplicated Plan: Asthma has been fairly well controlled with only p.r.n. use of his albuterol inhaler. (3) JOSE (generalized anxiety disorder): Code(s): F41.1 - Generalized anxiety disorder Plan: Patient's anxiety has been fairly well controlled with current dose of olanzapine. Now speaking with a mental health therapist. Unfortunately has gained significant amount of weight being on Olanzapine. Will reduce his dose to 5 mg (4) Hypertension: Code(s): I10 - Essential (primary) hypertension Qualifiers: Hypertension type: primary hypertension Qualified Code(s): I10 - Essential (primary) hypertension Plan: Patient's blood pressure slightly elevated today in office. Continues on amlodipine 5 mg those reluctant to increase the dose. We have added low-dose hydrochlorothiazide which has helped reduce his blood pressure some. Goal blood pressure is to be below 140/90 (5) Gout attack: Code(s): M10.9 - Gout, unspecified Qualifiers: Gout etiology: idiopathic Gout site: toe Laterality: right Qualified Code(s): M10.071 - Idiopathic gout, right ankle and foot Plan: Reports having a recent gout attack that required p.o. steroids. Now better though would like to start prophylactic management. Was on alopecia in although had a rash to this medication. (6) Bipolar I disorder: Code(s): F31.9 - Bipolar disorder, unspecified Plan: As above patient speaking with a mental therapist. He feels more stable on olanzapine. Unfortunately has side effect of weight gain and hyper triglycerides. Will reduce his dose of Lantus being to 5 mg (7) Colon cancer screening: Code(s): Z12.11 - Encounter for screening for malignant neoplasm of colon (8) Obese: Code(s): E66.9 - Obesity, unspecified Qualifiers: Body mass index: BMI 30.0-30.9 Obesity classification: adult class 1 (BMI 30 - 34.9) Obesity type: due to excess calories Serious obesity comorbidity presence: without serious comorbidity Qualified Code(s): E66.09 - Other obesity due to excess calories; Z68.30 - Body mass index [BMI] 30.0-30.9, adult Plan: Recent weight gain noted likely due to his antipsychotic medication. He will try to work on being more physically active and adapt to better eating habits to reduce his weight Orders: Orders Uric Acid Today M10.9 - Gout, unspecified Comprehensive [place]. Panel Fast Today I10 - Essential (primary) hypertension Lipid Panel Today E78.5 - Hyperlipidemia, unspecified Complete Blood Count no Diff Today I10 - Essential (primary) hypertension Referrals Cologuard Test Z12.11 - Encounter for screening for malignant neoplasm of colon Medications: New colchicine (gout) 0.6 mg PO DAILY 90 days 90 tabs 2RF M10.9 - Gout, unspecified olanzapine 5 mg PO BEDTIME 90 days 90 tabs 2RF F31.9 - Bipolar disorder, unspecified lorazepam For plane rides 0.5 mg PO DAILY 2 days PRN 2 tabs 0RF anxiety Refilled amlodipine 10 mg (2 x 5 mg) PO DAILY 90 days 180 tabs 1RF I10 - Essential (primary) hypertension hydrochlorothiazide 12.5 mg PO DAILY 90 days 90 tabs 1RF I10 - Essential (primary) hypertension Discontinued olanzapine Discontinued Reason: Doctor's Order 10 mg PO BEDTIME 90 days 90 tabs 2RF F06.1 - Catatonic disorder due to known physiological condition, F31.10 - Bipolar disorder, current episode manic without psychotic features, unspecified cyclobenzaprine Discontinued Reason: Doctor's Order 10 mg PO BEDTIME 90 days 90 tabs 1RF M16.11 - Unilateral primary osteoarthritis, right hip, M79.10 - Myalgia, unspecified site Coding Level of Care Code Est Pt Prev Care 40-64y(20435) Diagnoses Adult general medical exam Z00.00 Mild intermittent asthma without complication J45.20 Asthma complication type: uncomplicated Asthma persistence: intermittent Asthma severity: mild JOSE (generalized anxiety disorder) F41.1 Primary hypertension I10 Hypertension type: primary hypertension Acute idiopathic gout involving toe of right foot M10.071 Gout etiology: idiopathic Gout site: toe Laterality: right Bipolar I disorder F31.9 Colon cancer screening Z12.11 Class 1 obesity due to excess calories without serious comorbidity with body mass index (BMI) of 30.0 to 30.9 in adult E66.09; Z68.30 Body mass index: BMI 30.0-30.9 Obesity classification: adult class 1 (BMI 30 - 34.9) Obesity type: due to excess calories Serious obesity comorbidity presence: without serious comorbidity
== END 2023-05-11 12:37 | disposition home or self-care (01) ==
PROVIDERS: Visit Provider Physician Assistant
DX: F31.9 Bipolar disorder, unspecified (principal); E66.09 Other obesity due to excess calories; Z68.30 Body mass index [BMI] 30.0-30.9, adult; F41.1 Generalized anxiety disorder; J45.20 Mild intermittent asthma, uncomplicated; I10 Essential (primary) hypertension; M10.071 Idiopathic gout, right ankle and foot; Z12.11 Encounter for screening for malignant neoplasm of colon
CPT/HCPCS: 99214

== ENCOUNTER 2023-05-25 11:50 | Outpatient (AMB) | payer MEDICARE, SELFPAY ==
[2023-05-25 11:56] VITALS: BP 160/90; PULSE 88; TEMP 36.2; O2SAT 95; BMI 34.7
--- NOTE | 2023-05-25 11:56 | A.OFFVIS_ITS ---
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 Manager Home Improvement Required: No Allergies Penicillins Allergy (Intermediate, Verified 05/25/23 12:12) Hives Quinolones Allergy (Intermediate, Verified 05/25/23 12:12) Rash trazodone Allergy (Intermediate, Verified 05/25/23 12:12) Rash/restless legs lisinopril Adverse Reaction (Intermediate, Verified 05/25/23 12:12) Cough losartan Adverse Reaction (Intermediate, Verified 05/25/23 12:12) Dizziness Medication List - Last Reconciled 05/25/23 by WIL [place] acetaminophen 650 mg (2 x 325 mg) PO Q6H PRN 30 days albuterol sulfate 90 mcg/actuation 1 inh inhalation QID amlodipine 10 mg (2 x 5 mg) PO DAILY 90 days blood pressure monitor (Blood Pressure Kit) As directed blood pressure test kit-large As directed cetirizine 10 mg PO DAILY 90 days colchicine (gout) 0.6 mg PO DAILY 90 days hydrochlorothiazide 12.5 mg PO DAILY 90 days lorazepam 0.5 mg PO DAILY PRN 2 days olanzapine 5 mg PO BEDTIME 90 days [Raised toilet seat As directed] walker Folding Front wheeled walker HPI MEDICARE WELLNESS HPI Details Patient is a 63-year-old male who presents today for subsequent wellness visit. Patient of RUPERTO Velasquez. Patient reports that he recently did have a Cologuard done about 2 weeks ago, no available records yet. Patient reports history of pneumonia vaccine in the past. Tetanus vaccine 05/2016. [place] of care was reviewed with the patient and he was provided with a screening schedule. Patient has declined the end of life planning of conversation at this visit. In addition, patient reports ongoing cough with some sputum production for the past couple days. History of asthma. Reports using allergy medication and inhaler with no much improvement. No fever or chills. [facility] Medical History (Updated 05/25/23 @ 12:46 by WIL [place]) Osteoarthritis of left hip Myalgia Osteoarthritis of right hip Routine medical exam History of COVID-19 Nephrotic syndrome Depression Osteoarthritis Anxiety GERD (gastroesophageal reflux disease) Asthma Elevated cholesterol HTN (hypertension) Bipolar disorder Colonoscopy refused Surgical History (Updated 05/25/23 @ 12:46 by WIL [place]) S/P total right hip arthroplasty History of eye surgery Family History Mother No problems noted. Father No problems noted. Social History Household Members: Significant Other Housing: House Are you a primary animal care service worker to a significant other at home: No Do you presently have visiting nurse or other home services: No Alcohol intake: never Patient Tobacco Use Status: Never used Tobacco e-Cigarette/Vaping Use: Never Used service: No Current occupational status: disabled Sexual orientation: Straight/Heterosexual Cognitive needs: No Hearing needs: No Vision needs: No Questionnaire Medicare Wellness Checkup What is your age?: 65-69 (63) What gender do you identify with?: male During the past 4 weeks, how much have you been bothered by emotional problems such as feeling anxious, depressed, irritable, sad or downhearted, and blue?: slightly During the past 4 weeks, has your physical & emotional health limited your social activities with family, friends, neighbors, or groups?: slightly During the past 4 weeks, how much bodily pain have you generally had?: mild pain During the past 4 weeks, was someone available to help you if you needed & wanted help?: yes, as much as I wanted During the past 4 weeks, what was the hardest physical activity you could do for at least 2 minutes?: moderate Can you get to places out of walking distance without help? (For eg., can you travel alone on buses, taxis or drive your car?): Yes Can you go shopping for groceries or clothes without someone's help?: Yes Can you prepare your own meals?: Yes Can you do your housework without help?: Yes Because of any health problems, do you need the help of another person with your personal care needs such as eating, bathing, dressing or getting around the house?: No Can you handle your own money without help?: Yes During the past 4 weeks, how would you rate your health in general?: fair During the past 4 weeks how have things been going for you?: good & bad parts about equal Are you having difficulties driving your car?: no Do you always fasten your seat belt when you are in a car?: yes, usually During past 4 weeks, have you been bothered by the following: seldom: Trouble eating well? and Problems using the telephone?, sometimes: Falling or dizzy when standing up, Sexual problems? and Teeth or denture problems? and often: Tiredness or fatigue? Have you fallen 2 or more times in the past year?: No Are you afraid of falling?: No Are you a smoker?: no During the past 4 weeks, how many drinks of wine, beer, or other alcoholic beverages did you have?: no alcohol at all Do you exercise for about 20 minutes 3 or more times a week?: yes, some of the time Have you been given information to help with the following?: no: Hazards in your house that might hurt you? and no: Keeping track of your medications? How often do you have trouble taking medicines the way you have been told to take them?: I always take medicine as prescribed How confident are you that you can control & manage most of your health problems?: somewhat confident What is your race?: White Mini Mental State Exam (MMSE) Orientation What is the (year) (season) (date) (day) (month)?: year, season, date, day and month Score Score: 5 Activity of Daily Living Bathing - sponge bath, tub bath or shower: receives no assistance (gets in/out by self, if usual bathing means Dressing - getting clothes from closets & drawers, including inner/outer garments & fasteners.: gets clothes & gets completely dressed without help Toileting - going to the 'toilet room' for urine/bowel elimination & cleaning self/arranging clothes: goes to toilet room, cleans self, arranges clothes without help Transfer: moves in & out of bed and chair without help (may use support object) Continence: controls urination/bowel movements completely by self Feeding: feeds self without help Total Score: 0 Information obtained from: patient Using telephone: independent Traveling: independent Shopping: independent Preparing meals: independent Housework: independent Taking medicine: independent Managing money: independent PHQ-9 Over the last 2 weeks, how often have you been bothered by any of the following problems? 1. Little interest or pleasure in doing things: more than half the days 2. Feeling down, depressed, or hopeless: more than half the days 3. Trouble falling or staying asleep, or sleeping too much: several days 4. Feeling tired or having little energy: several days 5. Poor appetite or overeating: not at all 6. Feeling bad about yourself - or that you are a failure or have let yourself or your family down: not at all 7. Trouble concentrating on things, such as reading the newspaper or watching television: several days 8. Moving or speaking so slowly that other people could have noticed. Or the o pposite - being so fidgety or restless that you have been moving around a lot more than usual: not at all 9. Thoughts that you would be better off or of hurting yourself in some way: not at all Total score: 7 Depression Screening Interpretation: Negative Depression Screening Done: Yes [id number] - PHQ-9 Billing: Yes Source: Developed by Drs. Rohan Herndon, Lexi Graham, Jose Lorenzo and colleagues, with an educational pablo from [employer]. Review of Systems Resp Reports as per HPI Physical Exam Vital Signs: Last Vital Signs Temp 97.2 F 05/25/23 11:56 Pulse 88 05/25/23 11:56 BP 160/90 H 05/25/23 11:56 Pulse Ox 95 05/25/23 11:56 Oxygen Delivery Method Room Air 05/25/23 11:56 BMI result Body Mass Index 34.7 Const General: cooperative and no acute distress Orientation/consciousness: patient oriented x3 HEENT Other: Whisper test: pass Eyes General: appearance normal, both eyes and all related structures Resp Effort & Inspection: normal respiratory effort and Actively coughing Auscultation: clear to auscultation bilaterally (Bilateral upper lungs) and wheezes (Bilateral lower expiratory) Cardio Rate: regular rate Rhythm: regular rhythm Heart sounds: S1 normal heart sound present and S2 normal heart sound present GI Auscultation: normal bowel sounds Neuro Other: Balance: Normal Get up and walk: able to Romberg: negative Tandem gait: able to General: patient oriented x3 Assessment & Plan Assessment & Plan (1) Dyslipidemia: Code(s): E78.5 - Hyperlipidemia, unspecified Plan: Low-cholesterol diet (2) Hypertension: Code(s): I10 - Essential (primary) hypertension Qualifiers: Hypertension type: primary hypertension Qualified Code(s): I10 - Essential (primary) hypertension Plan: Goal BP equal or less than 140/90 Continue amlodipine and hydrochlorothiazide (3) Adult general medical exam: Code(s): Z00.00 - Encounter for general adult medical examination without abnormal findings (4) GERD (gastroesophageal reflux disease): Code(s): K21.9 - Gastro-esophageal reflux disease without esophagitis Qualifiers: Esophagitis presence: without esophagitis Qualified Code(s): K21.9 - Gastro-esophageal reflux disease without esophagitis Plan: Avoid GERD trigger foods Do not lay down 2-3 hours after evening meal (5) Asthma: Code(s): J45.909 - Unspecified asthma, uncomplicated Qualifiers: Asthma severity: mild Asthma persistence: intermittent Asthma complication type: uncomplicated Qualified Code(s): J45.20 - Mild intermittent asthma, uncomplicated Plan: Will treat for asthma exacerbation with Z-Ugo and prednisone Continue albuterol inhaler p.r.n. Notify office if no improvement after finishing treatment (6) Colon cancer screening: Code(s): Z12.11 - Encounter for screening for malignant neoplasm of colon Plan: Cologuard results pending (7) Gout attack: Code(s): M10.9 - Gout, unspecified Qualifiers: Gout site: toe Gout etiology: idiopathic Laterality: right Qualified Code(s): M10.071 - Idiopathic gout, right ankle and foot Plan: Stable (8) JOSE (generalized anxiety disorder): Code(s): F41.1 - Generalized anxiety disorder Plan: Stable (9) Bipolar I disorder: Code(s): F31.9 - Bipolar disorder, unspecified Plan: Stable Medications: New prednisone 40 mg (2 x 20 mg) PO DAILY 5 days 10 tabs 0RF J45.909 - Unspecified asthma, uncomplicated azithromycin take 500 mg today (day 1), then 250 mg for 4 days (days 2-5) PO 6 tabs 0RF J45.909 - Unspecified asthma, uncomplicated Quality Reporting (2019) Depression/Bipolar (159/160/161/177) PHQ-9: Total score: 7 Coding Level of Care Code Medicare Subsequent (G0439) Est Pt Level 3 (29172) Diagnoses Dyslipidemia E78.5 Primary hypertension I10 Hypertension type: primary hypertension Adult general medical exam Z00.00 Gastroesophageal reflux disease without esophagitis K21.9 Esophagitis presence: without esophagitis Mild intermittent asthma without complication J45.20 Asthma severity: mild Asthma persistence: intermittent Asthma complication type: uncomplicated Colon cancer screening Z12.11 Acute idiopathic gout involving toe of right foot M10.071 Gout site: toe Gout etiology: idiopathic Laterality: right JOSE (generalized anxiety disorder) F41.1 Bipolar I disorder F31.9 CPT Codes Advance Care Planning - Time spent: 1-15 minutes, not on file ([id number]) Advance Care Planning Advance Care Planning discussion: Declined forms Date of discussion: 05/25/23 Who was present: pt and clinical documentation clerk Forms completed: None Time spent: 1-15 minutes, not on file Actual minutes spent: 1 Did not discuss due to Cultural/Spiritual beliefs: No
[2023-05-25 12:26] VITALS: BP 148/82
== END 2023-05-25 12:33 | disposition home or self-care (01) ==
PROVIDERS: Visit Provider Nurse Practitioner Family
DX: Z00.00 Encounter for general adult medical examination without abnormal findings (principal); J45.20 Mild intermittent asthma, uncomplicated; E78.5 Hyperlipidemia, unspecified; F31.9 Bipolar disorder, unspecified; I10 Essential (primary) hypertension; K21.9 Gastro-esophageal reflux disease without esophagitis; Z12.11 Encounter for screening for malignant neoplasm of colon; M10.071 Idiopathic gout, right ankle and foot; F41.1 Generalized anxiety disorder
CPT/HCPCS: 1124F; 99213; G0439

== ENCOUNTER 2023-06-27 10:43 | Outpatient (AMB) | payer MEDICARE, SELFPAY ==
--- NOTE | 2023-06-27 10:46 | A.OFFPC_ITS ---
Vital Signs 3 06/27/23 10:47 Height 5 ft 4 in Weight 200 lb BMI 34.3 BP 152/62 H Blood Pressure Location Lt brachial Position Sitting Pulse 94 Pulse Source Pulse Oximeter Pulse Oximetry (%) 97 Oxygen Delivery Method Room Air Intake Visit Reasons: painful lump on buttocks, fever Intake Note: The patient is presenting with a potential abscess on the buttocks, experiencing pain since Monday, and noting that it is worsening. The patient is unable to sit and is also unable to have a bowel movement due to the pain. Glass Cylinder Flanger Required: No Accompanied by: Self / Same As Patient Allergies Penicillins Allergy (Intermediate, Verified 06/27/23 10:53) Hives Quinolones Allergy (Intermediate, Verified 06/27/23 10:53) Rash trazodone Allergy (Intermediate, Verified 06/27/23 10:53) Rash/restless legs lisinopril Adverse Reaction (Intermediate, Verified 06/27/23 10:53) Cough losartan Adverse Reaction (Intermediate, Verified 06/27/23 10:53) Dizziness Tobacco use date assessed: 11/07/22 Dental Screening Dental Screen Date: 06/27/23 Did you have a dental visit in the last 12 months?: Yes Did you have a dental problem in the last 6 months where you did not have access to dental care?: No Was dental information given to patient?: Patient has dentist HPI HPI Comments 2 History of Present Illness0 Details 63-year-old male past medical history si gnificant for generalized anxiety, asthma, GERD, hypertension, dyslipidemia, bipolar and obesity. Patient of Alessandro Velasquez presents today for lump on buttock since last monday, patient reports that was notably getting bigger on Monday and Monday. Patient states if buttock is firm, reports no notable redness. Patient reports the pain is so bad that he is unable to sit, unable to have bowel movement and it is very difficult avoid. Patient reports urine is very dark in color complete brown. Patient has been running a low-grade fever 99.9-100.8 on antipyretic medication. On exam length of left buttock firm, tender to touch, no noted erythema. Given patient having difficulty using the bathroom, severe pain related to the pressure down. Patient recommended to seek emergency medical attention for further evaluation of left buttock mass. Patient verbalizes understanding, in no acute distress. States he feels able to proceed to the emergency room himself and does not require ambulance transportation. ER called with expect at 11:13. [facility] Medical History (Updated 06/27/23 @ 11:53 by WIL [place]) Osteoarthritis of left hip Myalgia Osteoarthritis of right hip Routine medical exam History of COVID-19 Nephrotic syndrome Depression Osteoarthritis Anxiety GERD (gastroesophageal reflux disease) Asthma Elevated cholesterol HTN (hypertension) Bipolar disorder Colonoscopy refused Surgical History S/P total right hip arthroplasty History of eye surgery Family History Mother No problems noted. Father No problems noted. Social History Household Members: Significant Other Housing: House Are you a primary rn care manager to a significant other at home: No Do you presently have visiting nurse or other home services: No Alcohol intake: never Patient Tobacco Use Status: Never used Tobacco e-Cigarette/Vaping Use: Never Used service: No Current occupational status: disabled Sexual orientation: Straight/Heterosexual Cognitive needs: No Hearing needs: No Vision needs: No Questionnaire Thrive Questionnaire Date Thrive assessed: 11/07/22 JOSE-7 AMB Questionnaire JOSE-7 Date JOSE - 7 assessed: 11/07/22 Source: Developed by Drs. Rohan Herndon, Lexi Graham, Jose Lorenzo and colleagues, with an educational pablo from [employer]. Review of Systems Const Denies chills, Denies fatigue, Reports fever(s) and Denies poor appetite Eyes Denies no additional complaints ENT Reports Normal hearing present Card Denies chest pain, Denies syncope, Denies rapid heart rate and Denies dyspnea Resp Denies cough and Denies dyspnea GI Denies change in stool character, Denies constipation, Denies diarrhea, Denies nausea, Denies vomiting and Reports other (difficulty having BM's) Reports difficulty urinating, Denies dysuria, Denies urinary frequency and Denies urinary urgency Skin/Breast Reports other (Buttock lump ) Neuro Reports Normal hearing present, Denies confusion and Denies syncope Psych Denies confusion Endo Denies fatigue Physical exam (Primary Care) Vital Signs: Last Vital Signs Pulse 94 06/27/23 10:47 BP 152/62 H 06/27/23 10:47 Pulse Ox 97 06/27/23 10:47 Oxygen Delivery Method Room Air 06/27/23 10:47 BMI result Body Mass Index 34.3 Tobacco/Smoking Status: Tobacco use Status Tobacco use date assessed 11/07/22 06/27/23 10:46 Patient Tobacco Use Status Never used Tobacco 06/27/23 10:46 e-Cigarette/Vaping Use Never Used 06/27/23 10:46 Thrive Assessment: Date of Thrive Assessment Date Thrive assessed 11/07/22 06/27/23 10:46 Const General: No confusion Orientation/consciousness: No confusion Skin Full body images: 2 1. length of left buttock, firm, tender to touch, no erythema, no obvious abscess, no fluctuation/induration. Neuro General: No confusion Cranial nerves: Yes Normal hearing present Assessment and Plan Assessment & Plan (1) Mass of buttock: Code(s): R22.2 - Localized swelling, mass and lump, trunk Plan: Given patient experiencing severe left buttock pain, increasing left buttock mass with difficulty urinating and having bowel movements as well as low-grade temp 100.8. Patient advised to seek emergency medical attention for her stat imaging and labs for further evaluation and treatment of this. Patient agreeable to plan of care, in no acute distress states he will go to the emergency room. Declines the need for ambulance transfer. Coding Level of Care Code Est Pt Level 3 (34695) Diagnoses Mass of buttock R22.2
[2023-06-27 10:47] VITALS: BP 152/62; PULSE 94; O2SAT 97; BMI 34.3
== END 2023-06-27 11:28 | disposition home or self-care (01) ==
PROVIDERS: PCP Physician Assistant; Visit Provider Nurse Practitioner Family
DX: R22.2 Localized swelling, mass and lump, trunk (principal)
CPT/HCPCS: 99213

== ENCOUNTER 2023-06-27 11:14 | Inpatient (IN) | payer MEDICARE, SELFPAY ==
--- NOTE | ~2023-06-27 | CT_ITS ---
EXAMINATION: CT ABDOMEN AND PELVIS WITH CONTRAST CLINICAL INFORMATION: Left buttock mass. Induration. COMPARISON: None available. TECHNIQUE: Multidetector volumetric images were obtained from the superior aspect of the liver through the pubic symphysis following administration 85 mL of Omnipaque 350 intravenous contrast. Sagittal and coronal reformatted images were obtained on the technologist's workstation. Oral contrast: Yes This CT examination was performed using dose optimization techniques as appropriate, variously including the following: *Automated exposure control *Adjustment of mA and/or kV according to patient size (this includes techniques or standardized protocols for targeted exams where dose is matched to indication/reason for exam; i.e. extremities or head) *Use of iterative reconstruction technique DLP: 763 mGy-cm FINDINGS: LUNG BASES: 5 mm right lower lobe nodule. LIVER, GALLBLADDER, AND BILIARY TREE: The liver is low in attenuation suggestive of fatty infiltration. The liver is normal in size and contour. The gallbladder is unremarkable with no evidence of radiopaque gallstones, gallbladder wall thickening, or obvious pericholecystic inflammatory changes. PANCREAS: Unremarkable. SPLEEN: Unremarkable. ADRENAL GLANDS: Unremarkable. KIDNEYS AND URETERS: The kidneys are normal in size, shape, and attenuation. No hydronephrosis, hydroureter, or calculi seen. No perinephric stranding. BLADDER: Unremarkable. GASTROINTESTINAL TRACT: The bowel is abnormally rotated with the cecum located in the left mid abdomen. Diverticulosis of the colon. No evidence of diverticulitis. The small and large bowel are otherwise unremarkable. The rectum is normal. There is a large left loculated perianal abscess measuring 7 x 8 x 5 cm in AP and longitudinal and transverse dimension. There are smaller loculated midline fluid collections posterior to the anus as well. There is overlying skin thickening and stranding of the fat. The appendix is unremarkable. ABDOMINAL WALL: No significant hernia is appreciated. LYMPH NODES: Normal. VASCULAR: Unremarkable. PELVIC VISCERA: Central calcifications in the prostate gland. Prostate gland does not appear enlarged. OSSEOUS STRUCTURES: Right hip replacement. Degenerative changes spine and left hip. CT/CT abdomen pelvis w IV con IMPRESSION: Large multiloculated left perianal abscess with smaller midline posterior components. 5 mm right lower lobe nodule. According to the UPDATED 2017 Fleischner Society recommendations, the advised follow-up imaging for less than 6 mm solid nodule: Low risk, no chest CT follow-up and high risk, optional chest CT follow-up in one year. Fleischner guidelines were followed.
[2023-06-27 11:57] VITALS: BP 150/72; PULSE 88; RESP 18; TEMP 37.1; O2SAT 97; BMI 34.2
--- NOTE | 2023-06-27 12:00 | ED_ITS ---
HPI - General Adult General Chief complaint: Skin/Abscess/Foreign Body Stated complaint: growth on buttocks Time Seen by Provider: 06/27/23 17:55 Source: patient Mode of arrival: ambulatory Limitations: no limitations History of Present Illness HPI narrative: Patient is a 63-year-old male who presents emergency department for evaluation of infection to left buttock. He states he be seen as primary care doctor's office and referred to the emergency department for further management and treatment. Reports symptom onset 1.5 weeks ago progressively worsening with increasing pain. Feels as though he is unable to his buttocks to the pain. Has had intermittent fevers at home, T-max 100.8 degrees which responds to Tylenol. He has attempted applying hot compresses to this area but the pain continues to increase. He states he is having difficulty having a bowel movement hours as it is painful to push. Denies any additional skin wounds or lesions. Related Data Home Medications Medication Instructions Recorded Confirmed cyclobenzaprine 10 mg tablet 10 mg PO BEDTIME 06/27/23 06/27/23 Previous Rx's Medication Instructions Recorded blood pressure monitor (Blood #1 ea 01/11/21 Pressure Kit) Raised toilet seat #1 ea 09/26/22 walker #1 ea 09/26/22 albuterol sulfate 90 mcg/actuation 1 inh inhalation QID #8.5 grams 10/21/22 aerosol inhaler blood pressure test kit-large #1 ea 12/23/22 cetirizine 10 mg tablet 10 mg PO DAILY 90 days #90 tabs 01/09/23 amlodipine 5 mg tablet 10 mg (2 x 5 mg) PO DAILY 90 days 05/11/23 #180 tabs colchicine 0.6 mg tablet 0.6 mg PO DAILY 90 days #90 tabs 05/11/23 hydrochlorothiazide 12.5 mg tablet 12.5 mg PO DAILY 90 days #90 tabs 05/11/23 lorazepam 0.5 mg tablet 0.5 mg PO DAILY PRN anxiety 2 days 05/11/23 #2 tabs olanzapine 5 mg tablet 5 mg PO BEDTIME 90 days #90 tabs 05/11/23 Allergies Allergy/AdvReac Type Severity Reaction Status Date / Time Penicillins Allergy Intermediate Hives Verified 06/27/23 10:53 Quinolones Allergy Intermediate Rash Verified 06/27/23 10:53 trazodone Allergy Intermediate Rash/restless Verified 06/27/23 10:53 legs lisinopril AdvReac Intermediate Cough Verified 06/27/23 10:53 losartan AdvReac Intermediate Dizziness Verified 06/27/23 10:53 Review of Systems 2 Review of Systems: Yes all other systems are reviewed and are negative [facility] Past Medical History Attestation statement: The following information was validated with the patient. Source: old records reviewed Medical History Osteoarthritis of left hip Myalgia Osteoarthritis of right hip Routine medical exam History of COVID-19 Nephrotic syndrome Depression Osteoarthritis Anxiety GERD (gastroesophageal reflux disease) Asthma Elevated cholesterol HTN (hypertension) Bipolar disorder Colonoscopy refused Surgical History S/P total right hip arthroplasty History of eye surgery Family History Family History Mother No problems noted. Father No problems noted. Social History Social History Household Members: Significant Other Housing: House Are you a primary care manager to a significant other at home: No Do you presently have visiting nurse or other home services: No Alcohol intake: never Patient Tobacco Use Status: Never used Tobacco Smoked in Last 30 Days: No e-Cigarette/Vaping Use: Never Used Use of substances other than those prescribed or required for medical reasons: No Advance Directives: No Advance Directives Information Provided: No Nutrition Risks: No Nutritional Risk service: No Current occupational status: disabled Sexual orientation: Straight/Heterosexual Cognitive needs: No Hearing needs: No Vision needs: No Physical Exam ED Vital Signs: Vital Signs - 24 hr 06/27/23 11:57 06/27/23 15:33 06/27/23 18:20 Temperature 98.8 F 99.7 F 98.9 F Pulse Rate 88 81 Respiratory Rate 18 20 Blood Pressure 150/72 H 125/65 Pulse Oximetry 97 96 Oxygen Delivery Method Room Air Room Air BMI result Body Mass Index 34.2 Appearance: Alert.?Oriented to person, place and time. No acute distress.?Normal affect. Eyes: Pupils equal, round and reactive to light.? ENT: Pharynx normal.?? Neck: Normal inspection.? Neck supple.?? CVS: Heart sounds normal. Normal heart rate and rhythm.? Pulses normal.?? Respiratory: No respiratory distress.? Lung sounds clear to auscultation bilaterally?? Abdomen: Soft and non-tender. Normoactive bowel sounds. No pulsatile mass.?? Skin: Skin warm and dry.? Normal skin color.? 7cm X 8cm area of induration with scattered areas of systemic fluctuance extending to the anus, scant erythema, + warmth Extremities: No lower extremity edema.? Neuro: Moves all extremities spontaneously. Sensation intact bilaterally. Ambulates with normal steady gait. Course Course Course Narrative: This is a rapid medical exam: Additional HPI, ROS, PE not included below will be deferred to primary provider. Patient is a 63-year-old male with history of HTN presenting to the ED from PCP office for evaluation of mass to left buttock. Patient reports symptoms began 06/18 and have worsened. Low grade fever, tmax of 100.8 at home. Area not visualized in triage due to privacy concerns. Patient has been applying heating pad, states pain is causing difficulty urinating and with bowel movements. Plan: cultures, labs Reevaluation(s) Reevaluation #1: CT revealing a large multiloculated left perianal abscess with smaller midline posterior components. Given the extent of this have concerns for sufficient drainage at bedside. Reviewed this case with ED attending Dr. Armando who agrees, and advises consultation with general surgery. I consulted Dr. Curtis, general surgery, who agrees to admit patient to surgical service for incision and drainage tomorrow. Patient agreeable with plan of care. Time: 21:14 Reevaluation #2: Medications Administered Generic Name Dose Route Start Last Admin Trade Name Freq PRN Reason Stop Dose Admin Lactated Ringer's 1,000 mls @ 100 mls/hr 06/27/23 21:30 06/27/23 21:32 Lr IVCONT 100 mls/hr .Q10H AISHWARYA Administration Discontinued Medications Generic Name Dose Route Start Last Admin Trade Name Freq PRN Reason Stop Dose Admin Acetaminophen 975 mg 06/27/23 15:09 06/27/23 15:31 Acetaminophen 325 Mg Tablet PO 06/27/23 15:10 975 mg ONCE ONE Administration Acetaminophen 975 mg 06/27/23 21:26 06/27/23 21:33 Acetaminophen 325 Mg Tablet PO 06/27/23 21:27 975 mg ONCE ONE Administration Sodium Chloride 1,000 mls @ 999 mls/hr 06/27/23 18:30 06/27/23 20:18 Ns IV 06/27/23 19:30 Infused .Q1H1M AISHWARYA Infusion Metronidazole 500 mg in 100 mls @ 100 mls/hr 06/27/23 18:29 06/27/23 20:17 Flagyl IV 06/27/23 19:28 Infused ONCE ONE Infusion Ceftriaxone Sodium 2 gm/ 50 mls @ 100 mls/hr 06/27/23 18:29 06/27/23 19:11 Sodium Chloride IV 06/27/23 18:58 Infused ONCE ONE Infusion Ibuprofen 600 mg 06/27/23 15:09 06/27/23 15:31 Ibuprofen 600 Mg Tablet PO 06/27/23 15:10 600 mg ONCE ONE Administration Ibuprofen 600 mg 06/27/23 21:26 06/27/23 21:33 Ibuprofen 600 Mg Tablet PO 06/27/23 21:27 600 mg ONCE ONE Administration Iohexol 100 ml 06/27/23 18:45 06/27/23 18:45 Iohexol 350 Mg/Ml 100 Ml Infus..Btl IV 06/27/23 18:46 85 ml ONCE ONE Administration Morphine Sulfate 4 mg 06/27/23 18:23 06/27/23 18:45 Morphine Sulfate 4 Mg/Ml Cartridge IVPUSH 06/27/23 18:24 4 mg ONCE ONE Administration Protocol Ondansetron HCl 4 mg 06/27/23 18:23 06/27/23 18:46 Ondansetron Hcl 4 Mg/2 Ml Vial IVPUSH 06/27/23 18:24 4 mg ONCE ONE Administration Medical Decision Making Medical Decision Making MDM Narrative: Patient is a 63-year-old male with past medical history significant for generalized anxiety, asthma, GERD, hypertension, dyslipidemia, bipolar and obesity presenting to emergency department for evaluation of pain to the left buttock. Notable tenderness upon palpation, concern for perirectal versus perianal abscess. Will obtain CT of the abdomen and pelvis for further evaluation. Antibiotic coverage with ceftriaxone and metronidazole due to allergies. Patient will receive 1 L IV fluid, morphine IV for pain, Zofran IV for nausea. Differential Diagnosis Differential Diagnoses: The differential diagnosis associated with the presentation includes (As noted above) Admission/Observation Consideration of admission/observation: Escalation of care including admission/observation considered Consult Healthcare Provider Management of the patient was discussed with: Termite Control Representative (General surgery as per course) Lab Data MDM Lab Attestation statement: I reviewed the patient's lab results. CBC revealing leukocytosis with left shift. CMP overall unremarkable. Urinalysis unremarkable. 06/27/23 12:14 06/27/23 12:14 Labs: Lab Results 06/27/23 06/27/23 Range/Units 12:14 16:11 WBC 17.4 H (4.8-10.8) X10*3/uL RBC 5.16 (4.60-5.80) X10*6/uL Hgb 15.6 (14.0-18.0) g/dl Hct 45.8 (42.0-52.0) % MCV 88.8 (80.0-98.0) fL MCH 30.2 (27.0-33.0) pg MCHC 34.1 (31.0-36.0) g/dl RDW 13.2 (11.0-16.0) % Plt Count 226 D (160-400) X10*3/uL MPV 9.5 (9.4-12.4) fL Immature Gran % (Auto) 0.5 H (0.0-0.4) % Neut % (Auto) 84.0 H (45-73) % Lymph % (Auto) 7.1 L (20-40) % [place] % (Auto) 5.9 (2-11) % Eos % (Auto) 2.2 (0-4) % Baso % (Auto) 0.3 (0-2) % Lymph # (Auto) 1.2 (1.2-4.9) X10*3/uL [place] # (Auto) 1.0 (0.1-1.2) X10*3/uL Eos # (Auto) 0.4 (0.0-0.4) X10*3/uL Baso # (Auto) 0.1 (0.0-0.2) X10*3/uL Abs Immat Gran (auto) 0.08 H (0.00-0.03) X10*3/uL Absolute Neuts (auto) 14.6 H (2.0-8.3) x10*3/uL Absolute Nucleated RBC 0.000 (0.0-0.012) X10*3/uL Nucleated RBC % (auto) 0.0 (0.0-0.2) /100WBC Sodium 140 (135-145) mmol/L Potassium 4.2 (3.3-5.1) mmol/L Chloride 99 (96-108) mmol/L Carbon Dioxide 31 H (22-29) mmol/L Anion Gap 14 (12-20) BUN 13 (9-16) mg/dL Creatinine 1.23 (0.5-1.4) mg/dL Estim Creat Clear Calc 63.9 Estimated GFR 60 Random Glucose 106 (60-115) mg/dL Calcium 9.9 (8.4-10.2) mg/dL Urine Color Yellow Urine Appearance Clear Urine pH 6.5 (5.0-9.0) Ur Specific [place] 1.020 (1.005-1.025) Urine Protein Trace (Neg-Trace) mg/dL Urine Glucose (UA) Negative (Negative) mg/dL Urine Ketones Negative (Negative) mg/dL Urine Blood Negative (Negative) Urine Nitrite Negative (Negative) Ur Leukocyte Esterase Negative (Negative) Independent Interpretation I performed an independent interpretation of an: CT Scan Radiology Impression Discussion of test interpretation with radiology: I have reviewed the radiologist's reading. Radiologist Impression: CT/CT abdomen pelvis w IV con IMPRESSION: Large multiloculated left perianal abscess with smaller midline posterior components. 5 mm right lower lobe nodule. According to the UPDATED 2017 Fleischner Society recommendations, the advised follow-up imaging for less than 6 mm solid nodule: Low risk, no chest CT follow-up and high risk, optional chest CT follow-up in one year. Independent Historian Clinical information obtained from an independent historian. History obtained from or confirmed by: Spouse (Present who confirms history) External Record Review External record reviewed: Prior outpatient labs Discharge Plan Discharge Clinical Impression: Abscess, perianal Patient Disposition: Admitted As Inpatient
[2023-06-27 12:26] LABS: MANUAL DIFF FLAG NO
[2023-06-27 12:27] LABS: Basophils Absolute Auto 0.1 X10*3/uL (0.0-0.2); Basophils Percent Auto 0.3 % (0-2); Eosinophils Absolute Auto 0.4 X10*3/uL (0.0-0.4); Eosinophils Percent Auto 2.2 % (0-4); Hematocrit 45.8 % (42.0-52.0); Hemoglobin 15.6 g/dl (14.0-18.0); Imm Gran Abs Auto 0.08 X10*3/uL (0.00-0.03); Imm Gran Pct Auto 0.5 % (0.0-0.4); Lymphocytes Absolute Auto 1.2 X10*3/uL (1.2-4.9); Lymphocytes Percent Auto 7.1 % (20-40); Mean Corpuscular HGB Conc 34.1 g/dl (31.0-36.0); Mean Corpuscular Hemoglobin 30.2 pg (27.0-33.0); Mean Corpuscular Volume 88.8 fL (80.0-98.0); Mean Platelet Volume 9.5 fL (9.4-12.4); Monocytes Percent Auto 5.9 % (2-11); Neutrophils Absolute Auto 14.6 x10*3/uL (2.0-8.3); Platelet Count 226 X10*3/uL (160-400); Red Blood Count 5.16 X10*6/uL (4.60-5.80); Red Cell Distribution Width 13.2 % (11.0-16.0); White Blood Count 17.4 X10*3/uL (4.8-10.8)
[2023-06-27 12:42] LABS: Anion Gap 14 (12-20); Blood Urea Nitrogen 13 mg/dL (9-16); Calcium 9.9 mg/dL (8.4-10.2); Carbon Dioxide 31 mmol/L (22-29); Chloride 99 mmol/L (96-108); Creatinine Clr Calc Pharmacy 63.9; Estimated Glomerular Filt Rate 60; Glucose Random 106 mg/dL (60-115); Potassium 4.2 mmol/L (3.3-5.1); Sodium 140 mmol/L (135-145)
[2023-06-27] MEDS: Ibuprofen 600 MG TABLET PO ×2 (15:31→21:33)
[2023-06-27] MEDS: Acetaminophen 325 MG TABLET 975 MG PO ×2 (15:31→21:33)
[2023-06-27 15:33] VITALS: TEMP 37.6
[2023-06-27 16:39] LABS: Appearance Urine Clear; Color Urine Yellow; Glucose Urine UA Negative (Negative); Leukocyte Esterase Urine Negative (Negative); Nitrite Urine Negative (Negative); PH 6.5 (5.0-9.0); Urine Blood Negative (Negative); Urine Ketones Negative (Negative); Urine Protein Trace mg/dL (Neg-Trace)
[2023-06-27 18:20] VITALS: BP 125/65; PULSE 81; RESP 20; TEMP 37.2; O2SAT 96
[2023-06-27] MEDS: 0.9 % Sodium Chloride 1,000 ML 999 ML IV (18:45)
[2023-06-27] MEDS: Morphine Sulfate 4 MG/ML CARTRIDGE IVPUSH (18:45)
[2023-06-27] MEDS: cefTRIAXone sodium 2 GM in 0.9 % Sodium Chloride 50 ML IV (18:45)
[2023-06-27] MEDS: iohexoL 350 MG/ML 100 ML INFUS..BTL IV (18:45)
[2023-06-27] MEDS: ondansetron HCL 4 MG/2 ML VIAL IVPUSH (18:46)
[2023-06-27] MEDS: metroNIDAZOLE/NS 500 MG/100 ML PIGGYBACK 100 MG IV (19:11)
--- NOTE | 2023-06-27 21:23 | PM.HPGS ---
History of Present Illness History of Present Illness Date of Service: 06/28/23 Chief complaint: Perianal Abscess Narrative: César Byrd is a 63 year old male with perianal abscess, asthma, GERD, HTN, lipid d/o, and bipolar 1 who presented to the ED with a perianal abscess on CT. Given size, the ED provider was not comfortable with bedside I&D so I was asked to manage the pt. This morning, 06/28/2023, the patient reports continued pain and notes that he is having difficulty with bowel movements for the past several days due to a no rectal pain. He denies prior history of abscess in this location but notes that he had a prior buttock abscess higher up towards his tailbone that drained on its own. He denies any known history of inflammatory bowel disease, Crohn's disease or chronic diarrhea symptoms. Review of Systems Review of Systems: Yes all other systems are reviewed and are negative Constitutional: Constitutional: Reports as per [facility] Past Medical History Medical History Osteoarthritis of left hip Myalgia Osteoarthritis of right hip Routine medical exam History of COVID-19 Nephrotic syndrome Depression Osteoarthritis Anxiety GERD (gastroesophageal reflux disease) Asthma Elevated cholesterol HTN (hypertension) Bipolar disorder Colonoscopy refused Family History Family History Mother No problems noted. Father No problems noted. Surgical History Surgical History S/P total right hip arthroplasty History of eye surgery Social History Social History Household Members: Spouse Housing: House Are you a primary director of patient care to a significant other at home: No Do you presently have visiting nurse or other home services: No Alcohol intake: never Patient Tobacco Use Status: Never used Tobacco Smoked in Last 30 Days: No e-Cigarette/Vaping Use: Never Used Use of substances other than those prescribed or required for medical reasons: No Have you been hit, kicked, punched, or otherwise hurt by someone within the past year? If so, by whom?: No Do you feel safe in your current relationship?: Yes Is there a partner from a previous relationship who is making you feel unsafe now?: No Are you made to feel afraid or neglected: No Advance Directives: No Advance Directives Information Provided: No Do you have thoughts of harming others: None Do you have a plan to hurt others: No Plan Recently lost weight without trying: No Eating poorly because of decreased appetite: Yes Nutrition Risks: Poor intake 0-25% >4 days Poor oral hygiene: No service: No Current occupational status: disabled Sexual orientation: Straight/Heterosexual Cognitive needs: No Hearing needs: No Vision needs: No Meds Allergies Allergy/AdvReac Type Severity Reaction Status Date / Time Penicillins Allergy Intermediate Hives Verified 06/27/23 10:53 Quinolones Allergy Intermediate Rash Verified 06/27/23 10:53 trazodone Allergy Intermediate Rash/restless Verified 06/27/23 10:53 legs lisinopril AdvReac Intermediate Cough Verified 06/27/23 10:53 losartan AdvReac Intermediate Dizziness Verified 06/27/23 10:53 Active Medications: Current Medications Docusate Sodium (Docusate Sodium 100 Mg Capsule) 200 mg PO BID AISHWARYA Hydromorphone HCl (Hydromorphone Hcl 0.5 Mg/0.5 Ml Syringe) 0.25 mg IVPUSH Q2H PRN; Protocol PRN Reason: Pain, Moderate(Pain Scale 4-6) Lactated Ringer's (Lr) 1,000 mls @ 100 mls/hr IVCONT .Q10H AISHWARYA Metronidazole (Flagyl) 500 mg in 100 mls @ 100 mls/hr IV ONCE ONE Stop: 06/27/23 22:18 Ondansetron HCl (Ondansetron Hcl 4 Mg/2 Ml Vial) 4 mg IVPUSH Q6H PRN PRN Reason: Nausea and Vomiting Home Medications Medication Instructions Recorded Confirmed Last Taken Type cyclobenzaprine 10 mg tablet 10 mg PO BEDTIME 06/27/23 06/27/23 06/26/23 History Physical Exam Vital Signs: Vital Signs: Last Vital Signs Temp 98.9 F 06/27/23 18:20 Pulse 81 06/27/23 18:20 Resp 20 06/27/23 18:20 BP 125/65 06/27/23 18:20 Pulse Ox 96 06/27/23 18:20 O2 Del Method Room Air 06/27/23 18:20 BMI result Body Mass Index 34.2 On exam, the patient is nontoxic He is in no acute respiratory distress On left lateral decubitus position, and the left medial buttock/perianal tissue there is a large fluctuant abscess. Results Results Labs: Short CBC 06/27/23 Range/Units 12:14 WBC 17.4 H (4.8-10.8) X10*3/uL Hgb 15.6 (14.0-18.0) g/dl Hct 45.8 (42.0-52.0) % Plt Count 226 D (160-400) X10*3/uL BMP 06/27/23 12:14 Sodium 140 Potassium 4.2 Chloride 99 Carbon Dioxide 31 H BUN 13 Creatinine 1.23 Calcium 9.9 Urine 06/27/23 Range/Units 16:11 Urine Color Yellow Urine Appearance Clear Urine pH 6.5 (5.0-9.0) Ur Specific [place] 1.020 (1.005-1.025) Urine Protein Trace (Neg-Trace) mg/dL Urine Glucose (UA) Negative (Negative) mg/dL Abdomen CT scan report/results: report reviewed and image reviewed CT scan - pelvis: report reviewed and image reviewed Assessment and Plan (1) Abscess, perianal: Status: Acute (2) JOSE (generalized anxiety disorder): Status: Acute (3) Asthma: Qualifiers: Asthma complication type: uncomplicated Asthma persistence: intermittent Asthma severity: mild Qualified Code(s): J45.20 - Mild intermittent asthma, uncomplicated Status: Acute (4) GERD (gastroesophageal reflux disease): Qualifiers: Esophagitis presence: without esophagitis Qualified Code(s): K21.9 - Gastro-esophageal reflux disease without esophagitis Status: Acute (5) Hypertension: Qualifiers: Hypertension type: primary hypertension Qualified Code(s): I10 - Essential (primary) hypertension Status: Acute (6) Dyslipidemia: Status: Acute (7) Bipolar I disorder: Status: Acute (8) Obese: Qualifiers: Body mass index: BMI 30.0-30.9 Obesity classification: adult class 1 (BMI 30 - 34.9) Obesity type: due to excess calories Serious obesity comorbidity presence: without serious comorbidity Qualified Code(s): E66.09 - Other obesity due to excess calories; Z68.30 - Body mass index [BMI] 30.0-30.9, adult Status: Acute Plan Admit Pt received Ceftriaxone & Flagyl NPO, IVF Analgesics & bowel regime Will discuss I&D options in a.m. with pt given risks, benefits & options. Trend labs 06/28/23 0700 I have recommended incision and drainage and reviewed the inherent risks of bleeding, infection, recurrence, need for additional procedures especially if a fistula were to develop. Patient seemed understand, his questions were answered and he would like to proceed. Will return later this morning for bedside I and D. Quality Stroke Does the patient have a stroke diagnosis?: No VTE Prior VTE?: No VTE Risk Level:: Surgical - moderate VTE Device Contraindication: N/A - Device Ordered VTE Drug Contraindication: Treatment Not Indicated Procedures Date of Service Date of Service: 06/28/23
[2023-06-27 21:27] VITALS: BP 138/60; PULSE 89; RESP 16; TEMP 36.7; O2SAT 95
[2023-06-27] MEDS: Lactated Ringers 1,000 ML 100 ML IVCONT (21:32)
--- NOTE | 2023-06-27 21:34 | PHA.MEDREC ---
Pharmacy Consult ? Medication Reconciliation Pharmacy has completed the medication reconciliation. Patient had list of medications that match claim history/ Janet Cole PharmD
--- NOTE | 2023-06-27 23:51 | PC.NURSE ---
Took over care From RAJESH Warner, pt sleeping at this time, no sign of distress.
[2023-06-28] VITALS (7 sets, daily range): BP systolic 130–144; BP diastolic 63–70; PULSE 74–88; RESP 14–20; TEMP 36.8–37.2; O2SAT 93–98; BMI 35.2
--- NOTE | 2023-06-28 00:33 | PC.NURSE ---
pt denies any pain at this time, pt lay on his side for comfort, no sign of distress.
[2023-06-28] MEDS: HYDROmorphone HCl 0.5 MG/0.5 ML SYRINGE 0.25 MG IVPUSH ×3 (01:46→20:33)
[2023-06-28] MEDS: ondansetron HCL 4 MG/2 ML VIAL IVPUSH (03:05)
[2023-06-28] MEDS: Ketorolac Tromethamine 30 MG/ML VIAL IVPUSH (03:13)
[2023-06-28] MEDS: metroNIDAZOLE/NS 500 MG/100 ML PIGGYBACK 100 MG IV ×3 (03:16→18:34)
[2023-06-28 07:32] LABS: MANUAL DIFF FLAG NO
[2023-06-28 07:47] LABS: Basophils Absolute Auto 0.1 X10*3/uL (0.0-0.2); Basophils Percent Auto 0.3 % (0-2); Eosinophils Absolute Auto 0.5 X10*3/uL (0.0-0.4); Eosinophils Percent Auto 3.4 % (0-4); Hematocrit 41.7 % (42.0-52.0); Hemoglobin 13.8 g/dl (14.0-18.0); Imm Gran Abs Auto 0.06 X10*3/uL (0.00-0.03); Imm Gran Pct Auto 0.4 % (0.0-0.4); Lymphocytes Absolute Auto 1.3 X10*3/uL (1.2-4.9); Lymphocytes Percent Auto 7.9 % (20-40); Mean Corpuscular HGB Conc 33.1 g/dl (31.0-36.0); Mean Corpuscular Hemoglobin 29.5 pg (27.0-33.0); Mean Corpuscular Volume 89.1 fL (80.0-98.0); Mean Platelet Volume 9.6 fL (9.4-12.4); Monocytes Absolute Auto 1.1 X10*3/uL (0.1-1.2); Monocytes Percent Auto 6.7 % (2-11); Neutrophils Absolute Auto 12.8 x10*3/uL (2.0-8.3); Neutrophils Percent Auto 81.3 % (45-73); Platelet Count 204 X10*3/uL (160-400); Red Blood Count 4.68 X10*6/uL (4.60-5.80); Red Cell Distribution Width 13.2 % (11.0-16.0); White Blood Count 15.8 X10*3/uL (4.8-10.8)
[2023-06-28 08:00] LABS: Anion Gap 14 (12-20); Blood Urea Nitrogen 12 mg/dL (9-16); Calcium 8.8 mg/dL (8.4-10.2); Carbon Dioxide 30 mmol/L (22-29); Chloride 101 mmol/L (96-108); Creatinine Clr Calc Pharmacy 65.9; Estimated Glomerular Filt Rate > 60; Glucose Random 92 mg/dL (60-115); Potassium 3.5 mmol/L (3.3-5.1); Sodium 141 mmol/L (135-145)
[2023-06-28] MEDS: Colchicine 0.6 MG TABLET PO (08:22)
[2023-06-28] MEDS: amLODIPine Besylate 10 MG TABLET PO (08:22)
[2023-06-28] MEDS: Docusate Sodium 100 MG CAPSULE 200 MG PO ×2 (08:22→20:31)
[2023-06-28] MEDS: Loratadine 10 MG TABLET PO (08:22)
[2023-06-28] MEDS: hydroCHLOROthiazide 12.5 MG TABLET PO (08:22)
[2023-06-28] MEDS: Lactated Ringers 1,000 ML 100 ML IVCONT ×2 (08:22→18:37)
--- NOTE | 2023-06-28 09:20 | HO.WOUND ---
Wound Consult: Initial 63yr old male admitted to [facility] on?06/27/23 21:19 - See progress notes and H&P for detailed history. Wound consult placed for Perianal abscess assessment. Currently pt is followed by surgery and plan to perform I&D. Tissue assessed this am reveals intact red indurated left buttock extending from the anus - induration extends toward the scrotum not yet at scrotum. Perianal Etiology: Perianal Abscess Measurements: 17cm x 10cm Wound Bed: red intact tissue Drainage / Odor: None Edges: ? Advancing per family Poly wound: ? red warm firm Induration, Fluctuance and Warmth noted Pain: painful to touch Goals of Treatment: ? Defer to Surgery - reconsult if topical wound care recommendations are needed. Recommendations: Defer to Surgery for topical recommendations. Re-consult wound care Nurse for wound deterioration or wound changes.
--- NOTE | 2023-06-28 11:27 | PCN2_ITS ---
Brief Operative Note Date of procedure: 06/28/23 Pre-op diagnosis: Left perianal abscess Post-op diagnosis: same Procedure: Incision and drainage of left perianal abscess With the patient in left lateral decubitus, risks, benefits and options were all discussed with the patient including the inherent risk of bleeding, infection, fistula and need for additional procedures. The option of a 2nd opinion was reviewed and the need for follow-up with a colorectal surgeon in 2-3 months to assess for fistula was discussed. Patient seemed understand his options, declined interpretive services in wanted to proceed. Procedure: Skin was prepped with Betadine that was allowed to dry. Local of 1% xylocaine with epi was infiltrated with excellent effect an 11 blade used to incise the skin into the subcutaneous tissues were grossly malodorous purulence to a total of roughly 40 cc was demonstrated with Gram stain and culture obtained. Forceps were inserted to assess for loculations and the pocket irrigated copiously with 50 cc of sterile saline until it returned clear. Half- inch packing was placed loosely. Area was washed and dried, patient tolerated the procedure well. Anesthesia: local Surgeon: Jung Curtis Pathology: other (Gram stain & culture obtained) Condition: stable Disposition: no change
--- NOTE | 2023-06-28 12:42 | MHC.CM.PN ---
IMM DELIVERED. PATIENT FROM HOME WITH . [facility]. NO ACTIVE SERVICES, BUT HAD HOME PT VIA [facility] EARLIER THIS YEAR AFTER HIP REPLACEMENT. PCP: RUPERTO RENAE HCP: CM PROVIDED EDUCATION, PATIENT DECLINES TO COMPLETE AT THIS TIME. DP: HOME, TO TRANSPORT, MAY REQUIRE [facility] FOR WOUND CARE AND WOULD PREFER TO USE [facility] AGAIN. CM WILL CONTINUE TO FOLLOW.
[2023-06-28] MEDS: Albuterol Sulfate 90 MCG 8 GM INHALER 1 PUFF INHALE ×2 (15:09→19:23)
--- NOTE | 2023-06-28 15:32 | PM.EVENT ---
Event Note Date of Service: 06/28/23 Event Note: Patient is seen and about 15:15. He requested I speak with his and son. Explained that he had an abscess of his skin or possibly an anal rectal abscess that could result in fistula. Treatment plan including I and D, expected purulence, malodorous drainage and bowel regime as well as antibiotics were discussed. GNR noted on Gram stain. Time Spent With Patient Time: Total time managing care of this patient today ____ minutes.
[2023-06-28] MEDS: cefTRIAXone sodium 1 GM in 0.9 % Sodium Chloride 50 ML IV (16:17)
[2023-06-28] MEDS: polyethylene glycoL 3350 17 GM POWD.PACK PO (16:21)
[2023-06-28] MEDS: OLANZapine 5 MG TABLET PO (20:31)
[2023-06-28] MEDS: Cyclobenzaprine HCl 10 MG TABLET PO (20:31)
[2023-06-28] MEDS: Acetaminophen 325 MG TABLET 650 MG PO (22:48)
[2023-06-28] MEDS: LORazepam 0.5 MG TABLET PO (22:51)
[2023-06-29] VITALS (7 sets, daily range): BP systolic 124–131; BP diastolic 65–80; PULSE 67–77; RESP 18; TEMP 36.4–37.4; O2SAT 92–94
[2023-06-29] MEDS: metroNIDAZOLE/NS 500 MG/100 ML PIGGYBACK 100 MG IV ×2 (03:09→12:12)
[2023-06-29] MEDS: Lactated Ringers 1,000 ML 100 ML IVCONT ×2 (05:32→13:30)
[2023-06-29] MEDS: HYDROmorphone HCl 0.5 MG/0.5 ML SYRINGE 0.25 MG IVPUSH ×2 (05:39→13:26)
--- NOTE | 2023-06-29 06:21 | PM.PNGS ---
Subjective Subjective Date of Service: 06/29/23 Patient reports: feels better Interval history: The patient reports he is 90% better after drainage. He reports he is having expected drainage and his change the bandages several times. He is tolerating his diet, passing gas but has not had a bowel movement yet. He otherwise denies new complaints like chest pain, difficulty breathing or shortness of breaths per Physical Exam Vital Signs: Vital Signs: Last Vital Signs Temp 97.5 F 06/29/23 03:15 Pulse 67 06/29/23 03:15 Resp 18 06/29/23 03:15 BP 130/80 06/29/23 03:15 Pulse Ox 94 06/29/23 03:15 O2 Del Method Room Air 06/29/23 03:15 BMI result Body Mass Index 35.2 On exam he is nontoxic and in good spirits With the patient in left lateral decubitus position, the packing was removed and the dressing change. There is much less redness and swelling and expected drainage is noted Objective Data Active Medications Acetaminophen (Acetaminophen 325 Mg Tablet) 650 mg PO Q6H PRN PRN Reason: pain/ fever Last Admin: 06/28/23 22:48 Dose: 650 mg Documented By: DUANE Albuterol Sulfate (Albuterol Sulfate 90 Mcg 8 Gm Inhaler) 1 puff INHALE RQID [facility] Last Admin: 06/28/23 19:23 Dose: 1 puff Documented By: CHRISTIN Amlodipine Besylate (Amlodipine Besylate 10 Mg Tablet) 10 mg PO DAILY [facility]; Protocol Last Admin: 06/28/23 08:22 Dose: 10 mg Documented By: RAJESH Colchicine (Colchicine 0.6 Mg Tablet) 0.6 mg PO DAILY [facility] Last Admin: 06/28/23 08:22 Dose: 0.6 mg Documented By: RAJESH Cyclobenzaprine HCl (Cyclobenzaprine Hcl 10 Mg Tablet) 10 mg PO BEDTIME [facility] Last Admin: 06/28/23 20:31 Dose: 10 mg Documented By: DUANE Comments: giving with dilaudid Docusate Sodium (Docusate Sodium 100 Mg Capsule) 200 mg PO BID [facility] Last Admin: 06/28/23 20:31 Dose: 200 mg Documented By: DUANE Hydrochlorothiazide (Hydrochlorothiazide 12.5 Mg Tablet) 12.5 mg PO DAILY [facility]; Protocol Last Admin: 06/28/23 08:22 Dose: 12.5 mg Documented By: RAJESH Hydromorphone HCl (Hydromorphone Hcl 0.5 Mg/0.5 Ml Syringe) 0.25 mg IVPUSH Q2H PRN; Protocol PRN Reason: Pain, Moderate(Pain Scale 4-6) Last Admin: 06/29/23 05:39 Dose: 0.25 mg Documented By: DUANE Lactated Ringer's (Lr) 1,000 mls @ 100 mls/hr IVCONT .Q10H AISHWARYA Last Admin: 06/29/23 05:32 Dose: 100 mls/hr Documented By: DUANE Metronidazole (Flagyl) 500 mg in 100 mls @ 100 mls/hr IV Q8H AISHWARYA Last Infusion: 06/29/23 04:23 Dose: Infused Documented By: DUANE Ceftriaxone Sodium 1 gm/ (Sodium Chloride) 50 mls @ 100 mls/hr IV Q24H [facility] Last Infusion: 06/28/23 16:54 Dose: Infused Documented By: RAJESH Loratadine (Loratadine 10 Mg Tablet) 10 mg PO DAILY [facility] Last Admin: 06/28/23 08:22 Dose: 10 mg Documented By: RAJESH Lorazepam (Lorazepam 0.5 Mg Tablet) 0.5 mg PO DAILY PRN PRN Reason: anxiety Last Admin: 06/28/23 22:51 Dose: 0.5 mg Documented By: DUANE Olanzapine (Olanzapine 5 Mg Tablet) 5 mg PO BEDTIME [facility] Last Admin: 06/28/23 20:31 Dose: 5 mg Documented By: DUANE Ondansetron HCl (Ondansetron Hcl 4 Mg/2 Ml Vial) 4 mg IVPUSH Q6H PRN PRN Reason: Nausea and Vomiting Last Admin: 06/28/23 03:05 Dose: 4 mg Documented By: RENE Labs 06/28/23 06:11 06/28/23 06:11 Labs: Laboratory Results - last 24 hr 06/28/23 06:11 MCV 89.1 MCH 29.5 MCHC 33.1 RDW 13.2 Plt Count 204 MPV 9.6 Immature Gran % (Auto) 0.4 Neut % (Auto) 81.3 H Lymph % (Auto) 7.9 L [place] % (Auto) 6.7 Eos % (Auto) 3.4 Baso % (Auto) 0.3 Lymph # (Auto) 1.3 [place] # (Auto) 1.1 Eos # (Auto) 0.5 H Baso # (Auto) 0.1 Abs Immat Gran (auto) 0.06 H Absolute Neuts (auto) 12.8 H Absolute Nucleated RBC 0.000 Nucleated RBC % (auto) 0.0 Anion Gap 14 Estim Creat Clear Calc 65.9 Estimated GFR > 60 Random Glucose 92 Calcium 8.8 D Microbiology Microbiology Results: Microbiology 06/27/23 18:28 Blood Culture - Preliminary Blood - Venous No growth after 24 hours. 06/27/23 12:14 Blood Culture - Preliminary Blood - Venous No growth after 24 hours. 06/28/23 11:10 Gram Stain - Final Abscess Rectal GNR on Gram stain; speciation & sens pending. Expect E. coli or other coliform. Procedures Date of Service Date of Service: 06/29/23 Progress Note: A&P Assessment and plan (1) Abscess, perianal: Status: Acute (2) JOSE (generalized anxiety disorder): Status: Acute Plan Packing removed Okay to shower, see orders, instructions reviewed regarding dressing and local wound care Wound care consult canceled, I have no idea how this was ordered and it is not required Possible discharge later today if the patient has a bowel movement. Need for follow-up with colorectal surgeon in 2 months to assess for fistula reviewed. Time Spent With Patient Time: Total time managing care of this patient today ____ minutes. Quality Stroke Does the patient have a stroke diagnosis?: No VTE Prior VTE?: No VTE Risk Level:: Surgical - moderate VTE Device Contraindication: N/A - Device Ordered VTE Drug Contraindication: Treatment Not Indicated
[2023-06-29] MEDS: Albuterol Sulfate 90 MCG 8 GM INHALER 1 PUFF INHALE ×3 (07:49→16:16)
[2023-06-29] MEDS: polyethylene glycoL 3350 17 GM POWD.PACK PO (08:31)
[2023-06-29] MEDS: Loratadine 10 MG TABLET PO (08:31)
[2023-06-29] MEDS: amLODIPine Besylate 10 MG TABLET PO (08:31)
[2023-06-29] MEDS: hydroCHLOROthiazide 12.5 MG TABLET PO (08:31)
[2023-06-29] MEDS: Colchicine 0.6 MG TABLET PO (08:31)
[2023-06-29] MEDS: Docusate Sodium 100 MG CAPSULE 200 MG PO (08:31)
[2023-06-29] MEDS: Acetaminophen 325 MG TABLET 650 MG PO (12:12)
[2023-06-29] MEDS: cefTRIAXone sodium 1 GM in 0.9 % Sodium Chloride 50 ML IV (14:09)
--- NOTE | 2023-06-29 16:46 | PM.DS ---
DS: Providers Provider Date of Service: 06/29/23 Date of admission: 06/27/23 21:19 Primary care physician: Ryan Velasquez PA-C DS: Diagnosis Discharge Diagnosis (1) Abscess, perianal: Status: Acute (2) JOSE (generalized anxiety disorder): Status: Acute DS: Summary Hospital Course Hospital Course: See surgical H and P for full details. Briefly, this 63-year-old gentleman presented to the emergency room with a large perianal abscess that the emergency staff was uncomfortable managing so the patient was admitted and underwent a bedside drainage. Culture showed no growth, but Gram-negative rods were seen on Gram stain. The patient cannot tolerate penicillin due to hives or quinolones due to rash so he was discharged on Bactrim DS in improved condition. Follow-up instructions including BID showers and dressing care is reviewed Time Attestation Discharge coordination time: Less than 30 minutes Quality: Safe Use of Opioids Does Pt have an Active Cancer Diagnosis on the Problem List?: No Quality: Stroke Does the patient have a stroke diagnosis?: No Physical Exam Vital Signs: Vital Signs: Last Vital Signs Temp 98.0 F 06/29/23 14:55 Pulse 74 06/29/23 16:18 Resp 18 06/29/23 16:18 BP 126/65 06/29/23 14:55 Pulse Ox 93 06/29/23 14:55 O2 Del Method Room Air 06/29/23 14:55 BMI result Body Mass Index 35.2 DS: Data Data Completed and Pending Completed studies during hospitalization [Text1]: Procedures Replacement of Right Hip Joint with Ceramic Synthetic Substitute, Uncemented, Open Approach (10/04/22) Labs on day of discharge: Preliminary micro results at discharge 06/27/23 12:14 Blood Culture - Preliminary Blood - Venous No growth after 48 hours. 06/28/23 11:10 Routine Culture - Preliminary Abscess Rectal No growth to date. 06/27/23 18:28 Blood Culture - Preliminary Blood - Venous No growth after 24 hours. Discharge Plan Discharge Anticipated Discharge Date/Time: 06/29/23 16:44 Patient Disposition: Home, Self-Care Discharge Diagnosis: perianal abscess Referrals: Ryan Velasquez PA-C [Primary Care Provider] - 1 Week Jung Curtis MD, JUVENCIO, KRISTOPHER [Physician] - 1 Week Discharge Medications: New sulfamethoxazole-trimethoprim [Bactrim DS] 800-160 mg tablet 1 tab PO Q12H Qty: 14 0RF Continued (DME) walker Misc See Rx Instructions .MEDSUPPLY Qty: 1 0RF Rx Instructions: Folding Front wheeled walker (DME) Raised toilet seat See Rx Instructions .ROUTE .MEDSUPPLY Qty: 1 0RF Rx Instructions: As directed albuterol sulfate 90 mcg/actuation HFA aerosol inhaler 1 inh inhalation QID Qty: 8.5 0RF (DME) blood pressure test kit-large Kit See Rx Instructions .Route Qty: 1 0RF Rx Instructions: As directed cetirizine 10 mg tablet 10 mg PO DAILY 90 Days Qty: 90 2RF Patient Comments: P&T interchange to loratadine cyclobenzaprine 10 mg tablet 10 mg PO BEDTIME (DME) blood pressure monitor [Blood Pressure Kit] Kit See Rx Instructions .ROUTE .MEDSUPPLY Qty: 1 0RF Rx Instructions: As directed colchicine 0.6 mg tablet 0.6 mg PO DAILY 90 Days Qty: 90 2RF olanzapine 5 mg tablet 5 mg PO BEDTIME 90 Days Qty: 90 2RF amlodipine 5 mg tablet 10 mg PO DAILY 90 Days Qty: 180 1RF hydrochlorothiazide 12.5 mg tablet 12.5 mg PO DAILY 90 Days Qty: 90 1RF lorazepam 0.5 mg tablet 0.5 mg PO DAILY PRN (Reason: anxiety) 2 Days Qty: 2 0RF Rx Instructions: For plane rides Discharge Orders: Discharge Order (Routine); Ordered 06/29/23 Ordered By: Jung Curtis Diet: Advance to usual diet Activity on Discharge: As tolerated Stand Alone Forms: Patient Portal Discharge page Activity Restrictions/Additional Instructions: You had an abscess drained. It is normal to experience drainage of pus and some blood for several days to up to a week. Wash the area thoroughly in the shower with free running water and soap for a minimum of 5 minutes at least twice a day (morning and evening) and can be done 4 times a day if the area becomes soiled. Warm referred but avoid hot, scalding water to prevent hoskins. You should change the dressings as often as you need to. It is advisable to keep wet, messy dressings off your skin since this can cause additional irritation or infection. Avoid tape; use clothing to hold the dressings in place. Any type of clean dressing to catch the drainage can be used instead of sterile dressings, which are expensive. Many people will use feminine hygiene pads to collect the drainage. Pain in this area can cause severe constipation. Until you are experiencing normal bowel movements, you should take docusate, 100 mg, 2 tablets in the morning and 2 tablets in the evening. You can use any gentle laxative such as milk of magnesia or MiraLax, both of which are available [id number]. You will need to be examined by Dr. Castro in 2-3 months to check for an abscess; call to schedule an appointment at [phone]. [address] Dr[address] Curtis at [phone] for a f/u appt next Mon or Care Plan Goals: Allow adequate healing, local wound care Health Concerns: Allow adequate healing and local wound care Plan of Treatment: Antibiotics and local wound care Assessment: Perianal abscess
[2023-06-29] MEDS: Sulfamethox/Trimeth 800/160 TABLET 1 TAB PO (17:04)
== END 2023-06-29 17:19 | disposition home or self-care (01) | DRG 395 ==
LOC: HO.ED 21:18 → HO.EDOVER 21:30 → HO.S3 06-28 00:29
PROVIDERS: Registered Nurse Emergency; Admitting Provider Surgery; Emergency Provider Student in an Organized Health Care Education/Training Program; PCP Physician Assistant; Visit Provider Surgery
DX: K61.0 Anal abscess (principal); F31.9 Bipolar disorder, unspecified; F41.1 Generalized anxiety disorder; K21.9 Gastro-esophageal reflux disease without esophagitis; I10 Essential (primary) hypertension; E66.9 Obesity, unspecified; Z68.35 Body mass index [BMI] 35.0-35.9, adult; Z79.899 Other long term (current) drug therapy
CPT/HCPCS: 36415; 74177; 80048; 81003; 85025; 87040; 87070; 87205; 94640; 99285; J0696; J1170; J1836; J1885; J2270; J2405; J7120; Q9967

== ENCOUNTER → 2023-06-27 21:19 | Outpatient (BNV) | payer MEDICARE, SELFPAY | PROVIDERS: Admitting Provider Surgery; Emergency Provider Student in an Organized Health Care Education/Training Program; PCP Physician Assistant; Visit Provider Surgery | DX: K61.0 Anal abscess (principal); F41.1 Generalized anxiety disorder | CPT/HCPCS: 46050; 99024; 99222; 99499 ==

== ENCOUNTER 2023-07-04 14:49 | Outpatient (AMB) | payer MEDICARE, SELFPAY ==
--- NOTE | 2023-07-04 14:51 | MHC.OFFVIS ---
Intake Intake Visit Reasons: post op Allergies Penicillins Allergy (Intermediate, Verified 07/04/23 14:56) Hives Quinolones Allergy (Intermediate, Verified 07/04/23 14:56) Rash trazodone Allergy (Intermediate, Verified 07/04/23 14:56) Rash/restless legs lisinopril Adverse Reaction (Intermediate, Verified 07/04/23 14:56) Cough losartan Adverse Reaction (Intermediate, Verified 07/04/23 14:56) Dizziness HPI HPI Comments History of Present Illness Details The patient comes to the office for follow-up after I and D of a perianal abscess last week. He noted that on Monday/Monday he started feeling more pain/pressure in the anterolateral left perineum. He did not call the office since he was going to be seen. He has a day and a half of Bactrim DS left. Last bowel movement was earlier today and he denies fevers, chills or other new problems [facility] Medical History (Updated 07/03/23 @ 08:02 by Kaya Rodriguez CMA) Osteoarthritis of left hip Myalgia Osteoarthritis of right hip Routine medical exam History of COVID-19 Nephrotic syndrome Depression Osteoarthritis Anxiety GERD (gastroesophageal reflux disease) Asthma Elevated cholesterol HTN (hypertension) Bipolar disorder Colonoscopy refused Surgical History (Updated 07/03/23 @ 08:03 by Kaya Rodriguez CMA) Hx of drainage of abscess S/P total right hip arthroplasty History of eye surgery Family History Mother No problems noted. Father No problems noted. Social History Household Members: Spouse Housing: House Are you a primary resident caregiver to a significant other at home: No Do you presently have visiting nurse or other home services: No Alcohol intake: never Patient Tobacco Use Status: Never used Tobacco e-Cigarette/Vaping Use: Never Used service: No Current occupational status: disabled Sexual orientation: Straight/Heterosexual Cognitive needs: No Hearing needs: No Vision needs: No Review of Systems Const All systems reviewed & are unremarkable except as noted in HPI and below Physical Exam With the patient in left lateral decubitus position, he is examined and there is a new perianal abscess in the left anterolateral region. Recommended I and D with the inherent risks of bleeding, infection, fistula, possible need for additional procedures in the event of reaccumulation was discussed and apparently understood. Patient wanted to proceed. Office Procedures Incision and Drainage Incision and drainage performed by: Jung Curtis Informed consent given: Yes Consent signed: Yes Location: Left anterolat perianal Anesthesia: local Incision with: #11 blade Drainage quality: purulent Probed cavity: Yes Culture taken: No Lesion: fluctuance and induration Hemostasis: pressure Cavity management: irrigated and packing Dressing: gauze Patient tolerated procedure: well Complications: No Additional details: Using 2% lidocaine with epi, the area was prepped with Betadine, local infiltrated with excellent effect an 11 blade used to incise the skin into the subcutaneous tissues with demonstration of grossly malodorous pus. The area was irrigated copiously with 25+ cc of remaining local, probed for loculations and then packed with quarter-inch packing. Areas washed and dried and 4x4s placed that were held by the patient's underwear. He tolerated the procedure well. Assessment & Plan Assessment & Plan (1) Abscess, perianal: Code(s): K61.0 - Anal abscess (2) JOSE (generalized anxiety disorder): Code(s): F41.1 - Generalized anxiety disorder (3) Asthma: Code(s): J45.909 - Unspecified asthma, uncomplicated Qualifiers: Asthma severity: mild Asthma persistence: intermittent Asthma complication type: uncomplicated Qualified Code(s): J45.20 - Mild intermittent asthma, uncomplicated Plan Scripts for another week of Bactrim DS as well as oxycodone and bowel regime were discussed. Patient will shower before his appointment tomorrow. I will reassess him in the morning need to follow-up with Dr. Castro in 1 week and again in 2 months to assess for fistula was reviewed. Questions for the patient and his were answered. Medications: New oxycodone Partial Fill upon patient request. 5 mg PO QID PRN 12 tabs 0RF pain Coding Level of Care Code Est Pt Level 4 (67830) Diagnoses Abscess, perianal K61.0 JOSE (generalized anxiety disorder) F41.1 Mild intermittent asthma without complication J45.20 Asthma severity: mild Asthma persistence: intermittent Asthma complication type: uncomplicated
== END 2023-07-04 15:44 | disposition home or self-care (01) ==
PROVIDERS: PCP Physician Assistant; Visit Provider Surgery
DX: K61.0 Anal abscess (principal); F41.1 Generalized anxiety disorder; J45.20 Mild intermittent asthma, uncomplicated
CPT/HCPCS: 99024

== ENCOUNTER → 2023-07-04 14:49 | Outpatient (BNVA) | payer MEDICARE, SELFPAY | PROVIDERS: PCP Physician Assistant; Visit Provider Surgery | DX: K61.0 Anal abscess (principal); F41.1 Generalized anxiety disorder; J45.20 Mild intermittent asthma, uncomplicated; Z79.2 Long term (current) use of antibiotics | CPT/HCPCS: 46050; 99212 ==

== ENCOUNTER 2023-07-05 09:04 | Outpatient (AMB) | payer MEDICARE, SELFPAY ==
--- NOTE | 2023-07-05 09:13 | A.OFFVIS_ITS ---
Intake Vital Signs 07/05/23 09:19 Height 5 ft 4 in Weight 198 lb 2 oz BMI 34.0 BP 143/73 H Blood Pressure Location Rt brachial Position Sitting Pulse 92 Pulse Source Pulse Oximeter Temp 96.3 F L Temp Source Tympanic Pulse Oximetry (%) 93 Oxygen Delivery Method Room Air Intake Visit Reasons: post op Audit Partner Required: No Learning Manager: Learning Manager offered & declined Allergies Penicillins Allergy (Intermediate, Verified 07/05/23 09:20) Hives Quinolones Allergy (Intermediate, Verified 07/05/23 09:20) Rash trazodone Allergy (Intermediate, Verified 07/05/23 09:20) Rash/restless legs lisinopril Adverse Reaction (Intermediate, Verified 07/05/23 09:20) Cough losartan Adverse Reaction (Intermediate, Verified 07/05/23 09:20) Dizziness Medication List - Last Reconciled 07/05/23 by Jung Curtis MD, FACS, FASMBS albuterol sulfate 90 mcg/actuation 1 inh inhalation QID amlodipine 10 mg (2 x 5 mg) PO DAILY 90 days blood pressure monitor (Blood Pressure Kit) As directed blood pressure test kit-large As directed cetirizine 10 mg PO DAILY 90 days colchicine 0.6 mg PO DAILY 90 days cyclobenzaprine 10 mg PO BEDTIME hydrochlorothiazide 12.5 mg PO DAILY 90 days lorazepam 0.5 mg PO DAILY PRN 2 days olanzapine 5 mg PO BEDTIME 90 days oxycodone 5 mg PO QID PRN [Raised toilet seat As directed] sulfamethoxazole-trimethoprim 800-160 mg (Bactrim DS) 1 tab PO Q12H walker Folding Front wheeled walker HPI HPI Comments History of Present Illness Details The patient reports he feels much better. He only took 1 oxycodone last night. He showered but noted that the Bactrim DS that I attempted to reorder yesterday was not filled. He denies any fevers or chills and is noted, notes improvement in his pain and symptoms. [facility] Medical History Osteoarthritis of left hip Myalgia Osteoarthritis of right hip Routine medical exam History of COVID-19 Nephrotic syndrome Depression Osteoarthritis Anxiety GERD (gastroesophageal reflux disease) Asthma Elevated cholesterol HTN (hypertension) Bipolar disorder Colonoscopy refused Surgical History (Reviewed 07/05/23 @ 09:33 by Jung Curtis MD, JUVENCIO, [facility]) Hx of drainage of abscess S/P total right hip arthroplasty History of eye surgery Family History (Reviewed 07/05/23 @ 09:33 by Jung Curtis MD, JUVENCIO, [facility]) Mother No problems noted. Father No problems noted. Social History (Reviewed 07/05/23 @ 09:33 by Jung Curtis MD, JUVENCIO, [facility]) Household Members: Spouse Housing: House Are you a primary animal care giver to a significant other at home: No Do you presently have visiting nurse or other home services: No Alcohol intake: never Patient Tobacco Use Status: Never used Tobacco e-Cigarette/Vaping Use: Never Used service: No Current occupational status: disabled Sexual orientation: Straight/Heterosexual Cognitive needs: No Hearing needs: No Vision needs: No Review of Systems Const All systems reviewed & are unremarkable except as noted in HPI and below Physical Exam Vital Signs: Last Vital Signs Temp 96.3 F L 07/05/23 09:19 Pulse 92 07/05/23 09:19 BP 143/73 H 07/05/23 09:19 Pulse Ox 93 07/05/23 09:19 Oxygen Delivery Method Room Air 07/05/23 09:19 BMI result Body Mass Index 34.0 The patient is nontoxic and in good spirits He is having no respiratory difficulty With the patient in left lateral decubitus position his perianal tissue was examined. There is much less redness and tenderness in the packing was removed. Serosanguineous drainage is present at today's visit the area was redressed. Assessment & Plan Assessment & Plan (1) Abscess, perianal: Code(s): K61.0 - Anal abscess (2) JOSE (generalized anxiety disorder): Code(s): F41.1 - Generalized anxiety disorder (3) Asthma: Code(s): J45.909 - Unspecified asthma, uncomplicated Qualifiers: Asthma severity: mild Asthma persistence: intermittent Asthma complication type: uncomplicated Qualified Code(s): J45.20 - Mild intermittent asthma, uncomplicated (4) Hypertension: Code(s): I10 - Essential (primary) hypertension Qualifiers: Hypertension type: primary hypertension Qualified Code(s): I10 - Essential (primary) hypertension (5) Dyslipidemia: Code(s): E78.5 - Hyperlipidemia, unspecified Plan Bactrim was successfully sent to his pharmacy downstairs. He will continue for the next week. Local wound care instructions including to shower at least twice a day and p.r.n., dressing changes at least twice a day and p.r.n. were revi ewed. Patient's questions seemed to be satisfactorily answered. Patient will follow-up with Dr. Castro next week in my absence and contact the office before then if he has any issues or problems. Medications: Refilled sulfamethoxazole-trimethoprim 800-160 mg (Bactrim DS) 1 tab PO Q12H 14 tabs 0RF Coding Level of Care Code Est Pt Level 3 (85404) Diagnoses Abscess, perianal K61.0 JOSE (generalized anxiety disorder) F41.1 Mild intermittent asthma without complication J45.20 Asthma severity: mild Asthma persistence: intermittent Asthma complication type: uncomplicated Primary hypertension I10 Hypertension type: primary hypertension Dyslipidemia E78.5
[2023-07-05 09:19] VITALS: BP 143/73; PULSE 92; TEMP 35.7; O2SAT 93; BMI 34.0
== END 2023-07-05 09:37 | disposition home or self-care (01) ==
PROVIDERS: PCP Physician Assistant; Visit Provider Surgery
DX: K61.0 Anal abscess (principal); F41.1 Generalized anxiety disorder; J45.20 Mild intermittent asthma, uncomplicated; I10 Essential (primary) hypertension; E78.5 Hyperlipidemia, unspecified
CPT/HCPCS: 99024

== ENCOUNTER → 2023-07-05 09:04 | Outpatient (BNVA) | payer MEDICARE, SELFPAY | PROVIDERS: PCP Physician Assistant; Visit Provider Surgery | DX: Z48.815 Encounter for surgical aftercare following surgery on the digestive system (principal); Z87.19 Personal history of other diseases of the digestive system; F41.1 Generalized anxiety disorder; J45.20 Mild intermittent asthma, uncomplicated; I10 Essential (primary) hypertension; E78.5 Hyperlipidemia, unspecified | CPT/HCPCS: 99212 ==

== ENCOUNTER 2023-07-12 09:30 | Outpatient (AMB) | payer MEDICARE, SELFPAY ==
--- NOTE | 2023-07-12 09:33 | A.OFFVIS_ITS ---
Intake Vital Signs 07/12/23 09:40 Height 5 ft 4 in Weight 196 lb 3.382 oz BMI 33.7 Intake Visit Reasons: Perianal abscess Intake Note: This patient of presents for a post-op assessment status post I&D of perianal abscess. Patient c/o; reports drainage, reports has a small scab. Vp Of Global Marketing Required: No Accompanied by: Other Relationship Allergies Penicillins Allergy (Intermediate, Verified 07/12/23 09:41) Hives Quinolones Allergy (Intermediate, Verified 07/12/23 09:41) Rash trazodone Allergy (Intermediate, Verified 07/12/23 09:41) Rash/restless legs lisinopril Adverse Reaction (Intermediate, Verified 07/12/23 09:41) Cough losartan Adverse Reaction (Intermediate, Verified 07/12/23 09:41) Dizziness HPI Perianal abscess HPI Details He had undergone an I&D with Dr. Curtis for a perianal abscess last 06/28/2023. He was last seen by him weeks ago and the area seems to have been improving well. He had been on antibiotics and is supposed to finish his course of Bactrim tomorrow. He says that the area of the swelling along with the pain and tenderness have been improving steadily. He says that the drainage is also decreased significantly. [facility]LY [facility] Medical History Osteoarthritis of right hip Osteoarthritis of left hip Myalgia Routine medical exam History of COVID-19 Nephrotic syndrome Depression Osteoarthritis Anxiety GERD (gastroesophageal reflux disease) Asthma Elevated cholesterol HTN (hypertension) Bipolar disorder Colonoscopy refused Surgical History Hx of drainage of abscess S/P total right hip arthroplasty History of eye surgery Family History Mother No problems noted. Father No problems noted. Social History Household Members: Spouse Housing: House Are you a primary daycare worker to a significant other at home: No Do you presently have visiting nurse or other home services: No Alcohol intake: never Patient Tobacco Use Status: Never used Tobacco e-Cigarette/Vaping Use: Never Used service: No Current occupational status: disabled Sexual orientation: Straight/Heterosexual Cognitive needs: No Hearing needs: No Vision needs: No Review of Systems Const Denies chills and Denies fever(s) Card Denies chest pain, Denies dyspnea and Denies dyspnea on exertion Resp Denies cough, Denies dyspnea and Denies dyspnea on exertion GI Denies hematochezia and Denies change in bowel habits Denies hematuria and Denies difficulty urinating Musc Denies back pain and Denies limited range of motion Neuro Denies focal weakness and Denies convulsions Psych Denies depression and Denies mood swings Physical Exam Const General: comfortable and no acute distress Resp Effort & Inspection: normal respiratory effort GI Other: Rectal exam shows the I&D site on the left seemed to have healed. There is still some residual induration but no significant tenderness. Assessment & Plan Assessment & Plan (1) Abscess, perianal: Code(s): K61.0 - Anal abscess Plan: He had an I and D done with Dr. Curtis. The I&D site seems to be healing well. There is no significant drainage or pain and tenderness. There is still a little bit of residual induration I did tell him that there is always small likelihood that he may have a fistula so there is a chance of recurrence or persistent drainage. If this is the case, I told him that he should come back to the office if he notices worsening or non improvement down the line. Coding Level of Care Code Est Pt Level 2 (27395) Diagnoses Abscess, perianal K61.0
[2023-07-12 09:40] VITALS: BMI 33.7
== END 2023-07-12 09:49 | disposition home or self-care (01) ==
PROVIDERS: PCP Physician Assistant; Visit Provider Surgery
DX: K61.0 Anal abscess (principal)
CPT/HCPCS: 99212

== ENCOUNTER → 2023-07-12 09:30 | Outpatient (BNVA) | payer MEDICARE, SELFPAY | PROVIDERS: PCP Physician Assistant; Visit Provider Surgery | DX: K61.0 Anal abscess (principal) | CPT/HCPCS: 99212 ==

== ENCOUNTER 2023-07-13 12:13 | Outpatient (AMB) | payer MEDICARE, SELFPAY ==
--- NOTE | 2023-07-13 14:04 | MHC.OFFWIV ---
Intake Vital Signs 07/13/23 14:06 Height 5 ft 4 in Weight 196 lb BMI 33.6 BP 150/70 H Blood Pressure Location Lt brachial Position Sitting Pulse 87 Pulse Source Pulse Oximeter Temp 97.2 F Temp Source Temporal Artery Scan Pulse Oximetry (%) 96 Oxygen Delivery Method Room Air Intake Visit Reasons: EP congestion/wheezing [id number] Intake Note: pt is here today for congestion wheezing started monday Patient Tobacco Use Status: Never used Tobacco Allergies Penicillins Allergy (Intermediate, Verified 07/13/23 14:07) Hives Quinolones Allergy (Intermediate, Verified 07/13/23 14:07) Rash trazodone Allergy (Intermediate, Verified 07/13/23 14:07) Rash/restless legs lisinopril Adverse Reaction (Intermediate, Verified 07/13/23 14:07) Cough losartan Adverse Reaction (Intermediate, Verified 07/13/23 14:07) Dizziness Do you need a note to return to daycare/school/sports/work: No HPI HPI Comments History of Present Illness Details The patient presents to urgent care for evaluation of cough and shortness of breath started last week. He has a history of asthma and this has caused him to develop an asthma attack. He used his albuterol nebulizer this morning with some mild relief. He denies fever chills nausea vomiting chest pain PFSH Medical History Osteoarthritis of right hip Osteoarthritis of left hip Myalgia Routine medical exam History of COVID-19 Nephrotic syndrome Depression Osteoarthritis Anxiety GERD (gastroesophageal reflux disease) Asthma Elevated cholesterol HTN (hypertension) Bipolar disorder Colonoscopy refused Surgical History Hx of drainage of abscess S/P total right hip arthroplasty History of eye surgery Family History Mother No problems noted. Father No problems noted. Social History Household Members: Spouse Housing: House Are you a primary laboratory animal caretaker to a significant other at home: No Do you presently have visiting nurse or other home services: No Alcohol intake: never Patient Tobacco Use Status: Never used Tobacco e-Cigarette/Vaping Use: Never Used service: No Current occupational status: disabled Sexual orientation: Straight/Heterosexual Cognitive needs: No Hearing needs: No Vision needs: No Review of Systems Card Denies rapid heart rate, Denies dyspnea and Denies dyspnea on exertion Resp Denies dyspnea and Denies dyspnea on exertion GI Denies dyspepsia and Denies heartburn Musc Denies arthralgias and Denies muscle cramps Neuro Denies focal weakness and Denies Other visual disturbances Physical Exam Vital Signs: Last Vital Signs Temp 97.2 F 07/13/23 14:06 Pulse 87 07/13/23 14:06 BP 150/70 H 07/13/23 14:06 Pulse Ox 96 07/13/23 14:06 Oxygen Delivery Method Room Air 07/13/23 14:06 BMI result Body Mass Index 33.6 Const General: healthy appearing and no acute distress HEENT Mouth: Normal oral and palatal mucosa present Resp Effort & Inspection: normal respiratory effort and able to speak in complete sentences Auscultation: clear to auscultation bilaterally Cardio Rate: regular rate Rhythm: regular rhythm Assessment & Plan Assessment & Plan (1) Asthma exacerbation: Code(s): J45.901 - Unspecified asthma with (acute) exacerbation Plan symptoms consistent with a viral URI precipitating asthma exacerbation. Will prescribe albuterol and prednisone. He believes his albuterol nebulizer solution is and is requesting prescription for this as well. Medications: New albuterol sulfate 0.63 mg (3 mL) inhalation QID PRN 75 mL 0RF shortness of breath or wheezing prednisone Take 4 tabs p.o. daily x 3 days, take 2 tab x 2 days 10 mg PO DAILY 16 tabs 0RF Refilled albuterol sulfate 90 mcg/actuation 1 inh inhalation QID 8.5 grams 0RF Coding Level of Care Code Est Pt Level 3 (43477) Diagnoses Asthma exacerbation J45.901
[2023-07-13 14:06] VITALS: BP 150/70; PULSE 87; TEMP 36.2; O2SAT 96; BMI 33.6
== END 2023-07-13 15:23 | disposition home or self-care (01) ==
PROVIDERS: PCP Physician Assistant; Visit Provider Emergency Medicine
DX: J45.901 Unspecified asthma with (acute) exacerbation (principal)
CPT/HCPCS: 99213

== ENCOUNTER 2023-07-27 09:21 | Inpatient (IN) | payer MEDICARE, SELFPAY ==
[2023-07-27] VITALS (10 sets, daily range): BP systolic 136–162; BP diastolic 76–93; PULSE 84–110; RESP 16–20; TEMP 36.4–36.8; O2SAT 87–100; BMI 33.3; BMI 34.7
--- NOTE | 2023-07-27 09:57 | ED.ASTHMA ---
HPI - Asthma General Chief Complaint: Asthma Stated Complaint: JUNE MULLINS PER EMS Time Seen by Provider: 07/27/23 09:39 Source: patient Mode of arrival: EMS History of Present Illness HPI Narrative: 63-year-old male with known asthma denies any smoking history comes in with worsening shortness of breath over the past 2-3 weeks. Patient states that in general he has had persistent cough and difficulty breathing for over 1 week. Related Data Previous Rx's Medication Instructions Recorded blood pressure monitor (Blood #1 ea 01/11/21 Pressure Kit) Raised toilet seat #1 ea 09/26/22 walker #1 ea 09/26/22 blood pressure test kit-large #1 ea 12/23/22 cetirizine 10 mg tablet 10 mg PO DAILY 90 days #90 tabs 01/09/23 amlodipine 5 mg tablet 10 mg (2 x 5 mg) PO DAILY 90 days 05/11/23 #180 tabs colchicine 0.6 mg tablet 0.6 mg PO DAILY 90 days #90 tabs 05/11/23 hydrochlorothiazide 12.5 mg tablet 12.5 mg PO DAILY 90 days #90 tabs 05/11/23 lorazepam 0.5 mg tablet 0.5 mg PO DAILY PRN anxiety 2 days 05/11/23 #2 tabs olanzapine 5 mg tablet 5 mg PO BEDTIME 90 days #90 tabs 05/11/23 oxycodone 5 mg tablet 5 mg PO QID PRN pain #12 tabs 07/04/23 sulfamethoxazole 800 1 tab PO Q12H #14 tabs 07/05/23 mg-trimethoprim 160 mg tablet (Bactrim DS) cyclobenzaprine 10 mg tablet 10 mg PO BEDTIME 30 days #30 tabs 07/10/23 doxycycline monohydrate 100 mg 100 mg PO BID 5 days #10 caps 07/13/23 capsule prednisone 10 mg tablet 10 mg PO DIRECTED 9 days #18 07/13/23 tabs prednisone 10 mg tablet 10 mg PO DAILY #16 tabs 07/13/23 albuterol sulfate 0.63 mg/3 mL 0.63 mg (3 mL) inhalation QID PRN 07/25/23 solution for nebulization shortness of breath or wheezing #75 mL albuterol sulfate 90 mcg/actuation 1 inh inhalation QID #8.5 grams 07/25/23 aerosol inhaler guaifenesin 600 mg tablet, 600 mg PO BID 7 days #14 tabs 07/26/23 extended release 12 hr (Mucinex) Allergies Allergy/AdvReac Type Severity Reaction Status Date / Time Penicillins Allergy Intermediate Hives Verified 07/13/23 14:07 Quinolones Allergy Intermediate Rash Verified 07/13/23 14:07 trazodone Allergy Intermediate Rash/restless Verified 07/13/23 14:07 legs lisinopril AdvReac Intermediate Cough Verified 07/13/23 14:07 losartan AdvReac Intermediate Dizziness Verified 07/13/23 14:07 Review of Systems Review of Systems: Pertinent positives and negatives as stated in the [facility] Past Medical History Source: nursing notes reviewed Onset Date is defined in the Problem List Problems that require an onset date and time if occurred within 24 hrs of arrival to the ED Aortic Dissection and Rupture; Neurologic impairment; Cardiopulmonary Arrest; Endotracheal Intubation; Insertion or Replacement of Mechanical Circulatory Assist Device Medical History Osteoarthritis of right hip Osteoarthritis of left hip Myalgia Routine medical exam History of COVID-19 Nephrotic syndrome Depression Osteoarthritis Anxiety GERD (gastroesophageal reflux disease) Asthma Elevated cholesterol HTN (hypertension) Bipolar disorder Colonoscopy refused Surgical History Hx of drainage of abscess S/P total right hip arthroplasty History of eye surgery Family History Family History Mother No problems noted. Father No problems noted. Social History Social History Household Members: Spouse Housing: House Are you a primary account executive healthcare to a significant other at home: No Do you presently have visiting nurse or other home services: No Alcohol intake: never Patient Tobacco Use Status: Never used Tobacco Smoked in Last 30 Days: No e-Cigarette/Vaping Use: Never Used Use of substances other than those prescribed or required for medical reasons: No Advance Directives: No Advance Directives Information Provided: Yes service: No Current occupational status: disabled Sexual orientation: Straight/Heterosexual Cognitive needs: No Hearing needs: No Vision needs: No Physical Exam Vital Signs: Vital Signs: Last Vital Signs Temp 97.6 F 07/27/23 09:35 Pulse 91 07/27/23 11:09 Resp 16 07/27/23 11:09 BP 141/93 H 07/27/23 11:09 Pulse Ox 93 07/27/23 11:10 O2 Del Method Nasal Cannula 07/27/23 11:10 O2 Flow Rate 2 07/27/23 11:10 BMI result Body Mass Index 33.3 VITAL SIGNS: Reviewed. GENERAL: Well developed, well nourished, in no acute distress. HEAD: Normocephalic/atraumatic EYES: PERRLA, EOMI EARS: Ext canals without abnormality, TMs non-bulging and non-erythematous NOSE: Nares patent bilateral OROPHARYNX: no oral lesions noted, posterior pharynx clear and non-erythematous without noted tonsillar enlargement/erythema/exudates NECK: Supple, no adenopathy LUNGS: Tachypnea, increased work of breathing, expiratory wheeze with rhonchi throughout, SpO2<98> CARDIOVASCULAR: Regular rate and rhythm without noted murmurs, no JVD or lower extremity edema. ABDOMEN: Soft, non-tender, non-distended with bowel sounds. MUSCULOSKELETAL: No tenderness, deformities, or effusions noted on gross inspection. EXTREMITIES: No cyanosis, clubbing or edema. SKIN: Inspection of the skin reveals no rashes NEUROLOGIC: Alert and oriented x 4. Strength and sensation to light touch were grossly intact x 4. Medications Administered Discontinued Medications Generic Name Dose Route Start Last Admin Trade Name Freq PRN Reason Stop Dose Admin Albuterol Sulfate 2.5 mg/ 0 mg 07/27/23 10:09 07/27/23 10:12 Albuterol/Ipratropium 3 ml INHALE 07/27/23 10:10 1 dose ONCE ONE Administration Magnesium Sulfate 2 gm in 50 mls @ 150 mls/hr 07/27/23 11:16 07/27/23 11:26 Magnesium Sulfate/H2o IV 07/27/23 11:35 150 mls/hr ONCE ONE Administration Methylprednisolone Sodium Succinate 125 mg 07/27/23 09:55 07/27/23 10:06 Methylprednisolone Sod Succ 125 Mg/2 Ml Vial IVPUSH 07/27/23 09:56 125 mg ONCE ONE Administration Medical Decision Making Medical Decision Making MDM Narrative: 63-year-old male who presents with history and clinical presentation, DDX: Asthma exacerbation, viral illness, lower clinical suspicion for pneumonia, outside possibility of fluid overload though patient has no prior history and does not report any chest pain to suggest missed ACS. 1115: Nursing informed me that the oximetry dropped to 87%, patient has received DuoNebs, steroids, will proceed with magnesium sulfate and patient dispo will definitely be for admission. I reviewed all investigations and there is no leukocytosis/anemia but there is noted thrombocytopenia which is not new. X-ray is negative for evidence of infiltrate but or venous congestion otherwise my interpretation is in agreement with radiology's impression. Patient has remained afebrile and viral testing is negative for evidence of viral infection. Chemistry indices are grossly within normal limits, there is no evidence of OLY her electrolytes/liver enzyme abnormalities other than the chronically detected ALT. INTERVENTION: Nebulized treatments, steroids, magnesium sulfate 1136: I have discussed this with the inpatient hospitalist who accepts admission. Differential Diagnosis Differential Diagnoses: The differential diagnosis associated with the presentation includes Please see the discussion above Admission/Observation Consideration of admission/observation: Escalation of care including admission/observation considered Please see the discussion above Consult Healthcare Provider Management of the patient was discussed with: Hospitalist Please see the discussion above Lab Data MDM Lab Attestation statement: I reviewed the patient's lab results. Please see the discussion above 07/27/23 10:06 07/27/23 10:06 Labs: Lab Results 07/27/23 Range/Units 10:06 WBC 7.8 (4.8-10.8) X10*3/uL RBC 5.37 (4.60-5.80) X10*6/uL Hgb 16.0 (14.0-18.0) g/dl Hct 45.0 (42.0-52.0) % MCV 83.8 (80.0-98.0) fL MCH 29.8 (27.0-33.0) pg MCHC 35.6 (31.0-36.0) g/dl RDW 13.6 (11.0-16.0) % Plt Count 134 L D (160-400) X10*3/uL MPV 9.7 (9.4-12.4) fL Immature Gran % (Auto) 0.3 (0.0-0.4) % Neut % (Auto) 76.9 H (45-73) % Lymph % (Auto) 13.2 L (20-40) % [place] % (Auto) 4.6 (2-11) % Eos % (Auto) 4.5 H (0-4) % Baso % (Auto) 0.5 (0-2) % Lymph # (Auto) 1.0 L (1.2-4.9) X10*3/uL [place] # (Auto) 0.4 (0.1-1.2) X10*3/uL Eos # (Auto) 0.4 (0.0-0.4) X10*3/uL Baso # (Auto) 0.0 (0.0-0.2) X10*3/uL Abs Immat Gran (auto) 0.02 (0.00-0.03) X10*3/uL Absolute Neuts (auto) 6.0 (2.0-8.3) x10*3/uL Absolute Nucleated RBC 0.000 (0.0-0.012) X10*3/uL Nucleated RBC % (auto) 0.0 (0.0-0.2) /100WBC Sodium 140 (135-145) mmol/L Potassium 3.5 (3.3-5.1) mmol/L Chloride 99 (96-108) mmol/L Carbon Dioxide 30 H (22-29) mmol/L Anion Gap 15 (12-20) BUN 11 (9-16) mg/dL Creatinine 1.08 (0.5-1.4) mg/dL Estim Creat Clear Calc 71.8 Estimated GFR > 60 Random Glucose 136 H (60-115) mg/dL Calcium 9.4 D (8.4-10.2) mg/dL Total Bilirubin 0.4 (0.0-1.0) mg/dL AST 23 (5-37) U/L ALT 58 H (0-40) U/L Alkaline Phosphatase 82 (39-117) U/L Total Protein 7.4 (6.5-8.0) g/dL Albumin 4.6 (3.5-5.0) g/dL Influenza Type A (PCR) NEGATIVE (Negative) Influenza Type B (PCR) NEGATIVE (Negative) RSV RNA Qual (PCR) NEGATIVE (Negative) SARS-CoV-2 RNA (RT-PCR) NEGATIVE (Negative) Independent Interpretation I performed an independent interpretation of an: EKG Interpretation: Normal sinus rhythm, HR-85, no STEMI, [place]/QRS/QTC is within normal limits. Radiology Impression Discussion of test interpretation with radiology: I have reviewed the radiologist's reading. Radiologist Impression: Please see the discussion above External Record Review External record reviewed: Outpatient record, Prior outpatient labs and Prior outpatient radiology Chronic Conditions Patient?s care impacted by: Hypertension Critical Care Time Critical Care Time Critical Care Time: Yes Total Critical Care Time: 60 Attestation: I personally attest to this time spent taking care of the patient. Discharge Plan Discharge Clinical Impression: Asthma exacerbation, Hypoxia Patient Disposition: Admitted As Inpatient Prescriptions: No Action (DME) walker Misc See Rx Instructions .MEDSUPPLY Qty: 1 0RF Rx Instructions: Folding Front wheeled walker (DME) Raised toilet seat See Rx Instructions .ROUTE .MEDSUPPLY Qty: 1 0RF Rx Instructions: As directed (DME) blood pressure test kit-large Kit See Rx Instructions .Route Qty: 1 0RF Rx Instructions: As directed cetirizine 10 mg tablet 10 mg PO DAILY 90 Days Qty: 90 2RF Patient Comments: P&T interchange to loratadine cyclobenzaprine 10 mg tablet 10 mg PO BEDTIME 30 Days Qty: 30 1RF prednisone 10 mg tablet 10 mg PO DIRECTED 9 Days Qty: 18 0RF Rx Instructions: Take 3 tablets x3 days, 2 tablets x3 days, 1 tablet x3 days doxycycline monohydrate 100 mg capsule 100 mg PO BID 5 Days Qty: 10 0RF albuterol sulfate 90 mcg/actuation HFA aerosol inhaler 1 inh inhalation QID Qty: 8.5 0RF albuterol sulfate 0.63 mg/3 mL solution for nebulization 0.63 mg inhalation QID PRN (Reason: shortness of breath or wheezing) Qty: 75 0RF guaifenesin [Mucinex] 600 mg tablet extended release 12hr 600 mg PO BID 7 Days Qty: 14 0RF (DME) blood pressure monitor [Blood Pressure Kit] Kit See Rx Instructions .ROUTE .MEDSUPPLY Qty: 1 0RF Rx Instructions: As directed prednisone 10 mg tablet 10 mg PO DAILY Qty: 16 0RF Rx Instructions: Take 4 tabs p.o. daily x 3 days, take 2 tab x 2 days colchicine 0.6 mg tablet 0.6 mg PO DAILY 90 Days Qty: 90 2RF olanzapine 5 mg tablet 5 mg PO BEDTIME 90 Days Qty: 90 2RF amlodipine 5 mg tablet 10 mg PO DAILY 90 Days Qty: 180 1RF hydrochlorothiazide 12.5 mg tablet 12.5 mg PO DAILY 90 Days Qty: 90 1RF lorazepam 0.5 mg tablet 0.5 mg PO DAILY PRN (Reason: anxiety) 2 Days Qty: 2 0RF Rx Instructions: For plane rides oxycodone 5 mg tablet 5 mg PO QID PRN (Reason: pain) Qty: 12 0RF Rx Instructions: Partial Fill upon patient request. sulfamethoxazole-trimethoprim [Bactrim DS] 800-160 mg tablet 1 tab PO Q12H Qty: 14 0RF
--- NOTE | 2023-07-27 10:08 | PC.NURSE ---
pt a&ox3, vss, manager monitoring nsr, pt speaking in full sentences, audible wheezing noted, upon auscultation pt has in/ex wheezing throughout, pt c/o chest tightness with breathing, denies other pain, pt medicated per order, call farooq within reach, will continue to monitor.
--- NOTE | 2023-07-27 11:10 | PC.NURSE ---
patient a&ox3, monitor technician intact, upon this nurse entering room, pt looked to be sob, pt stated he was sob- O2 sat on room air was going between 87-88%, this nurse applied 2L NC pt has slowly increased to 93-94%. pt stated when he went for his cxr that it took all he could to stand for the xray. vitals otherwise stable, call farooq within reach, will notify provider and continue to monitor.
--- NOTE | 2023-07-27 11:31 | PC.NURSE ---
magnesium started per order
--- NOTE | 2023-07-27 12:09 | PC.NURSE ---
patient a&ox3, monitor technician intact nsr 80s, vss, pt in/ex wheezing continues- pt is now able to speak in full sentences after having the magnesium bolus, family at bedside, call farooq within reach, will continue to monitor
--- NOTE | 2023-07-27 13:00 | PM.IMHP ---
History of Present Illness Date of Service: 07/27/23 Attending physician on admission: Aime King Chief Complaint: SOB Pt is a 63-year-old male with a PMH significant for?moderate persistent asthma, HTN, anxiety, depression, and hx of gout who presents to the ED for evaluation of worsening?wheezing, SOB, and difficulty breathing. Patient states he has been having difficulty breathing and worsening asthma since before . Has been evaluated by PCP and been to urgent care if least 2 times since then. Has been treated with 3 rounds of steroids and Z-packs. Has a 25 year history but has not been on regular maintenance inhalers until the past 2 months. States they have been helping and patient has been experiencing increased shortness of breath difficulty breathing especially the past week. Previously had productive cough of green and brown colored sputum, which stopped last week. For the past few days patient's that he has had having increased shortness of breath not alleviated by inhalers, worsening cough productive of whitish sputum, in worsening wheezing. This morning patient states he felt lightheaded when he tried to stand, and had difficulty walking even across the room. Has never experienced anything like this before, and never been hospitalized for an asthma exacerbation before. Has chest pain and tightness associated with cough. Denies fever, chills, nausea, vomiting, abdominal pain. No change to bowel bladder habits. In the ED pt was afebrile with heart rate as high as 93, hypertensive up to 157/83, and satting at 87% on RA. Labs were grossly unremarkable. No leukocytosis. Stable H&H. Platelets 134, similar to previous. Electrolytes WNL. Renal and hepatic function baseline. Patient tested negative for influenza a and B, RSV, and COVID. CXR was unremarkable. EKG demonstrated normal sinus rhythm with T-wave abnormality, but no significant ST elevations or depressions. Pt was treated with Solu-Medrol, DuoNeb, and Mag sulfate. Pt will be admitted to the hospital for treatment further evaluation of acute hypoxic respiratory failure in the setting of acute asthma exacerbation. Review of Systems Review of Systems: SOB, GONZALEZ Lightheadedness, dizziness Cough Pleuritic chest pain and tightness Wheezing Denies fever, chills, nausea, vomiting, abdominal pain PMFSH Medical History Osteoarthritis of right hip Osteoarthritis of left hip Myalgia Routine medical exam History of COVID-19 Nephrotic syndrome Depression Osteoarthritis Anxiety GERD (gastroesophageal reflux disease) Asthma Elevated cholesterol HTN (hypertension) Bipolar disorder Colonoscopy refused Family History Mother No problems noted. Father No problems noted. Surgical History Hx of drainage of abscess S/P total right hip arthroplasty History of eye surgery Social History Household Members: Spouse Housing: House Are you a primary rn care manager to a significant other at home: No Do you presently have visiting nurse or other home services: No Alcohol intake: never Patient Tobacco Use Status: Never used Tobacco Smoked in Last 30 Days: No e-Cigarette/Vaping Use: Never Used Use of substances other than those prescribed or required for medical reasons: No Advance Directives: No Advance Directives Information Provided: Yes service: No Current occupational status: disabled Sexual orientation: Straight/Heterosexual Cognitive needs: No Hearing needs: No Vision needs: No Meds Allergies Allergy/AdvReac Type Severity Reaction Status Date / Time Penicillins Allergy Intermediate Hives Verified 07/13/23 14:07 Quinolones Allergy Intermediate Rash Verified 07/13/23 14:07 trazodone Allergy Intermediate Rash/restless Verified 07/13/23 14:07 legs lisinopril AdvReac Intermediate Cough Verified 07/13/23 14:07 losartan AdvReac Intermediate Dizziness Verified 07/13/23 14:07 Active Medications: Current Medications Lorazepam (Lorazepam 0.5 Mg Tablet) 0.5 mg PO ONCE ONE Stop: 07/27/23 13:00 Physical Exam Vital Signs and Narrative: Vital Signs: Last Vital Signs Temp 98.1 F 07/27/23 12:08 Pulse 84 07/27/23 12:08 Resp 20 07/27/23 12:08 BP 157/83 H 07/27/23 12:08 Pulse Ox 95 07/27/23 12:08 O2 Del Method Nasal Cannula 07/27/23 12:08 O2 Flow Rate 2 07/27/23 12:08 BMI result Body Mass Index 33.3 Constitutional: Alert, in no acute distress. Audibly wheezy. Mental Status: Oriented to person, place and time. Eyes: Pupils are equal, round, and reactive to light. Ear, Nose, and Throat: Oropharynx clear, mucous membranes moist. Ears and nose without deformities. Trachea midline. Respiratory: Significant bilateral diffuse wheezing. Patient capable of speaking in full sentences. In no respiratory distress. Cardiovascular: S1, S2 regular. No murmurs, rubs, or gallops. Gastrointestinal: Abdomen soft, non-tender, non-distended. Normal bowel sounds. Neurologic: Cranial nerves II-XII are grossly intact bilaterally. No focal neurological deficits. Moves all extremities spontaneously. Skin: Warm, dry. Musculoskeletal: No cyanosis or clubbing. Extremities: No edema. Psychiatric: Normal mood and affect. Results Labs 07/27/23 10:06 07/27/23 10:06 Labs: Laboratory Results - last 24 hr 07/27/23 10:06 MCV 83.8 MCH 29.8 MCHC 35.6 RDW 13.6 Plt Count 134 L D MPV 9.7 Immature Gran % (Auto) 0.3 Neut % (Auto) 76.9 H Lymph % (Auto) 13.2 L [place] % (Auto) 4.6 Eos % (Auto) 4.5 H Baso % (Auto) 0.5 Lymph # (Auto) 1.0 L [place] # (Auto) 0.4 Eos # (Auto) 0.4 Baso # (Auto) 0.0 Abs Immat Gran (auto) 0.02 Absolute Neuts (auto) 6.0 Absolute Nucleated RBC 0.000 Nucleated RBC % (auto) 0.0 Anion Gap 15 Estim Creat Clear Calc 71.8 Estimated GFR > 60 Random Glucose 136 H Calcium 9.4 D Total Bilirubin 0.4 AST 23 ALT 58 H Alkaline Phosphatase 82 B-Natriuretic Peptide < 10 Total Protein 7.4 Albumin 4.6 Influenza Type A (PCR) NEGATIVE Influenza Type B (PCR) NEGATIVE RSV RNA Qual (PCR) NEGATIVE SARS-CoV-2 RNA (RT-PCR) NEGATIVE Imaging Radiologist's Impressions: Impressions Chest X-Ray 07/27/23 10:54 IMPRESSION: Unremarkable examination. Assessment and Plan (1) Hypoxia: Status: Acute (2) Asthma exacerbation: Status: Acute Plan Pt is a 63-year-old male with a PMH significant for?moderate persistent asthma, HTN, anxiety, depression, and hx of gout who presents to the ED for evaluation of worsening?wheezing, SOB, and difficulty breathing. Pt will be admitted to the hospital for treatment further evaluation of acute hypoxic respiratory failure in the setting of acute asthma exacerbation. Acute hypoxic respiratory failure in the setting of acute moderate persistent asthma exacerbation Dyspnea, cough, wheezing past few days, satting as low as 87% on RA Been experiencing worsening asthma and cough since before [place], started on daily nebulizer for past 2 months, has been on 3 courses of prednisone and Z-packs since then Pt has significant wheezing on exam despite receiving multiple rounds of breathing treatments as well as Solu-Medrol and Mag sulfate in ED Will treat with Duonebs, Solu-Medrol, Mucinex Continue cetirizine No indication of pneumonia on CXR, no fever or leukocytosis, no indication for antibiotics at this time Will check respiratory viral panel Titrate supplemental O2 >92, wean as tolerated Monitor respiratory status HTN Continue amlodipine, hydrochlorothiazide Anxiety/depression Continue olanzapine Hx of gout Continue colchicine Full Code Attending:? DVT Prophylaxis: Lovenox Pt will require a hospitalization of at least two nights for treatment of?acute hypoxic respiratory failure in the setting of acute moderate persistent asthma exacerbation. Patient require treatment with IV steroids, breathing treatments, supplemental oxygen, and close monitoring of respiratory status. Quality Stroke Does the patient have a stroke diagnosis?: No VTE Prior VTE?: No VTE Risk Level:: Medical - moderate - high VTE Device Contraindication: Treatment Not Indicated VTE Drug Contraindication: N/A - Med Ordered
--- NOTE | 2023-07-27 13:04 | PHA.MEDREC ---
Pharmacy Consult ? Medication Reconciliation Pharmacy has completed the medication reconciliation. Patient with list in wallet that matches claim history
--- NOTE | 2023-07-27 13:16 | PC.NURSE ---
pt a&ox3, pt states he feels like he cant breathe, pt continues to have in/.ex wheezing, O2 sat is 94% on 2l NC, vitals otherwise continue to be stable, family at bedside, pt medicated with ativan per order, call faoroq within reach, will continue to monitor.
--- NOTE | 2023-07-27 15:16 | PC.NURSE ---
report given to Overflow Jessica Webster
--- NOTE | 2023-07-27 16:26 | PC.NURSE ---
Pt refused mucinex stating it has not been helping him at home
[2023-07-28] VITALS (9 sets, daily range): BP systolic 138–177; BP diastolic 70–82; PULSE 95–105; RESP 16–22; TEMP 36.1–37.1; O2SAT 88–98
--- NOTE | 2023-07-28 09:40 | MHC.CM.PN ---
Interview conducted w/Pt: lives w/, no prev services, no ADs at home, still drives. PCP on file is accurate. HCP requested. Pt requesting that his D/C medication scripts please be sent to [facility] pharmacy; this is more convenient for him going forward. D/C plan is to return home w/ via . CM to follow.
--- NOTE | 2023-07-28 15:09 | HO.PM.IMPN ---
Subjective Subjective Date of Service: 07/28/23 Interval History: seen and examined this morning follow up asthma exacerbation still reporting sob and wheezing, productive cough. no fever or chills Review of Systems Review of Systems: Yes all other systems are reviewed and are negative Constitutional Constitutional: Denies chills and Denies fever(s) Cardiovascular Cardiovascular: Denies chest pain, Denies palpitations and Reports dyspnea Respiratory Respiratory: Reports cough and Reports dyspnea Gastrointestinal Gastrointestinal: Denies abdominal pain Endocrine Endocrine: Denies palpitations Physical Exam Vital Signs: Vital Signs: Last Vital Signs Temp 98.3 F 07/28/23 07:32 Pulse 105 H 07/28/23 12:01 Resp 16 07/28/23 12:01 BP 138/78 07/28/23 07:32 Pulse Ox 88 L 07/28/23 09:02 O2 Del Method Room Air 07/28/23 09:02 O2 Flow Rate 3 07/28/23 07:32 BMI result Body Mass Index 34.7 Const: General: cooperative, comfortable, alert and awake Nutritional Appearance: average body habitus Orientation/consciousness: patient oriented x3 Resp: Other: b/l wheezing Effort & Inspection: no respiratory distress and no use of accessory muscles Cardio: Rate: tachycardic GI: Inspection: No distended Palpation (GI): Soft to palpation and nontender Neuro: General: patient oriented x3, moves all extremities and CN's II-XI intact bilaterally Extrem: General: Yes no pedal edema Objective Data Active Medications Acetaminophen (Acetaminophen 325 Mg Tablet) 650 mg PO Q6H PRN PRN Reason: Pain, Mild (Pain Scale 1-3) Albuterol/Ipratropium (Albuterol/Iprat 2.5/0.5mg 3 Ml Ampul.Neb) 3 ml INHALE RQ4H WHILE AWAKE [facility] Last Admin: 07/28/23 12:01 Dose: 3 ml Documented By: BETH Amlodipine Besylate (Amlodipine Besylate 10 Mg Tablet) 10 mg PO DAILY [facility]; Protocol Last Admin: 07/28/23 08:56 Dose: 10 mg Documented By: WILIAM Benzonatate (Benzonatate 100 Mg Capsule) 200 mg PO TID PRN PRN Reason: Cough Colchicine (Colchicine 0.6 Mg Tablet) 0.6 mg PO DAILY [facility] Last Admin: 07/28/23 08:56 Dose: 0.6 mg Documented By: WILIAM Cyclobenzaprine HCl (Cyclobenzaprine Hcl 10 Mg Tablet) 10 mg PO BEDTIME [facility] Last Admin: 07/27/23 20:56 Dose: 10 mg Documented By: ALLEN Docusate Sodium (Docusate Sodium 100 Mg Capsule) 100 mg PO DAILY PRN PRN Reason: Constipation Enoxaparin Sodium (Enoxaparin Sodium 40 Mg/0.4 Ml Syringe) 40 mg SUBCUT Q24H [facility] Last Admin: 07/27/23 16:17 Dose: 40 mg Documented By: BAKARI Guaifenesin/Dextromethorphan (Guaifenesin Dm 200/20/10 Ml 10 Ml Syrup) 10 ml PO Q4H PRN PRN Reason: Cough Hydrochlorothiazide (Hydrochlorothiazide 12.5 Mg Tablet) 12.5 mg PO DAILY [facility]; Protocol Last Admin: 07/28/23 08:55 Dose: 12.5 mg Documented By: WILIAM Doxycycline Hyclate 100 mg/ (Sodium Chloride) 250 mls @ 166.67 mls/hr IV BID [facility] Last Infusion: 07/28/23 13:16 Dose: Infused Documented By: WILIAM Loratadine (Loratadine 10 Mg Tablet) 10 mg PO DAILY [facility] Last Admin: 07/28/23 08:56 Dose: 10 mg Documented By: WILIAM Melatonin (Melatonin 3 Mg Tablet) 6 mg PO BEDTIME PRN PRN Reason: Insomnia Methylprednisolone Sodium Succinate (Methylprednisolone Sod Succ 40 Mg/Ml Vial) 40 mg IVPUSH Q12H [facility] Last Admin: 07/28/23 08:55 Dose: 40 mg Documented By: WILIAM Olanzapine (Olanzapine 5 Mg Tablet) 5 mg PO BEDTIME [facility] Last Admin: 07/27/23 20:56 Dose: 5 mg Documented By: ALLEN Ondansetron HCl (Ondansetron Hcl 4 Mg/2 Ml Vial) 4 mg IVPUSH Q8H PRN PRN Reason: Nausea and Vomiting Sodium Chloride (0.9 % Sodium Chloride Flush 3 Ml Syringe) 3 ml IVFLUSH QSHIFT [facility] Last Admin: 07/28/23 08:56 Dose: 3 ml Documented By: WILIAM Labs 07/28/23 11:48 07/27/23 10:06 Labs: Laboratory Results - last 24 hr 07/27/23 07/28/23 07/28/23 14:35 10:17 11:48 MCV 84.8 MCH 30.0 MCHC 35.4 RDW 13.9 Plt Count 150 L MPV 9.8 Immature Gran % (Auto) 0.7 H Neut % (Auto) 93.4 H Lymph % (Auto) 3.3 L [place] % (Auto) 2.4 Eos % (Auto) 0.1 Baso % (Auto) 0.1 Lymph # (Auto) 0.6 L [place] # (Auto) 0.5 Eos # (Auto) 0.0 Baso # (Auto) 0.0 Abs Immat Gran (auto) 0.13 H Absolute Neuts (auto) 17.7 H Absolute Nucleated RBC 0.000 Nucleated RBC % (auto) 0.0 Smear Tech's Comments VERIFIED Respiratory Panel Rodríguez Cancelled See Note Adenovirus (Rapid PCR) Cancelled Not Detected B.pert (TEM-PCR) Cancelled Not Detected B.parapertussis DNA PCR Cancelled Not Detected C. pneumoniae DNA (PCR) Cancelled Not Detected Coronavirus OC43 (PCR) Cancelled Not Detected Coronavirus HKU1 (PCR) Cancelled Not Detected Coronavirus 229E (PCR) Cancelled Not Detected Coronavirus NL63 (PCR) Cancelled Not Detected Human Metapneumovir PCR Cancelled Not Detected Influenza A (RT-PCR) Cancelled Not Detected Influenza B (RT-PCR) Cancelled Not Detected M. pneumoniae (PCR) Cancelled Not Detected Parainfluenza 1 (PCR) Cancelled Not Detected Parainfluenza 2 (PCR) Cancelled Not Detected Parainfluenza 3 (PCR) Cancelled Not Detected Parainfluenza 4 (PCR) Cancelled Not Detected RSV (PCR) Cancelled Not Detected Entero/Rhino (PCR) Cancelled Not Detected SARS-CoV-2 RNA (RT-PCR) Cancelled Not Detected Assessment and Plan (1) Asthma exacerbation: Status: Acute Plan Pt is a 63-year-old male with a PMH significant for?moderate persistent asthma, HTN, anxiety, depression, and hx of gout who presents to the ED for evaluation of worsening?wheezing, SOB, and difficulty breathing. Pt will be admitted to the hospital for treatment further evaluation of acute hypoxic respiratory failure in the setting of acute asthma exacerbation. Acute hypoxic respiratory failure due to acute asthma exacerbation/acute bronchitis ongoing Dyspnea, productive cough, wheezing. no history of intubation s/p 3 courses of prednisone/ Z-packs as outpatient RPP negative continue Duonebs, Solu-Medrol, Mucinex IV doxycycline Titrate supplemental O2 >92, wean as tolerated Monitor respiratory status closely HTN Continue amlodipine, hydrochlorothiazide Anxiety/depression Continue olanzapine Hx of gout Continue colchicine Mood continue zyprexa Full Code Attending:?Dr. King DVT Prophylaxis: Lovenox requires ongoing inpatient stay for?acute hypoxic respiratory failure for supplemental oxygen, and close monitoring of respiratory status. Quality Stroke Does the patient have a stroke diagnosis?: No VTE Prior VTE?: No VTE Risk Level:: Medical - moderate - high VTE Device Contraindication: Treatment Not Indicated VTE Drug Contraindication: N/A - Med Ordered
[2023-07-29] VITALS (8 sets, daily range): BP systolic 126–167; BP diastolic 64–80; PULSE 83–100; RESP 18–20; TEMP 36.6–37; O2SAT 90–95
--- NOTE | 2023-07-29 07:41 | HO.PM.IMPN ---
Subjective Subjective Date of Service: 07/29/23 Interval History: seen and examined this morning follow up asthma exacerbation still reporting sob and wheezing, productive cough. no fever or chills, no chest pain Review of Systems Review of Systems: Yes all other systems are reviewed and are negative Constitutional Constitutional: Denies chills and Denies fever(s) Cardiovascular Cardiovascular: Denies chest pain, Denies palpitations and Reports dyspnea Respiratory Respiratory: Reports cough and Reports dyspnea Gastrointestinal Gastrointestinal: Denies abdominal pain Endocrine Endocrine: Denies palpitations Physical Exam Vital Signs: Vital Signs: Last Vital Signs Temp 98.5 F 07/29/23 03:02 Pulse 88 07/29/23 04:09 Resp 20 07/29/23 04:09 BP 165/77 H 07/29/23 03:02 Pulse Ox 93 07/29/23 03:02 O2 Del Method Nasal Cannula 07/29/23 03:02 O2 Flow Rate 2 07/29/23 03:02 BMI result Body Mass Index 34.7 Constitutional - Awake and Alert, No apparent distress Eyes - PERRLA, EOMI Cardiovascular - S1S2, RRR, No edema Respiratory - Normal lung expansion, Normal respiratory effort, No respiratory distress on 2L o2, diminished bases, course lungs sounds with expiratory wheezing Gastrointestinal - NT / ND; +BS; No rebound or guarding Extremities - no calf tenderness bilaterally, no swelling Skin - Warm/Dry Neurological - Alert & oriented x3 Psychological - Appropriate affect Objective Data Active Medications Acetaminophen (Acetaminophen 325 Mg Tablet) 650 mg PO Q6H PRN PRN Reason: Pain, Mild (Pain Scale 1-3) Albuterol/Ipratropium (Albuterol/Iprat 2.5/0.5mg 3 Ml Ampul.Neb) 3 ml INHALE RQ4H WHILE AWAKE [facility] Last Admin: 07/29/23 04:08 Dose: 3 ml Documented By: JANICE Amlodipine Besylate (Amlodipine Besylate 10 Mg Tablet) 10 mg PO DAILY [facility]; Protocol Last Admin: 07/28/23 08:56 Dose: 10 mg Documented By: WILIAM Benzonatate (Benzonatate 100 Mg Capsule) 200 mg PO TID PRN PRN Reason: Cough Colchicine (Colchicine 0.6 Mg Tablet) 0.6 mg PO DAILY [facility] Last Admin: 07/28/23 08:56 Dose: 0.6 mg Documented By: WILIAM Cyclobenzaprine HCl (Cyclobenzaprine Hcl 10 Mg Tablet) 10 mg PO BEDTIME [facility] Last Admin: 07/28/23 20:17 Dose: 10 mg Documented By: ALLEN Docusate Sodium (Docusate Sodium 100 Mg Capsule) 100 mg PO DAILY PRN PRN Reason: Constipation Enoxaparin Sodium (Enoxaparin Sodium 40 Mg/0.4 Ml Syringe) 40 mg SUBCUT Q24H [facility] Last Admin: 07/28/23 15:39 Dose: 40 mg Documented By: WILIAM Guaifenesin/Dextromethorphan (Guaifenesin Dm 200/20/10 Ml 10 Ml Syrup) 10 ml PO Q4H PRN PRN Reason: Cough Last Admin: 07/29/23 04:27 Dose: 10 ml Documented By: ALLEN Hydrochlorothiazide (Hydrochlorothiazide 12.5 Mg Tablet) 12.5 mg PO DAILY [facility]; Protocol Last Admin: 07/28/23 08:55 Dose: 12.5 mg Documented By: WILIAM Doxycycline Hyclate 100 mg/ (Sodium Chloride) 250 mls @ 166.67 mls/hr IV BID [facility] Last Infusion: 07/28/23 21:45 Dose: Infused Documented By: ALLEN Loratadine (Loratadine 10 Mg Tablet) 10 mg PO DAILY [facility] Last Admin: 07/28/23 08:56 Dose: 10 mg Documented By: WILIAM Melatonin (Melatonin 3 Mg Tablet) 6 mg PO BEDTIME PRN PRN Reason: Insomnia Methylprednisolone Sodium Succinate (Methylprednisolone Sod Succ 40 Mg/Ml Vial) 40 mg IVPUSH Q12H [facility] Last Admin: 07/28/23 20:16 Dose: 40 mg Documented By: ALLEN Olanzapine (Olanzapine 5 Mg Tablet) 5 mg PO BEDTIME [facility] Last Admin: 07/28/23 20:17 Dose: 5 mg Documented By: ALLEN Ondansetron HCl (Ondansetron Hcl 4 Mg/2 Ml Vial) 4 mg IVPUSH Q8H PRN PRN Reason: Nausea and Vomiting Sodium Chloride (0.9 % Sodium Chloride Flush 3 Ml Syringe) 3 ml IVFLUSH QSHIFT [facility] Last Admin: 07/28/23 20:18 Dose: 3 ml Documented By: ALLEN Labs 07/28/23 11:48 07/27/23 10:06 Labs: Laboratory Results - last 24 hr 07/27/23 07/28/23 07/28/23 14:35 10:17 11:48 MCV 84.8 MCH 30.0 MCHC 35.4 RDW 13.9 Plt Count 150 L MPV 9.8 Immature Gran % (Auto) 0.7 H Neut % (Auto) 93.4 H Lymph % (Auto) 3.3 L [place] % (Auto) 2.4 Eos % (Auto) 0.1 Baso % (Auto) 0.1 Lymph # (Auto) 0.6 L [place] # (Auto) 0.5 Eos # (Auto) 0.0 Baso # (Auto) 0.0 Abs Immat Gran (auto) 0.13 H Absolute Neuts (auto) 17.7 H Absolute Nucleated RBC 0.000 Nucleated RBC % (auto) 0.0 Smear Tech's Comments VERIFIED Respiratory Panel Rodríguez Cancelled See Note Adenovirus (Rapid PCR) Cancelled Not Detected B.pert (TEM-PCR) Cancelled Not Detected B.parapertussis DNA PCR Cancelled Not Detected C. pneumoniae DNA (PCR) Cancelled Not Detected Coronavirus OC43 (PCR) Cancelled Not Detected Coronavirus HKU1 (PCR) Cancelled Not Detected Coronavirus 229E (PCR) Cancelled Not Detected Coronavirus NL63 (PCR) Cancelled Not Detected Human Metapneumovir PCR Cancelled Not Detected Influenza A (RT-PCR) Cancelled Not Detected Influenza B (RT-PCR) Cancelled Not Detected M. pneumoniae (PCR) Cancelled Not Detected Parainfluenza 1 (PCR) Cancelled Not Detected Parainfluenza 2 (PCR) Cancelled Not Detected Parainfluenza 3 (PCR) Cancelled Not Detected Parainfluenza 4 (PCR) Cancelled Not Detected RSV (PCR) Cancelled Not Detected Entero/Rhino (PCR) Cancelled Not Detected SARS-CoV-2 RNA (RT-PCR) Cancelled Not Detected Assessment and Plan (1) Asthma exacerbation: Status: Acute Plan Pt is a 63-year-old male with a PMH significant for?moderate persistent asthma, HTN, anxiety, depression, and hx of gout who presents to the ED for evaluation of worsening?wheezing, SOB, and difficulty breathing. Pt will be admitted to the hospital for treatment further evaluation of acute hypoxic respiratory failure in the setting of acute asthma exacerbation. Acute hypoxic respiratory failure due to acute asthma exacerbation/acute bronchitis RPP negative continue Duonebs q4h increase iv solumedrol to 40mg q8h robitussin ac IV doxycycline check chest ct Titrate supplemental O2 >92, wean as tolerated Monitor respiratory status closely HTN Continue amlodipine, hydrochlorothiazide Anxiety/depression Continue olanzapine Hx of gout Continue colchicine Mood continue zyprexa Full Code DVT Prophylaxis: Lovenox requires ongoing inpatient stay for?acute hypoxic respiratory failure for supplemental oxygen and still with coarse lung sounds requiring increase in IV steroids, and close monitoring of respiratory status. Quality Stroke Does the patient have a stroke diagnosis?: No VTE Prior VTE?: No VTE Risk Level:: Medical - moderate - high VTE Device Contraindication: Treatment Not Indicated VTE Drug Contraindication: N/A - Med Ordered
[2023-07-30] VITALS (8 sets, daily range): BP systolic 145–161; BP diastolic 72–83; PULSE 80–93; RESP 18–22; TEMP 36.3–36.7; O2SAT 90–93
--- NOTE | 2023-07-30 07:32 | HO.PM.IMPN ---
Subjective Subjective Date of Service: 07/30/23 Interval History: seen and examined this morning follow up asthma exacerbation still reporting sob and wheezing, productive cough- improved. Feels slighlty better Review of Systems Review of Systems: Yes all other systems are reviewed and are negative Physical Exam Vital Signs: Vital Signs: Last Vital Signs Temp 97.7 F 07/30/23 04:00 Pulse 82 07/30/23 04:00 Resp 20 07/30/23 04:00 BP 145/72 H 07/30/23 04:00 Pulse Ox 92 07/30/23 04:00 O2 Del Method Nasal Cannula 07/30/23 04:00 O2 Flow Rate 2 07/30/23 04:00 BMI result Body Mass Index 34.7 Constitutional - Awake and Alert, No apparent distress Eyes - PERRLA, EOMI Cardiovascular - S1S2, RRR, No edema Respiratory - Normal lung expansion, Normal respiratory effort, No respiratory distress, diffuse expiratory wheezing, diminished bases Gastrointestinal - NT / ND; +BS; No rebound or guarding Extremities - no calf tenderness bilaterally, no swelling Skin - Warm/Dry Neurological - Alert & oriented x3 Psychological - Appropriate affect Objective Data Active Medications Acetaminophen (Acetaminophen 325 Mg Tablet) 650 mg PO Q6H PRN PRN Reason: Pain, Mild (Pain Scale 1-3) Albuterol/Ipratropium (Albuterol/Iprat 2.5/0.5mg 3 Ml Ampul.Neb) 3 ml INHALE RQ4H WHILE AWAKE [facility] Last Admin: 07/29/23 19:17 Dose: 3 ml Documented By: CLARISSA Amlodipine Besylate (Amlodipine Besylate 10 Mg Tablet) 10 mg PO DAILY [facility]; Protocol Last Admin: 07/29/23 08:14 Dose: 10 mg Documented By: QUOC Benzonatate (Benzonatate 100 Mg Capsule) 200 mg PO TID PRN PRN Reason: Cough Colchicine (Colchicine 0.6 Mg Tablet) 0.6 mg PO DAILY [facility] Last Admin: 07/29/23 08:14 Dose: 0.6 mg Documented By: QUOC Cyclobenzaprine HCl (Cyclobenzaprine Hcl 10 Mg Tablet) 10 mg PO BEDTIME [facility] Last Admin: 07/29/23 20:23 Dose: 10 mg Documented By: ALLEN Docusate Sodium (Docusate Sodium 100 Mg Capsule) 100 mg PO DAILY PRN PRN Reason: Constipation Enoxaparin Sodium (Enoxaparin Sodium 40 Mg/0.4 Ml Syringe) 40 mg SUBCUT Q24H [facility] Last Admin: 07/29/23 14:38 Dose: 40 mg Documented By: QUOC Fluticasone Propionate (Fluticasone Propionate 100 Mcg Blst.W.Dev) 2 puff INHALE RBID [facility] Last Admin: 07/29/23 19:16 Dose: 2 puff Documented By: CLARISSA Guaifenesin/Codeine Phosphate (Guaifen/Codeine Sf 200/20/10ml 10 Ml Liquid) 5 ml PO Q4H [facility] Last Admin: 07/30/23 04:43 Dose: Not Given Documented By: ALLEN Non-Admin Reason: Patient Asleep Hydrochlorothiazide (Hydrochlorothiazide 12.5 Mg Tablet) 12.5 mg PO DAILY [facility]; Protocol Last Admin: 07/29/23 08:14 Dose: 12.5 mg Documented By: QUOC Doxycycline Hyclate 100 mg/ (Sodium Chloride) 250 mls @ 166.67 mls/hr IV BID [facility] Last Infusion: 07/29/23 21:54 Dose: Infused Documented By: ALLEN Loratadine (Loratadine 10 Mg Tablet) 10 mg PO DAILY [facility] Last Admin: 07/29/23 08:14 Dose: 10 mg Documented By: QUOC Melatonin (Melatonin 3 Mg Tablet) 6 mg PO BEDTIME PRN PRN Reason: Insomnia Methylprednisolone Sodium Succinate (Methylprednisolone Sod Succ 40 Mg/Ml Vial) 40 mg IVPUSH Q8H [facility] Last Admin: 07/29/23 23:28 Dose: 40 mg Documented By: ALLEN Olanzapine (Olanzapine 5 Mg Tablet) 5 mg PO BEDTIME [facility] Last Admin: 07/29/23 20:24 Dose: 5 mg Documented By: ALLEN Ondansetron HCl (Ondansetron Hcl 4 Mg/2 Ml Vial) 4 mg IVPUSH Q8H PRN PRN Reason: Nausea and Vomiting Sodium Chloride (0.9 % Sodium Chloride Flush 3 Ml Syringe) 3 ml IVFLUSH QSHIFT [facility] Last Admin: 07/29/23 19:55 Dose: 3 ml Documented By: ALLEN Labs 07/30/23 05:59 07/30/23 05:59 Labs: Laboratory Results - last 24 hr 07/29/23 10:16 MCV 85.9 MCH 29.9 MCHC 34.8 RDW 14.2 Plt Count 147 L MPV 10.4 Immature Gran % (Auto) 0.9 H Neut % (Auto) 94.3 H Lymph % (Auto) 3.4 L [place] % (Auto) 1.4 L Eos % (Auto) 0.0 Baso % (Auto) 0.0 Lymph # (Auto) 0.7 L [place] # (Auto) 0.3 Eos # (Auto) 0.0 Baso # (Auto) 0.0 Abs Immat Gran (auto) 0.18 H Absolute Neuts (auto) 19.0 H Absolute Nucleated RBC 0.000 Nucleated RBC % (auto) 0.0 Smear Tech's Comments VERIFIED Anion Gap 16 Estim Creat Clear Calc 63.9 Estimated GFR 59 Random Glucose 160 H Calcium 9.3 Assessment and Plan (1) Asthma exacerbation: Status: Acute Plan Pt is a 63-year-old male with a PMH significant for?moderate persistent asthma, HTN, anxiety, depression, and hx of gout who presents to the ED for evaluation of worsening?wheezing, SOB, and difficulty breathing. Pt will be admitted to the hospital for treatment further evaluation of acute hypoxic respiratory failure in the setting of acute asthma exacerbation. Acute hypoxic respiratory failure due to acute asthma exacerbation/acute bronchitis RPP negative continue Duonebs q4h albuterol prn continue iv solumedrol to 40mg q8h robitussin ac IV doxycycline (initiated 07/28) add flovent BID Incentive spiprometry chest ct negative for pneumonia Titrate supplemental O2 >92, wean as tolerated Monitor respiratory status closely HTN Continue amlodipine, hydrochlorothiazide Anxiety/depression Continue olanzapine Hx of gout Continue colchicine Mood continue zyprexa Full Code DVT Prophylaxis: Lovenox requires ongoing inpatient stay for?acute hypoxic respiratory failure for supplemental oxygen and still with diminished andre sounds requiring increase in IV steroids, and close monitoring of respiratory status. Quality Stroke Does the patient have a stroke diagnosis?: No VTE Prior VTE?: No VTE Risk Level:: Medical - moderate - high VTE Device Contraindication: Treatment Not Indicated VTE Drug Contraindication: N/A - Med Ordered
[2023-07-30 07:57] LABS: Anion Gap 14 (12-20); Blood Urea Nitrogen 20 mg/dL (9-16); Calcium 9.3 mg/dL (8.4-10.2); Carbon Dioxide 31 mmol/L (22-29); Chloride 98 mmol/L (96-108); Creatinine Clr Calc Pharmacy 81.7; Estimated Glomerular Filt Rate > 60; Glucose Random 136 mg/dL (60-115); Potassium 3.6 mmol/L (3.3-5.1); Sodium 139 mmol/L (135-145)
[2023-07-31 03:54] VITALS: BP 159/82; PULSE 93; RESP 18; TEMP 36; O2SAT 93
[2023-07-31 05:43] LABS: Basophils Percent Auto 0.1 % (0-2); Lymphocytes Percent Auto 7.1 % (20-40); Mean Corpuscular HGB Conc 34.7 g/dl (31.0-36.0); Mean Corpuscular Hemoglobin 30.1 pg (27.0-33.0); PLT CLUMP 1; SCAN SMEAR FLAG 1
[2023-07-31 05:45] LABS: Hematocrit 42.6 % (42.0-52.0); Hemoglobin 14.8 g/dl (14.0-18.0); Imm Gran Abs Auto 0.16 X10*3/uL (0.00-0.03); Imm Gran Pct Auto 1.3 % (0.0-0.4); Lymphocytes Absolute Auto 0.9 X10*3/uL (1.2-4.9); Mean Corpuscular Volume 86.6 fL (80.0-98.0); Mean Platelet Volume 9.8 fL (9.4-12.4); Monocytes Absolute Auto 0.5 X10*3/uL (0.1-1.2); Monocytes Percent Auto 3.9 % (2-11); Neutrophils Absolute Auto 10.5 x10*3/uL (2.0-8.3); Neutrophils Percent Auto 87.6 % (45-73); Red Blood Count 4.92 X10*6/uL (4.60-5.80); Red Cell Distribution Width 13.5 % (11.0-16.0)
[2023-07-31 05:48] LABS: MANUAL DIFF FLAG NO; Platelet Count 138 X10*3/uL (160-400)
[2023-07-31 05:57] LABS: Anion Gap 14 (12-20); Blood Urea Nitrogen 26 mg/dL (9-16); Calcium 8.9 mg/dL (8.4-10.2); Carbon Dioxide 30 mmol/L (22-29); Chloride 98 mmol/L (96-108); Creatinine Clr Calc Pharmacy 67.1; Estimated Glomerular Filt Rate > 60; Glucose Random 149 mg/dL (60-115); Potassium 3.8 mmol/L (3.3-5.1); Sodium 138 mmol/L (135-145)
[2023-07-31 07:31] VITALS: BP 138/81; PULSE 77; RESP 18; TEMP 36.3; O2SAT 95
[2023-07-31 07:52] VITALS: PULSE 82; RESP 18; O2SAT 93
--- NOTE | 2023-07-31 10:46 | PM.DS ---
DS: Providers Provider Date of Service: 07/31/23 Date of admission: 07/27/23 14:10 Date of discharge: 07/31/23 Primary care physician: Ryan Velasquez PA-C Admitting clinician: Barry Bella Attending physician on admission: Aime King Attending physician on discharge: Ryan [facility] Discharging clinician: Shirlene Houston DS: Diagnosis Discharge Diagnosis (1) Asthma exacerbation: Status: Acute DS: Summary Hospital Course Hospital Course: HPI on admission by Barry Bella PA-C on 07/27/23: Pt is a 63-year-old male with a PMH significant for?moderate persistent asthma, HTN, anxiety, depression, and hx of gout who presents to the ED for evaluation of worsening?wheezing, SOB, and difficulty breathing. Patient states he has been having difficulty breathing and worsening asthma since before . Has been evaluated by PCP and been to urgent care if least 2 times since then. Has been treated with 3 rounds of steroids and Z-packs. Has a 25 year history but has not been on regular maintenance inhalers until the past 2 months. States they have been helping and patient has been experiencing increased shortness of breath difficulty breathing especially the past week. Previously had productive cough of green and brown colored sputum, which stopped last week. For the past few days patient's that he has had having increased shortness of breath not alleviated by inhalers, worsening cough productive of whitish sputum, in worsening wheezing. This morning patient states he felt lightheaded when he tried to stand, and had difficulty walking even across the room. Has never experienced anything like this before, and never been hospitalized for an asthma exacerbation before. Has chest pain and tightness associated with cough. Denies fever, chills, nausea, vomiting, abdominal pain. No change to bowel bladder habits. In the ED pt was afebrile with heart rate as high as 93, hypertensive up to 157/83, and satting at 87% on RA. Labs were grossly unremarkable. No leukocytosis. Stable H&H. Platelets 134, similar to previous. Electrolytes WNL. Renal and hepatic function baseline. Patient tested negative for influenza a and B, RSV, and COVID. CXR was unremarkable. EKG demonstrated normal sinus rhythm with T-wave abnormality, but no significant ST elevations or depressions. Pt was treated with Solu-Medrol, DuoNeb, and Mag sulfate. Pt will be admitted to the hospital for treatment further evaluation of acute hypoxic respiratory failure in the setting of acute asthma exacerbation. Hospital course: Patient admitted to med/surg for further management of acute asthma exacerbation with suspicion for superimposed bacterial infection. Chest x-ray was negative for pneumonia. Chest CT was also negative for any acute pulmonary abnormality. Viral respiratory panel was negative. He was treated with IV steroids, scheduled DuoNebs, and doxycycline 100 mg twice daily. He was successfully weaned from supplemental O2. On day of discharge, maintaining oximetry around 95% on room air and with ambulation 92-95% on room air. During admission, vital signs were otherwise stable except for intermittent tachycardia secondary to albuterol usage and labs were unremarkable. He will be discharged on prednisone 40 mg daily x5 days as well as doxycycline 100 mg b.i.d. x3 days. He has prescribed a Flovent inhaler 2 puffs twice daily and is advised to rinse his mouth well following each use. He can continue using albuterol inhaler as needed for shortness of breath and wheezing and is also provided a short course of albuterol/ipratropium nebulizer solution to use as needed. He is advised to follow-up with primary care provider soon with recommendation for pulmonary function testing. He should continue all other home medications. Time Attestation Discharge coordination time: Greater than 30 minutes Quality: Safe Use of Opioids Does Pt have an Active Cancer Diagnosis on the Problem List?: No Quality: Stroke Does the patient have a stroke diagnosis?: No Physical Exam Vital Signs: Vital Signs: Last Vital Signs Temp 97.3 F 07/31/23 07:31 Pulse 82 07/31/23 07:52 Resp 18 07/31/23 07:52 BP 138/81 07/31/23 07:31 Pulse Ox 95 07/31/23 07:31 O2 Del Method Nasal Cannula 07/31/23 07:31 O2 Flow Rate 1 07/31/23 07:31 BMI result Body Mass Index 34.7 Constitutional - Awake and Alert, No apparent distress Eyes - PERRLA, EOMI Cardiovascular - S1S2, RRR, No edema Respiratory - Normal lung expansion, Normal respiratory effort, No respiratory distress, CTA bilaterally Extremities - no calf tenderness bilaterally, no swelling Skin - Warm/Dry Neurological - Alert & oriented x3 Psychological - Appropriate affect DS: Data Data Completed and Pending Completed studies during hospitalization [Text1]: Procedures Drainage of Perineum Subcutaneous Tissue and Fascia, Open Approach (06/27/23) Replacement of Right Hip Joint with Ceramic Synthetic Substitute, Uncemented, Open Approach (10/04/22) Labs on day of discharge: Laboratory Results - last 24 hr 07/31/23 05:17 WBC 12.0 H RBC 4.92 Hgb 14.8 Hct 42.6 MCV 86.6 MCH 30.1 MCHC 34.7 RDW 13.5 Plt Count 138 L MPV 9.8 Immature Gran % (Auto) 1.3 H Neut % (Auto) 87.6 H Lymph % (Auto) 7.1 L [place] % (Auto) 3.9 Eos % (Auto) 0.0 Baso % (Auto) 0.1 Lymph # (Auto) 0.9 L [place] # (Auto) 0.5 Eos # (Auto) 0.0 Baso # (Auto) 0.0 Abs Immat Gran (auto) 0.16 H Absolute Neuts (auto) 10.5 H Absolute Nucleated RBC 0.000 Nucleated RBC % (auto) 0.0 Sodium 138 Potassium 3.8 Chloride 98 Carbon Dioxide 30 H Anion Gap 14 BUN 26 H Creatinine 1.18 Estim Creat Clear Calc 67.1 Estimated GFR > 60 Random Glucose 149 H Calcium 8.9 Discharge Plan Discharge Anticipated Discharge Date/Time: 07/31/23 11:10 Patient Disposition: Home, Self-Care Discharge Diagnosis: asthma exacerbation, hypoxia Referrals: Ryan Velasquez PA-C [Primary Care Provider] - 1 Week Discharge Medications: New prednisone 20 mg Tablet 40 mg PO DAILY Qty: 10 0RF benzonatate 100 mg Capsule 100 mg PO TID PRN (Reason: Cough) Qty: 60 0RF doxycycline hyclate 100 mg capsule 100 mg PO BID Qty: 6 0RF Rx Instructions: Take with food and a full glass of water. Do not lay down for 1 hour after taking medication fluticasone propionate 110 mcg/actuation HFA aerosol inhaler 2 puff inhalation BID Qty: 12 1RF Rx Instructions: Rinse mouth well following use ipratropium-albuterol 0.5 mg-3 mg(2.5 mg base)/3 mL Solution For Nebulization 3 ml inhalation RQ4H WHILE AWAKE Qty: 30 0RF Continued (DME) walker Misc See Rx Instructions .MEDSUPPLY Qty: 1 0RF Rx Instructions: Folding Front wheeled walker (DME) Raised toilet seat See Rx Instructions .ROUTE .MEDSUPPLY Qty: 1 0RF Rx Instructions: As directed (DME) blood pressure test kit-large Kit See Rx Instructions .Route Qty: 1 0RF Rx Instructions: As directed cetirizine 10 mg tablet 10 mg PO DAILY 90 Days Qty: 90 2RF Patient Comments: P&T interchange to loratadine cyclobenzaprine 10 mg tablet 10 mg PO BEDTIME 30 Days Qty: 30 1RF albuterol sulfate 90 mcg/actuation HFA aerosol inhaler 1 inh inhalation QID Qty: 8.5 0RF albuterol sulfate 0.63 mg/3 mL solution for nebulization 0.63 mg inhalation QID PRN (Reason: shortness of breath or wheezing) Qty: 75 0RF (DME) blood pressure monitor [Blood Pressure Kit] Kit See Rx Instructions .ROUTE .MEDSUPPLY Qty: 1 0RF Rx Instructions: As directed colchicine 0.6 mg tablet 0.6 mg PO DAILY 90 Days Qty: 90 2RF olanzapine 5 mg tablet 5 mg PO BEDTIME 90 Days Qty: 90 2RF amlodipine 5 mg tablet 10 mg PO DAILY 90 Days Qty: 180 1RF hydrochlorothiazide 12.5 mg tablet 12.5 mg PO DAILY 90 Days Qty: 90 1RF Discharge Orders: Discharge Order (Routine); Ordered 07/31/23 Ordered By: Shirlene Houston Diet: Advance to usual diet Activity on Discharge: As tolerated Stand Alone Forms: Patient Portal Discharge page Care Plan Goals: Continue treating asthma exacerbation and prevent recurrent exacerbation Health Concerns: Asthma exacerbation Hypoxia Plan of Treatment: Asthma exacerbation -Continue prednisone 40mg daily x 5 days -Use flovent inhaler/discus 2 puffs twice daily as a maintenance inhaler to prevent recurrent exacerbations. This is not a rescue inhaler so you will not feel it working like albuterol. Rinse mouth well after use to prevent thrush -Use albuterol inhaler as needed for shortness of breath/wheezing -Use cetirizine/loratidine daily -Continue doxycycline 100mg twice daily for possible superimposed bacterial infection. Chest CT and Chest xray were negative for pneumonia however -You should follow up with PCP and should be considered for pulmonary function testing ordered per PCP Assessment: See above. See discharge summary
--- NOTE | 2023-07-31 11:00 | MHC.CM.PN ---
PER MD ROUNDS, PT WILL DC HOME TODAY WITH NO SERVICES FAMILY TO TRANSPORT
--- NOTE | 2023-07-31 11:32 | P.PNIM_ITS ---
Subjective Subjective Date of Service: 07/31/23 Interval History: seen and examined this morning follow up asthma exacerbation Feeling better. No sob, bautista, cp. Cough improved. No hypoxia at rest. 89-91% RA with ambulation but no sob Review of Systems Review of Systems: Yes all other systems are reviewed and are negative Physical Exam 2 Vital Signs: Vital Signs: Last Vital Signs Temp 97.3 F 07/31/23 07:31 Pulse 82 07/31/23 07:52 Resp 18 07/31/23 07:52 BP 138/81 07/31/23 07:31 Pulse Ox 95 07/31/23 07:31 O2 Del Method Nasal Cannula 07/31/23 07:31 O2 Flow Rate 1 07/31/23 07:31 BMI result Body Mass Index 34.7 Constitutional - Awake and Alert, No apparent distress Eyes - PERRLA, EOMI Cardiovascular - S1S2, RRR, No edema Respiratory - Normal lung expansion, Normal respiratory effort, No respiratory distress, CTA bilaterally Gastrointestinal - NT / ND; +BS; No rebound or guarding Extremities - no calf tenderness bilaterally, no swelling Skin - Warm/Dry Neurological - Alert & oriented x3 Psychological - Appropriate affect Objective Data Active Medications Acetaminophen (Acetaminophen 325 Mg Tablet) 650 mg PO Q6H PRN PRN Reason: Pain, Mild (Pain Scale 1-3) Albuterol/Ipratropium (Albuterol/Iprat 2.5/0.5mg 3 Ml Ampul.Neb) 3 ml INHALE RQ4H WHILE AWAKE [facility] Last Admin: 07/31/23 07:51 Dose: 3 ml Documented By: HAFSA Amlodipine Besylate (Amlodipine Besylate 10 Mg Tablet) 10 mg PO DAILY [facility]; Protocol Last Admin: 07/31/23 07:43 Dose: 10 mg Documented By: ALFREDO Benzonatate (Benzonatate 100 Mg Capsule) 200 mg PO TID PRN PRN Reason: Cough Colchicine (Colchicine 0.6 Mg Tablet) 0.6 mg PO DAILY [facility] Last Admin: 07/31/23 07:43 Dose: 0.6 mg Documented By: ALFREDO Cyclobenzaprine HCl (Cyclobenzaprine Hcl 10 Mg Tablet) 10 mg PO BEDTIME [facility] Last Admin: 07/30/23 20:46 Dose: 10 mg Documented By: ALLEN Docusate Sodium (Docusate Sodium 100 Mg Capsule) 100 mg PO DAILY PRN PRN Reason: Constipation Enoxaparin Sodium (Enoxaparin Sodium 40 Mg/0.4 Ml Syringe) 40 mg SUBCUT Q24H [facility] Last Admin: 07/30/23 14:42 Dose: 40 mg Documented By: QUOC Fluticasone Propionate (Fluticasone Propionate 100 Mcg Blst.W.Dev) 2 puff INHALE RBID [facility] Last Admin: 07/31/23 07:51 Dose: 2 puff Documented By: HAFSA Fluticasone Propionate (Fluticasone Propionate Nasal 16 Gm Roland) 2 spray NOSTRIL-B DAILY [facility] Last Admin: 07/31/23 10:30 Dose: 2 spray Documented By: ALFREDO Guaifenesin/Codeine Phosphate (Guaifen/Codeine Sf 200/20/10ml 10 Ml Liquid) 5 ml PO Q4H [facility] Last Admin: 07/31/23 07:44 Dose: 5 ml Documented By: ALFREDO Hydrochlorothiazide (Hydrochlorothiazide 12.5 Mg Tablet) 12.5 mg PO DAILY [facility]; Protocol Last Admin: 07/31/23 07:43 Dose: 12.5 mg Documented By: ALFREDO Doxycycline Hyclate 100 mg/ (Sodium Chloride) 250 mls @ 166.67 mls/hr IV BID [facility] Last Admin: 07/31/23 09:51 Dose: 166.67 mls/hr Documented By: ALFREDO Loratadine (Loratadine 10 Mg Tablet) 10 mg PO DAILY [facility] Last Admin: 07/31/23 07:43 Dose: 10 mg Documented By: ALFREDO Melatonin (Melatonin 3 Mg Tablet) 6 mg PO BEDTIME PRN PRN Reason: Insomnia Olanzapine (Olanzapine 5 Mg Tablet) 5 mg PO BEDTIME [facility] Last Admin: 07/30/23 20:46 Dose: 5 mg Documented By: ALLEN Ondansetron HCl (Ondansetron Hcl 4 Mg/2 Ml Vial) 4 mg IVPUSH Q8H PRN PRN Reason: Nausea and Vomiting Prednisone (Prednisone 20 Mg Tablet) 40 mg PO DAILY [facility] Last Admin: 07/31/23 09:51 Dose: 40 mg Documented By: ALFREDO Sodium Chloride (0.9 % Sodium Chloride Flush 3 Ml Syringe) 3 ml IVFLUSH QSHIFT [facility] Last Admin: 07/31/23 07:44 Dose: 3 ml Documented By: ALFREDO Labs 07/31/23 05:17 07/31/23 05:17 Labs: Laboratory Results - last 24 hr 07/31/23 05:17 MCV 86.6 MCH 30.1 MCHC 34.7 RDW 13.5 Plt Count 138 L MPV 9.8 Immature Gran % (Auto) 1.3 H Neut % (Auto) 87.6 H Lymph % (Auto) 7.1 L [place] % (Auto) 3.9 Eos % (Auto) 0.0 Baso % (Auto) 0.1 Lymph # (Auto) 0.9 L [place] # (Auto) 0.5 Eos # (Auto) 0.0 Baso # (Auto) 0.0 Abs Immat Gran (auto) 0.16 H Absolute Neuts (auto) 10.5 H Absolute Nucleated RBC 0.000 Nucleated RBC % (auto) 0.0 Anion Gap 14 Estim Creat Clear Calc 67.1 Estimated GFR > 60 Random Glucose 149 H Calcium 8.9 Quality Stroke Does the patient have a stroke diagnosis?: No VTE Prior VTE?: No VTE Risk Level:: Medical - moderate - high VTE Device Contraindication: Treatment Not Indicated VTE Drug Contraindication: N/A - Med Ordered
[2023-07-31 11:47] VITALS: PULSE 85; RESP 18; O2SAT 92
[2023-07-31 15:08] VITALS: BP 153/72; PULSE 86; RESP 18; TEMP 36.4; O2SAT 94
[2023-07-31 15:39] VITALS: PULSE 86; RESP 18; O2SAT 97
== END 2023-07-31 18:29 | disposition home or self-care (01) | DRG 202 ==
LOC: HO.ED 11:59 → HO.EDOVER 14:33 → HO.S3 16:17
PROVIDERS: Admitting Provider Student in an Organized Health Care Education/Training Program; Emergency Provider Student in an Organized Health Care Education/Training Program; PCP Physician Assistant; Visit Provider Physician Assistant
DX: J45.41 Moderate persistent asthma with (acute) exacerbation (principal); J96.01 Acute respiratory failure with hypoxia; J20.9 Acute bronchitis, unspecified; I10 Essential (primary) hypertension; F41.9 Anxiety disorder, unspecified; F32.A Depression, unspecified; M10.9 Gout, unspecified; Z20.822 Contact with and (suspected) exposure to COVID-19; Z79.899 Other long term (current) drug therapy
CPT/HCPCS: 0241U; 36415; 71046; 71250; 80048; 80053; 83880; 85025; 87633; 93005; 94640; 99285; J1650; J2920; J2930; J3475

== ENCOUNTER → 2023-07-27 11:17 | Outpatient (BNV) | payer MEDICARE, SELFPAY | PROVIDERS: Emergency Provider Student in an Organized Health Care Education/Training Program; PCP Physician Assistant; Visit Provider Internal Medicine Cardiovascular Disease | DX: R94.31 Abnormal electrocardiogram [ECG] [EKG] (principal) | CPT/HCPCS: 93010 ==

== ENCOUNTER → 2023-07-27 14:10 | Outpatient (BNV) | payer MEDICARE, SELFPAY | PROVIDERS: Admitting Provider Student in an Organized Health Care Education/Training Program; Emergency Provider Student in an Organized Health Care Education/Training Program; PCP Physician Assistant; Visit Provider Student in an Organized Health Care Education/Training Program | DX: J96.01 Acute respiratory failure with hypoxia (principal); J45.901 Unspecified asthma with (acute) exacerbation | CPT/HCPCS: 99223; 99232; 99233; 99239 ==

== ENCOUNTER 2023-08-14 11:06 | Outpatient (AMB) | payer MEDICARE, SELFPAY ==
[2023-08-14 11:17] VITALS: BP 158/64; PULSE 97; O2SAT 96; BMI 34.6
--- NOTE | 2023-08-14 11:17 | A.OFFPC_ITS ---
Vital Signs 08/14/23 11:17 Height 5 ft 4 in Weight 201 lb 8 oz BMI 34.6 BP 158/64 H Blood Pressure Location Lt brachial Position Sitting Pulse 97 Pulse Source Pulse Oximeter Pulse Oximetry (%) 96 Oxygen Delivery Method Room Air Intake Visit Reasons: [facility], SOB, Intake Note: Patient is here for hospital discharge follow up. Patient was discharged from [facility] on 08/01/23 for Hypoxia. 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 Accompanied by: Self / Same As Patient Allergies Penicillins Allergy (Intermediate, Verified 08/14/23 11:28) Hives Quinolones Allergy (Intermediate, Verified 08/14/23 11:28) Rash trazodone Allergy (Intermediate, Verified 08/14/23 11:28) Rash/restless legs lisinopril Adverse Reaction (Intermediate, Verified 08/14/23 11:28) Cough losartan Adverse Reaction (Intermediate, Verified 08/14/23 11:28) Dizziness Medication List - Last Reconciled 08/14/23 by Ryan Velasquez PA-C albuterol sulfate 90 mcg/actuation 1 inh inhalation QID albuterol sulfate 0.63 mg (3 mL) inhalation QID PRN amlodipine 10 mg (2 x 5 mg) PO DAILY 90 days blood pressure monitor (Blood Pressure Kit) As directed blood pressure test kit-large As directed cetirizine 10 mg PO DAILY 90 days colchicine 0.6 mg PO DAILY 90 days cyclobenzaprine 10 mg PO BEDTIME 30 days fluticasone propionate 110 mcg/actuation 2 puffs inhalation BID hydrochlorothiazide 12.5 mg PO DAILY 90 days ipratropium-albuterol 0.5 mg-3 mg(2.5 mg base)/3 mL 3 mL inhalation RQ4H WHILE AWAKE olanzapine 5 mg PO BEDTIME 90 days [Raised toilet seat As directed] walker Folding Front wheeled walker Tobacco use date assessed: 08/14/23 Dental Screening Dental Screen Date: 08/14/23 Did you have a dental visit in the last 12 months?: Yes Did you have a dental problem in the last 6 months where you did not have access to dental care?: No Was dental information given to patient?: Patient has dentist HPI [facility], SOB, HPI Details Patient is a 63-year-old male here today for hospital discharge follow- up. He was seen at the [facility] for acute respiratory distress and found to have an asthma exacerbation. He was started on IV steroids, scheduled DuoNebs and doxycycline. He was placed on supplemental O2 that was weaned during his hospitalization. He was discharged on doxycycline and prednisone 40 mg. 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 Currently since his discharge he is doing much better and has no wheeze. Does report Flovent Diskus powder was helpful though is very expensive and not able to afford. He has not been using his rescue inhaler as he does report some side effect of jitteriness . He does use his albuterol nebulizer from time to time. Will need further workup with pulmonary function test [facility] Medical History Osteoarthritis of right hip Osteoarthritis of left hip Myalgia Routine medical exam History of COVID-19 Nephrotic syndrome Depression Osteoarthritis Anxiety GERD (gastroesophageal reflux disease) Asthma Elevated cholesterol HTN (hypertension) Bipolar disorder Colonoscopy refused Surgical History Hx of drainage of abscess S/P total right hip arthroplasty History of eye surgery Family History Mother No problems noted. Father No problems noted. Social History Household Members: Significant Other Housing: House Are you a primary healthcare corporate account director to a significant other at home: No Do you presently have visiting nurse or other home services: No Alcohol intake: never Patient Tobacco Use Status: Never used Tobacco e-Cigarette/Vaping Use: Never Used Second Hand Smoke Exposure: No service: No Current occupational status: disabled Sexual orientation: Straight/Heterosexual Cognitive needs: No Hearing needs: No Vision needs: No Questionnaire PHQ-9 Over the last 2 weeks, how often have you been bothered by any of the following problems? 1. Little interest or pleasure in doing things: not at all 2. Feeling down, depressed, or hopeless: not at all 3. Trouble falling or staying asleep, or sleeping too much: not at all 4. Feeling tired or having little energy: not at all 5. Poor appetite or overeating: not at all 6. Feeling bad about yourself - or that you are a failure or have let yourself or your family down: not at all 7. Trouble concentrating on things, such as reading the newspaper or watching television: not at all 8. Moving or speaking so slowly that other people could have noticed. Or the opposite - being so fidgety or restless that you have been moving around a lot more than usual: not at all 9. Thoughts that you would be better off or of hurting yourself in some way: not at all Total score: 0 Depression Screening Interpretation: Negative Depression Screening Done: Yes 05403 - PHQ-9 Billing: Yes Source: Developed by Drs. Rohan Herndon, Lexi Graham, Jose Lorenzo and colleagues, with an educational pablo from [employer]. Thrive Questionnaire Date Thrive assessed: 08/14/23 I am a: Patient Within the past 12 months, did the food you bought not last and you didn't have the money to get more?: Never true Within the past 12 months, did you worry whether your food would run out before you got money to buy more?: Never true Do you have trouble paying for medicines?: No Do you have trouble getting transportation to medical appointments?: No Do you have trouble paying your heating and electricity bill?: No Do you have trouble taking care of your child, family member or friend?: No Do you have trouble with day-to-day activities such as bathing, preparing meals, shopping, managing finances, etc.?: No Are you currently unemployed and looking for a job?: No Are you interested in more education?: No Please select the resources that you would like help with: None Currently or been in a relationship where the following occur: no concerns reported THRIVE Score: 0 AUDIT C Alcohol Use Questionnaire (AUDIT-C) 1. How often do you have a drink containing alcohol?: Never 3. How often do you have six or more drinks on one occasion?: Never Total Score: 0 JOSE-7 AMB Questionnaire JOSE-7 Date JOSE - 7 assessed: 08/14/23 Feeling nervous, anxious, or on edge: 0 = Not at all Not being able to stop or control worryin = Not at all Worrying too much about different things: 0 = Not at all Trouble relaxin = Not at all Being so restless that it is hard to sit still: 0 = Not at all Becoming easily annoyed or irritable: 0 = Not at all Feeling afraid as if something awful might happen: 0 = Not at all Total JOSE-7 score (0-4 normal; 5-9 mild; 10-14 moderate; 15-21 severe): 0 Source: Developed by Drs. Rohan Herndon, Lexi Graham, Jose Lorenzo and colleagues, with an educational pablo from [employer]. JOSE-7 Assessment Billing JOSE-7 Assessment Tool: JOSE-7 Assessment 79833 ACT Questionnaire In the past 4 weeks, how much of the time did your asthma keep you from getting as much done at work, school or at home?: A little of the time During the past 4 weeks, how often have you had shortness of breath?: 1-2 times a week During the past 4 weeks, how often did your asthma symptoms wake you up at night or earlier than usual in the morning?: Not at all During the past 4 weeks, how often have you had to use your rescue inhaler or nebulizer medication?: Not at all How would you rate your asthma control during the past 4 weeks?: Somewhat controlled ACT Interpretation: Negative Score: 21 Review of Systems Const Denies headache(s) Eyes Denies loss of vision ENT Denies vertigo, Denies dizziness, Denies headache(s) and Denies sore throat Card Denies chest pain, Denies leg edema and Denies lightheadedness Resp Denies cough, Denies hemoptysis and Denies wheezing GI Denies abdominal pain, Denies melena, Denies constipation, Denies diarrhea and Denies vomiting Denies dysuria, Denies urinary frequency and Denies urinary urgency Musc Denies arthralgias, Denies joint swelling, Denies numbness and Denies tingling Neuro Denies Abnormal speech present, Denies behavioral changes, Denies vertigo, Denies dizziness, Denies headache(s), Denies loss of vision, Denies memory loss, Denies numbness and Denies tingling Psych Denies anxiety, Denies behavioral changes, Denies depression, Denies memory loss and Denies panic attacks Chris/Lymph Denies easy bleeding and Denies easy bruising Aller/Immun Denies wheezing Physical exam (Primary Care) Vital Signs: Last Vital Signs Pulse 97 08/14/23 11:17 BP 158/64 H 08/14/23 11:17 Pulse Ox 96 08/14/23 11:17 Oxygen Delivery Method Room Air 08/14/23 11:17 BMI result Body Mass Index 34.6 Tobacco/Smoking Status: Tobacco use Status Tobacco use date assessed 08/14/23 08/14/23 11:22 Patient Tobacco Use Status Never used Tobacco 08/14/23 11:22 e-Cigarette/Vaping Use Never Used 08/14/23 11:22 PHQ-9: PHQ-9 Score PHQ-9: Total score 0 08/14/23 11:30 Depression Screening Interpretation: Negative Thrive Assessment: Date of Thrive Assessment Date Thrive assessed 08/14/23 08/14/23 11:22 Currently or been in a relationship where the following occur: no concerns reported Const General: healthy appearing, no acute distress, alert and awake Nutritional Appearance: well nourished Orientation/consciousness: oriented to person, oriented to place and oriented to time HENMT Ears: TM's normal bilaterally General nose exam: Normal nasal mucous membranes and turbinates present Eyes Conjunctivae: conjunctivae normal Sclerae: sclerae normal Pupils: Equal, round and reactive pupils present Neck Neck: Yes no lymphadenopathy and Yes no JVD Thyroid: Thyroid normal Carotids: no bruits Resp Effort & Inspection: normal respiratory effort and not tachypneic Auscultation: no crackles, no rales, no rhonchi and no wheezes Cardio Rate: regular rate Rhythm: regular rhythm Heart sounds: no murmurs and normal S1 and S2 GI Palpation (GI): Soft to palpation, nontender, no hepatomegaly and no splenomegaly Auscultation: normal bowel sounds Skin General skin exam: no rashes or lesions noted and dry skin Neuro General: oriented to person, oriented to place and oriented to time Cranial nerves: Yes Equal, round and reactive pupils present Speech: No Abnormal speech present Gait exam (Neuro): Normal gait present Motor exam (neuro): no tremor noted Extrem Right upper extremity: full ROM Left upper extremity: full ROM Right lower extremity: full ROM; no edema Left lower extremity: full ROM; no edema Psych Mental Status: mental status grossly normal Speech and movement: Normal speech and movement present Affect: normal affect Attitude: cooperative Thought process: Normal thought process present Assessment and Plan Assessment & Plan (1) Asthma: Code(s): J45.909 - Unspecified asthma, uncomplicated Qualifiers: Asthma complication type: uncomplicated Asthma persistence: intermittent Asthma severity: mild Qualified Code(s): J45.20 - Mild inte rmittent asthma, uncomplicated Plan: As per HPI patient recently admitted for 5 day hospital stay due to asthma exacerbation. X-rays and CT without any pneumonia. Patient was treated with antibiotics, IV steroids and DuoNebs. He does report Flovent discuss was helpful though was much too expensive for him to continue. Will send for pulmonary function testing (2) RLS (restless legs syndrome): Code(s): G25.81 - Restless legs syndrome Plan: Will supply patient with magnesium for leg cramps at night. Orders: Orders PFT pulmonary function test Today J45.20 - Mild intermittent asthma, uncomplicated Prostate Specific Antigen Scr Today J45.20 - Mild intermittent asthma, uncomplicated, Z12.5 - Encounter for screening for malignant neoplasm of prostate Medications: New amlodipine 10 mg PO DAILY 90 days 90 tabs 1RF I10 - Essential (primary) hypertension magnesium oxide 400 mg PO DAILY 90 days 90 tabs 1RF G25.81 - Restless legs syndrome Discontinued amlodipine Discontinued Reason: Doctor's Order 10 mg (2 x 5 mg) PO DAILY 90 days 180 tabs 1RF I10 - Essential (primary) hypertension Coding Level of Care Code Est Pt Level 4 (50775) Diagnoses Mild intermittent asthma without complication J45.20 Asthma complication type: uncomplicated Asthma persistence: intermittent Asthma severity: mild RLS (restless legs syndrome) G25.81 Additional Codes JOSE-7 Assessment Billing - JOSE-7 Assessment Tool: JOSE-7 Assessment 50884 ([id number])
== END 2023-08-14 11:49 | disposition home or self-care (01) ==
PROVIDERS: PCP Physician Assistant; Visit Provider Physician Assistant
DX: J45.20 Mild intermittent asthma, uncomplicated (principal); G25.81 Restless legs syndrome
CPT/HCPCS: 99214

== ENCOUNTER 2023-08-14 12:00 | Outpatient (REF) | payer MEDICARE, SELFPAY ==
[2023-08-14 12:54] LABS: Hemoglobin 16.6 g/dl (14.0-18.0); Mean Corpuscular HGB Conc 34.6 g/dl (31.0-36.0); Mean Corpuscular Hemoglobin 30.3 pg (27.0-33.0); Mean Corpuscular Volume 87.6 fL (80.0-98.0); Mean Platelet Volume 9.8 fL (9.4-12.4); Platelet Count 137 X10*3/uL (160-400); Red Blood Count 5.48 X10*6/uL (4.60-5.80); Red Cell Distribution Width 13.2 % (11.0-16.0); White Blood Count 5.9 X10*3/uL (4.8-10.8)
[2023-08-14 13:16] LABS: Alanine Aminotransferase 70 U/L (0-40); Albumin Level 4.5 g/dL (3.5-5.0); Alkaline Phosphatase 75 U/L (39-117); Anion Gap 14 (12-20); Aspartate Amino Transferase 26 U/L (5-37); Bilirubin Total 0.5 mg/dL (0.0-1.0); Blood Urea Nitrogen 9 mg/dL (9-16); Carbon Dioxide 33 mmol/L (22-29); Chloride 100 mmol/L (96-108); Cholesterol 240 mg/dL (<200); Estimated Glomerular Filt Rate 54; Glucose Fasting 112 mg/dL (60-99); HDL Cholesterol 37 mg/dL (>40); Potassium 3.9 mmol/L (3.3-5.1); Sodium 143 mmol/L (135-145); Total Protein 7.2 g/dL (6.5-8.0); Triglycerides 544 mg/dL (<150); Uric Acid 11.2 mg/dL (3.4-7.0)
[2023-08-14 13:29] LABS: TSH reflex Free T4 1.11 uIU/mL (0.32-4.0)
[2023-08-14 13:35] LABS: Prostate Specific Antigen Scr 3.29 ng/mL (<0.05-4.0)
== END 2023-08-14 12:01 | disposition home or self-care (01) ==
LOC: HO.LAB 12:00
PROVIDERS: PCP Physician Assistant; Visit Provider Physician Assistant
DX: E78.5 Hyperlipidemia, unspecified (principal); J45.20 Mild intermittent asthma, uncomplicated; M10.9 Gout, unspecified; I10 Essential (primary) hypertension; Z13.1 Encounter for screening for diabetes mellitus; Z12.5 Encounter for screening for malignant neoplasm of prostate
CPT/HCPCS: 36415; 80053; 80061; 84153; 84443; 84550; 85027

== ENCOUNTER 2023-10-10 14:48 | Outpatient (AMB) | payer MEDICARE, MEDICAID, SELFPAY ==
--- NOTE | 2023-10-10 14:52 | A.OFFVIS_ITS ---
Intake Vital Signs 10/10/23 14:53 Height 5 ft 4 in Weight 208 lb 5.389 oz BMI 35.8 BP 148/68 H Blood Pressure Location Lt brachial Position Sitting Pulse 94 Pulse Source Pulse Oximeter Pulse Oximetry (%) 93 Oxygen Delivery Method Room Air Intake Visit Reasons: Asthma Intake Note: pt is here as a new patient, was in HH for low oxygen for 5 days, and 2 days ago mucous again, starting yellow and dark, using nebulizer and inhalers. 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 Allergies Penicillins Allergy (Intermediate, Verified 10/10/23 15:32) Hives Quinolones Allergy (Intermediate, Verified 10/10/23 15:32) Rash trazodone Allergy (Intermediate, Verified 10/10/23 15:32) Rash/restless legs lisinopril Adverse Reaction (Intermediate, Verified 10/10/23 15:32) Cough losartan Adverse Reaction (Intermediate, Verified 10/10/23 15:32) Dizziness Medication List - Last Reconciled 10/10/23 by Tomas Key MD albuterol sulfate 90 mcg/actuation 1 inh inhalation QID albuterol sulfate 0.63 mg (3 mL) inhalation QID PRN amlodipine 10 mg PO DAILY 90 days ascorbic acid (vitamin C) mg PO blood pressure monitor (Blood Pressure Kit) As directed blood pressure test kit-large As directed cetirizine 10 mg PO DAILY 90 days colchicine 0.6 mg PO DAILY PRN cyclobenzaprine 10 mg PO BEDTIME 90 days fenofibrate 54 mg PO DAILY 30 days fluticasone propion-salmeterol 250-50 mcg/dose (Wixela Inhub) 1 inh inhalation BID 30 days hydrochlorothiazide 12.5 mg PO DAILY 90 days ipratropium-albuterol 0.5 mg-3 mg(2.5 mg base)/3 mL 3 mL inhalation RQ4H WHILE AWAKE magnesium oxide 400 mg PO DAILY 90 days olanzapine 5 mg PO BEDTIME 90 days [Raised toilet seat As directed] walker Folding Front wheeled walker Do you need a note to return to daycare/school/sports/work: No HPI Asthma HPI Details THIS 63 YEARS OLD GENTLEMAN IS BEING SEEN FOR THE 1ST TIME, FOR HIS BREATHING. IN JULY OF THIS YEAR HE WAS ADMITTED TO THE HOSPITAL WITH AN ACUTE EXACERBATION OF COPD/BRONCHIAL ASTHMA. HIS CHEST X-RAY AND CT SCAN DID NOT SHOW ANY PNEUMONIA. HE RESPONDED TO A COURSE OF ANTIBIOTICS AND IV SOLU-MEDROL FOLLOWED BY [facility] PREDNISONE. DURING HIS HOSPITALIZATION O2 SAT WAS LOW BUT IT CAME UP TO LOW 90S AT THE TIME OF DISCHARGE. HE WAS SENT HOME ON WIXELA 250-50 1 INHALATION B.I.D. AND ALSO PROAIR 2 PUFFS Q 4-6 HOURS P.R.N.. HE WAS ALSO SENT HOME ON NEBULIZER WITH IPRATROPIUM/ALBUTEROL SOLUTION WHICH HE HAS BEEN USING ABOUT TWICE A DAY. FOR HIM THE WORST TIME IS IN THE MORNING WHEN HE WAKES UP, AND HE HAS TO USE THE NEBULIZER TO FEEL BETTER SINCE HIS DISCHARGE HOME LONG HE WAS ON PREDNISONE HE FELT BETTER. AFTERWARDS HE CONTINUES TO HAVE INTERMITTENT WHEEZING AND GETS SHORT OF BREATH ON WALKING. HE DOES NOT HAVE COVERAGE FOR MEDS, AND COULD NOT AFFORD TO HAVE WIXELA OUT OF HIS POCKET. CURRENTLY USING HE UNIT GIVEN BY HIS MOTHER. SIMILARLY HE IS NOT ABLE TO AFFORD TO BUY THE IPRATROPIUM-ALBUTEROL SOLUTION, AND HE IS USING ONLY TWICE A DAY. HE STATES THAT IN YOUNGER AGE HE HAD BRONCHIAL ASTHMA, AND OUTGREW IN HIS ADULTHOOD, ONLY RECENTLY STARTING TO HAVE THESE SYMPTOMS DESCRIBED ABOVE. HE DID NOT SMOKE CIGARETTES. IN YOUNGER AGE HE DID SMOKE MARIJUANA BUT THEN GAVE UP MANY YEARS AGO. HE IS KNOWN TO HAVE BIPOLAR DISORDER WHICH IS BEING TREATED WITH OLANZAPINE 5 MG DAILY AT BEDTIME HE USES CETIRIZINE 10 MG ONCE A DAY P.R.N. FOR NASAL CONGESTION. 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 HE USES MAGNESIUM OXIDE 400 MG DAILY. MANY YEARS AGO HE WAS ALSO TREATED FOR NEPHRITIS. [facility] Medical History (Updated 10/10/23 @ 17:00 by Tomas Key MD) COPD (chronic obstructive pulmonary disease) Osteoarthritis of right hip Osteoarthritis of left hip Myalgia Routine medical exam History of COVID-19 Nephrotic syndrome Depression Osteoarthritis Anxiety GERD (gastroesophageal reflux disease) Asthma Elevated cholesterol HTN (hypertension) Bipolar disorder Colonoscopy refused Surgical History Hx of drainage of abscess S/P total right hip arthroplasty History of eye surgery Family History Mother No problems noted. Father No problems noted. Social History Household Members: Significant Other Housing: House Are you a primary acute care physician to a significant other at home: No Do you presently have visiting nurse or other home services: No Alcohol intake: never Patient Tobacco Use Status: Never used Tobacco e-Cigarette/Vaping Use: Never Used Second Hand Smoke Exposure: No service: No Current occupational status: disabled Sexual orientation: Straight/Heterosexual Cognitive needs: No Hearing needs: No Vision needs: No Review of Systems Const All systems reviewed & are unremarkable except as noted in HPI and below Eyes Reports no additional complaints ENT Reports no additional complaints Card Denies chest pain, Reports irregular heart rhythm and Reports leg edema Resp Reports as per HPI GI Reports no additional complaints Reports no additional complaints Musc Reports no additional complaints Skin/Breast Reports system reviewed and no additional complaints, except as documented Neuro Reports no additional complaints Psych Reports other (Being treated for bipolar disorder) Chris/Lymph Reports no additional complaints Physical Exam Vital Signs: Last Vital Signs Pulse 94 10/10/23 14:53 BP 148/68 H 10/10/23 14:53 Pulse Ox 93 10/10/23 14:53 Oxygen Delivery Method Room Air 10/10/23 14:53 BMI result Body Mass Index 35.8 Const General: comfortable, no acute distress, alert and awake Orientation/consciousness: patient oriented x3 HEENT Head: Yes normal to inspection General nose exam: No nasal polyps present and No nasal discharge present Face and sinus: Yes sinuses nontender Mouth: oropharynx normal Throat: Yes posterior oropharynx normal Eyes General: appearance normal, both eyes and all related structures Neck Neck: Yes normal visual inspection, Yes no lymphadenopathy, Yes trachea midline and Yes no JVD Thyroid: Thyroid normal Chest Chest palpation & inspection: normal inspection of the chest, normal palpation of entire chest wall and no tenderness Resp Other: Percussion note is resonant, breath sounds are moderately. Distant with prolonged expiratory phase There are a few scattered expiratory wheezes. Over the back of the chest . Cardio Palpation: normal PMI Rate: regular rate Rhythm: regular rhythm Heart sounds: no gallops and no murmurs GI Palpation (GI): Soft to palpation, nontender, No hepatosplenomegaly present and no masses Auscultation: normal bowel sounds Back/Spine/Pelvis Thoracic/Lumbar Spine: thoracic and lumbar spine normal to inspection Skin General skin exam: no rashes or lesions noted Neuro General: patient oriented x3 and no focal motor deficits Cranial nerves: Yes CN's II-XII intact bilaterally Extrem General: Yes normal to inspection, Yes no clubbing, cyanosis or edema and Yes no calf tenderness Psych Appearance: grossly normal and well kempt Speech and movement: Normal speech and movement present Results Reviewed Results Reviewed: Pulmonary function test in 2018, . Performed at [facility] Was consistent with moderate degree of obstructive airway disorder. Assessment & Plan Assessment & Plan (1) COPD (chronic obstructive pulmonary disease): Comment: This gentleman gives history of recent onset of the cough wheezing and shortness of breath. He is history is negative for smoking. However as per PFT in 2018 he does have moderately severe obstructive airway disorder, most likely combination of asthma/COPD. Code(s): J44.9 - Chronic obstructive pulmonary disease, unspecified Plan: Advised to continue Wixela 250-51 inhalation b.i.d. ProAir 2 puffs Q 4-6 hours p.r.n.. Prednisone 5 mg Q alternate days for the time being. * it should be noted that patient has difficulty in getting his prescriptions at this time due to out of pocket payments. He claims that his insurance will be changing in October and then he will be able to afford the co-payment. He is being scheduled for pulmonary function test. (2) Asthma: Comment: See the note for COPD Code(s): J45.909 - Unspecified asthma, uncomplicated Qualifiers: Asthma severity: mild Asthma persistence: intermittent Asthma compli cation type: uncomplicated Qualified Code(s): J45.20 - Mild intermittent asthma, uncomplicated Plan: C treatment under COPD (3) Obese: Comment: He is moderately obese, Denies symptoms of sleep apnea. Code(s): E66.9 - Obesity, unspecified Qualifiers: Obesity type: due to excess calories Obesity classification: adult class 1 (BMI 30 - 34.9) Serious obesity comorbidity presence: without serious comorbidity Body mass index: BMI 30.0-30.9 Qualified Code(s): E66.09 - Other obesity due to excess calories; Z68.30 - Body mass index [BMI] 30.0-30.9, adult Plan: I talked to him about his weight he should lose about 10-15 lb of weight, which may be difficult for him. I have explained the diet to patient and his , mainly he needs to cut down the intake of carbohydrates. Orders: Orders PFT pulmonary function test Today J44.9 - Chronic obstructive pulmonary disease, unspecified, J45.909 - Unspecified asthma, uncomplicated Medications: New prednisone 5 mg PO Q OTHER DAY 14 tabs 3RF ASTHMA 28 days Changed From colchicine 0.6 mg PO DAILY 90 days 90 tabs 2RF M10.9 - Gout, unspecified To colchicine 0.6 mg PO DAILY PRN M10.9 - Gout, unspecified Refilled fluticasone propion-salmeterol 250-50 mcg/dose (Wixela Inhub) 1 inh inhalation BID 60 ea 2RF 30 days J45.901 - Unspecified asthma with (acute) exacerbation Coding Level of Care Code New Pt Level 4 (86586) Diagnoses COPD (chronic obstructive pulmonary disease) J44.9 Mild intermittent asthma without complication J45.20 Asthma severity: mild Asthma persistence: intermittent Asthma complication type: uncomplicated Class 1 obesity due to excess calories without serious comorbidity with body mass index (BMI) of 30.0 to 30.9 in adult E66.09; Z68.30 Obesity type: due to excess calories Obesity classification: adult class 1 (BMI 30 - 34.9) Serious obesity comorbidity presence: without serious comorbidity Body mass index: BMI 30.0-30.9
[2023-10-10 14:53] VITALS: BP 148/68; PULSE 94; O2SAT 93; BMI 35.8
== END 2023-10-10 15:33 | disposition home or self-care (01) ==
PROVIDERS: PCP Physician Assistant; Visit Provider Internal Medicine
DX: J44.9 Chronic obstructive pulmonary disease, unspecified (principal); J45.20 Mild intermittent asthma, uncomplicated; E66.09 Other obesity due to excess calories; Z68.30 Body mass index [BMI] 30.0-30.9, adult
CPT/HCPCS: 99204

== ENCOUNTER → 2023-10-10 14:48 | Outpatient (BNVA) | payer MEDICARE, MEDICAID, SELFPAY | PROVIDERS: PCP Physician Assistant; Visit Provider Internal Medicine | DX: J44.9 Chronic obstructive pulmonary disease, unspecified (principal); J45.20 Mild intermittent asthma, uncomplicated | CPT/HCPCS: 99202 ==

== ENCOUNTER 2023-11-13 13:55 | Outpatient (REF) | payer MEDICARE, MEDICAID, SELFPAY ==
[2023-11-13 08:48] VITALS: PULSE 101; RESP 16; O2SAT 95
--- NOTE | 2023-11-13 15:49 | PFT_ITS ---
Indication: Asthma Spirometry [FEV1 to FVC 62%; FEV1 2.2 L; FVC 3.6 L. No significant response to bronchodilators noted. Maximum voluntary ventilation 71% predicted] Lung Volumes [Total lung capacity 96% predicted] Diffusion Capacity [Diffusing capacity 120% predicted] Comparisons [None] Interpretation [There has an obstructive ventilatory defect consistent with COPD. No significant response to bronchodilators noted. Mild decrease in maximum voluntary ventilation secondary to likely deconditioning. Lung volumes and diffusing capacity within normal limits. Clinical correlation warranted.] MTDD
== END 2023-11-13 13:56 | disposition home or self-care (01) ==
LOC: HO.RESP 13:55
PROVIDERS: PCP Physician Assistant; Visit Provider Internal Medicine
DX: J44.9 Chronic obstructive pulmonary disease, unspecified (principal)
CPT/HCPCS: 94010; 94640; 94727; 94729

== ENCOUNTER → 2023-11-13 15:49 | Outpatient (BNV) | payer MEDICARE, MEDICAID, SELFPAY | PROVIDERS: PCP Physician Assistant; Visit Provider Hospitalist | DX: J44.9 Chronic obstructive pulmonary disease, unspecified (principal) | CPT/HCPCS: 94060; 94727; 94729 ==

== ENCOUNTER 2023-11-22 13:49 | Outpatient (AMB) | payer MEDICARE, MEDICAID, SELFPAY ==
--- NOTE | 2023-11-22 14:04 | MHC.OFFVIS ---
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: No Allergies Penicillins Allergy (Intermediate, Verified 11/22/23 15:00) Hives Quinolones Allergy (Intermediate, Verified 11/22/23 15:00) Rash trazodone Allergy (Intermediate, Verified 11/22/23 15:00) Rash/restless legs lisinopril Adverse Reaction (Intermediate, Verified 11/22/23 15:00) Cough losartan Adverse Reaction (Intermediate, Verified 11/22/23 15:00) Dizziness Medication List - Last Reconciled 11/22/23 by Tomas Key MD albuterol sulfate 90 mcg/actuation 1 inh inhalation QID albuterol sulfate 0.63 mg (3 mL) inhalation QID PRN amlodipine 10 mg PO DAILY 90 days ascorbic acid (vitamin C) mg PO blood pressure monitor (Blood Pressure Kit) As directed blood pressure test kit-large As directed cetirizine 10 mg PO DAILY 90 days colchicine 0.6 mg PO DAILY PRN cyclobenzaprine 10 mg PO BEDTIME 90 days fenofibrate 54 mg PO DAILY 30 days fluticasone propion-salmeterol 250-50 mcg/dose (Wixela Inhub) 1 inh inhalation BID 30 days hydrochlorothiazide 12.5 mg PO DAILY 90 days ipratropium-albuterol 0.5 mg-3 mg(2.5 mg base)/3 mL 3 mL inhalation RQ4H WHILE AWAKE magnesium oxide 400 mg PO DAILY 90 days olanzapine 5 mg PO BEDTIME 90 days prednisone 5 mg PO Q OTHER DAY 28 days [Raised toilet seat As directed] walker Folding Front wheeled walker Do you need a note to return to daycare/school/sports/work: No HPI HPI Asthma/PFT Follow Up: Details: JUJU IS DEFINITELY FEELING BETTER. HIS SHORTNESS OF BREATH AND WHEEZING OR DOWN TO MINIMAL. STILL HAS MILD INTERMITTENT COUGH. HE THINKS THE REGULAR USE OF INHALER AND DUONEB UPDRAFTS ARE HELPING . STILL GETS SHORT OF BREATH ON MINIMAL WALKING. [facility] Medical History COPD (chronic obstructive pulmonary disease) Osteoarthritis of right hip Osteoarthritis of left hip Myalgia Routine medical exam History of COVID-19 Nephrotic syndrome Depression Osteoarthritis Anxiety GERD (gastroesophageal reflux disease) Asthma Elevated cholesterol HTN (hypertension) Bipolar disorder Colonoscopy refused Surgical History Hx of drainage of abscess S/P total right hip arthroplasty History of eye surgery Family History Mother No problems noted. Father No problems noted. Social History Household Members: Significant Other Housing: House Are you a primary child care team lead to a significant other at home: No Do you presently have visiting nurse or other home services: No Alcohol intake: never Patient Tobacco Use Status: Never used Tobacco e-Cigarette/Vaping Use: Never Used Second Hand Smoke Exposure: No service: No Current occupational status: disabled Sexual orientation: Straight/Heterosexual Cognitive needs: No Hearing needs: No Vision needs: No Review of Systems Const All systems reviewed & are unremarkable except as noted in HPI and below Eyes Reports no additional complaints ENT Reports no additional complaints Card Denies chest pain, Reports irregular heart rhythm and Reports leg edema Resp Reports as per HPI GI Reports no additional complaints Reports no additional complaints Musc Reports no additional complaints Skin/Breast Reports system reviewed and no additional complaints, except as documented Neuro Reports no additional complaints Psych Reports other (Being treated for bipolar disorder) Chris/Lymph Reports no additional complaints Physical Exam Vital Signs: Last Vital Signs Pulse 78 11/22/23 14:05 BP 140/70 H 11/22/23 14:05 Pulse Ox 96 11/22/23 14:05 Oxygen Delivery Method Room Air 11/22/23 14:05 BMI result Body Mass Index 35.6 Const General: comfortable, no acute distress, alert and awake Orientation/consciousness: patient oriented x3 HEENT Head: Yes normal to inspection General nose exam: No nasal polyps present and No nasal discharge present Face and sinus: Yes sinuses nontender Mouth: oropharynx normal Throat: Yes posterior oropharynx normal Eyes General: appearance normal, both eyes and all related structures Neck Neck: Yes normal visual inspection, Yes no lymphadenopathy, Yes trachea midline and Yes no JVD Thyroid: Thyroid normal Chest Chest palpation & inspection: normal inspection of the chest, normal palpation of entire chest wall and no tenderness Resp Other: Percussion note is resonant, breath sounds are moderately. Distant with prolonged expiratory phase There are a few scattered expiratory wheezes. Over the back of the chest especially across the upper parts of the chest. Cardio Palpation: normal PMI Rate: regular rate Rhythm: regular rhythm Heart sounds: no gallops and no murmurs GI Palpation (GI): Soft to palpation, nontender, No hepatosplenomegaly present and no masses Auscultation: normal bowel sounds Back/Spine/Pelvis Thoracic/Lumbar Spine: thoracic and lumbar spine normal to inspection Skin General skin exam: no rashes or lesions noted Neuro General: patient oriented x3 and no focal motor deficits Cranial nerves: Yes CN's II-XII intact bilaterally Extrem General: Yes normal to inspection, Yes no clubbing, cyanosis or edema and Yes no calf tenderness Psych Appearance: grossly normal and well kempt Speech and movement: Normal speech and movement present Results Reviewed Results Reviewed: Pulmonary function test on 11/13/23 Moderate amount of obstructive airway disorder with good response to bronchodilator therapy. c/w asthma/COPD overlap syndrome Assessment & Plan Assessment & Plan (1) COPD (chronic obstructive pulmonary disease): Comment: This gentleman gives history of recent onset of the cough wheezing and shortness of breath. He is history is negative for smoking. However as per PFT in 2018 he does have moderately severe obstructive airway disorder, most likely combination of asthma/COPD.. Which will be reduced gradually The current pulmonary function test confirms the diagnosis of COPD/asthma. He is doing much better with the use of Wixela and DuoNeb updrafts. He is still using small dose prednisone Code(s): J44.9 - Chronic obstructive pulmonary disease, unspecified Category: Medical Plan: Continue Wixela 250-51 inhalation b.i.d. Ipratropium-albuterol nebulizer Q 6 hours p.r.n. Albuterol HFA 2 puffs Q 4-6 hours p.r.n. when outdoors PREDNISONE. 5 MG ONLY TWICE A WEEK WITH THE GOAL TO STOP IT COMPLETELY PERHAPS BY HIS NEXT VISIT (2) Asthma: Comment: See the note for COPD Code(s): J45.909 - Unspecified asthma, uncomplicated Category: Medical Qualifiers: Asthma severity: mild Asthma persistence: intermittent Asthma complication type: uncomplicated Qualified Code(s): J45.20 - Mild intermittent asthma, uncomplicated Plan: TREATMENT UNDER COPD Coding Level of Care Code Est Pt Level 3 (42411) Diagnoses COPD (chronic obstructive pulmonary disease) J44.9 Mild intermittent asthma without complication J45.20 Asthma severity: mild Asthma persistence: intermittent Asthma complication type: uncomplicated
[2023-11-22 14:05] VITALS: BP 140/70; PULSE 78; O2SAT 96; BMI 35.6
== END 2023-11-22 14:31 | disposition home or self-care (01) ==
PROVIDERS: PCP Physician Assistant; Visit Provider Internal Medicine
DX: J44.9 Chronic obstructive pulmonary disease, unspecified (principal); J45.20 Mild intermittent asthma, uncomplicated
CPT/HCPCS: 99213

== ENCOUNTER → 2023-11-22 13:49 | Outpatient (BNVA) | payer MEDICARE, MEDICAID, SELFPAY | PROVIDERS: PCP Physician Assistant; Visit Provider Internal Medicine | DX: J44.9 Chronic obstructive pulmonary disease, unspecified (principal); J45.20 Mild intermittent asthma, uncomplicated | CPT/HCPCS: 99212 ==

== ENCOUNTER 2024-01-23 13:38 | Outpatient (AMB) | payer MEDICARE, MEDICAID, SELFPAY ==
[2024-01-23 13:47] VITALS: BP 130/70; PULSE 80; O2SAT 94; BMI 35.6
--- NOTE | 2024-01-23 13:47 | MHC.OFFVIS ---
Vital Signs 01/23/24 13:47 Height 5 ft 4 in Weight 207 lb 3.752 oz BMI 35.6 BP 130/70 Blood Pressure Location Lt brachial Position Sitting Pulse 80 Pulse Source Pulse Oximeter Pulse Oximetry (%) 94 Oxygen Delivery Method Room Air Intake Visit Reasons: Asthma Intake Note: pt is here for follow up and states he is feeling congested on left side of nostril and coughing up yellow/green stuff. Allergies Penicillins Allergy (Intermediate, Verified 01/23/24 13:58) Hives Quinolones Allergy (Intermediate, Verified 01/23/24 13:58) Rash trazodone Allergy (Intermediate, Verified 01/23/24 13:58) Rash/restless legs lisinopril Adverse Reaction (Intermediate, Verified 01/23/24 13:58) Cough losartan Adverse Reaction (Intermediate, Verified 01/23/24 13:58) Dizziness Medication List - Last Reconciled 01/23/24 by Tomas Key MD albuterol sulfate 90 mcg/actuation 1 inh inhalation QID albuterol sulfate 0.63 mg (3 mL) inhalation QID PRN amlodipine 10 mg PO DAILY 90 days ascorbic acid (vitamin C) mg PO blood pressure monitor (Blood Pressure Kit) As directed blood pressure test kit-large As directed cetirizine 10 mg PO DAILY 90 days colchicine 0.6 mg PO DAILY PRN cyclobenzaprine 10 mg PO BEDTIME 90 days fenofibrate 54 mg PO DAILY 30 days fluticasone propion-salmeterol 250-50 mcg/dose (Advair Diskus) 1 inh inhalation BID hydrochlorothiazide 12.5 mg PO DAILY 90 days ipratropium-albuterol 0.5 mg-3 mg(2.5 mg base)/3 mL 3 mL inhalation RQ4H WHILE AWAKE magnesium oxide 400 mg PO DAILY 90 days olanzapine 5 mg PO BEDTIME 90 days prednisone 5 mg PO DIRECTED [Raised toilet seat As directed] walker Folding Front wheeled walker Do you need a note to return to daycare/school/sports/work: No HPI HPI Asthma: Details: 63 YEARS OLD GENTLEMAN IS HERE AFTER 2 MONTHS FOR FOLLOW-UP. HE IS USING ADVAIR 250-51 INHALATION B.I.D.. HE IS ALSO ON IPRATROPIUM/ALBUTEROL UPDRAFTS Q. 6 HOURS WHILE AWAKE HE DOES USE ALBUTEROL INHALER 1 OR 2 PUFFS Q 6 HOURS P.R.N. WHEN OUTDOORS HE IS STILL USING PREDNISONE 5 MG TWICE A DAY OVERALL STAYING VERY STABLE BUT STILL HAS INTERMITTENT WHEEZING. NOW HE IS FEELING CONGESTED IN THE LEFT NOSTRIL, AND BRINGING UP SOME YELLOWISH PHLEGM FOR THE LAST 2-3 DAYS. HE HAS NO SINUS PAIN OR FEVER DENIES SMOKING. [facility], [facility] Medical History COPD (chronic obstructive pulmonary disease) Osteoarthritis of right hip Osteoarthritis of left hip Myalgia Routine medical exam History of COVID-19 Nephrotic syndrome Depression Osteoarthritis Anxiety GERD (gastroesophageal reflux disease) Asthma Elevated cholesterol HTN (hypertension) Bipolar disorder Colonoscopy refused Surgical History Hx of drainage of abscess S/P total right hip arthroplasty History of eye surgery Family History Mother No problems noted. Father No problems noted. Social History Household Members: Significant Other Housing: House Are you a primary career coach to a significant other at home: No Do you presently have visiting nurse or other home services: No Alcohol intake: never Patient Tobacco Use Status: Never used Tobacco e-Cigarette/Vaping Use: Never Used Second Hand Smoke Exposure: No service: No Current occupational status: disabled Sexual orientation: Straight/Heterosexual Cognitive needs: No Hearing needs: No Vision needs: No Review of Systems Const All systems reviewed & are unremarkable except as noted in HPI and below Eyes Reports no additional complaints ENT Reports no additional complaints Card Denies chest pain, Reports irregular heart rhythm and Reports leg edema Resp Reports as per HPI GI Reports no additional complaints Reports no additional complaints Musc Reports no additional complaints Skin/Breast Reports system reviewed and no additional complaints, except as documented Neuro Reports no additional complaints Psych Reports other (Being treated for bipolar disorder) Chris/Lymph Reports no additional complaints Physical Exam Vital Signs: Last Vital Signs Pulse 80 01/23/24 13:47 BP 130/70 01/23/24 13:47 Pulse Ox 94 01/23/24 13:47 Oxygen Delivery Method Room Air 01/23/24 13:47 BMI result Body Mass Index 35.6 Const General: comfortable, no acute distress, alert and awake Orientation/consciousness: patient oriented x3 HEENT Head: Yes normal to inspection General nose exam: No nasal polyps present and No nasal discharge present Face and sinus: Yes sinuses nontender Mouth: oropharynx normal Throat: Yes posterior oropharynx normal Eyes General: appearance normal, both eyes and all related structures Neck Neck: Yes normal visual inspection, Yes no lymphadenopathy, Yes trachea midline and Yes no JVD Thyroid: Thyroid normal Chest Chest palpation & inspection: normal inspection of the chest, normal palpation of entire chest wall and no tenderness Resp Other: Percussion note is resonant, breath sounds are moderately Distant with prolonged expiratory phase . There are a few scattered expiratory wheezes. Cardio Palpation: normal PMI Rate: regular rate Rhythm: regular rhythm Heart sounds: no gallops and no murmurs GI Palpation (GI): Soft to palpation, nontender, No hepatosplenomegaly present and no masses Auscultation: normal bowel sounds Back/Spine/Pelvis Thoracic/Lumbar Spine: thoracic and lumbar spine normal to inspection Skin General skin exam: no rashes or lesions noted Neuro General: patient oriented x3 and no focal motor deficits Cranial nerves: Yes CN's II-XII intact bilaterally Extrem General: Yes normal to inspection, Yes no clubbing, cyanosis or edema and Yes no calf tenderness Psych Appearance: grossly normal and well kempt Speech and movement: Normal speech and movement present Assessment & Plan Assessment & Plan (1) COPD (chronic obstructive pulmonary disease): Comment: This gentleman gives history of recent onset of the cough wheezing and shortness of breath. He is nonsmoker. However as per PFT in 2018 he does have moderately severe obstructive airway disorder, most likely combination of asthma/COPD.. The pulmonary function test confirmed the diagnosis of COPD/asthma. He is doing much better with the use of Advair 250-50 2 puffs bid . He is still using small dose prednisone 5 mg on Mondays and . Code(s): J44.9 - Chronic obstructive pulmonary disease, unspecified Category: Medical Plan: Advised to continue the present regimen. Will recheck in 3 months. Medications: Changed From prednisone 5 mg PO Q OTHER DAY 28 days 14 tabs 3RF ASTHMA To prednisone monday and Monday 5 mg PO DIRECTED ASTHMA Coding Level of Care Code Est Pt Level 3 (17672) Diagnoses COPD (chronic obstructive pulmonary disease) J44.9
== END 2024-01-23 14:09 | disposition home or self-care (01) ==
PROVIDERS: PCP Physician Assistant; Visit Provider Internal Medicine
DX: J44.9 Chronic obstructive pulmonary disease, unspecified (principal)
CPT/HCPCS: 99213

== ENCOUNTER → 2024-01-23 13:38 | Outpatient (BNVA) | payer MEDICARE, MEDICAID, SELFPAY | PROVIDERS: PCP Physician Assistant; Visit Provider Internal Medicine | DX: J44.9 Chronic obstructive pulmonary disease, unspecified (principal); J45.909 Unspecified asthma, uncomplicated | CPT/HCPCS: 99212 ==

== ENCOUNTER 2024-04-29 13:41 | Outpatient (AMB) | payer MEDICARE, MEDICAID, SELFPAY ==
--- NOTE | 2024-04-29 13:45 | MHC.OFFVIS ---
Vital Signs 04/29/24 13:46 Height 5 ft 4 in Weight 206 lb 2.115 oz BMI 35.4 BP 150/58 H Blood Pressure Location Lt brachial Position Sitting Pulse 78 Pulse Source Pulse Oximeter Pulse Oximetry (%) 95 Oxygen Delivery Method Room Air Intake Visit Reasons: Asthma Intake Note: pt is here for follow up and the prednisone 5mg 2x a week was really helping., has been out waiting for a refill. 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 Allergies Penicillins Allergy (Intermediate, Verified 04/29/24 13:56) Hives Quinolones Allergy (Intermediate, Verified 04/29/24 13:56) Rash trazodone Allergy (Intermediate, Verified 04/29/24 13:56) Rash/restless legs lisinopril Adverse Reaction (Intermediate, Verified 04/29/24 13:56) Cough losartan Adverse Reaction (Intermediate, Verified 04/29/24 13:56) Dizziness Medication List - Last Reconciled 04/29/24 by Tomas Key MD albuterol sulfate 90 mcg/actuation 1 inh inhalation QID albuterol sulfate 0.63 mg (3 mL) inhalation QID PRN amlodipine 10 mg PO DAILY 90 days ascorbic acid (vitamin C) mg PO blood pressure monitor (Blood Pressure Kit) As directed blood pressure test kit-large As directed cetirizine 10 mg PO DAILY 90 days colchicine 0.6 mg PO DAILY PRN cyclobenzaprine 10 mg PO BEDTIME 90 days fenofibrate 54 mg PO DAILY 30 days fluticasone furoate-vilanterol 100-25 mcg/dose (Breo Ellipta) 1 inh inhalation Q24H 30 days hydrochlorothiazide 12.5 mg PO DAILY 90 days ipratropium-albuterol 0.5 mg-3 mg(2.5 mg base)/3 mL 3 mL inhalation RQ4H WHILE AWAKE magnesium oxide 400 mg PO DAILY 90 days olanzapine 5 mg PO BEDTIME prednisone 5 mg PO DIRECTED 28 days [Raised toilet seat As directed] walker Folding Front wheeled walker Do you need a note to return to daycare/school/sports/work: No HPI HPI Asthma: Details: 64 YEARS OLD GENTLEMAN, IS HERE FOR FOLLOW-UP AFTER 3 MONTHS. HE HAS LONGSTANDING CASE OF BRONCHIAL ASTHMA. HAS BEEN RELATIVELY STEROIDS DEPENDENT. I HAD CUT DOWN THE USE OF HIS PREDNISONE TO 5 MG TWICE A WEEK . HE CLAIMS THAT LONG HE WAS TAKING PREDNISONE TWICE A DAY WEAK HE WAS DOING FAIRLY WELL. NOW THAT HE IS OUT OF PREDNISONE FOR THE LAST FEW WEEKS HE IS STARTING TO HAVE INCREASED COUGH AND SOME WHEEZING. HE FEELS SOMEWHAT CONGESTED. IN THE CHEST HE HAS HAD NO RECENT RESPIRATORY INFECTION. HE TELLS ME THAT HE DRINKS A FEW GLASSES OF MILK EVERY DAY, AND HE LIKES TO EAT SWEETS , SO HAS PUT ON SOME WEIGHT. HE HAS HAD A SLEEP STUDY WHICH WAS NEGATIVE FOR SLEEP APNEA. HE IS A NONSMOKER ( HIS FATHER WAS BEL SWAN A LONG-TIME PATIENT OF MINE, WHO USED TO BE A SMOKER ) [facility] Medical History COPD (chronic obstructive pulmonary disease) Osteoarthritis of right hip Osteoarthritis of left hip Myalgia Routine medical exam History of COVID-19 Nephrotic syndrome Depression Osteoarthritis Anxiety GERD (gastroesophageal reflux disease) Asthma Elevated cholesterol HTN (hypertension) Bipolar disorder Colonoscopy refused Surgical History Hx of drainage of abscess S/P total right hip arthroplasty History of eye surgery Family History Mother No problems noted. Father No problems noted. Social History Household Members: Significant Other Housing: House Are you a primary respiratory care faculty to a significant other at home: No Do you presently have visiting nurse or other home services: No Alcohol intake: never Patient Tobacco Use Status: Never used Tobacco e-Cigarette/Vaping Use: Never Used Second Hand Smoke Exposure: No service: No Current occupational status: disabled Sexual orientation: Straight/Heterosexual Cognitive needs: No Hearing needs: No Vision needs: No Review of Systems Const All systems reviewed & are unremarkable except as noted in HPI and below Eyes Reports no additional complaints ENT Reports no additional complaints Card Denies chest pain, Reports irregular heart rhythm and Reports leg edema Resp Reports as per HPI GI Reports no additional complaints Reports no additional complaints Musc Reports no additional complaints Skin/Breast Reports system reviewed and no additional complaints, except as documented Neuro Reports no additional complaints Psych Reports other (Being treated for bipolar disorder) Chris/Lymph Reports no additional complaints Physical Exam Vital Signs: Last Vital Signs Pulse 78 04/29/24 13:46 BP 150/58 H 04/29/24 13:46 Pulse Ox 95 04/29/24 13:46 Oxygen Delivery Method Room Air 04/29/24 13:46 BMI result Body Mass Index 35.4 Const General: comfortable, no acute distress, alert and awake Orientation/consciousness: patient oriented x3 HEENT Head: Yes normal to inspection General nose exam: No nasal polyps present and No nasal discharge present Face and sinus: Yes sinuses nontender Mouth: oropharynx normal Throat: Yes posterior oropharynx normal Eyes General: appearance normal, both eyes and all related structures Neck Neck: Yes normal visual inspection, Yes no lymphadenopathy, Yes trachea midline and Yes no JVD Thyroid: Thyroid normal Chest Chest palpation & inspection: normal inspection of the chest, normal palpation of entire chest wall and no tenderness Resp Other: Percussion note is resonant, breath sounds are moderately Distant with prolonged expiratory phase . There are a few scattered expiratory wheezes. Cardio Palpation: normal PMI Rate: regular rate Rhythm: regular rhythm Heart sounds: no gallops and no murmurs GI Palpation (GI): Soft to palpation, nontender, No hepatosplenomegaly present and no masses Auscultation: normal bowel sounds Back/Spine/Pelvis Thoracic/Lumbar Spine: thoracic and lumbar spine normal to inspection Skin General skin exam: no rashes or lesions noted Neuro General: patient oriented x3 and no focal motor deficits Cranial nerves: Yes CN's II-XII intact bilaterally Extrem General: Yes normal to inspection, Yes no clubbing, cyanosis or edema and Yes no calf tenderness Psych Appearance: grossly normal and well kempt Speech and movement: Normal speech and movement present Assessment & Plan Assessment & Plan (1) COPD (chronic obstructive pulmonary disease): Comment: This gentleman gives history of recent onset of the cough wheezing and shortness of breath. He is nonsmoker. However as per PFT in 2018 he does have moderately severe obstructive airway disorder, most likely combination of asthma/COPD.. The pulmonary function test confirmed the diagnosis of COPD/asthma. He is doing much better with the use of Advair 250-50 2 puffs bid, NOW CHNAGED TO BREO 100-25 ONE INH DAILY . He is still using small dose prednisone 5 mg on Mondays and . Code(s): J44.9 - Chronic obstructive pulmonary disease, unspecified Category: Medical Plan: CONTINUE TO USE BREO 100-251 INHALATION DAILY. PREDNISONE 5 MG ON MONDAYS AND THURSDAYS, AND WHEN FEELING BETTER TRY TO GO OFF PREDNISONE FOR A WHILE. ALBUTEROL HFA 2 PUFFS Q 6 HOURS P.R.N. ALTERNATIVELY WHEN AT HOME MAY USE ALBUTEROL SOLUTION 0.63 ( 3 ML ) IN THE NEBULIZER Q 6 HOURS P.R.N. (2) Asthma: Comment: See the note for COPD Code(s): J45.909 - Unspecified asthma, uncomplicated Category: Medical Qualifiers: Asthma severity: mild Asthma persistence: intermittent Asthma complication type: uncomplicated Qualified Code(s): J45.20 - Mild intermittent asthma, uncomplicated Plan: SAME UNDER COPD (3) Bipolar I disorder: Comment: HISTORY OF BIPOLAR DISORDER WHICH IS CONTROLLED WITH OLANZAPINE. AND HE USES CLONAZEPAM 0.5 MG AT BEDTIME TO SLEEP Code(s): F31.9 - Bipolar disorder, unspecified Category: Medical Plan: CONTINUED FOLLOW-UP WITH MENTAL HEALTH, TEAM. Medications: Changed From olanzapine 5 mg PO BEDTIME 90 days 90 tabs 2RF F31.9 - Bipolar disorder, unspecified To olanzapine 2 x a week, monday and 5 mg PO BEDTIME F31.9 - Bipolar disorder, unspecified Coding Level of Care Code Est Pt Level 3 (20444) Diagnoses COPD (chronic obstructive pulmonary disease) J44.9 Mild intermittent asthma without complication J45.20 Asthma severity: mild Asthma persistence: intermittent Asthma complication type: uncomplicated Bipolar I disorder F31.9
[2024-04-29 13:46] VITALS: BP 150/58; PULSE 78; O2SAT 95; BMI 35.4
== END 2024-04-29 14:10 | disposition home or self-care (01) ==
PROVIDERS: PCP Physician Assistant; Visit Provider Internal Medicine
DX: J44.9 Chronic obstructive pulmonary disease, unspecified (principal); J45.20 Mild intermittent asthma, uncomplicated; F31.9 Bipolar disorder, unspecified
CPT/HCPCS: 99213

== ENCOUNTER → 2024-04-29 13:41 | Outpatient (BNVA) | payer MEDICARE, MEDICAID, SELFPAY | PROVIDERS: PCP Physician Assistant; Visit Provider Internal Medicine | DX: J44.9 Chronic obstructive pulmonary disease, unspecified (principal); J45.20 Mild intermittent asthma, uncomplicated; F31.9 Bipolar disorder, unspecified | CPT/HCPCS: 99212 ==

== ENCOUNTER 2024-05-13 11:26 | Outpatient (AMB) | payer MEDICARE, MEDICAID, SELFPAY ==
--- NOTE | 2024-05-13 11:30 | AM.OFFVISMDC ---
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 Accompanied by: Self / Same As Patient Allergies Penicillins Allergy (Intermediate, Verified 05/13/24 11:40) Hives Quinolones Allergy (Intermediate, Verified 05/13/24 11:40) Rash trazodone Allergy (Intermediate, Verified 05/13/24 11:40) Rash/restless legs lisinopril Adverse Reaction (Intermediate, Verified 05/13/24 11:40) Cough losartan Adverse Reaction (Intermediate, Verified 05/13/24 11:40) Dizziness Medication List - Last Reconciled 05/13/24 by Ryan Velasquez PA-C albuterol sulfate 90 mcg/actuation 1 inh inhalation QID albuterol sulfate 0.63 mg (3 mL) inhalation QID PRN amlodipine 10 mg PO DAILY 90 days ascorbic acid (vitamin C) mg PO blood pressure monitor (Blood Pressure Kit) As directed blood pressure test kit-large As directed cetirizine 10 mg PO DAILY 90 days colchicine 0.6 mg PO DAILY PRN cyclobenzaprine 10 mg PO BEDTIME 90 days fenofibrate 54 mg PO DAILY 30 days fluticasone furoate-vilanterol 100-25 mcg/dose (Breo Ellipta) 1 inh inhalation Q24H 30 days hydrochlorothiazide 12.5 mg PO DAILY 90 days ipratropium-albuterol 0.5 mg-3 mg(2.5 mg base)/3 mL 3 mL inhalation RQ4H WHILE AWAKE magnesium oxide 400 mg PO DAILY 90 days olanzapine 5 mg PO BEDTIME prednisone 5 mg PO DIRECTED 28 days [Raised toilet seat As directed] walker Folding Front wheeled walker HPI Annual Exam HPI Details Patient is a 64-year-old male here today for an annual wellness visit.? Patient has a past medical history significant for moderate persistent asthma, generalized anxiety disorder, HLD, GERD and hypertension Today we discussed patient's end of life planning and [place] of care. Given patient MOLST form. Also we did discuss patient's comprehensive care plan which was scanned in the patient's documents. Asthma: Followed by pulmonology here in [place]. Continues on prednisone 5 mg twice a week. Asthma has been generally well controlled . Only seldom using ALbuterol inhaler. He reports his asthma has been more controlled since starting antihistamine therapy. . JOSE:? He continues on olanzapine 10 mg daily has he does still suffer from anxiety from time to time.? Most of his anxiety revolves around finances. Reports he feels stable on his current dose of olanzapine. .. Labs: Reviewed with patient and noted elevated triglyceride. Likely secondary to anti psychotic medication and recent weight gain. Colon cancer screening: Cologuard done in 2022 was negative, repeat 3 years Vaccines: Up-to-date with tetanus vaccine, declines flu, COVID and pneumonia vaccines Laboratory Tests 10/05/22 10/06/22 05/09/23 06:09 06:23 10:03 RBC 4.12 L D 4.01 L 5.49 Hgb 11.8 L Creatinine 1.34 Random Glucose Fasting Glucose 118 H 115 H ALT 61 H Triglycerides 586 H Cholesterol 214 H PSA Screen 2.04 TSH 1.20 07/30/23 07/31/23 08/14/23 05:59 05:17 12:22 RBC Hgb Creatinine Random Glucose 136 H 149 H Fasting Glucose 112 H ALT Triglycerides 544 H Cholesterol 240 H PSA Screen 3.29 TSH HPI Comments History of Present Illness Details reviewed past medical history- yes reviewed surgical / hospitalization history- yes reviewed current medications- yes reviewed family history- yes home safety throw rugs? grab bars? raised toilet seat? working smoke detectors? activities of daily living difficulty bathing or showering? difficulty dressing? difficulty using the toilet? difficulty getting in and out of bed? difficulty walking? receives help from other person's with any of the above tasks? instrumental activities of daily living uses telephone - gets to place out of walking distance- go shopping for groceries- repairs own meals- does own minor home maintenance- does own laundry- does own housework- manages own money- currently takes medication- end of life planning discussed advanced directives- yes advanced directives on file? discussed wishes expressed in advanced directives. fall risk have you had any falls with injuries in the past year? have you had 2 or more falls in the past year? fall risk assessment: [facility] Medical History COPD (chronic obstructive pulmonary disease) Osteoarthritis of right hip Osteoarthritis of left hip Myalgia Routine medical exam History of COVID-19 Nephrotic syndrome Depression Osteoarthritis Anxiety GERD (gastroesophageal reflux disease) Asthma Elevated cholesterol HTN (hypertension) Bipolar disorder Colonoscopy refused Surgical History Hx of drainage of abscess S/P total right hip arthroplasty History of eye surgery Family History Mother No problems noted. Father No problems noted. Social History Household Members: Significant Other Housing: House Are you a primary care manager cna to a significant other at home: No Do you presently have visiting nurse or other home services: No Alcohol intake: never Patient Tobacco Use Status: Never used Tobacco e-Cigarette/Vaping Use: Never Used Second Hand Smoke Exposure: No service: No Current occupational status: disabled Sexual orientation: Straight/Heterosexual Cognitive needs: No Hearing needs: No Vision needs: No Questionnaire Mini Mental State Exam (MMSE) Orientation What is the (year) (season) (date) (day) (month)?: year Where are we (state) (county) (town or city) (hospital) (floor)?: town or city Attention & Calculation (CHOOSE ONE) Spell WORLD backwards (DLROW): 5 letters Score Score: 7 Activity of Daily Living Bathing - sponge bath, tub bath or shower: receives no assistance (gets in/out by self, if usual bathing means Dressing - getting clothes from closets & drawers, including inner/outer garments & fasteners.: gets clothes & gets completely dressed without help Toileting - going to the 'toilet room' for urine/bowel elimination & cleaning self/arranging clothes: goes to toilet room, cleans self, arranges clothes without help Transfer: moves in & out of bed and chair without help (may use support object) Continence: controls urination/bowel movements completely by self Feeding: feeds self without help Total Score: 0 Information obtained from: patient Using telephone: independent Traveling: needs assistance Shopping: independent Preparing meals: independent Housework: independent Taking medicine: independent Managing money: independent Physical Exam Vital Signs: Last Vital Signs Pulse 78 05/13/24 11:31 BP 157/72 H 05/13/24 11:31 Pulse Ox 93 05/13/24 11:31 Oxygen Delivery Method Room Air 05/13/24 11:31 BMI result Body Mass Index 35.2 HEENT Other: hearing screening whisper test- pass Eyes Other: vision screening- 20 20 OS OD OU Other: urinary incontinence? no Neuro Other: balance Romberg- normal tandem walk test- able walk-in turned test- able rise from sit to stand-within 2 seconds Immunizations pneumoc 20-rashi conj-dip cr(PF) 0.5 mL IM syringe Performing Provider: Ryan Velasquez PA-C Performing Location: [facility] [place] [facility] Administered by: ALEXANDER Pantoja on 05/13/24 12:19 Dose Route Admin Location Dispensed Lot Number Expiration Date NDC Windows System Admin 0.5 mL IM Left Deltoid 0.5 mL [id number] 06/23/25 [employer] VIS Given Date VIS Provided VIS Publication Date 05/13/24 Single Vaccine 21 Eligibility Eligibility Date Funding Source Not VF Eligible 05/13/24 Private Assessment & Plan Assessment & Plan (1) Medicare annual wellness visit, initial: Code(s): Z00.00 - Encounter for general adult medical examination without abnormal findings Plan: As per [facility] Orders: Orders Pneumococcal 20 Immunization Today Z23 - Encounter for immunization Lipid Panel Today E78.5 - Hyperlipidemia, unspecified Prostate Specific Antigen Scr Today I10 - Essential (primary) hypertension, Z12.5 - Encounter for screening for malignant neoplasm of prostate Uric Acid Today M10.071 - Idiopathic gout, right ankle and foot Complete Blood Count no Diff Today K21.9 - Gastro-esophageal reflux disease without esophagitis Comprehensive [place]. Panel Fast Today I10 - Essential (primary) hypertension Microalbumin, Random (w Creat) Today I10 - Essential (primary) hypertension Medications: Changed From fenofibrate 54 mg PO DAILY 30 days 30 tabs 3RF E78.1 - Pure hyperglyceridemia To fenofibrate 54 mg PO DAILY 90 tabs 2RF 90 days E78.1 - Pure hyperglyceridemia Coding Level of Care Code Medicare First (G0438) Diagnoses Medicare annual wellness visit, initial Z00.00
[2024-05-13 11:31] VITALS: BP 157/72; PULSE 78; O2SAT 93; BMI 35.2
== END 2024-05-13 12:22 | disposition home or self-care (01) ==
PROVIDERS: PCP Physician Assistant; Visit Provider Physician Assistant
DX: Z00.00 Encounter for general adult medical examination without abnormal findings (principal); Z23 Encounter for immunization

== ENCOUNTER → 2024-05-13 11:26 | Outpatient (BNVA) | payer MEDICARE, MEDICAID, SELFPAY | PROVIDERS: PCP Physician Assistant; Visit Provider Physician Assistant | DX: Z00.00 Encounter for general adult medical examination without abnormal findings (principal); Z23 Encounter for immunization; J45.40 Moderate persistent asthma, uncomplicated; F41.1 Generalized anxiety disorder; E78.5 Hyperlipidemia, unspecified; K21.9 Gastro-esophageal reflux disease without esophagitis; I10 Essential (primary) hypertension; Z79.899 Other long term (current) drug therapy | CPT/HCPCS: 90471; 90677 ==

== ENCOUNTER → 2024-05-31 12:04 | Outpatient (BNVA) | payer MEDICARE, MEDICAID, SELFPAY | PROVIDERS: PCP Physician Assistant ==

== ENCOUNTER 2024-08-07 08:21 | Outpatient (REF) | payer MEDICARE, MEDICAID, SELFPAY ==
--- OUTSIDE RECORDS SUMMARY | 2024-08-07 08:34 | XMS_ITS | Clinical Summary ---
Author Organization Unknown Care Team Providers Care Proof Technician Name Role Phone CARMELINA MARTINEZ Unavailable Unavailable [employer]ET[employer] SPECIALIST, BERTHA Unavailable Unavailable GABRIELLA RN, SARAI Unavailable Unavailable WILLIE ([facility] - PT, LAUREL Unavailable U navailable K[employer]ET[employer]PA[employer]ET[employer] SPECIALIST, JESSICA Unavailable Unavailab Wilder RN, CLAUDE Unavailable Unavailable Payers Payer Name Policy Type Policy Number Effective Date Expira tion Date MEDICARE - [facility]/DC - [id number] Problems Condition Name Condition Details Condition Category Status Onset Date Resolution Date Last Treatment Date Treating Clinician Comments AFTERCARE FOLLOWING JOINT REPLACEMENT SURGERY Active 10-07 00:00: 00 HYPERTENSIVE HEART DISEASE WITH HEART FAILURE Active 10-07 00:00: 00 HEART FAILURE, UNSPECIFIED Active 10-07 00:00: 00 MILD PERSISTENT ASTHMA, UNCOMPLICATE D Active 10-07 00:00: 00 ANXIETY DISORDER, UNSPECIFIED Active 10-07 00:00: 00 BIPOLAR DISORDER, UNSPECIFIED Active 10-07 00:00: 00 HYPERLIPIDEM IA, UNSPECIFIED Active 10-07 00:00: 00 GASTRO-ESOPH AGEAL REFLUX DISEASE WITHOUT ESOPHAGITIS Active 10-07 00:00: 00 ASSISTED (CURRENT) USE OF ANTICOAGULAN TS Active 10-07 00:00: 00 ASSISTED (CURRENT) USE OF OPIATE ANALGESIC Active 10-07 00:00: 00 PRESENCE OF RIGHT ARTIFICIAL HIP JOINT Active 10-07 00:00: 00 PERSONAL HISTORY OF COVID-19 Active 10-07 00:00: 00 Allergies, Adverse Reactions, Alerts Allergy Name Allergy Type Status Severity Reaction(s) Onset Date Inactive Date Treating Clinician Comments PENICILINS Propensity to adverse reactions Active 10-07 10:23: 24 QUINOLONES Propensity to adverse reactions Active 10-07 10:23: 33 TRAZODONE Propensity to adverse reactions Active 10-07 10:23: 53 LISINOPRIL Propensity to adverse reactions Active 10-07 10:24: 04 LOSARTAN Propensity to adverse reactions Active 10-07 10:24: 10 Medications Ordered Medication Name Filled Medication Name Start Date Stop Date Current Medication? Ordering Clinician Indication Dosage Frequency Signature (SIG) Comments Components olanzapine 10 mg tablet 09-27 00:00: 00 06-27 23:59 :00 No [id number] 1 tablet AT BEDTIME 1 tablet AT BEDTIME (route: oral) Med Classific ation: Central Nervous System Agents amlodipine 5 mg tablet 09-17 00:00: 00 06-27 23:59 :00 No [id number] 1 tablet ONCE DAILY 1 tablet ONCE DAILY (route: oral) Med Classific ation: Cardiovas cular Therapy Agents cetirizine 10 mg tablet 09-17 00:00: 00 06-27 23:59 :00 No [id number] 1 tablet ONCE DAILY 1 tablet ONCE DAILY (route: oral) Med Classific ation: Respirato ry Therapy Agents cyclobenzap rine 10 mg tablet 09-17 00:00: 00 06-27 23:59 :00 No [id number] 1 tablet AT BEDTIME 1 tablet AT BEDTIME (route: oral) Med Classific ation: Locomotor System albuterol sulfate HFA 90 mcg/actuati on aerosol inhaler 10-07 00:00: 00 06-27 23:59 :00 No [id number] 1 puff 4 TIMES DAILY 1 puff 4 TIMES DAILY (route: inhalation ) Med Classific ation: Respirato ry Therapy Agents Lovenox 40 mg/0.4 mL subcutaneou s syringe 10-07 00:00: 00 11-17 23:59 :00 No [id number] 0.4 mL DAILY 0.4 mL DAILY (route: subcutaneo us) Med Classific ation: Hematolog ical Agents oxycodone 5 mg tablet 10-07 00:00: 00 06-27 23:59 :00 No [id number] 1 tablet EVERY 4 HOURS 1 tablet EVERY 4 HOURS (route: oral) Med Classific ation: Analgesic , Anti-infl ammatory or Antipyret ic Tylenol 325 mg tablet 10-07 00:00: 00 06-27 23:59 :00 No [id number] 2 tablet EVERY 6 HOURS 2 tablet EVERY 6 HOURS (route: oral) Med Classific ation: Analgesic , Anti-infl ammatory or Antipyret ic Vital Signs Vital Name Observation Time Observation Value Commen ts Temperature 2022-10-19 19:07:00.000 98.6 [degF] Temperature 2022-10-18 11:03:00.000 97.3 [degF] Temperature 2022-10-13 10:55:00.000 97.2 [degF] Temperature 2022-10-11 11:13:00.000 97.2 [degF] Temperature 2022-10-11 10:36:00.000 97.2 [degF] Temperature 2022-10-10 19:28:00.000 98.4 [degF] Temperature 2022-10-09 13:08:00.000 97.9 [degF] Temperature 2022-10-08 14:36:00.000 97.8 [degF] Temperature 2022-10-07 14:28:00.000 97.4 [degF] Temperature 2022-10-07 08:04:00.000 98.1 [degF] BMI (%) 2022-10-07 08:04:00.000 31 kg/m2 Height 2022-10-07 08:04:00.000 64 [in_us] Pulse 2022-10-19 19:07:00.000 68 /min Pulse 2022-10-18 11:03:00.000 60 /min Pulse 2022-10-13 10:55:00.000 90 /min Pulse 2022-10-11 11:13:00.000 90 /min Pulse 2022-10-11 10:36:00.000 90 /min Pulse 2022-10-10 19:28:00.000 80 /min Pulse 2022-10-10 15:29:00.000 90 /min Pulse 2022-10-09 13:08:00.000 91 /min Pulse 2022-10-08 14:36:00.000 91 /min Pulse 2022-10-07 14:28:00.000 77 /min Pulse 2022-10-07 08:04:00.000 89 /min O2 Saturation (%) 2022-10-11 10:36:00.000 98 % O2 Saturation (%) 2022-10-10 15:29:00.000 100 % O2 Saturation (%) 2022-10-09 13:08:00.000 96 % O2 Saturation (%) 2022-10-08 14:36:00.000 95 % O2 Saturation (%) 2022-10-07 08:04:00.000 95 % Respirations 2022-10-19 19:07:00.000 22 /min Respirations 2022-10-18 11:03:00.000 18 /min Respirations 2022-10-13 10:55:00.000 18 /min Respirations 2022-10-11 11:13:00.000 18 /min Respirations 2022-10-11 10:36:00.000 20 /min Respirations 2022-10-10 19:28:00.000 18 /min Respirations 2022-10-09 13:08:00.000 18 /min Respirations 2022-10-08 14:36:00.000 18 /min Respirations 2022-10-07 14:28:00.000 18 /min Respirations 2022-10-07 08:04:00.000 18 /min Weight (lbs) 2022-10-19 19:09:00.000 185 [lb_av] Weight (lbs) 2022-10-07 08:04:00.000 185 [lb_av] Systolic Blood Pressure 2022-10-19 19:07:00.000 158 mm [Hg] Systolic Blood Pressure 2022-10-18 11:03:00.000 150 mm [Hg] Systolic Blood Pressure 2022-10-13 10:55:00.000 140 mm [Hg] Systolic Blood Pressure 2022-10-11 11:13:00.000 140 mm [Hg] Systolic Blood Pressure 2022-10-11 10:36:00.000 140 mm [Hg] Systolic Blood Pressure 2022-10-10 19:28:00.000 160 mm [Hg] Systolic Blood Pressure 2022-10-10 15:29:00.000 142 mm [Hg] Systolic Blood Pressure 2022-10-09 13:08:00.000 168 mm [Hg] Systolic Blood Pressure 2022-10-08 14:36:00.000 150 mm [Hg] Systolic Blood Pressure 2022-10-07 14:28:00.000 152 mm [Hg] Systolic Blood Pressure 2022-10-07 08:04:00.000 170 mm [Hg] Diastolic Blood Pressure 2022-10-19 19:07:00.000 68 mm [Hg] Diastolic Blood Pressure 2022-10-18 11:03:00.000 60 mm [Hg] Diastolic Blood Pressure 2022-10-13 10:55:00.000 78 mm [Hg] Diastolic Blood Pressure 2022-10-11 11:13:00.000 80 mm [Hg] Diastolic Blood Pressure 2022-10-11 10:36:00.000 72 mm [Hg] Diastolic Blood Pressure 2022-10-10 19:28:00.000 70 mm [Hg] Diastolic Blood Pressure 2022-10-10 15:29:00.000 78 mm [Hg] Diastolic Blood Pressure 2022-10-09 13:08:00.000 78 mm [Hg] Diastolic Blood Pressure 2022-10-08 14:36:00.000 78 mm [Hg] Diastolic Blood Pressure 2022-10-07 14:28:00.000 64 mm [Hg] Diastolic Blood Pressure 2022-10-07 08:04:00.000 77 mm [Hg] Plan of Treatment Planned Activity Planned Date Details Comments Future Scheduled Test SKILLED NU RSE TO EVALUATE PATIENT, IDENTIFY PRIMARY AND CO-MORBID CONDITIONS CODED PER CODING GUIDELINES, AND DEVELOP PATIENT SPECIFIC PLAN OF CARE THAT INCLUDES PATIENT GOAL FOR HOME HEALTH. CLINICAL SUMMARY SOC THE PATIENT IS RECEIVING HOMECARE DUE TO R TOTAL HIP RECENT HOSPITALIZATION/INPATIENT ADMISSION RELATED TO: OSTEOARTHRITIS NEW OR CHANGED MEDICATIONS: TYLENOL, LOVENOX, OXYCODONE PATIENT LIVING SITUATION/CAREGIVER STATUS: LIVES WITH RECENT FALLS: NA SUMMARIZE SKILLED NEED: SN ADDITIONAL DISCIPLINES NEEDED OR DECLINED ORDERED SERVICES: PT, OT [code = SKILLED NURSE TO EVALUATE PATIENT, IDENTIFY PRIMARY AND CO-MORBID CONDITIONS CODED PER CODING GUIDELINES, AND DEVELOP PATIENT SPECIFIC PLAN OF CARE THAT INCLUDES PATIENT GOAL FOR HOME HEALTH. CLINICAL SUMMARY SOC THE PATIENT IS RECEIVING HOMECARE DUE TO R TOTAL HIP RECENT HOSPITALIZATION/INPATIENT ADMISSION RELATED TO: OSTEOARTHRITIS NEW OR CHANGED MEDICATIONS: TYLENOL, LOVENOX, OXYCODONE PATIENT LIVING SITUATION/CAREGIVER STATUS: LIVES WITH RECENT FALLS: NA SUMMARIZE SKILLED NEED: SN ADDITIONAL DISCIPLINES NEEDED OR DECLINED ORDERED SERVICES: PT, OT] Future Scheduled Test SKILLED NU RSE TO REVIEW PATIENT MEDICATIONS. INSTRUCT PATIENT/CAREGIVER ON MONITORING OF EFFECTIVENESS, ADVERSE DRUG REACTIONS, SIDE EFFECTS OF ALL MEDICATIONS (PRESCRIPTION/-OTC), AND HOW AND WHEN TO REPORT PROBLEMS. [code = SKILLED NURSE TO REVIEW PATIENT MEDICATIONS. INSTRUCT PATIENT/CAREGIVER ON MONITORING OF EFFECTIVENESS, ADVERSE DRUG REACTIONS, SIDE EFFECTS OF ALL MEDICATIONS (PRESCRIPTION/-OTC), AND HOW AND WHEN TO REPORT PROBLEMS.] Future Scheduled Test SKILLED NU RSE TO PERFORM HOME SAFETY AND FALL ASSESSMENT AND PROVIDE INSTRUCTION TO IMPLEMENT HOME SAFETY AND FALL PREVENTION STRATEGIES. [code = SKILLED NURSE TO PERFORM HOME SAFETY AND FALL ASSESSMENT AND PROVIDE INSTRUCTION TO IMPLEMENT HOME SAFETY AND FALL PREVENTION STRATEGIES.] Future Scheduled Test SKILLED NU RSE FOR O/A OF ALTERED MOOD R/T BIPOLAR DISORDER. [code = SKILLED NURSE FOR O/A OF ALTERED MOOD R/T BIPOLAR DISORDER. ] Future Scheduled Test SKILLED NU RSE TO PROVIDE ASSESSMENT AND TEACHING/REINFORCEMENT OF MANAGEMENT OF DEPRESSION INCLUDING DISEASE PROCESS, MEDICATION MANAGEMENT, COPING SKILLS AND IDENTIFY CHANGES ASSOCIATED WITH DEPRESSIVE DISORDERS FOR EARLY INTERVENTION. [code = SKILLED NURSE TO PROVIDE ASSESSMENT AND TEACHING/REINFORCEMENT OF MANAGEMENT OF DEPRESSION INCLUDING DISEASE PROCESS, MEDICATION MANAGEMENT, COPING SKILLS AND IDENTIFY CHANGES ASSOCIATED WITH DEPRESSIVE DISORDERS FOR EARLY INTERVENTION.] Future Scheduled Test SKILLED NU RSE TO INSTRUCT PATIENT/CAREGIVER ON AFTERCARE FOLLOWING R HIP JOINT REPLACEMENT, INCLUDING PRECAUTIONS, SIGNS AND SYMPTOMS OF POST-OP COMPLICATIONS, PAIN MANAGEMENT TECHNIQUES [code = SKILLED NURSE TO INSTRUCT PATIENT/CAREGIVER ON AFTERCARE FOLLOWING R HIP JOINT REPLACEMENT, INCLUDING PRECAUTIONS, SIGNS AND SYMPTOMS OF POST-OP COMPLICATIONS, PAIN MANAGEMENT TECHNIQUES] Future Scheduled Test PATIENT BARKSDALE S A RISK OF HOSPITALIZATION AND ED USE. SKILLED NURSE TO ESTABLISH SUPPORT MEASURES TO MINIMIZE RISK OF HOSPITALIZATION AND ED USE, AND INSTRUCT PATIENT/CAREGIVER ON METHODS TO REDUCE AVOIDABLE HOSPITALIZATION AND ED USE. [code = PATIENT HAS A RISK OF HOSPITALIZATION AND ED USE. SKILLED NURSE TO ESTABLISH SUPPORT MEASURES TO MINIMIZE RISK OF HOSPITALIZATION AND ED USE, AND INSTRUCT PATIENT/CAREGIVER ON METHODS TO REDUCE AVOIDABLE HOSPITALIZATION AND ED USE.] Future Scheduled Test SKILLED NU RSE TO PROVIDE INSTRUCTION TO PATIENT/CAREGIVER RELATED TO DISCHARGE PLANNING. [code = SKILLED NURSE TO PROVIDE INSTRUCTION TO PATIENT/CAREGIVER RELATED TO DISCHARGE PLANNING. ] Future Scheduled Test SKILLED NU RSE FOR OBSERVATION AND ASSESSMENT OF PATIENTS PAIN LEVEL AND EFFECTIVENESS OF PAIN MANAGEMENT REGIMEN. SKILLED NURSE TO INSTRUCT PATIENT/CAREGIVER REGARDING PHARMACOLOGIC AND NON-PHARMACOLOGIC PAIN CONTROL MEASURES. SKILLED NURSE TO REPORT TO PHYSICIAN IF PAIN IS UNCONTROLLED WITH CURRENT PAIN MANAGEMENT REGIMEN. [code = SKILLED NURSE FOR OBSERVATION AND ASSESSMENT OF PATIENTS PAIN LEVEL AND EFFECTIVENESS OF PAIN MANAGEMENT REGIMEN. SKILLED NURSE TO INSTRUCT PATIENT/CAREGIVER REGARDING PHARMACOLOGIC AND NON-PHARMACOLOGIC PAIN CONTROL MEASURES. SKILLED NURSE TO REPORT TO PHYSICIAN IF PAIN IS UNCONTROLLED WITH CURRENT PAIN MANAGEMENT REGIMEN.] Future Scheduled Test SKILLED NU RSE FOR O/A, TEACHING RELATED TO GERD FOR EARLY IDENTIFICATION OF EXACERBATION OF DISEASE PROCESS. [code = SKILLED NURSE FOR O/A, TEACHING RELATED TO GERD FOR EARLY IDENTIFICATION OF EXACERBATION OF DISEASE PROCESS.] Future Scheduled Test SKILLED NU RSE FOR O/A, TEACHING AND MANAGEMENT OF NEPHROTIC SYNDROM FOR EARLY IDENTIFICATION OF EXACERBATION OF DISEASE PROCESS [code = SKILLED NURSE FOR O/A, TEACHING AND MANAGEMENT OF NEPHROTIC SYNDROM FOR EARLY IDENTIFICATION OF EXACERBATION OF DISEASE PROCESS] Future Scheduled Test OCCUPATION AL THERAPIST TO EVALUATE PATIENT FOR ADLS [code = OCCUPATIONAL THERAPIST TO EVALUATE PATIENT FOR ADLS] Future Scheduled Test SKILLED NU RSE FOR O/A OF RESPIRATORY SYSTEM TO IDENTIFY CHANGES ASSOCIATED WITH EXACERBATION AND TO PROVIDE SKILLED TEACHING ON MANAGEMENT OF ASTHMA RESPIRATORY DISEASE PROCESS. [code = SKILLED NURSE FOR O/A OF RESPIRATORY SYSTEM TO IDENTIFY CHANGES ASSOCIATED WITH EXACERBATION AND TO PROVIDE SKILLED TEACHING ON MANAGEMENT OF ASTHMA RESPIRATORY DISEASE PROCESS.] Future Scheduled Test NEED FOR S KILLED TEACHING AND INTERVENTION RELATED TO R HIP INCISION. SKILLED NURSE OR TRAINED PATIENT/CAREGIVER TO OBSERVE SURGICAL SITE FOR S/S OF INFECTION. PT TO CLEANSE SITE IN SHOWER WITH WARM SOAPY WATER WHEN APPROVED BY SURGEON. [code = NEED FOR SKILLED TEACHING AND INTERVENTION RELATED TO R HIP INCISION. SKILLED NURSE OR TRAINED PATIENT/CAREGIVER TO OBSERVE SURGICAL SITE FOR S/S OF INFECTION. PT TO CLEANSE SITE IN SHOWER WITH WARM SOAPY WATER WHEN APPROVED BY SURGEON. ] Future Scheduled Test SKILLED NU RSE FOR ADMINISTRATION AND TEACHING OF PRESCRIBED INJECTION THERAPY FOR LOVENOX [code = SKILLED NURSE FOR ADMINISTRATION AND TEACHING OF PRESCRIBED INJECTION THERAPY FOR LOVENOX] Future Scheduled Test SKILLED NU RSE FOR O/A OF MUSCULOSKELETAL STATUS AND TEACHING ON MEASURES TO MANAGE R TOTAL HIP AND TO MAINTAIN SAFETY WITH ACTIVITY [code = SKILLED NURSE FOR O/A OF MUSCULOSKELETAL STATUS AND TEACHING ON MEASURES TO MANAGE R TOTAL HIP AND TO MAINTAIN SAFETY WITH ACTIVITY] Future Scheduled Test SKILLED NU RSE TO ASSESS HOME SAFETY FOR PATIENT WITH IMPAIRED VISION AND INSTRUCT PATIENT/CAREGIVER ON SAFETY TECHNIQUES FOR ADLS AND IADLS, MEDICATION MANAGEMENT, AND HOME ADAPTATION. [code = SKILLED NURSE TO ASSESS HOME SAFETY FOR PATIENT WITH IMPAIRED VISION AND INSTRUCT PATIENT/CAREGIVER ON SAFETY TECHNIQUES FOR ADLS AND IADLS, MEDICATION MANAGEMENT, AND HOME ADAPTATION.] Future Scheduled Test SKILLED NU RSE TO ASSESS PATIENT'S SKIN INTEGRITY AND INSTRUCT PATIENT/CAREGIVER ON MEASURES TO PREVENT PRESSURE ULCERS [code = SKILLED NURSE TO ASSESS PATIENT'S SKIN INTEGRITY AND INSTRUCT PATIENT/CAREGIVER ON MEASURES TO PREVENT PRESSURE ULCERS] Future Scheduled Test PHYSICAL T HERAPIST TO EVALUATE PATIENT FOR GAIT [code = PHYSICAL THERAPIST TO EVALUATE PATIENT FOR GAIT] Future Scheduled Test SKILLED NU RSE TO PROVIDE TEACHING ON SIGNS AND SYMPTOMS AND MANAGEMENT OF HYPERTENSION. [code = SKILLED NURSE TO PROVIDE TEACHING ON SIGNS AND SYMPTOMS AND MANAGEMENT OF HYPERTENSION.] Future Scheduled Test SKILLED NU RSE FOR O/A AND SKILLED TEACHING RELATED TO SIGNS AND SYMPTOMS AND MANAGEMENT OF R TOTAL HIP [code = SKILLED NURSE FOR O/A AND SKILLED TEACHING RELATED TO SIGNS AND SYMPTOMS AND MANAGEMENT OF R TOTAL HIP ] Future Scheduled Test VIRTUAL SIT FREQUENCY: 1-6 PER WEEK X 2 WEEKS AND 6 PRN VIRTUAL VISITS MAY BE PERFORMED UTILIZING [employer] OneICATIONS SYSTEM TO OPTIMIZE SKILLED SERVICES FURNISHED ON THE PLAN OF CARE. SKILLED NURSE TO ESTABLISH SUPPORT MEASURES TO MINIMIZE RISK OF REHOSPITALIZATION, AND INSTRUCT PATIENT/CAREGIVER ON METHODS TO REDUCE AVOIDABLE HOSPITALIZATION. [code = VIRTUAL VISIT FREQUENCY: 1-6 PER WEEK X 2 WEEKS AND 6 PRN VIRTUAL VISITS MAY BE PERFORMED UTILIZING TELECOMM[employer]ICATION[employer] SYSTEM TO OPTIMIZE SKILLED SERVICES FURNISHED ON THE PLAN OF CARE. SKILLED NURSE TO ESTABLISH SUPPORT MEASURES TO MINIMIZE RISK OF REHOSPITALIZATION, AND INSTRUCT PATIENT/CAREGIVER ON METHODS TO REDUCE AVOIDABLE HOSPITALIZATION.] Future Scheduled Test PHYSICAL T HERAPIST TO EVALUATE PATIENT SECONDARY TO FUNCTIONAL DEFICITS/SAFETY CONCERNS.EVALUATION AND ASSESSMENT PERFORMED FOR THE NEEDS OF A SKILLED PHYSICAL THERAPIST IN THE HOME. 62-YEAR-OLD MALE REFERRED FOR HOME PHYSICAL THERAPY SERVICE FOLLOWING [facility] STAY STATUS POST RIGHT TOTAL HIP ARTHROPLASTY PROCEDURE. PAST MEDICAL HISTORY SIGNIFICANT FOR OSTEOARTHRITIS, HYPERTENSION, G E R D. PATIENT RESIDES IN A SINGLE FAMILY HOME WITH SUPPORTIVE LIFE WHO IS ABLE TO ASSIST HIM WITH ACTIVITIES OF DAILY LIVING UNTIL SUCH TIME THAT SHE RETURNS TO WORK. THERE ARE TWO STEPS TO ENTER AN EXIT THE HOME WITH RAIL. BEDROOM AND BATHROOM ALL ON THE FIRST LEVEL OF THE HOME. PATIENT EQUIPMENT INCLUDES A FRONT WHEELED WALKER FOR ASSISTANCE WITH AMBULATION AND TRANSFERS. USP ALSO INVOLVED FOR EDUCATION REGARDING BLOOD THINNER MEDICATION. UPON EVALUATION PATIENT REPORTING FEELING BETTER LAST COUPLE OF DAYS, REPORTS PAIN FIVE OUT OF 10 RIGHT HIP JOINT MANAGING WITH MEDICATIONS. PRESENTS WITH IMMOVABLE DRESSING OVER THE RIGHT LATERAL HIP JOINT NO BRUISING NOR EDEMA NOTED. PATIENT AND CAREGIVER EDUCATED REGARDING SIGNS AND SYMPTOMS OF POST-OPERATIVE COMPLICATIONS. BOTH VERBALIZE UNDERSTANDING. VITALS ASSESSED, STABLE, REFER TO DOCUMENTATION FOR SPECIFICS. RANGE OF MOTION AND STRENGTH UPPER EXTREMITIES BILATERALLY WITHIN FUNCTIONAL LIMITS. LEFT LOWER EXTREMITY WITHIN FUNCTIONAL LIMITS WELL. RIGHT HIP RANGE OF MOTION LIMITED DUE TO TOTAL HIP RESTRICTIONS ALSO DECREASED A RESULT OF PAIN AND WEAKNESS POSTOPERATIVELY. RIGHT KNEE AND ANKLE RANGE OF MOTION WITHIN FUNCTIONAL LIMITS. RIGHT HIP STRENGTH 3 MINUS OUT OF 5 WEAK AND PAINFUL. PATIENT REQUIRES SUPERVISION FOR BED MOBILITY REGARDING EDUCATION RELATED TO TOTAL HIP RESTRICTIONS. WITH THE AFOREMENTIONED TRAINING REQUIRED. PATIENT IS AMBULATING HOUSEHOLD DISTANCE WITH FRONT-WHEELED WALKER WEIGHT BEARING IS TOLERATED ON THE RIGHT DEMONSTRATING DECREASE IN SHANICE'S TIME ON THE RIGHT WELL STEP LENGTH AND HEIGHT OCCASIONALLY UNSTEADY WHEN TURNING REQUIRING SUPERVISION. TIMED UP AND GO 20 SECONDS USING FRONT WHEELED WALKER. PATIENT AND CAREGIVER EDUCATED REGARDING TOTAL HIP PROTOCOL EXERCISES INCLUDING SUPINE ANKLE PUMPS, QUAD SETS GLUTES SETS HEEL SLIDE HIP ABDUCTION AND EXTERNAL ROTATION. ALSO EDUCATED REGARDING STANDING AT WALKER PARTIAL RIGHT HIP FLEXION ABDUCTION AND EXTENSION ALL EXERCISE 10 REPETITIONS EACH TO BEGIN HOME PROGRAM. PATIENT IS A GOOD CANDIDATE TO ADDRESS THE ABOVE IMPAIRMENTS WITH HOME PHYSICAL THERAPY TO ESTABLISH /UPGRADE/DOWNGRADE THERAPEUTIC EXERCISE PROGRAM AND INSTRUCT PATIENT/CAREGIVER ON EXERCISE PRECAUTIONS WITH WRITTEN HOME PROGRAM. MAY INCLUDE PROM, AAROM, AROM, RROM APPROPRIATE TO IMPROVE FUNCTIONAL STRENGTH AND RANGE OF MOTION. PHYSICAL THERAPY TO INSTRUCT PATIENT/CAREGIVER ON BED MOBILITY TECHNIQUES TO IMPROVE PATIENT MOBILITY AND POSITIONING TECHNIQUES IN ORDER TO INCREASE PATIENTS COMFORT AND DECREASE RISK OF SKIN BREAKDOWN. PHYSICAL THERAPY TO INSTRUCT PATIENT/CAREGIVER ON SAFE TRANSFER TECHNIQUES USING PROPER BODY MECHANICS AND EQUIPMENT. PHYSICAL THERAPY TO INSTRUCT PATIENT/CAREGIVER ON GAIT TRAINING TECHNIQUES USING APPROPRIATE ASSISTIVE DEVICE, PROPER BODY MECHANICS TO IMPROVE MOBILITY, AND PREVENT INJURY OF PATIENT AND/OR CAREGIVER. SUMMARY OF THERAPY EVAL/ASSESSMENT FINDINGS AND REASON(S) SKILLS OF A THERAPIST ARE INDICATED: EVALUATION AND ASSESSMENT PERFORMED FOR THE NEEDS OF A SKILLED PHYSICAL THERAPIST IN THE HOME. 62-YEAR-OLD MALE REFERRED FOR HOME PHYSICAL THERAPY SERVICE FOLLOWING [facility]EF [facility]OSPITAL STAY STATUS POST RIGHT TOTAL HIP ARTHROPLASTY PROCEDURE. PAST MEDICAL HISTORY SIGNIFICANT FOR OSTEOARTHRITIS, HYPERTENSION, G E R D. PATIENT RESIDES IN A SINGLE FAMILY HOME WITH SUPPORTIVE LIFE WHO IS ABLE TO ASSIST HIM WITH ACTIVITIES OF DAILY LIVING UNTIL SUCH TIME THAT SHE RETURNS TO WORK. THERE ARE TWO STEPS TO ENTER AN EXIT THE HOME WITH RAIL. BEDROOM AND BATHROOM ALL ON THE FIRST LEVEL OF THE HOME. PATIENT EQUIPMENT INCLUDES A FRONT WHEELED WALKER FOR ASSISTANCE WITH AMBULATION AND TRANSFERS. USP ALSO INVOLVED FOR EDUCATION REGARDING BLOOD THINNER MEDICATION. UPON EVALUATION PATIENT REPORTING FEELING BETTER LAST COUPLE OF DAYS, REPORTS PAIN FIVE OUT OF 10 RIGHT HIP JOINT MANAGING WITH MEDICATIONS. PRESENTS WITH IMMOVABLE DRESSING OVER THE RIGHT LATERAL HIP JOINT NO BRUISING NOR EDEMA NOTED. PATIENT AND CAREGIVER EDUCATED REGARDING SIGNS AND SYMPTOMS OF POST-OPERATIVE COMPLICATIONS. BOTH VERBALIZE UNDERSTANDING. VITALS ASSESSED, STABLE, REFER TO DOCUMENTATION FOR SPECIFICS. RANGE OF MOTION AND STRENGTH UPPER EXTREMITIES BILATERALLY WITHIN FUNCTIONAL LIMITS. LEFT LOWER EXTREMITY WITHIN FUNCTIONAL LIMITS WELL. RIGHT HIP RANGE OF MOTION LIMITED DUE TO TOTAL HIP RESTRICTIONS ALSO DECREASED A RESULT OF PAIN AND WEAKNESS POSTOPERATIVELY. RIGHT KNEE AND ANKLE RANGE OF MOTION WITHIN FUNCTIONAL LIMITS. RIGHT HIP STRENGTH 3 MINUS OUT OF 5 WEAK AND PAINFUL. PATIENT REQUIRES SUPERVISION FOR BED MOBILITY REGARDING EDUCATION RELATED TO TOTAL HIP RESTRICTIONS. WITH THE AFOREMENTIONED TRAINING REQUIRED. PATIENT IS AMBULATING HOUSEHOLD DISTANCE WITH FRONT-WHEELED WALKER WEIGHT BEARING IS TOLERATED ON THE RIGHT DEMONSTRATING DECREASE IN SHANICE'S TIME ON THE RIGHT WELL STEP LENGTH AND HEIGHT OCCASIONALLY UNSTEADY WHEN TURNING REQUIRING SUPERVISION. TIMED UP AND GO 20 SECONDS USING FRONT WHEELED WALKER. PATIENT AND CAREGIVER EDUCATED REGARDING TOTAL HIP PROTOCOL EXERCISES INCLUDING SUPINE ANKLE PUMPS, QUAD SETS GLUTES SETS HEEL SLIDE HIP ABDUCTION AND EXTERNAL ROTATION. ALSO EDUCATED REGARDING STANDING AT WALKER PARTIAL RIGHT HIP FLEXION ABDUCTION AND EXTENSION ALL EXERCISE 10 REPETITIONS EACH TO BEGIN HOME PROGRAM. [code = PHYSICAL THERAPIST TO EVALUATE PATIENT SECONDARY TO FUNCTIONAL DEFICITS/SAFETY CONCERNS.EVALUATION AND ASSESSMENT PERFORMED FOR THE NEEDS OF A SKILLED PHYSICAL THERAPIST IN THE HOME. 62-YEAR-OLD MALE REFERRED FOR HOME PHYSICAL THERAPY SERVICE FOLLOWING [facility]EF [facility]OSPITAL STAY STATUS POST RIGHT TOTAL HIP ARTHROPLASTY PROCEDURE. PAST MEDICAL HISTORY SIGNIFICANT FOR OSTEOARTHRITIS, HYPERTENSION, G E R D. PATIENT RESIDES IN A SINGLE FAMILY HOME WITH SUPPORTIVE LIFE WHO IS ABLE TO ASSIST HIM WITH ACTIVITIES OF DAILY LIVING UNTIL SUCH TIME THAT SHE RETURNS TO WORK. THERE ARE TWO STEPS TO ENTER AN EXIT THE HOME WITH RAIL. BEDROOM AND BATHROOM ALL ON THE FIRST LEVEL OF THE HOME. PATIENT EQUIPMENT INCLUDES A FRONT WHEELED WALKER FOR ASSISTANCE WITH AMBULATION AND TRANSFERS. USP ALSO INVOLVED FOR EDUCATION REGARDING BLOOD THINNER MEDICATION. UPON EVALUATION PATIENT REPORTING FEELING BETTER LAST COUPLE OF DAYS, REPORTS PAIN FIVE OUT OF 10 RIGHT HIP JOINT MANAGING WITH MEDICATIONS. PRESENTS WITH IMMOVABLE DRESSING OVER THE RIGHT LATERAL HIP JOINT NO BRUISING NOR EDEMA NOTED. PATIENT AND CAREGIVER EDUCATED REGARDING SIGNS AND SYMPTOMS OF POST-OPERATIVE COMPLICATIONS. BOTH VERBALIZE UNDERSTANDING. VITALS ASSESSED, STABLE, REFER TO DOCUMENTATION FOR SPECIFICS. RANGE OF MOTION AND STRENGTH UPPER EXTREMITIES BILATERALLY WITHIN FUNCTIONAL LIMITS. LEFT LOWER EXTREMITY WITHIN FUNCTIONAL LIMITS WELL. RIGHT HIP RANGE OF MOTION LIMITED DUE TO TOTAL HIP RESTRICTIONS ALSO DECREASED A RESULT OF PAIN AND WEAKNESS POSTOPERATIVELY. RIGHT KNEE AND ANKLE RANGE OF MOTION WITHIN FUNCTIONAL LIMITS. RIGHT HIP STRENGTH 3 MINUS OUT OF 5 WEAK AND PAINFUL. PATIENT REQUIRES SUPERVISION FOR BED MOBILITY REGARDING EDUCATION RELATED TO TOTAL HIP RESTRICTIONS. WITH THE AFOREMENTIONED TRAINING REQUIRED. PATIENT IS AMBULATING HOUSEHOLD DISTANCE WITH FRONT-WHEELED WALKER WEIGHT BEARING IS TOLERATED ON THE RIGHT DEMONSTRATING DECREASE IN SHANICE'S TIME ON THE RIGHT WELL STEP LENGTH AND HEIGHT OCCASIONALLY UNSTEADY WHEN TURNING REQUIRING SUPERVISION. TIMED UP AND GO 20 SECONDS USING FRONT WHEELED WALKER. PATIENT AND CAREGIVER EDUCATED REGARDING TOTAL HIP PROTOCOL EXERCISES INCLUDING SUPINE ANKLE PUMPS, QUAD SETS GLUTES SETS HEEL SLIDE HIP ABDUCTION AND EXTERNAL ROTATION. ALSO EDUCATED REGARDING STANDING AT WALKER PARTIAL RIGHT HIP FLEXION ABDUCTION AND EXTENSION ALL EXERCISE 10 REPETITIONS EACH TO BEGIN HOME PROGRAM. PATIENT IS A GOOD CANDIDATE TO ADDRESS THE ABOVE IMPAIRMENTS WITH HOME PHYSICAL THERAPY TO ESTABLISH /UPGRADE/DOWNGRADE THERAPEUTIC EXERCISE PROGRAM AND INSTRUCT PATIENT/CAREGIVER ON EXERCISE PRECAUTIONS WITH WRITTEN HOME PROGRAM. MAY INCLUDE PROM, AAROM, AROM, RROM APPROPRIATE TO IMPROVE FUNCTIONAL STRENGTH AND RANGE OF MOTION. PHYSICAL THERAPY TO INSTRUCT PATIENT/CAREGIVER ON BED MOBILITY TECHNIQUES TO IMPROVE PATIENT MOBILITY AND POSITIONING TECHNIQUES IN ORDER TO INCREASE PATIENTS COMFORT AND DECREASE RISK OF SKIN BREAKDOWN. PHYSICAL THERAPY TO INSTRUCT PATIENT/CAREGIVER ON SAFE TRANSFER TECHNIQUES USING PROPER BODY MECHANICS AND EQUIPMENT. PHYSICAL THERAPY TO INSTRUCT PATIENT/CAREGIVER ON GAIT TRAINING TECHNIQUES USING APPROPRIATE ASSISTIVE DEVICE, PROPER BODY MECHANICS TO IMPROVE MOBILITY, AND PREVENT INJURY OF PATIENT AND/OR CAREGIVER. SUMMARY OF THERAPY EVAL/ASSESSMENT FINDINGS AND REASON(S) SKILLS OF A THERAPIST ARE INDICATED: EVALUATION AND ASSESSMENT PERFORMED FOR THE NEEDS OF A SKILLED PHYSICAL THERAPIST IN THE HOME. 62-YEAR-OLD MALE REFERRED FOR HOME PHYSICAL THERAPY SERVICE FOLLOWING [facility] STAY STATUS POST RIGHT TOTAL HIP ARTHROPLASTY PROCEDURE. PAST MEDICAL HISTORY SIGNIFICANT FOR OSTEOARTHRITIS, HYPERTENSION, G E R D. PATIENT RESIDES IN A SINGLE FAMILY HOME WITH SUPPORTIVE LIFE WHO IS ABLE TO ASSIST HIM WITH ACTIVITIES OF DAILY LIVING UNTIL SUCH TIME THAT SHE RETURNS TO WORK. THERE ARE TWO STEPS TO ENTER AN EXIT THE HOME WITH RAIL. BEDROOM AND BATHROOM ALL ON THE FIRST LEVEL OF THE HOME. PATIENT EQUIPMENT INCLUDES A FRONT WHEELED WALKER FOR ASSISTANCE WITH AMBULATION AND TRANSFERS. USP ALSO INVOLVED FOR EDUCATION REGARDING BLOOD THINNER MEDICATION. UPON EVALUATION PATIENT REPORTING FEELING BETTER LAST COUPLE OF DAYS, REPORTS PAIN FIVE OUT OF 10 RIGHT HIP JOINT MANAGING WITH MEDICATIONS. PRESENTS WITH IMMOVABLE DRESSING OVER THE RIGHT LATERAL HIP JOINT NO BRUISING NOR EDEMA NOTED. PATIENT AND CAREGIVER EDUCATED REGARDING SIGNS AND SYMPTOMS OF POST-OPERATIVE COMPLICATIONS. BOTH VERBALIZE UNDERSTANDING. VITALS ASSESSED, STABLE, REFER TO DOCUMENTATION FOR SPECIFICS. RANGE OF MOTION AND STRENGTH UPPER EXTREMITIES BILATERALLY WITHIN FUNCTIONAL LIMITS. LEFT LOWER EXTREMITY WITHIN FUNCTIONAL LIMITS WELL. RIGHT HIP RANGE OF MOTION LIMITED DUE TO TOTAL HIP RESTRICTIONS ALSO DECREASED A RESULT OF PAIN AND WEAKNESS POSTOPERATIVELY. RIGHT KNEE AND ANKLE RANGE OF MOTION WITHIN FUNCTIONAL LIMITS. RIGHT HIP STRENGTH 3 MINUS OUT OF 5 WEAK AND PAINFUL. PATIENT REQUIRES SUPERVISION FOR BED MOBILITY REGARDING EDUCATION RELATED TO TOTAL HIP RESTRICTIONS. WITH THE AFOREMENTIONED TRAINING REQUIRED. PATIENT IS AMBULATING HOUSEHOLD DISTANCE WITH FRONT-WHEELED WALKER WEIGHT BEARING IS TOLERATED ON THE RIGHT DEMONSTRATING DECREASE IN SHANICE'S TIME ON THE RIGHT WELL STEP LENGTH AND HEIGHT OCCASIONALLY UNSTEADY WHEN TURNING REQUIRING SUPERVISION. TIMED UP AND GO 20 SECONDS USING FRONT WHEELED WALKER. PATIENT AND CAREGIVER EDUCATED REGARDING TOTAL HIP PROTOCOL EXERCISES INCLUDING SUPINE ANKLE PUMPS, QUAD SETS GLUTES SETS HEEL SLIDE HIP ABDUCTION AND EXTERNAL ROTATION. ALSO EDUCATED REGARDING STANDING AT WALKER PARTIAL RIGHT HIP FLEXION ABDUCTION AND EXTENSION ALL EXERCISE 10 REPETITIONS EACH TO BEGIN HOME PROGRAM. ] Future Scheduled Test OCCUPATION AL THERAPY TO EVALUATE AND TREAT. OCCUPATIONAL THERAPY EVALUATION COMPLETED. NO ADDITIONAL VISITS RECOMMENDED AT THIS TIME. [code = OCCUPATIONAL THERAPY TO EVALUATE AND TREAT. OCCUPATIONAL THERAPY EVALUATION COMPLETED. NO ADDITIONAL VISITS RECOMMENDED AT THIS TIME.] Goal 2022-10-20 Patient Goal - GET BACK TO N [facility]AL Goal Provider Goal - A PLAN OF CARE WILL BE ESTABLISHED THAT MEETS PATIENT'S USP NEEDS AND INCLUDES PATIENT GOAL FOR HOME HEALTH. Goal Provider Goal - PATIENT/CAREGIVER WILL VERBALIZE UNDERSTANDING OF EDUCATION PROVIDED ON MEDICATIONS BY THE END OF THE CERTIFICATION PERIOD. Goal Provider Goal - PATIENT/CAREGIVER WILL VERBALIZE/DEMONSTRATE EFFECTIVE HOME SAFETY AND FALL PREVENTION STRATEGIES THROUGHOUT CERTIFICATION PERIOD. Goal Provider Goal - PATIENT WILL BE ABLE TO PERFORM DAILY FUNCTIONS AND HAVE OPTIMAL IMPROVEMENT IN MOOD STABILITY. Goal Provider Goal - PATIENT/CAREGIVER WILL VERBALIZE/DEMONSTRATE UNDERSTANDING OF THE MANAGEMENT OF DEPRESSION BY THE END OF THE EPISODE AND SYMPTOMS ARE IDENTIFIED AND MANAGED TO MAINTAIN PATIENT SAFETY IN THE HOME Goal Provider Goal - PATIENT/CAREGIVER WILL VERBALIZE/DEMONSTRATE MANAGEMENT OF AFTERCARE FOLLOWING JOINT REPLACEMENT INCLUDING SIGNS AND SYMPTOMS TO REPORT AND METHODS TO PREVENT POST-OP COMPLICATIONS BY END OF CERTIFICATION PERIOD. Goal Provider Goal - PATIENT WILL HAVE SUPPORT MEASURES ESTABLISHED TO PREVENT HOSPITALIZATION AND ED USE AND PATIENT/CAREGIVER WILL VERBALIZE/DEMONSTRATE METHODS TO REDUCE AVOIDABLE HOSPITALIZATION AND ED USE BY THE END OF THE EPISODE. Goal Provider Goal - PATIENT/CAREGIVER WILL VERBALIZE UNDERSTANDING OF DISCHARGE PLANNING INSTRUCTIONS BY DATE OF DISCHARGE. Goal Provider Goal - PATIENT/CAREGIVER WILL DEMONSTRATE UNDERSTANDING OF PHARMACOLOGIC AND NONPHARMACOLOGIC PAIN CONTROL MEASURES AND PATIENT WILL HAVE IMPROVEMENT IN PAIN INTERFERING WITH ACTIVITY EVIDENCED BY PAIN CONTROLLED AT LEVEL OF 7 OR LESS BY END OF CERTIFICATION PERIOD. Goal Provider Goal - EXACERBATIONS OF GASTROINTESTINAL DISEASE WILL BE PROMPTLY IDENTIFIED AND INTERVENTIONS IMPLEMENTED TO MINIMIZE RISKS TO PATIENT BY END OF CERT PERIOD Goal Provider Goal - PATIENT/CAREGIVER WILL VERBALIZE UNDERSTANDING OF GENITOURINARY DISEASE PROCESS, AND EXACERBATIONS OF GENITOURINARY DISEASE WILL BE PROMPTLY IDENTIFIED FOR EARLY INTERVENTION THROUGHOUT THE CERTIFICATION PERIOD. Goal Provider Goal - OCCUPATIONAL THERAPY EVALUATION TO BE COMPLETED WITH RECOMMENDATIONS AND WRITTEN PLAN OF TREATMENT ESTABLISHED FOR THE PHYSICIANS SIGNATURE. Goal Provider Goal - PATIENT/CAREGIVER WILL VERBALIZE/DEMONSTRATE MANAGEMENT OF RESPIRATORY DISEASE PROCESS. CHANGES IN RESPIRATORY STATUS WILL BE IDENTIFIED AND REPORTED TO PHYSICIAN FOR PROMPT INTERVENTION THROUGHOUT THE CERTIFICATION PERIOD. Goal Provider Goal - WOUND CARE WILL BE COMPLETED AND PATIENT WILL HAVE IMPROVED WOUND STATUS EVIDENCED BY NO SIGNS AND SYMPTOMS OF INFECTION, DECREASED WOUND SIZE, AND/OR NO COMPLICATIONS BY THE END OF THE CERTIFICATION PERIOD. Goal Provider Goal - PATIENT WILL RECEIVE INJECTION ORDERED. PATIENT/CAREGIVER WILL VERBALIZE/DEMONSTRATE KNOWLEDGE OF INJECTION THERAPY BY THE END OF THE CERTIFICATION PERIOD. Goal Provider Goal - PATIENT/CAREGIVER WILL VERBALIZE/DEMONSTRATE ABILITY TO MANAGE MUSCULOSKELETAL DISEASE WHILE MAINTAINING SAFETY BY THE END OF THE CERTIFICATION Goal Provider Goal - PATIENT/CAREGIVER WILL BE ABLE TO APPLY PRINCIPLES OF ENVIRONMENTAL MODIFICATION TO MAINTAIN THE LEVEL OF SAFETY FOR THE LOW VISION PATIENT WITHIN THE HOME SETTING AND PREVENT FALL/INJURY THIS EPISODE Goal Provider Goal - PATIENT/CAREGIVER WILL VERBALIZE UNDERSTANDING OF PRESSURE ULCER PREVENTION BY END OF CERT PERIOD Goal Provider Goal - A PHYSICAL THERAPY EVALUATION TO BE COMPLETED WITH RECOMMENDATIONS AND/OR WRITTEN PLAN OF TREATMENT ESTABLISHED FOR PHYSICIANS [place]. Goal Provider Goal - PATIENT/CAREGIVER WILL VERBALIZE SIGNS AND SYMPTOMS OF HYPERTENSION AND WILL BE ABLE TO DEMONSTRATE ABILITY TO MANAGE EXACERBATION BY END OF CERT PERIOD Goal Provider Goal - PATIENT/CAREGIVER WILL VERBALIZE UNDERSTANDING OF MUSCULOSKELETAL DISEASE INCLUDING SIGNS AND SYMPTOMS, MANAGEMENT, AND PRESCRIBED TREATMENT REGIMEN BY END OF EPISODE. Goal Provider Goal - PATIENT/CAREGIVER WILL UTILIZE VIRTUAL VISITS TO ACHIEVE GOALS OUTLINED ON THE PLAN OF CARE. PATIENT WILL HAVE SUPPORT MEASURES ESTABLISHED TO PREVENT HOSPITALIZATION AND PATIENT/CAREGIVER WILL VERBALIZE/DEMONSTRATE METHODS TO REDUCE AVOIDABLE HOSPITALIZATION THROUGHOUT THE CERTIFICATION PERIOD. Goal Provider Goal - PHYSICAL THERAPY EVALUATION TO BE COMPLETED WITH RECOMMENDATIONS AND/OR WRITTEN TREATMENT PLAN OF CARE ESTABLISHED FOR THE PHYSICIANS [place] PATIENT/CAREGIVER WILL PERFORM THERAPEUTIC EXERCISE/S AND DEMONSTRATE PARTICIPATION IN A HOME PROGRAM TO IMPROVE FUNCTION OF RIGHT HIP MOBILITY AND STRENGTH WITH ACTIVITIES OF DAILY LIVING PATIENT/CAREGIVER WILL DEMONSTRATE IMPROVED BED MOBILITY TECHNIQUES TO IMPROVE FUNCTION OF BED MOBILITY AND TRANSFERS PATIENT/CAREGIVER WILL DEMONSTRATE SAFE TRANSFERS USING APPROPRIATE ASSISTIVE DEVICE BODY MECHANICS AND EQUIPMENT TO IMPROVE FUNCTION OF SAFE TRANSFERS AND MAINTENANCE OF HIP PRECAUTIONS PATIENT/CAREGIVER WILL DEMONSTRATE IMPROVED GAIT TECHNIQUES TO MINIMIZE RISK OF INJURY AND INCREASE FUNCTION OF SAFEGATE PATTERN WITH LEASE RESTRICTIVE ASSISTIVE DEVICE PATIENT IS A GOOD CANDIDATE TO ADDRESS THE ABOVE IMPAIRMENTS WITH HOME PHYSICAL THERAPY TWO TIMES PER WEEK TO ADDRESS THERAPEUTIC EXERCISE TRAINING PROGRAM ACCORDING TO TOTAL HIP PROTOCOL, BED MOBILITY, TRANSFER, GATE, DYNAMIC STANDING BALANCE HOME SAFETY TRAINING AND FALL PREVENTION WELL PATIENT AND FAMILY EDUCATION REGARDING SIGNS AND SYMPTOMS OF POST-OPERATIVE COMPLICATIONS. ANTICIPATE SIX TO EIGHT VISITS PATIENT AND CAREGIVER AGREE WITH AFOREMENTIONED PLAN OF CARE. Goal Provider Goal - OT EVALUATION ONLY (10/10/22) PATIENT IS A 62 YEAR OLD MALE REFERRED TO OT SERVICES AFTER BRIEF HOSPITALIZATION FOR RIGHT TOTAL HIP ARTHROPLASTY. PATIENT ABLE TO CONFIRM HIP PRECAUTIONS INCLUFING NO BENFING PAST 90?, NO CROSSING LEGS, AND NO TURNING HIP INWARD. PROCEDURE COMPLETED 10/14/[address] CERVANTES OF [facility]. [facility] SIGNIGICANT FOR: ANXIETY, DEPRESSION, OSTEOARTHRITIS, HTN AND RETINA DETACHMENT. PRIOR LEVEL OF FUNCTION: PATIENT LIVES IN A SINGLE FAMILY HOME WITH . THERE ARE FOUR STEPS TO ENTER HOME WITH ANOTHER STEP UP FROM THE MUD ROOM. HE AMBULATED WITH THE USE OF A CANE AND WAS ABLE TO MANAGE ADLS AND SOME IADLS INDEPENDENTLY. SUPPORTIVE WELL CHILDREN INVOLVED IN CARE. CURRRNT LEVEL OF FUNCTION: PATIENT IS AMBULATING WITH THE USE OF A ROLLING WALKER AND SEEN FOR OT EVALUATION AND PRESENCE OF SUN TODAY. WAS WORKING. HE'S ABLE TO AMBULATE THROUGH THE KITCHEN DINING ROOM INTO HIS BEDROOM AND BATHROOMS. HE DOES HAVE A SUNKEN IN LIVING ROOM THAT HE NEEDS TO GO DOWN TWO STEPS WITHOUT HANDRAILS BUT IS ABLE TO NAVIGATE WITH HIS ROLLING WALKER SAFELY. PATIENT IS ABLE TO PERFORM SIT TO STAND TRANSFER FROM MULTIPLE SURFACES TODAY DURING EVALUATION. PATIENT ALSO ABLE TO MAINTAIN HIP PRECAUTIONS WHEN PERFORMING. HE WAS HE WAS ABLE TO PERFORM TOILET TRANSFERS WITH THE USE OF SINK VANITY FOR STABILITY. HE IS NOT ABLE TO SHOWER AT THIS TIME DOES HAVE A TUB SHOWER WELL A WALK-IN SHOWER. PATIENT HAS KIKI THAT DO NOT ALLOW HIM TO SHOWER AT THIS TIME AND THOSE ARE TO BE REMOVED ON September. DID RECOMMEND PATIENT OBTAIN GRAB BARS FOR THE SHOWER STALL TO INCREASE THE STABILITY WHEN HE'S ABLE TO RESUME SHOWER ACTIVITIES.PATIENT IS NOW ABLE TO GET IN AND OUT OF BED WITHOUT USE OF A DEVICE. PATIENT HAD ORIGINALLY REQUIRED ASSISTANCE FROM TO LIFT HIS LEGS UP AND IN THE BED BUT IS NOW ABLE TO MANAGE THAT PAWN EVALUATION TODAY. HE DOES ALSO HAVE A LEG CHARGE ACCOUNTS AUDIT CLERK SHOULD HE NEED TO USE ITPATIENT IS CURRENTLY SPONGE-BATHING ONLY DUE TO KIKI IN HIS RIGHT HIP. PATIENT IS ABLE TO DRESS AND WASH UPPER BODY INDEPENDENTLY. HE IS ABLE TO WASH LOWER BODY AND DRESS LOWER BODY WITH SUPERVISION HOWEVER DOES HAVE ASSISTANCE AT TIMES FROM BUT HE IS ABLE TO USE ALL HIS LONG HANDLE ADAPTIVE EQUIPMENT IN THE HIP KIT INDEPENDENTLY IF HE CHOSE TO DO SO. HE IS TOILETING INDEPENDENTLY FEEDING AND GROOMING INDEPENDENTLY. PATIENT HAS ASSISTANCE FOR MOST IADLS AT THIS TIME INCLUDING MEALS LAUNDRY SHOPPING AND CLEANING. HE DOES HAVE SUPERVISION FOR MEDICATION MANAGEMENT DUE TO THE USE OF SOME NARCOTICS IN PAIRING HIS THOUGHT PROCESS AT TIME. PATIENT ALSO HAS SUPERVISION FOR OVERALL HOME SAFETY. ASSESSMENT/POC: OCCUPATIONAL THERAPY EVALUATION COMPLETED TODAY WITH NO FURTHER SKILLED SERVICES INDICATED. PATIENT IS NAVIGATING HOME WITH USE OF HIS ROLLING WALKER AND HAS ALL THE APPROPRIATE ADAPTIVE EQUIPMENT IN PLACE FOR HIS ADL NEEDS. RECOMMENDATIONS MADE FOR DME WHEN PATIENT IS ABLE TO RESUME SHOWER LEVEL BATHING ONCE KIKI ARE TAKEN OUT. THIS WILL OCCUR ON September AT HIS ORTHOPEDIC FOLLOW UP. MD NOTIFIED OF EVALUATION ONLY TODAY Reason for Visit INDEPENDENT WITH USE OF ASSISTIVE DEVICE Encounters Start Date/Time End Date/Time Encounter Type Admission Type Attending [facility] Care Department Encounter ID Discharge Date Discharge Status Discharge Condition Discharge Reason Percent Goals Met 2022-10-07 00:00:00 2022-10-20 00:00:00 Outpatient NEW ADMISSION [facility]AI [facility] [id number] 0741-03-30 00:00:00 DISCHARGE TO HOME OR SELF CARE INDEPENDEN T WITH USE OF ASSISTIVE DEVICE PATIENT ELECTS OUTPATIENT THERAPY ( ONLY) 58.97
[2024-08-07 09:30] LABS: Hematocrit 45.6 % (42.0-52.0); Hemoglobin 16.5 g/dl (14.0-18.0); Mean Corpuscular HGB Conc 36.2 g/dl (31.0-36.0); Mean Corpuscular Hemoglobin 29.8 pg (27.0-33.0); Mean Corpuscular Volume 82.3 fL (80.0-98.0); Mean Platelet Volume 9.7 fL (9.4-12.4); Platelet Count 161 X10*3/uL (160-400); Red Blood Count 5.54 X10*6/uL (4.60-5.80); Red Cell Distribution Width 12.8 % (11.0-16.0); White Blood Count 7.5 X10*3/uL (4.8-10.8)
[2024-08-07 10:01] LABS: Microalbum/Creatinine Ratio Ur 15.5 ug/mg cr (<30)
[2024-08-07 10:02] LABS: Alanine Aminotransferase 65 U/L (0-40); Albumin Level 4.6 g/dL (3.5-5.0); Alkaline Phosphatase 77 U/L (39-117); Anion Gap 11 (12-20); Aspartate Amino Transferase 26 U/L (5-37); Bilirubin Total 0.6 mg/dL (0.0-1.0); Blood Urea Nitrogen 12 mg/dL (9-16); Calcium 9.3 mg/dL (8.4-10.2); Carbon Dioxide 31 mmol/L (22-29); Chloride 104 mmol/L (96-108); Cholesterol 190 mg/dL (<200); Estimated Glomerular Filt Rate 59; Glucose Fasting 111 mg/dL (60-99); HDL Cholesterol 32 mg/dL (>40); LDL Cholesterol Calculated 98 mg/dL (<100); Potassium 3.7 mmol/L (3.3-5.1); Sodium 142 mmol/L (135-145); Total Protein 7.2 g/dL (6.5-8.0); Triglycerides 301 mg/dL (<150)
[2024-08-07 10:24] LABS: Prostate Specific Antigen Scr 2.31 ng/mL (<0.05-4.0)
== END 2024-08-07 08:22 | disposition home or self-care (01) ==
LOC: HO.LAB 08:21
PROVIDERS: PCP Physician Assistant; Visit Provider Physician Assistant
DX: I10 Essential (primary) hypertension (principal); E78.5 Hyperlipidemia, unspecified; Z12.5 Encounter for screening for malignant neoplasm of prostate; M10.071 Idiopathic gout, right ankle and foot; K21.9 Gastro-esophageal reflux disease without esophagitis
CPT/HCPCS: 36415; 80053; 80061; 82043; 82570; 84153; 84550; 85027

== ENCOUNTER 2024-08-13 14:21 | Outpatient (AMB) | payer MEDICARE, MEDICAID, SELFPAY ==
--- NOTE | 2024-08-13 14:24 | A.OFFPC_ITS ---
Vital Signs 08/13/24 14:26 Height 5 ft 4 in Weight 208 lb 6 oz BMI 35.8 BP 138/68 Blood Pressure Location Lt brachial Position Sitting Pulse 87 Pulse Source Pulse Oximeter Temp 97.3 F Temp Source Skin Pulse Oximetry (%) 97 Oxygen Delivery Method Room Air Intake Visit Reasons: 3 months f/u Intake Note: Patient is here to follow up on RSL, COPD, Asthma, HTN. Call Box Wirer Required: No Gate Operator: Present Accompanied by: Spouse Allergies Penicillins Allergy (Intermediate, Verified 08/13/24 14:25) Hives Quinolones Allergy (Intermediate, Verified 08/13/24 14:25) Rash trazodone Allergy (Intermediate, Verified 08/13/24 14:25) Rash/restless legs lisinopril Adverse Reaction (Intermediate, Verified 08/13/24 14:25) Cough losartan Adverse Reaction (Intermediate, Verified 08/13/24 14:25) Dizziness Medication List - Last Reconciled 08/13/24 by Ryan Velasquez PA-C albuterol sulfate 90 mcg/actuation 1 inh inhalation QID albuterol sulfate 0.63 mg (3 mL) inhalation QID PRN amlodipine 10 mg PO DAILY 90 days ascorbic acid (vitamin C) mg PO blood pressure monitor (Blood Pressure Kit) As directed blood pressure test kit-large As directed cetirizine 10 mg PO DAILY 90 days colchicine 0.6 mg PO DAILY PRN cyclobenzaprine 10 mg PO BEDTIME 90 days fenofibrate 54 mg PO DAILY 90 days fluticasone furoate-vilanterol 100-25 mcg/dose (Breo Ellipta) 1 inh inhalation Q24H 30 days ipratropium-albuterol 0.5 mg-3 mg(2.5 mg base)/3 mL 3 mL inhalation RQ4H WHILE AWAKE magnesium oxide 400 mg PO DAILY 90 days olanzapine 5 mg PO BEDTIME 90 days prednisone 5 mg PO DIRECTED 28 days [Raised toilet seat As directed] walker Folding Front wheeled walker Tobacco use date assessed: 08/13/24 Dental Screening Dental Screen Date: 08/13/24 Did you have a dental visit in the last 12 months?: No Did you have a dental problem in the last 6 months where you did not have access to dental care?: No Was dental information given to patient?: No HPI 3 months f/u HPI Details Patient is a 64-year-old male here today for a follow-up visit.? Patient has a past medical history significant for moderate persistent asthma, generalized anxiety disorder, HLD, GERD and hypertension Asthma: Followed by pulmonology here in [place]. Continues on prednisone 5 mg twice a week. Asthma has been generally well controlled . Only seldom using ALbuterol inhaler. He reports his asthma has been more controlled since starting antihistamine therapy. .. Hypertriglyceride: Most recent fasting lipid panel showing much improved total cholesterol and triglycerides. .. Bipolar disorder: Patient continues on olanzapine 5 mg at night. He reports his mental health has been fairly stable though continues to report a lack of motivation during the day. Unclear if this is related to his olanzapine .. Gout: Can reports he has had several gout flares over the last several weeks mostly in his knee or foot.. Will discontinue hydrochlorothiazide as this may precipitate gout. Will start using colchicine on a daily basis and given indomethacin for acute gout flares. .. Laboratory Tests 08/14/23 08/07/24 08/07/24 12:22 08:51 08:54 RBC 5.54 Creatinine 1.24 Fasting Glucose 111 H Uric Acid 9.0 H ALT 65 H Triglycerides 544 H 301 H Cholesterol 240 H 190 PSA Screen 2.31 Urine Microalbumin 10.0 PFSH Medical History COPD (chronic obstructive pulmonary disease) Osteoarthritis of right hip Osteoarthritis of left hip Myalgia Routine medical exam History of COVID-19 Nephrotic syndrome Depression Osteoarthritis Anxiety GERD (gastroesophageal reflux disease) Asthma Elevated cholesterol HTN (hypertension) Bipolar disorder Colonoscopy refused Surgical History Hx of drainage of abscess S/P total right hip arthroplasty History of eye surgery Family History Mother No problems noted. Father No problems noted. Social History Household Members: Significant Other Housing: House Are you a primary plant health care technician to a significant other at home: No Do you presently have visiting nurse or other home services: No Alcohol intake: never Patient Tobacco Use Status: Never used Tobacco e-Cigarette/Vaping Use: Never Used Second Hand Smoke Exposure: No service: No Current occupational status: disabled Sexual orientation: Straight/Heterosexual Cognitive needs: No Hearing needs: No Vision needs: No Questionnaire PHQ-9 Over the last 2 weeks, how often have you been bothered by any of the following problems? 1. Little interest or pleasure in doing things: several days 2. Feeling down, depressed, or hopeless: several days 3. Trouble falling or staying asleep, or sleeping too much: nearly every day 4. Feeling tired or having little energy: more than half the days 5. Poor appetite or overeating: not at all 6. Feeling bad about yourself - or that you are a failure or have let yourself or your family down: not at all 7. Trouble concentrating on things, such as reading the newspaper or watching television: several days 8. Moving or speaking so slowly that other people could have noticed. Or the opposite - being so fidgety or restless that you have been moving around a lot more than usual: not at all 9. Thoughts that you would be better off or of hurting yourself in some way: not at all Total score: 8 Depression Screening Interpretation: Positive Depression Screening Follow-up: Existing condition Depression Screening Done: Yes 35551 - PHQ-9 Billing: Yes Source: Developed by Drs. Rohan Herndon, Lexi Graham, Jose Lorenzo and colleagues, with an educational pablo from [employer]. Thrive Questionnaire Date Thrive assessed: 08/13/24 I am a: Patient What is your living situation today?: I have a steady place to live Within the past 12 months, did the food you bought not last and you didn't have the money to get more?: Never true Within the past 12 months, did you worry whether your food would run out before you got money to buy more?: Never true Do you have trouble paying for medicines?: No Do you have trouble getting transportation to medical appointments?: No Do you have trouble paying your heating and electricity bill?: No Do you have trouble taking care of your child, family member or friend?: No Do you have trouble with day-to-day activities such as bathing, preparing meals, shopping, managing finances, etc.?: No Are you currently unemployed and looking for a job?: No Are you interested in more education?: No Please select the resources that you would like help with: None Currently or been in a relationship where the following occur: No concerns reported THRIVE Score: 0 AUDIT C Alcohol Use Questionnaire (AUDIT-C) 1. How often do you have a drink containing alcohol?: Never Total Score: 0 JOSE-7 AMB Questionnaire JOSE-7 Date JOSE - 7 assessed: 08/13/24 Feeling nervous, anxious, or on edge: 2 = More than half the days Not being able to stop or control worryin = More than half the days Worrying too much about different things: 2 = More than half the days Trouble relaxin = More than half the days Being so restless that it is hard to sit still: 1 = Several days Becoming easily annoyed or irritable: 0 = Not at all Feeling afraid as if something awful might happen: 2 = More than half the days Total JOSE-7 score (0-4 normal; 5-9 mild; 10-14 moderate; 15-21 severe): 11 Source: Developed by Drs. Rohan Herndon, Lexi Graham, Jose Lorenzo and colleagues, with an educational pablo from [employer]. JOSE-7 Assessment Billing JOSE-7 Assessment Tool: JOSE-7 Assessment 27963 Review of Systems Const Denies headache(s) Eyes Denies loss of vision ENT Denies vertigo, Denies dizziness, Denies headache(s) and Denies sore throat Card Denies chest pain, Denies leg edema and Denies lightheadedness Resp Denies cough, Denies hemoptysis and Denies wheezing GI Denies abdominal pain, Denies melena, Denies constipation, Denies diarrhea and Denies vomiting Denies dysuria, Denies urinary frequency and Denies urinary urgency Musc Denies arthralgias, Denies joint swelling, Denies numbness and Denies tingling Neuro Denies Abnormal speech present, Denies behavioral changes, Denies vertigo, Denies dizziness, Denies headache(s), Denies loss of vision, Denies memory loss, Denies numbness and Denies tingling Psych Denies anxiety, Denies behavioral changes, Denies depression, Denies memory loss and Denies panic attacks Chris/Lymph Denies easy bleeding and Denies easy bruising Aller/Immun Denies wheezing Physical exam (Primary Care) Vital Signs: Last Vital Signs Temp 97.3 F 08/13/24 14:26 Pulse 87 08/13/24 14:26 BP 138/68 08/13/24 14:26 Pulse Ox 97 08/13/24 14:26 Oxygen Delivery Method Room Air 08/13/24 14:26 BMI result Body Mass Index 35.8 Tobacco/Smoking Status: Tobacco use Status Tobacco use date assessed 08/13/24 08/13/24 14:32 Patient Tobacco Use Status Never used Tobacco 08/13/24 14:32 e-Cigarette/Vaping Use Never Used 08/13/24 14:32 PHQ-9: PHQ-9 Score PHQ-9: Total score 8 08/13/24 15:08 Depression Screening Interpretation: Positive Depression Screening Follow-up: Existing condition Thrive Assessment: Date of Thrive Assessment Date Thrive assessed 08/13/24 08/13/24 14:32 Currently or been in a relationship where the following occur: No concerns reported Const General: healthy appearing, no acute distress, alert and awake Nutritional Appearance: well nourished Orientation/consciousness: oriented to person, oriented to place and oriented to time HENMT Ears: TM's normal bilaterally General nose exam: Normal nasal mucous membranes and turbinates present Eyes Conjunctivae: conjunctivae normal Sclerae: sclerae normal Pupils: Equal, round and reactive pupils present Neck Neck: Yes no lymphadenopathy and Yes no JVD Thyroid: Thyroid normal Carotids: no bruits Resp Effort & Inspection: normal respiratory effort and not tachypneic Auscultation: no crackles, no rales, no rhonchi and no wheezes Cardio Rate: regular rate Rhythm: regular rhythm Heart sounds: no murmurs and normal S1 and S2 GI Palpation (GI): Soft to palpation, nontender, no hepatomegaly and no splenomegaly Auscultation: normal bowel sounds Skin General skin exam: no rashes or lesions noted and dry skin Neuro General: oriented to person, oriented to place and oriented to time Cranial nerves: Yes Equal, round and reactive pupils present Speech: No Abnormal speech present Gait exam (Neuro): Normal gait present Motor exam (neuro): no tremor noted Extrem Right upper extremity: full ROM Left upper extremity: full ROM Right lower extremity: full ROM; no edema Left lower extremity: full ROM; no edema Psych Mental Status: mental status grossly normal Speech and movement: Normal speech and movement present Affect: normal affect Attitude: cooperative Thought process: Normal thought process present Office Procedures Flu Questionnaire Does the patient have a severe egg allergy?: No Does the patient have severe life threatening allergies?: No Does the patient have a fever or illness today?: No Has the patient ever had Guillain-Pierpont Syndrome?: No Has the patient ever had any past reaction to a flu shot?: No Immunizations Fluarix Triv [id number] (PF) 45 mcg (15 mcg x 3)/0.5 mL IM syringe Performing Provider: Ryan Velasquez PA-C Performing Location: 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 0.5 mL IM Left Deltoid 0.5 mL [id number] 01/20/25 [id number] Pact Apparel VIS Given Date VIS Provided VIS Publication Date 08/13/24 Single Vaccine 21 Eligibility Eligibility Date Funding Source Not [facility] Eligible 08/13/24 Private Coding Level of Care Code Est Pt Level 4 (90916) Diagnoses Primary hypertension I10 Hypertension type: primary hypertension Bipolar I disorder F31.9 Mild intermittent asthma without complication J45.20 Asthma complication type: uncomplicated Asthma persistence: intermittent Asthma severity: mild JOSE (generalized anxiety disorder) F41.1 Hypertriglyceridemia E78.1 Class 2 obesity E66.812 Additional Codes PHQ-9 - 32684 - PHQ-9 Billing: Yes ([id number]) JOSE-7 Assessment Billing - JOSE-7 Assessment Tool: JOSE-7 Assessment 00644 ([id number]) Assessment & Plan Assessment & Plan (1) Hypertension: Code(s): I10 - Essential (primary) hypertension Category: Medical Qualifiers: Hypertension type: primary hypertension Qualified Code(s): I10 - Essen tial (primary) hypertension Plan: Patient's blood pressure acceptable today in office. Again will discontinue hydrochlorothiazide as he may be having gout flares due to this medication. Will continue his current dose of amlodipine and continue monitoring his blood pressure. Goal blood pressures to be below 140/90 (2) Bipolar I disorder: Comment: HISTORY OF BIPOLAR DISORDER WHICH IS CONTROLLED WITH OLANZAPINE. AND HE USES CLONAZEPAM 0.5 MG AT BEDTIME TO SLEEP Code(s): F31.9 - Bipolar disorder, unspecified Category: Medical Plan: As per HPI patient feels he is fairly stable from a mental health point of view with his current dose of olanzapine. He does report some lack of motivation which could be a side effect of his mental health medications. For now feels he is stable would like to continue current dose of olanzapine. (3) Asthma: Comment: See the note for COPD Code(s): J45.909 - Unspecified asthma, uncomplicated Category: Medical Qualifiers: Asthma complication type: uncomplicated Asthma persistence: intermittent Asthma severity: mild Qualified Code(s): J45.20 - Mild intermittent asthma, uncomplicated Plan: Patient reports his asthma is fairly well controlled. Continues to follow up pulmonology. He does use prednisone which has helped him with his wheezing and breathing. He still has some upper respiratory and throat congestion particula rly at night and in the mornings. Advised on nasal spray and allergy medication for his postnasal drip. (4) JOSE (generalized anxiety disorder): Code(s): F41.1 - Generalized anxiety disorder Category: Medical Plan: As above patient's anxiety has been well controlled with current dose of olanzapine. (5) Hypertriglyceridemia: Code(s): E78.1 - Pure hyperglyceridemia Category: Medical Plan: Patient continues to have elevated triglycerides. Has been started on fenofibrate which has significantly reduced his triglycerides from 500-300. He will continue on dietary modifications. (6) Class 2 obesity: Code(s): E66.812 - Obesity, class 2 Category: Medical Plan: Patient does understand his BMI is over 35 and will work on being more physically active and adapting to better eating habits to reduce his weight. He does report some lack of motivation likely related to his mental health which causes him not to be able to be physically active. Orders: Orders Lipid Panel 08/13/24 E78.5 - Hyperlipidemia, unspecified Comprehensive [place]. Panel Fast 08/13/24 E78.5 - Hyperlipidemia, unspecified Influenza [id number] Immunization 08/13/24 Z23 - Encounter for immunization Complete Blood Count no Diff 08/13/24 I10 - Essential (primary) hypertension Medications: New indomethacin administer with food or milk 50 mg PO TID PRN 21 caps 0RF gout attack 7 days M10.071 - Idiopathic gout, right ankle and foot Changed From colchicine 0.6 mg PO DAILY PRN 60 tabs 0RF gout M10.9 - Gout, unspecified To colchicine 0.6 mg PO DAILY 90 tabs 3RF gout 90 days M10.9 - Gout, unspecified Patient Instructions: Goal: Triglycerides to be below 500, blood pressure to remain below 140/90 Barriers: Adherence to physical activity and healthy eating habits
[2024-08-13 14:26] VITALS: BP 138/68; PULSE 87; TEMP 36.3; O2SAT 97; BMI 35.8
== END 2024-08-13 15:08 | disposition home or self-care (01) ==
PROVIDERS: PCP Physician Assistant; Visit Provider Physician Assistant
DX: I10 Essential (primary) hypertension (principal); F31.9 Bipolar disorder, unspecified; E66.812 Obesity, class 2; Z68.35 Body mass index [BMI] 35.0-35.9, adult; F41.1 Generalized anxiety disorder; E78.1 Pure hyperglyceridemia; J45.20 Mild intermittent asthma, uncomplicated

== ENCOUNTER → 2024-08-13 14:21 | Outpatient (BNVA) | payer MEDICARE, MEDICAID, SELFPAY | PROVIDERS: PCP Physician Assistant; Visit Provider Physician Assistant | DX: I10 Essential (primary) hypertension (principal); Z23 Encounter for immunization; F31.9 Bipolar disorder, unspecified; J45.20 Mild intermittent asthma, uncomplicated; F41.1 Generalized anxiety disorder; E78.1 Pure hyperglyceridemia; E66.812 Obesity, class 2 | CPT/HCPCS: 90471; 90656; 96127; 99212 ==

== ENCOUNTER 2024-08-26 11:04 | Outpatient (REF) | payer MEDICARE, MEDICAID, SELFPAY ==
--- NOTE | ~2024-08-26 | XR_ITS ---
CLINICAL HISTORY: M25.559 - Pain in unspecified hip 2 view pelvis Comparison: None Findings: No acute fracture or dislocation is identified. Right hip arthroplasty is present without evidence of hardware failure or loosening. Severe left femoroacetabular joint space narrowing and marginal osteophyte formation is present. Arteriosclerosis is noted. IMPRESSION: 1. Severe degenerative changes of the left femoroacetabular joint. 2. Right hip arthroplasty without evidence of hardware failure or loosening. This document has been electronically signed by: Estrada Rivera on 08/28/2024 09:14:59
== END 2024-08-26 11:05 | disposition home or self-care (01) ==
LOC: HO.HOSX 11:04
PROVIDERS: Visit Provider Orthopaedic Surgery
DX: M25.559 Pain in unspecified hip (principal); M16.12 Unilateral primary osteoarthritis, left hip
CPT/HCPCS: 72170; 99212

== ENCOUNTER 2024-08-26 11:25 | Outpatient (AMB) | payer MEDICARE, MEDICAID, SELFPAY ==
[2024-08-26 11:32] VITALS: BMI 35.7
--- NOTE | 2024-08-26 11:32 | A.OFFVIS_ITS ---
Vital Signs 08/26/24 11:32 Height 5 ft 4 in Weight 208 lb BMI 35.7 Intake Visit Reasons: OV- Left hip pain/limited weight bearing Intake Note: César is a 64 year old male who presents today for follow up of his left hip osteoarthritis. During last visit, recommendation was KAE. Today patient reports limited weight bearing and worsening numbness that radiates from his left hip down to his left knee. Patient states his left knee has been hurting due to worsening hip pain. He wishes to discuss KAE today. Allergies Penicillins Allergy (Intermediate, Verified 08/26/24 11:34) Hives Quinolones Allergy (Intermediate, Verified 08/26/24 11:34) Rash trazodone Allergy (Intermediate, Verified 08/26/24 11:34) Rash/restless legs lisinopril Adverse Reaction (Intermediate, Verified 08/26/24 11:34) Cough losartan Adverse Reaction (Intermediate, Verified 08/26/24 11:34) Dizziness HPI HPI OV- Left hip pain/limited weight bearing: Details: César is a 64 year old male who presents today for follow up of his left hip osteoarthritis. During last visit, recommendation was KAE. Today patient reports limited weight bearing and worsening numbness that radiates from his left hip down to his left knee. Patient states his left knee has been hurting due to worsening hip pain. He wishes to discuss KAE today. He had a right hip replacement done about a year and a half ago and did well. He has known he has had severe arthritis on the left hip but trying to delayed as long as possible. As he has been recovering from his right hip surgery and starting to walk normally he has noticed worsening left hip pain. Now he can not get into and ou t of a car or bed without discomfort. He hears clicking in his difficulty walking normally. He can not get dressed comfortably and overall feels like the quality of his life is decreasing. His pain localizes primarily to his left groin and extends down his femur to his medial left knee. [facility] Medical History COPD (chronic obstructive pulmonary disease) Osteoarthritis of right hip Osteoarthritis of left hip Myalgia Routine medical exam History of COVID-19 Nephrotic syndrome Depression Osteoarthritis Anxiety GERD (gastroesophageal reflux disease) Asthma Elevated cholesterol HTN (hypertension) Bipolar disorder Colonoscopy refused Surgical History Hx of drainage of abscess S/P total right hip arthroplasty History of eye surgery Family History Mother No problems noted. Father No problems noted. Social History Household Members: Significant Other Housing: House Are you a primary career based intervention coordinator to a significant other at home: No Do you presently have visiting nurse or other home services: No Alcohol intake: never Patient Tobacco Use Status: Never used Tobacco e-Cigarette/Vaping Use: Never Used Second Hand Smoke Exposure: No service: No Current occupational status: disabled Sexual orientation: Straight/Heterosexual Cognitive needs: No Hearing needs: No Vision needs: No Physical Exam Vital Signs: BMI result Body Mass Index 35.7 Extrem Other: Positive impingement test Gait antalgia with positive Trendelenburg gait Minimal internal rotation. Results Reviewed Results Reviewed: I personally reviewed relevant radiographs. Right KAE in expected post operative position with no hardware complications or evidence of loosening Left hip with severe degenerative disease with extensive osteophytosis, loss of superior joint space and subchondral sclerosis. Assessment & Plan Assessment & Plan (1) Primary localized osteoarthritis of left hip: Code(s): M16.12 - Unilateral primary osteoarthritis, left hip Category: Medical Plan: This is a 62-year-old gentleman with severe osteoarthritis of the left hip. He did very well after his right hip replacement and I recommend a left hip replacement. His radiographs clearly demonstrates severe disease. He is limping and in pain. I can not function and feels the quality of his life is diminished. I discussed the surgery with him. He underwent right hip replacement so he is aware of the timeline of surgery in the timeline of recovery. I did explained that the risks continue irrespective of outcome after the right hip replacement. He understands this. All his questions were answered. We will begin the preoperative clearance process. Orders: Orders XR pelvis 1-2V Today M25.559 - Pain in unspecified hip Coding Level of Care Code Est Pt Level 4 (12288) Diagnoses Primary localized osteoarthritis of left hip M16.12
== END 2024-08-26 12:10 | disposition home or self-care (01) ==
PROVIDERS: PCP Physician Assistant; Visit Provider Orthopaedic Surgery
DX: M16.12 Unilateral primary osteoarthritis, left hip (principal)
CPT/HCPCS: 99214

== ENCOUNTER → 2024-08-26 11:26 | Outpatient (BNV) | payer MEDICARE, MEDICAID, SELFPAY | PROVIDERS: Visit Provider Radiology Vascular & Interventional Radiology | DX: M16.12 Unilateral primary osteoarthritis, left hip (principal); Z96.641 Presence of right artificial hip joint | CPT/HCPCS: 72170 ==

== ENCOUNTER 2024-09-18 12:41 | Outpatient (REF) | payer MEDICARE, MEDICAID, SELFPAY ==
--- NOTE | 2024-09-18 13:34 | ECG_ITS ---
Test Reason : PRE OP Blood Pressure : */* mmHG Vent. Rate : 70 BPM Atrial Rate : 70 BPM P-R Int : 142 ms QRS Dur : 84 ms QT Int : 376 ms P-R-T Axes : 62 34 5 degrees QTcB Int : 406 ms Normal sinus rhythm Septal infarct (cited on or before 08-Mar-2023) Abnormal ECG When compared with ECG of 27-Jul-2023 11:24, Nonspecific T wave abnormality has replaced inverted T waves in Lateral leads Referred By: Ryan Velasquez Electronically Signed By: Chidi Warren
[2024-09-18 14:42] LABS: Hemoglobin 15.5 g/dl (14.0-18.0); Mean Corpuscular HGB Conc 35.2 g/dl (31.0-36.0); Mean Corpuscular Hemoglobin 29.9 pg (27.0-33.0); Mean Corpuscular Volume 84.8 fL (80.0-98.0); Mean Platelet Volume 9.7 fL (9.4-12.4); Platelet Count 190 X10*3/uL (160-400); Red Blood Count 5.19 X10*6/uL (4.60-5.80); Red Cell Distribution Width 13.2 % (11.0-16.0); White Blood Count 6.1 X10*3/uL (4.8-10.8)
[2024-09-18 15:07] LABS: Anion Gap 12 (12-20); Blood Urea Nitrogen 10 mg/dL (9-16); Calcium 9.4 mg/dL (8.4-10.2); Carbon Dioxide 28 mmol/L (22-29); Chloride 106 mmol/L (96-108); Estimated Glomerular Filt Rate > 60; Glucose Random 103 mg/dL (60-115); Potassium 3.9 mmol/L (3.3-5.1); Sodium 142 mmol/L (135-145)
== END 2024-09-18 12:42 | disposition home or self-care (01) ==
LOC: HO.LAB 12:41
PROVIDERS: PCP Physician Assistant; Visit Provider Physician Assistant
DX: Z01.818 Encounter for other preprocedural examination (principal); M16.12 Unilateral primary osteoarthritis, left hip; I10 Essential (primary) hypertension; F31.9 Bipolar disorder, unspecified; F41.1 Generalized anxiety disorder; J45.20 Mild intermittent asthma, uncomplicated; E78.1 Pure hyperglyceridemia; Z79.899 Other long term (current) drug therapy
CPT/HCPCS: 36415; 80048; 85027; 93005; 99212

== ENCOUNTER 2024-09-18 12:41 | Outpatient (AMB) | payer MEDICARE, MEDICAID, SELFPAY ==
--- NOTE | 2024-09-18 12:46 | MHC.PC.OV ---
Vital Signs 09/18/24 12:49 09/18/24 13:15 Height 5 ft 4 in Weight 207 lb 6 oz BMI 35.6 BP 100/68 140/90 H Blood Pressure Location Lt brachial Position Sitting Pulse 78 Pulse Source Pulse Oximeter Temp 97.1 F Temp Source Temporal Artery Scan Pulse Oximetry (%) 96 Oxygen Delivery Method Room Air Intake Visit Reasons: Kaveh PAL w/Dr. Ramos 10/22/24 Intake Note: Patient is here for a Pre-op for left KAE scheduled with Dr Ramos on 10/22/24. Training Officer Required: No Blood Bank Technologist: Present Accompanied by: Spouse Allergies Penicillins Allergy (Intermediate, Verified 09/18/24 13:04) Hives Quinolones Allergy (Intermediate, Verified 09/18/24 13:04) Rash trazodone Allergy (Intermediate, Verified 09/18/24 13:04) Rash/restless legs lisinopril Adverse Reaction (Intermediate, Verified 09/18/24 13:04) Cough losartan Adverse Reaction (Intermediate, Verified 09/18/24 13:04) Dizziness Medication List - Last Reconciled 09/18/24 by Ryan Velasquez PA-C albuterol sulfate 90 mcg/actuation 1 inh inhalation QID albuterol sulfate 0.63 mg (3 mL) inhalation QID PRN amlodipine 10 mg PO DAILY 90 days ascorbic acid (vitamin C) mg PO blood pressure monitor (Blood Pressure Kit) As directed blood pressure test kit-large As directed cetirizine 10 mg PO DAILY 90 days colchicine 0.6 mg PO DAILY 90 days cyclobenzaprine 10 mg PO BEDTIME 90 days fenofibrate 54 mg PO DAILY 90 days fluticasone furoate-vilanterol 100-25 mcg/dose (Breo Ellipta) 1 inh inhalation Q24H 30 days indomethacin 50 mg PO TID PRN 7 days ipratropium-albuterol 0.5 mg-3 mg(2.5 mg base)/3 mL 3 mL inhalation RQ4H WHILE AWAKE magnesium oxide 400 mg PO DAILY 90 days olanzapine 5 mg PO BEDTIME 90 days prednisone 5 mg PO DIRECTED 28 days [Raised toilet seat As directed] walker Folding Front wheeled walker Tobacco use date assessed: 09/18/24 Dental Screening Dental Screen Date: 08/13/24 HPI Kaveh pfeiffer/Dr. Ramos 10/22/24 HPI Details Patient is a 64-year-old male here today for a preop visit.? Patient has a past medical history significant for moderate persistent asthma, generalized anxiety disorder, HLD, GERD and hypertension. Patient has no past medical history significant for [place], Congestive heart failure for CVA. Patient not on any an to coagulation or antiplatelet therapy at this time. .. Hypertension: Patient continues with the use of amlodipine 10 mg with decent affect on his blood pressure. Today's blood pressure in office acceptable. .. Anxiety disorder/ bipolar disorder: Patient continues on olanzapine 5 mg which has helped control his anxiety fairly well. [facility] Medical History COPD (chronic obstructive pulmonary disease) Osteoarthritis of right hip Osteoarthritis of left hip Myalgia Routine medical exam History of COVID-19 Nephrotic syndrome Depression Osteoarthritis Anxiety GERD (gastroesophageal reflux disease) Asthma Elevated cholesterol HTN (hypertension) Bipolar disorder Colonoscopy refused Surgical History Hx of drainage of abscess S/P total right hip arthroplasty History of eye surgery Family History Mother No problems noted. Father No problems noted. Social History Household Members: Significant Other Housing: House Are you a primary personal care aide to a significant other at home: No Do you presently have visiting nurse or other home services: No Alcohol intake: never Patient Tobacco Use Status: Never used Tobacco e-Cigarette/Vaping Use: Never Used Second Hand Smoke Exposure: No service: No Current occupational status: disabled Sexual orientation: Straight/Heterosexual Cognitive needs: No Hearing needs: No Vision needs: No Questionnaire Thrive Questionnaire Date Thrive assessed: 08/13/24 JOSE-7 AMB Questionnaire JOSE-7 Date JOSE - 7 assessed: 08/13/24 Source: Developed by Drs. Rohan Herndon, Lexi Graham, Jose Lorenzo and colleagues, with an educational pablo from [employer]. Review of Systems Const Denies headache(s) Eyes Denies loss of vision ENT Denies vertigo, Denies dizziness, Denies headache(s) and Denies sore throat Card Denies chest pain, Denies leg edema and Denies lightheadedness Resp Denies cough, Denies hemoptysis and Denies wheezing GI Denies abdominal pain, Denies melena, Denies constipation, Denies diarrhea and Denies vomiting Denies dysuria, Denies urinary frequency and Denies urinary urgency Musc Denies arthralgias, Denies joint swelling, Denies numbness and Denies tingling Neuro Denies Abnormal speech present, Denies behavioral changes, Denies vertigo, Denies dizziness, Denies headache(s), Denies loss of vision, Denies memory loss, Denies numbness and Denies tingling Psych Denies anxiety, Denies behavioral changes, Denies depression, Denies memory loss and Denies panic attacks Chris/Lymph Denies easy bleeding and Denies easy bruising Aller/Immun Denies wheezing Physical exam (Primary Care) Vital Signs: Last Vital Signs Temp 97.1 F 09/18/24 12:49 Pulse 78 09/18/24 12:49 BP 140/90 H 09/18/24 13:15 Pulse Ox 96 09/18/24 12:49 Oxygen Delivery Method Room Air 09/18/24 12:49 BMI result Body Mass Index 35.6 Tobacco/Smoking Status: Tobacco use Status Tobacco use date assessed 09/18/24 09/18/24 12:55 Patient Tobacco Use Status Never used Tobacco 09/18/24 12:55 e-Cigarette/Vaping Use Never Used 09/18/24 12:55 Thrive Assessment: Date of Thrive Assessment Date Thrive assessed 08/13/24 09/18/24 12:55 Const General: healthy appearing, no acute distress, alert and awake Nutritional Appearance: well nourished Orientation/consciousness: oriented to person, oriented to place and oriented to time [facility] Ears: TM's normal bilaterally General nose exam: Normal nasal mucous membranes and turbinates present Eyes Conjunctivae: conjunctivae normal Sclerae: sclerae normal Pupils: Equal, round and reactive pupils present Neck Neck: Yes no lymphadenopathy and Yes no JVD Thyroid: Thyroid normal Carotids: no bruits Resp Effort & Inspection: normal respiratory effort and not tachypneic Auscultation: no crackles, no rales, no rhonchi and no wheezes Cardio Rate: regular rate Rhythm: regular rhythm Heart sounds: no murmurs and normal S1 and S2 GI Palpation (GI): Soft to palpation, nontender, no hepatomegaly and no splenomegaly Auscultation: normal bowel sounds Skin General skin exam: no rashes or lesions noted and dry skin Neuro General: oriented to person, oriented to place and oriented to time Cranial nerves: Yes Equal, round and reactive pupils present Speech: No Abnormal speech present Gait exam (Neuro): Normal gait present Motor exam (neuro): no tremor noted Extrem Right upper extremity: full ROM Left upper extremity: full ROM Right lower extremity: full ROM; no edema Left lower extremity: full ROM; no edema Psych Mental Status: mental status grossly normal Speech and movement: Normal speech and movement present Affect: normal affect Attitude: cooperative Thought process: Normal thought process present Coding Level of Care Code Est Pt Level 4 (96165) Diagnoses Pre-op evaluation Z01.818 Primary hypertension I10 Hypertension type: primary hypertension Bipolar I disorder F31.9 Mild intermittent asthma without complication J45.20 Asthma complication type: uncomplicated Asthma persistence: intermittent Asthma severity: mild JOSE (generalized anxiety disorder) F41.1 Hypertriglyceridemia E78.1 Assessment & Plan Assessment & Plan (1) Pre-op evaluation: Code(s): Z01.818 - Encounter for other preprocedural examination Category: Medical Plan: Patient's most recent labs and vitals are stable. EKG showing normal sinus rhythm with some T-wave abnormalities that has been consistently seen over the past few years. Patient is medically clear for elective hip arthroplasty. (2) Hypertension: Code(s): I10 - Essential (primary) hypertension Category: Medical Qualifiers: Hypertension type: primary hypertension Qualified Code(s): I10 - Essential (primary) hypertension Plan: Patient's blood pressure acceptable today in office. Will continue his current dose of amlodipine and continue monitoring his blood pressure. Goal blood pressures to be below 140/90 (3) Bipolar I disorder: Comment: HISTORY OF BIPOLAR DISORDER WHICH IS CONTROLLED WITH OLANZAPINE. AND HE USES CLONAZEPAM 0.5 MG AT BEDTIME TO SLEEP Code(s): F31.9 - Bipolar disorder, unspecified Category: Medical Plan: As per HPI patient feels he is fairly stable from a mental health point of view with his current dose of olanzapine. He does report some lack of motivation which could be a side effect of his mental health medications. For now feels he is stable would like to continue current dose of olanzapine. (4) Asthma: Comment: See the note for COPD Code(s): J45.909 - Unspecified asthma, uncomplicated Category: Medical Qualifiers: Asthma complication type: uncomplicated Asthma persistence: intermittent Asthma severity: mild Qualified Code(s): J45.20 - Mild intermittent asthma, uncomplicated Plan: Patient reports his asthma is fairly well controlled. Continues to follow up pulmonology. Has upcoming appointment for pulmonology clearance. He does use prednisone which has helped him with his wheezing and breathing. He still has some upper respiratory and throat congestion particularly at night and in the mornings. Advised on nasal spray and allergy medication for his postnasal drip. (5) JOSE (generalized anxiety disorder): Code(s): F41.1 - Generalized anxiety disorder Category: Medical Plan: As above patient's anxiety has been well controlled with current dose of olanzapine. He does feel his nerves and anxiousness does affect his blood pressure at times per (6) Hypertriglyceridemia: Code(s): E78.1 - Pure hyperglyceridemia Category: Medical Plan: Patient continues to have elevated triglycerides. Has been started on fenofibrate which has significantly reduced his triglycerides from 500-300. He will continue on dietary modifications. Orders: Orders Complete Blood Count no Diff 09/18/24 Z01.818 - Encounter for other preprocedural examination ECG 12 lead EKG 09/18/24 Z01.818 - Encounter for other preprocedural examination Basic Metabolic Panel 09/18/24 Z.818 - Encounter for other preprocedural examination
[2024-09-18 12:49] VITALS: BP 100/68; PULSE 78; TEMP 36.2; O2SAT 96; BMI 35.6
[2024-09-18 13:15] VITALS: BP 140/90
== END 2024-09-18 13:21 | disposition home or self-care (01) ==
PROVIDERS: PCP Physician Assistant; Visit Provider Physician Assistant
DX: Z01.818 Encounter for other preprocedural examination (principal); I10 Essential (primary) hypertension; F31.9 Bipolar disorder, unspecified; J45.20 Mild intermittent asthma, uncomplicated; F41.1 Generalized anxiety disorder; E78.1 Pure hyperglyceridemia

== ENCOUNTER → 2024-09-18 13:34 | Outpatient (BNV) | payer MEDICARE, MEDICAID, SELFPAY | PROVIDERS: PCP Physician Assistant; Visit Provider Internal Medicine Cardiovascular Disease | DX: I25.2 Old myocardial infarction (principal) | CPT/HCPCS: 93010 ==

== ENCOUNTER → 2024-09-23 10:40 | Outpatient (BNVA) | payer MEDICARE, MEDICAID, SELFPAY | DX: Z01.818 Encounter for other preprocedural examination (principal) ==

== ENCOUNTER 2024-09-24 13:39 | Outpatient (AMB) | payer MEDICARE, MEDICAID, SELFPAY ==
--- NOTE | 2024-09-24 13:42 | MHC.OFFVIS ---
Vital Signs 09/24/24 13:43 Height 5 ft 4 in Weight 210 lb 8.663 oz BMI 36.1 BP 140/64 H Blood Pressure Location Lt brachial Position Sitting Pulse 71 Pulse Source Pulse Oximeter Pulse Oximetry (%) 96 Oxygen Delivery Method Room Air Intake Visit Reasons: Asthma/Pre Op 4/1 L KAE (Dr. Rmaos) Intake Note: pt is here for pre-op left total hip, on 10/22/[address] Ramos. Utilization Supervisor Required: No Allergies Penicillins Allergy (Intermediate, Verified 09/24/24 14:14) Hives Quinolones Allergy (Intermediate, Verified 09/24/24 14:14) Rash trazodone Allergy (Intermediate, Verified 09/24/24 14:14) Rash/restless legs lisinopril Adverse Reaction (Intermediate, Verified 09/24/24 14:14) Cough losartan Adverse Reaction (Intermediate, Verified 09/24/24 14:14) Dizziness Medication List - Last Reconciled 09/24/24 by Tomas Key MD albuterol sulfate 90 mcg/actuation 1 inh inhalation QID albuterol sulfate 0.63 mg (3 mL) inhalation QID PRN amlodipine 10 mg PO DAILY 90 days ascorbic acid (vitamin C) mg PO blood pressure monitor (Blood Pressure Kit) As directed blood pressure test kit-large As directed cetirizine 10 mg PO DAILY 90 days colchicine 0.6 mg PO DAILY 90 days cyclobenzaprine 10 mg PO BEDTIME 90 days fenofibrate 54 mg PO DAILY 90 days fluticasone furoate-vilanterol 100-25 mcg/dose (Breo Ellipta) 1 inh inhalation Q24H 30 days indomethacin 50 mg PO TID PRN 7 days ipratropium-albuterol 0.5 mg-3 mg(2.5 mg base)/3 mL 3 mL inhalation RQ4H WHILE AWAKE magnesium oxide 400 mg PO DAILY 90 days olanzapine 5 mg PO BEDTIME 90 days prednisone 5 mg PO DIRECTED 28 days [Raised toilet seat As directed] walker Folding Front wheeled walker duration 99 days Do you need a note to return to daycare/school/sports/work: No HPI HPI Asthma/Pre Op / L KAE (Dr. Ramos): Details: This 64 years old gentleman is here for, preop pulmonary evaluation. He is being treated for Asthma/COPD, and allergic rhinitis. Breathing barbour he is doing well except for mild intermittent cough and sometimes the cough gets worse he expectorates moderately heavy mucus. He has fond of drinking milk and using lot of dairy products and that may be contributing to his heavy mucus production. He also has tendency to have frequent nasal congestion with some postnasal discharge and that can be the reason for his intermittent cough and expectoration of mucus. Overall he is doing well at this time. He continues to use Breo 100-25 1 inhalation daily, ipratropium-albuterol ( 0.63 mg ) solution in the nebulizer Q 6 hours p.r.n. or albuterol HFA 1 or 2 inhalations Q 6 hours p.r.n. when outdoors. [facility] Medical History (Updated 09/24/24 @ 15:43 by Tomas Key MD) Allergic rhinitis COPD (chronic obstructive pulmonary disease) Osteoarthritis of right hip Osteoarthritis of left hip Myalgia Routine medical exam History of COVID-19 Nephrotic syndrome Depression Osteoarthritis Anxiety GERD (gastroesophageal reflux disease) Asthma Elevated cholesterol HTN (hypertension) Bipolar disorder Colonoscopy refused Surgical History Hx of drainage of abscess S/P total right hip arthroplasty History of eye surgery Family History Mother No problems noted. Father No problems noted. Social History Household Members: Significant Other Housing: House Are you a primary care provider to a significant other at home: No Do you presently have visiting nurse or other home services: No Alcohol intake: never Patient Tobacco Use Status: Never used Tobacco e-Cigarette/Vaping Use: Never Used Second Hand Smoke Exposure: No service: No Current occupational status: disabled Sexual orientation: Straight/Heterosexual Cognitive needs: No Hearing needs: No Vision needs: No Review of Systems Const All systems reviewed & are unremarkable except as noted in HPI and below Eyes Reports no additional complaints ENT Reports no additional complaints Card Denies chest pain, Reports irregular heart rhythm and Reports leg edema Resp Reports as per HPI GI Reports no additional complaints Reports no additional complaints Musc Reports no additional complaints Skin/Breast Reports system reviewed and no additional complaints, except as documented Neuro Reports no additional complaints Psych Reports other (Being treated for bipolar disorder) Chris/Lymph Reports no additional complaints Physical Exam Vital Signs: Last Vital Signs Pulse 71 09/24/24 13:43 BP 140/64 H 09/24/24 13:43 Pulse Ox 96 09/24/24 13:43 Oxygen Delivery Method Room Air 09/24/24 13:43 BMI result Body Mass Index 36.1 Const General: comfortable, no acute distress, alert and awake Orientation/consciousness: patient oriented x3 HEENT Head: Yes normal to inspection General nose exam: No nasal polyps present, No nasal discharge present and Other nasal findings present (Mild nasal congestion) Face and sinus: Yes sinuses nontender Mouth: oropharynx normal Throat: Yes posterior oropharynx normal Eyes General: appearance normal, both eyes and all related structures Neck Neck: Yes normal visual inspection, Yes no lymphadenopathy, Yes trachea midline and Yes no JVD Thyroid: Thyroid normal Chest Chest palpation & inspection: normal inspection of the chest, normal palpation of entire chest wall and no tenderness Resp Other: Percussion note is resonant, breath sounds are moderately Distant with prolonged expiratory phase . There are no wheezes or rhonchi , and no crepitations. Cardio Palpation: normal PMI Rate: regular rate Rhythm: regular rhythm Heart sounds: no gallops and no murmurs GI Palpation (GI): Soft to palpation, nontender, No hepatosplenomegaly present and no masses Auscultation: normal bowel sounds Back/Spine/Pelvis Thoracic/Lumbar Spine: thoracic and lumbar spine normal to inspection Skin General skin exam: no rashes or lesions noted Neuro General: patient oriented x3 and no focal motor deficits Cranial nerves: Yes CN's II-XII intact bilaterally Extrem General: Yes normal to inspection, Yes no clubbing, cyanosis or edema and Yes no calf tenderness Psych Appearance: grossly normal and well kempt Speech and movement: Normal speech and movement present Office Procedures Spirometry Testing Spirometry Comments: Spirometry done in the office, Dr. Key has the results results scanned to his chart. 51890- Spirometry Results Reviewed Results Reviewed: SPIROMETRY 11/13/23 09/24/24 FVC = 92 % 81 % FEV1 = 70 % 64 % FEF 25-75= 41 % 40 % C/W MODERATELY SEVERE OBSTRUCTIVE AIRWAY DISORDER, COMPARED TO THE RESULTS OF LAST YEAR'S TEST, THERE IS SLIGHT FURTHER DECREASE IN THE FLOW VOLUMES. Assessment & Plan Assessment & Plan (1) COPD (chronic obstructive pulmonary disease): Comment: This gentleman gives history of recent onset of the cough wheezing and shortness of breath. He is nonsmoker. However as per PFT in 2018 he does have moderately severe obstructive airway disorder, most likely combination of asthma/COPD.. The pulmonary function test confirmed the diagnosis of COPD/asthma. He is doing much better with the use of Advair 250-50 2 puffs bid, NOW CHNAGED TO BREO 100-25 ONE INH DAILY . He is still using small dose prednisone 5 mg on Mondays and . Code(s): J44.9 - Chronic obstructive pulmonary disease, unspecified Category: Medical Plan: CONTINUE BREO 1251 INHALATION DAILY. IPRATROPIUM-ALBUTEROL SOLUTION IN THE NEBULIZER Q 6 HOURS P.R.N. DURING THE DAYTIME, ( MAY USE IT TWICE A DAY REGULARLY) ALBUTEROL HFA 2 PUFFS Q 6 HOURS P.R.N. DURING THE DAYTIME PLAN TO TAPER HIM OFF THE PREDNISONE , BUT FOR THE NEXT FEW WEEKS HE CAN CONTINUE 5 MG ON MONDAY AND MONDAY, THEN AFTER THE SURGERY HE SHOULD CUT DOWN TO 1 SIP WEEK FOR 4 WEEK THEN STOP TO MINIMIZE THE AMOUNT OF MUCUS EXPECTORATION HE SHOULD CUT DOWN THE USE OF DAIRY PRODUCTS. (2) Asthma: Comment: HE ACTUALLY HAS ASTHMA/COPD SYNDROME , SEE THE NOTE UNDER COPD. Code(s): J45.909 - Unspecified asthma, uncomplicated Category: Medical Qualifiers: Asthma severity: mild Asthma persistence: intermittent Asthma complication type: uncomplicated Qualified Code(s): J45.20 - Mild intermittent asthma, uncomplicated Plan: TREATMENT PLAN UNDER COPD (3) Bipolar I disorder: Comment: HISTORY OF BIPOLAR DISORDER WHICH IS CONTROLLED WITH OLANZAPINE. AND HE USES CLONAZEPAM 0.5 MG AT BEDTIME TO SLEEP. Code(s): F31.9 - Bipolar disorder, unspecified Category: Medical (4) Allergic rhinitis: Comment: HE IS KNOWN TO HAVE MILD ALLERGIC RHINITIS AROUND THE YEAR. THAT MAY BE PART OF THE REASON WHY HE HAS FREQUENT COUGH WITH EXPECTORATION. Code(s): J30.9 - Allergic rhinitis, unspecified Category: Medical Plan: CUT DOWN THE USE . DAIRY PRODUCTS OK TO USE CETIRIZINE 10 MG ONCE A DAY P.R.N. Plan FAR PULMONARY CLEARANCE FOR HIS HIP SURGERY, I THINK HE IS FAIRLY STABLE, AND CAN SAFELY UNDERGO THE SURGERY. POSTOPERATIVELY HE CAN BE TREATED WITH IPRATROPIUM-ALBUTEROL SOLUTION IN THE NEBULIZER Q 4-6 HOURS P.R.N.. Orders: Orders AMB Spirometry Testing Today J44.9 - Chronic obstructive pulmonary disease, unspecified Coding Level of Care Code Est Pt Level 4 (68772) Diagnoses COPD (chronic obstructive pulmonary disease) J44.9 Mild intermittent asthma without complication J45.20 Asthma severity: mild Asthma persistence: intermittent Asthma complication type: uncomplicated Bipolar I disorder F31.9 Allergic rhinitis J30.9 CPT Codes Spirometry - CPT: 95234- Spirometry ([id number])
[2024-09-24 13:43] VITALS: BP 140/64; PULSE 71; O2SAT 96; BMI 36.1
== END 2024-09-24 14:30 | disposition home or self-care (01) ==
PROVIDERS: PCP Physician Assistant; Visit Provider Internal Medicine
DX: J44.9 Chronic obstructive pulmonary disease, unspecified (principal); J45.20 Mild intermittent asthma, uncomplicated; F31.9 Bipolar disorder, unspecified; J30.9 Allergic rhinitis, unspecified
CPT/HCPCS: 94010; 99214

== ENCOUNTER → 2024-09-24 13:39 | Outpatient (BNVA) | payer MEDICARE, MEDICAID, SELFPAY | PROVIDERS: PCP Physician Assistant; Visit Provider Internal Medicine | DX: J45.20 Mild intermittent asthma, uncomplicated (principal); J44.9 Chronic obstructive pulmonary disease, unspecified; J30.9 Allergic rhinitis, unspecified; F31.9 Bipolar disorder, unspecified | CPT/HCPCS: 94010; 99212 ==

== ENCOUNTER 2024-10-17 09:06 | Outpatient (AMB) | payer MEDICARE, MEDICAID, SELFPAY ==
--- NOTE | 2024-10-17 09:31 | MHC.OFFVIS ---
Vital Signs 10/17/24 09:36 Height 5 ft 4 in Weight 210 lb BMI 36.0 Intake Visit Reasons: Pre-Op: L KAE w/NE 10/22/24 Intake Note: César is a 64 year old male who presents today for his pre-operative appointment, he is booked for a Left Total Hip Arthroplasty on 10/22/[address] Savage. Patient was provided with a Pain Management Agreement form to review and Sign with provider. Allergies Penicillins Allergy (Intermediate, Verified 10/17/24 09:36) Hives Quinolones Allergy (Intermediate, Verified 10/17/24 09:36) Rash trazodone Allergy (Intermediate, Verified 10/17/24 09:36) Rash/restless legs lisinopril Adverse Reaction (Intermediate, Verified 10/17/24 09:36) Cough losartan Adverse Reaction (Intermediate, Verified 10/17/24 09:36) Dizziness HPI Comments Details: Mr Reyna presents to the office today for preop visit. He is scheduled for left total hip arthroplasty with Dr. Ramos. He continues to have ongoing pain and difficulty with ambulation in the left hip, which is affecting his quality of life; therefore, he has elected to move forward with surgery. [facility] Medical History (Updated 09/25/24 @ 13:17 by Aleta Blackman RN) Snores Gout Allergic rhinitis COPD (chronic obstructive pulmonary disease) Osteoarthritis of left hip Routine medical exam History of COVID-19 Nephrotic syndrome Depression Osteoarthritis Anxiety GERD (gastroesophageal reflux disease) Asthma Elevated cholesterol HTN (hypertension) Bipolar disorder Myalgia Osteoarthritis of right hip Colonoscopy refused Surgical History (Updated 09/25/24 @ 13:06 by Aleta Blackman RN) Hx of drainage of abscess S/P total right hip arthroplasty (10/04/22) History of eye surgery Family History Mother No problems noted. Father No problems noted. Social History Household Members: Spouse Housing: House Are you a primary care manager to a significant other at home: No Do you presently have visiting nurse or other home services: No 75 years or older and lives alone: No Alcohol intake: never Patient Tobacco Use Status: Never used Tobacco e-Cigarette/Vaping Use: Never Used Second Hand Smoke Exposure: No service: No Current occupational status: disabled Sexual orientation: Straight/Heterosexual Cognitive needs: No Hearing needs: No Vision needs: No Review of Systems Const All systems reviewed & are unremarkable except as noted in HPI and below Physical Exam Vital Signs: BMI result Body Mass Index 36.0 Const General: cooperative and no acute distress Orientation/consciousness: patient oriented x3 Resp Effort & Inspection: normal respiratory effort and able to speak in complete sentences Cardio Peripheral pulses: Peripheral pulses 2+ throughout Neuro General: patient oriented x3 Extrem Other: Left hip skin intact no open wounds or abrasions Positive impingement test Gait antalgia with positive Trendelenburg gait Minimal internal rotation. Results Reviewed Results Reviewed: Xrays were obtained in the office today and personally reviewed by me for surgical planning Assessment & Plan Assessment & Plan (1) Primary localized osteoarthritis of left hip: Code(s): M16.12 - Unilateral primary osteoarthritis, left hip Category: Medical Plan I discussed in detail the procedure and what to expect pre and post operatively. We discussed the risks, benefits and alternatives to the surgery as well as the rehabilitation course. The risks; which include, but are not limited to infection, bleeding, nerve injury, ongoing pain, swelling, and stiffness, perioperative risk of injury to bones and soft tissues, and blood clots. I?ve answered all questions and with their understanding they have consented to move forward with Left total hip arthroplasty with Dr. Rachel Romo with previous KAE on D/C: acetaminophen 325 mg Tablet 650 mg PO Q6H PRN (Reason: Pain, Mild (Pain Scale 1-3)) 30 Days Qty: 240 0RF oxycodone 5 mg Tablet 5 mg PO Q4H PRN (Reason: Pain, Moderate (Pain Scale 4-6) 7 Days Qty: 42 0RF Rx Instructions: Partial Fill upon patient request. enoxaparin 40 mg/0.4 mL Syringe 40 mg subcut Q24H 42 Days Qty: 16.8 0 Right KAE Implants: Allyson Trident2 56/230 deg lip liner Allyson Accolade2 # 6 127 deg/ +0 26 cermic femoral head Orders: Orders XR hip LT min 2V Today M25.552 - Pain in left hip Type and Screen 25 Days Z01.818 - Encounter for other preprocedural examination Coding Level of Care Code Est Pt Level 3 (31736) Complex EM visit Add On G2211 Diagnoses Primary localized osteoarthritis of left hip M16.12
[2024-10-17 09:36] VITALS: BMI 36.0
== END 2024-10-17 09:52 | disposition home or self-care (01) ==
LOC: HO.HOS 09:07
PROVIDERS: Visit Provider Physician Assistant
DX: M16.12 Unilateral primary osteoarthritis, left hip (principal)
CPT/HCPCS: 99024

== ENCOUNTER 2024-10-17 09:17 | Outpatient (REF) | payer MEDICARE, MEDICAID, SELFPAY ==
--- NOTE | ~2024-10-17 | XR_ITS ---
EXAMINATION: XR HIP 2 OR MORE VIEWS LEFT HISTORY: M25.552 - Pain in left hip COMPARISON: Comparison is made with the prior examination of the pelvis dated 08/26/2024. FINDINGS: A single AP view of the pelvis and two views of the left hip are submitted. Osseous mineralization is normal. The patient is again noted to be status post right total hip arthroplasty. There is no fracture or dislocation. Again seen is severe osteoarthritis of the left hip with joint space narrowing and osteophyte formation. There are vascular calcifications. XR/XR hip LT min 2V IMPRESSION: Severe osteoarthritis of the left hip. Electronically signed by: Rohan Henry MD 10/17/2024 10:44 AM EDT
== END 2024-10-17 09:18 | disposition home or self-care (01) ==
LOC: HO.HOSX 09:17
PROVIDERS: Visit Provider Physician Assistant
DX: M25.552 Pain in left hip (principal); M16.12 Unilateral primary osteoarthritis, left hip
CPT/HCPCS: 73502; 99212

== ENCOUNTER → 2024-10-17 09:18 | Outpatient (BNV) | payer MEDICARE, MEDICAID, SELFPAY | PROVIDERS: Visit Provider Radiology Diagnostic Radiology | DX: M16.12 Unilateral primary osteoarthritis, left hip (principal) | CPT/HCPCS: 73502 ==

== ENCOUNTER 2024-10-22 05:47 | Day surgery (SDC) | payer MEDICARE, MEDICAID, SELFPAY ==
[2024-09-25 12:50] VITALS: BP 159/83; PULSE 69; RESP 16; O2SAT 96; BMI 35.2
--- NOTE | 2024-09-25 13:20 | P.CONAN_ITS ---
Documented by User: Veda Guzmán NP 10/21/24 10:49 HPI - Anesthesia Eval Consult details Narrative: 64yo M for Left Hip Total Replacement, 10/22/24 s/p R total hip 09/2022 - no issues with anesthesia Pulmo optimized. Instructed to use nebulizer BID preop. Using albuterol ~1-2 x daily. Medically optimized per PCP No recent illness No CP/SOB with minimal activity d/t pain COPD: Prenisone 5mg Monday and [facility] Active Problems Active Problems: All Active Problems Pre-op evaluation (Acute) Primary localized osteoarthritis of left hip (Acute) Class 2 obesity (Acute) Medicare annual wellness visit, initial (Acute) Hypertriglyceridemia (Acute) RLS (restless legs syndrome) (Acute) Colon cancer screening (Acute) Gout attack (Acute) Bipolar I disorder (Acute) Dyslipidemia (Acute) Hypertension (Acute) Adult general medical exam (Acute) Screening for hypercholesterolemia (Acute) Screening for diabetes mellitus (DM) (Acute) GERD (gastroesophageal reflux disease) (Acute) Asthma (Acute) JOSE (generalized anxiety disorder) (Acute) Allergic rhinitis (Acute) COPD (chronic obstructive pulmonary disease) (Acute) Osteoarthritis of right hip (Acute) Past Medical History Medical History Snores Gout Allergic rhinitis COPD (chronic obstructive pulmonary disease) Osteoarthritis of left hip Routine medical exam History of COVID-19 Nephrotic syndrome Depression Osteoarthritis Anxiety GERD (gastroesophageal reflux disease) Asthma Elevated cholesterol HTN (hypertension) Bipolar disorder Myalgia Osteoarthritis of right hip Colonoscopy refused Family History Family History Mother No problems noted. Father No problems noted. Family history of problems with anesthesia: No Surgical History Surgical History History of biopsy Hx of drainage of abscess S/P total right hip arthroplasty (10/04/22) History of eye surgery History of Problems with Anesthesia: Yes (Previous PONV, none with R KAE) Social History Social History Household Members: Spouse Housing: House Are you a primary home care nurse to a significant other at home: No Do you presently have visiting nurse or other home services: No Alcohol intake: never Patient Tobacco Use Status: Never used Tobacco e-Cigarette/Vaping Use: Never Used Second Hand Smoke Exposure: No Use of substances other than those prescribed or required for medical reasons: No Have you been hit, kicked, punched, or otherwise hurt by someone within the past year? If so, by whom?: No Are you DNR?: No Advance Directives: No Advance Directives Information Provided: Yes Advance Directives on File: No Recently lost weight without trying: No Nutrition Risks: No Nutritional Risk Poor oral hygiene: No service: No Current occupational status: disabled Sexual orientation: Straight/Heterosexual Cognitive needs: No Hearing needs: No Vision needs: No Meds Allergies Allergy/AdvReac Type Severity Reaction Status Date / Time Penicillins Allergy Intermediate Hives Verified 10/17/24 09:36 Quinolones Allergy Intermediate Rash Verified 10/17/24 09:36 trazodone Allergy Intermediate Rash/restless Verified 10/17/24 09:36 legs lisinopril AdvReac Intermediate Cough Verified 10/17/24 09:36 losartan AdvReac Intermediate Dizziness Verified 10/17/24 09:36 Home Medications ?Medication ?Instructions ?Recorded ?Confirmed ?Last Taken ?Type albuterol sulfate 90 mcg/actuation 1 inh inhalation QID PRN Shortness 09/25/24 09/25/24 10/22/24 05:15 History aerosol inhaler Of Breath Or Wheezing colchicine 0.6 mg tablet 0.6 mg PO DAILY PRN gout 09/25/24 09/25/24 Unknown History prednisone 5 mg tablet 5 mg PO .+MONDAY ASTHMA 09/25/24 09/25/24 Unknown History Exam Height,Weight and Vital Signs: Height 5 ft 4 in Weight 92.986 kg Last Vital Signs Pulse 69 09/25/24 12:50 Resp 16 09/25/24 12:50 BP 159/83 H 09/25/24 12:50 Pulse Ox 96 09/25/24 12:50 O2 Del Method Room Air 09/25/24 12:50 Pertinent Lab Results Pertinent Lab Results: Lab Results 09/25/24 10/17/24 Range/Units 13:30 10:30 Nasal Screen MRSA (PCR) NEGATIVE (Negative) Nasal S. aureus Screen NEGATIVE (Negative) Nasal MRSA/S.aureus Interp SEE NOTE Blood Type B Positive Antibody Screen NEGATIVE Laboratory Tests 09/18/24 13:45 WBC 6.1 Hgb 15.5 Hct 44.0 Plt Count 190 Sodium 142 Potassium 3.9 Chloride 106 Carbon Dioxide 28 BUN 10 Creatinine 1.18 Narrative Narrative: EKG 08/2024 Vent. Rate : 70 BPM Atrial Rate : 70 BPM P-R Int : 142 ms QRS Dur : 84 ms QT Int : 376 ms P-R-T Axes : 62 34 5 degrees QTcB Int : 406 ms Normal sinus rhythm Septal infarct (cited on or before 08-Mar-2023) Abnormal ECG When compared with ECG of 27-Jul-2023 11:24, Nonspecific T wave abnormality has replaced inverted T waves in Lateral leads Airway Mallampati Class: III TM Dist: >3cm Neck ROM: Full Loose/Missing/Broken Teeth: Yes (broken molars and missing molars) Heart: RRR Lungs: CTAB Assessment and Plan Assessment Anesthesia Assessment: Anesthesia Plan Discussed and PAT Visit Final Anesthetic Review Family History of Problems with Anesthesia: No History of Problems with Anesthesia: Yes (Previous PONV, none with R KAE) Documented by User: Estrella Cordova MD 10/22/24 08:37 [facility] Past Medical History Medical History Snores Gout Allergic rhinitis COPD (chronic obstructive pulmonary disease) Osteoarthritis of left hip Routine medical exam History of COVID-19 Nephrotic syndrome Depression Osteoarthritis Anxiety GERD (gastroesophageal reflux disease) Asthma Elevated cholesterol HTN (hypertension) Bipolar disorder Myalgia Osteoarthritis of right hip Colonoscopy refused Family History Family History Mother No problems noted. Father No problems noted. Surgical History Surgical History History of biopsy Hx of drainage of abscess S/P total right hip arthroplasty (10/04/22) History of eye surgery Social History Social History Household Members: Spouse Housing: House Are you a primary home care nurse to a significant other at home: No Do you presently have visiting nurse or other home services: No Alcohol intake: never Patient Tobacco Use Status: Never used Tobacco e-Cigarette/Vaping Use: Never Used Second Hand Smoke Exposure: No Use of substances other than those prescribed or required for medical reasons: No Have you been hit, kicked, punched, or otherwise hurt by someone within the past year? If so, by whom?: No Are you DNR?: No Advance Directives: No Advance Directives Information Provided: Yes Advance Directives on File: No Recently lost weight without trying: No Nutrition Risks: No Nutritional Risk Poor oral hygiene: No service: No Current occupational status: disabled Sexual orientation: Straight/Heterosexual Cognitive needs: No Hearing needs: No Vision needs: No Meds Allergies Allergy/AdvReac Type Severity Reaction Status Date / Time Penicillins Allergy Intermediate Hives Verified 10/17/24 09:36 Quinolones Allergy Intermediate Rash Verified 10/17/24 09:36 trazodone Allergy Intermediate Rash/restless Verified 10/17/24 09:36 legs lisinopril AdvReac Intermediate Cough Verified 10/17/24 09:36 losartan AdvReac Intermediate Dizziness Verified 10/17/24 09:36 Home Medications ?Medication ?Instructions ?Recorded ?Confirmed ?Last Taken ?Type albuterol sulfate 90 mcg/actuation 1 inh inhalation QID PRN Shortness 09/25/24 09/25/24 10/22/24 05:15 History aerosol inhaler Of Breath Or Wheezing colchicine 0.6 mg tablet 0.6 mg PO DAILY PRN gout 09/25/24 09/25/24 Unknown History prednisone 5 mg tablet 5 mg PO .QM+MONDAY ASTHMA 09/25/24 09/25/24 Unknown History Assessment and Plan Final Anesthetic Review NPO: Yes ASA Class: III Final Preanesthetic Review: No Changes in Pt Med Stat, Meds/Allgs Chart Reviewed, Consent Obtained/Reviewed and Anes Risks/Benef Reviewed Patient Risk: Intermediate Procedure Risk: Intermediate Anesthetic Plan Anesthetic Plan: GA and Agree w/ Assess. and Plan Disposition: Standard PACU
[2024-09-25 15:31] LABS: MRSA Nasal PCR NEGATIVE (Negative); SA Nasal PCR NEGATIVE (Negative)
[2024-10-22] VITALS (20 sets, daily range): BP systolic 129–166; BP diastolic 62–80; PULSE 75–88; RESP 12–18; TEMP 36.1–37.5; O2SAT 93–96; BMI 35.3; BMI 38.4
--- NOTE | ~2024-10-22 | XR_ITS ---
EXAMINATION: XR PELVIS 1-2 VIEWS HISTORY: Left KAE COMPARISON: Comparison is made with the prior examination dated 10/17/2024. FINDINGS: A single AP view of the pelvis is submitted. In the interval since the prior study, the patient is status post left total hip arthroplasty. The orthopedic elements are in anatomic alignment on this single AP view. The patient is also status post right total hip arthroplasty. There is no fracture or dislocation. Postoperative changes are noted about the left hip. XR/XR pelvis 1-2V IMPRESSION: Status post interval left total hip arthroplasty. Electronically signed by: Rohan Henry MD 10/22/2024 10:57 AM EDT
[2024-10-22] MEDS: oxyCODONE HCl ER 10 MG TAB.ER.12H PO ×2 (06:24→19:38)
[2024-10-22] MEDS: Lactated Ringers 1,000 ML 100 ML IVCONT ×2 (07:00→13:00)
--- NOTE | 2024-10-22 07:32 | MHC.SHP ---
Pre-Procedural Eval Section A - 24 Hr Update-Section A only Date of Service: 10/22/24 The patient is an INPATIENT: No Changes since office visit: No Cold of Flu in the past 2 weeks, No New Medical Problems, No Changes in Medication and No Patient answered all questions The patient has been examined within 24 hours of the surgical procedure. The History & Physical has been completed within 30 days and I have reviewed it.: Yes Section B - Complete if H&P > 30 days Chief Complaint: Unilateral primary osteoarthritis, left hip Allergies: Allergies Allergy/AdvReac Type Severity Reaction Status Date / Time Penicillins Allergy Intermediate Hives Verified 10/17/24 09:36 Quinolones Allergy Intermediate Rash Verified 10/17/24 09:36 trazodone Allergy Intermediate Rash/restless Verified 10/17/24 09:36 legs lisinopril AdvReac Intermediate Cough Verified 10/17/24 09:36 losartan AdvReac Intermediate Dizziness Verified 10/17/24 09:36 Plan I have reviewed the history and physical and performed a pertinent physical examination on my patient. No changes have occurred unless specified. Time Spent With Patient Time: Total time managing care of this patient today ____ minutes.
[2024-10-22] MEDS: vancomycin HCL 1,500 MG in 0.9 % Sodium Chloride 500 ML 333.33 MG IV ×2 (07:34→20:47)
--- NOTE | 2024-10-22 09:51 | PM.OP ---
Brief Operative Note Date of Service: 10/22/24 Pre-op diagnosis: LEFT HIP OA Post-op diagnosis: same Procedure: LEFT KAE Implants: CELINA TRIDENT2 54 CELINA ACCOLADE2 #5 127/ 36 +0 CERAMIC Surgeon: Scot Ramos MD Anesthesia: GETA and local Was an Claim Taker used for this Procedure?: Yes Claim Taker: Jacqueline Soto Estimated blood loss (mL): 200 IV fluids (mL): 750 Pathology: other Condition: stable Disposition: PACU
--- NOTE | 2024-10-22 09:53 | W.PM.OPN ---
Operative Note Operative Note Date of Service: 10/22/24 Narrative: Date of Service: 10/22/24 Pre-op diagnosis: LEFT HIP OA Post-op diagnosis: same Procedure: LEFT KAE Implants: CELINA TRIDENT2 54 CELINA ACCOLADE2 #5 127/ 36 +0 CERAMIC Surgeon: Scot Ramos MD Anesthesia: GETA and local Was an Housing Management Officer used for this Procedure?: Yes Housing Management Officer: Jacqueline Soto Estimated blood loss (mL): 200 IV fluids (mL): 750 Pathology: other Condition: stable Disposition: PACU Patient was brought into the operating room and placed in the right lateral decubitus position. All bony prominences were well padded and the limb was prepped and draped in standard sterile fashion. A time-out was called to identify proper site procedure proper surgeon IV antibiotics and 1 g of tranexamic acid were administered. I began by making a curvilinear incision over the posterolateral aspect of the greater trochanter. Dissection was taken down to the tensor fascia which was incised in line with the incision and a Charnley retractor was placed. Cautery was used to maintain hemostasis. The hip was internally rotated and the external rotators were identified. The vessels were cauterized and a full-thickness capsular/external rotator layer was developed starting just proximal to the piriformis. This layer was tagged and a dull Hohmann retractor was placed underneath the neck in the hip was partially dislocated. There was a large inferior osteophyte preventing easy dislocation. I made an initial cut and then removed a wafer of neck. Using a cueva I manuevered inferiorly to remove the osteophyte slowly and piecemeal until I was able to remove the head. the head was eburnated and deformed. It mwasure ~50mm on the back table. I then removed the labrum and cauterized the fovea. I removed more posterior and inferior osteophyte taking care to protect the soft tissues. I started with a 44 reamer and medialized to the inner table. I sequentially reamed up to a size 54 and impacted a 54mm cup at 45 degrees of inclination and 25 degrees of version. I placed 2 acetabular screws in the superior safe zone using standard AO technique. I then placed a 20 deg posterior lipped liner and turned my attention to the femur. I identified the piriformis insertion and used this as a starting point for my samuel cutter. The medius tendon was protected with a Hibs retractor. A Charnley awl was inserted in the canal and a curved curette used to remove the lateral bone. I irrigated copiously. I then sequentially broached in the patient's natural version to a size 5 and placed my trial implants. A #6 was used in the contralateral hip but I felt increasing to a #6 would have been long and difficult. Therefore I trialed with a #5/127/+0 based on my pre-operative template. I removed all instrumentation and copiously irrigated. I placed my final femoral implant and again took the hip through range of motion and was satisfied with the stability and length. The final +0 implant was impacted in place and the hip reduced. I then irrigated copiously and placed 1 g of local tranexamic acid. I performed a capsular closure with 2.0 fiberwire, Salvatore's fascia with 0 Vicryl, subcuticular with 2-0 Vicryl and the skin with loren. Patient was placed into a sterile dressing. Patient was extubated brought to the recovery room in stable condition. There were no known complications.
[2024-10-22] MEDS: HYDROmorphone HCl 0.5 MG/0.5 ML SYRINGE 0.25 MG IVPUSH ×4 (10:30→11:00)
[2024-10-22] MEDS: fentaNYL citrate/PF 100 MCG/2 ML VIAL 50 MCG IVPUSH (11:30)
--- NOTE | 2024-10-22 13:23 | P.DS_ITS ---
DS: Providers Provider Date of Service: 10/23/24 Date of discharge: 10/23/24 Primary care physician: Ryan Velasquez PA-C Consults: 10/22/24 12:20 Consult to Hospitalist Routine Comment: Consulting Provider: [facility] – [place] Hospitalists Reason For Exam: htn DS: Summary Hospital Course Hospital Course: The patient underwent a successful left total hip arthroplasty, they were transferred to PACU and then to the floor to recover. During their stay, their vitals were stable, afebrile at 99.0. Labs were unremarkable, H/H 12.5/35.4. POD 1 they were started on Lovenox for DVT ppx, they also received Physical Therapy services twice a day. Prior to discharge, their dressing was clean dry and intact, and the plan was to be discharged home with VNA services. Time Attestation Discharge Coordination Time (in mins): 30 Quality: Safe Use of Opioids Does Pt have an Active Cancer Diagnosis on the Problem List?: No Quality: Stroke Does the patient have a stroke diagnosis?: No Physical Exam Vital Signs: Vital Signs: Last Vital Signs Temp 96.9 F 10/22/24 12:43 Pulse 77 10/22/24 12:43 Resp 12 10/22/24 12:43 BP 141/73 H 10/22/24 12:43 Pulse Ox 93 10/22/24 12:43 O2 Del Method Nasal Cannula 10/22/24 12:43 O2 Flow Rate 4 10/22/24 12:43 BMI result Body Mass Index 38.4 Const: General: cooperative, healthy appearing and no acute distress Resp: Effort & Inspection: normal respiratory effort and able to speak in complete sentences Cardio: Rate: regular rate Peripheral pulses: Peripheral pulses 2+ throughout GI: Palpation (GI): Soft to palpation Skin: Lesions: no lesions Rashes: no rashes Extrem: Other: left hip dressing is c/d/i. Able to dorsi/plantar flex. Calf is supple and nontender. Sensation intact. Pedal pulse intact. DS: Data Data Completed and Pending Completed studies during hospitalization [Text1]: Procedures Drainage of Perineum Subcutaneous Tissue and Fascia, Open Approach (06/27/23) Replacement of Right Hip Joint with Ceramic Synthetic Substitute, Uncemented, Open Approach (10/04/22) Pending studies at discharge: Pending at discharge 10/22/24 09:08 Surgical [PTH] Routine Discharge Plan Discharge Patient Disposition: Home Health Service Referrals: Jacqueline Soto PA-C [[employer]] - 11/07/24 12:45 pm Discharge Medications: New enoxaparin 40 mg/0.4 mL Syringe 40 mg subcut Q24H 42 Days Qty: 16.8 0RF celecoxib 200 mg Capsule 200 mg PO BID 30 Days Qty: 60 0RF acetaminophen 325 mg Tablet 650 mg PO Q6H PRN (Reason: Pain, Mild 1-3,Fever,Headache) 30 Days Qty: 240 0RF docusate sodium 100 mg Capsule 100 mg PO BID 30 Days Qty: 60 0RF oxycodone 5 mg Tablet 5 mg PO Q4H PRN (Reason: Pain, Moderate(Pain Scale 4-6)) 7 Days Qty: 42 0RF Rx Instructions: Partial Fill upon patient request. Continued (DME) blood pressure test kit-large Kit See Rx Instructions .Route Qty: 1 0RF Rx Instructions: As directed albuterol sulfate 0.63 mg/3 mL solution for nebulization 0.63 mg inhalation QID PRN (Reason: shortness of breath or wheezing) Qty: 75 0RF cetirizine 10 mg tablet 10 mg PO DAILY 90 Days Qty: 90 2RF Patient Comments: P&T interchange to loratadine olanzapine 5 mg tablet 5 mg PO BEDTIME 90 Days Qty: 90 2RF amlodipine 10 mg tablet 10 mg PO DAILY 90 Days Qty: 90 1RF (DME) walker Misc See Rx Instructions .MEDSUPPLY Qty: 1 0RF Rx Instructions: Folding Front wheeled walker duration 99 days (DME) Raised toilet seat See Rx Instructions .ROUTE .MEDSUPPLY Qty: 1 0RF Rx Instructions: As directed fluticasone furoate-vilanterol [Breo Ellipta] 100-25 mcg/dose blister with device 1 inh inhalation Q24H 30 Days Qty: 60 0RF prednisone 5 mg tablet 5 mg PO MOTH Rx Instructions: monday and Monday albuterol sulfate 90 mcg/actuation HFA aerosol inhaler 1 inh inhalation QID PRN (Reason: Shortness Of Breath Or Wheezing) colchicine 0.6 mg tablet 0.6 mg PO DAILY PRN (Reason: gout) cyclobenzaprine 10 mg tablet 10 mg PO BEDTIME (DME) blood pressure monitor [Blood Pressure Kit] Kit See Rx Instructions .ROUTE .MEDSUPPLY Qty: 1 0RF Rx Instructions: As directed fenofibrate 54 mg tablet 54 mg PO DAILY 90 Days Qty: 90 2RF indomethacin 50 mg capsule 50 mg PO TID PRN (Reason: gout attack) 7 Days Qty: 21 0RF Rx Instructions: administer with food or milk Discharge Orders: Discharge Order (Routine); Ordered 10/23/24 Ordered By: Opal Shirley Diet: Advance to usual diet Activity on Discharge: Use cane or walker Activity Restrictions/Additional Instructions: Physical Therapy for total hip arthroplasty: posterior precautions, gait training, ROM, strength Limit stair climbing No showering, no tub bath-keep dressing clean, dry and intact No driving x 6 weeks Continue Lovenox once a day x 6 weeks Follow up with [facility] – [place] Orthopedics in 2 weeks Print Language: Arabic
--- NOTE | 2024-10-22 13:24 | W.MHC.F2F ---
Service Date Service Date: 10/22/24 Encounter Date of encounter: 10/23/24 Reasons for Services Signs and symptoms assessed: s/p LTHA Pt. is considered homebound due to recent surgery. Unable to drive, poor balance, poor gait mechanics. Reason for physical therapy: home safety and mobility, therapeutic exercises, restore joint function, gait/transfer training and ADL training Reason for occupational therapy: home safety and mobility, therapeutic exercises, restore joint function, gait/transfer training and ADL training Homebound: Leaving the home is medically contraindicated at this time without the asist of a device and/or another person due th the listed conditions above and below. Reason homebound: unsteady gait / fall risk, leg weakness, pain with ambulation, pain with transfers, poor balance / fall risk and unable to drive Certification: Based on the above findings, I certify that this patient is confined to the home and needs intermittent care home care, physical therapy and/or speech therapy, or continues to need occupational therapy. The patient is under my care, and I have initiated the establishment of the plan of care. The patient will be followed by a physician who will periodically review the plan of care. Time Spent With Patient Time: Total time managing care of this patient today ____ minutes.
[2024-10-22] MEDS: Promethazine HCL 25 MG TABLET PO (13:31)
--- NOTE | 2024-10-22 14:25 | PHA.MEDREC ---
Addendum entered by Tristian Alberts [facility] 10/22/24 14:30: Prednisone confirmed is Mo and Fr Addendum entered by Tristian Alberts [facility] 10/22/24 14:29: Reviewed by [facility] Original Note: Pharmacy Consult ? Medication Reconciliation Pharmacy has reviewed the medication reconciliation done by nursing. Spoke to patient to confirm med list. Patient states he is no longer taking Magnesium oxide 400 mg. Patient confirmed Prednisone 5 mg every Monday and Monday.
--- NOTE | 2024-10-22 14:38 | PC.NURSE ---
Pt was able to stand and void 50ML of urine, post void residual scan 487ML, pt straight cathed per orders for 400ML of clear concentrated urine. Pt denied pain with cath, no resistance met with insertion, when straight cath removed small amount of blood noted on tip of catheter. Pt made aware. Pt due to void at 2100.
[2024-10-22] MEDS: oxyCODONE HCl Immed Release 5 MG TABLET PO ×2 (16:46→20:47)
[2024-10-22] MEDS: ondansetron HCL 4 MG/2 ML VIAL IVPUSH (16:53)
--- NOTE | 2024-10-22 17:58 | P.CONHOSP_ITS ---
History of Present Illness Data of Consult Service Date: 10/22/24 Requesting physician: Jacqueline Soto Primary Care Provider: Ryan Velasquez PA-C HPI Reason for consult: medical h&p Review of Systems Review of Systems: Yes all other systems are reviewed and are negative [facility] Medical History Snores Gout Allergic rhinitis COPD (chronic obstructive pulmonary disease) Osteoarthritis of left hip Routine medical exam History of COVID-19 Nephrotic syndrome Depression Osteoarthritis Anxiety GERD (gastroesophageal reflux disease) Asthma Elevated cholesterol HTN (hypertension) Bipolar disorder Myalgia Osteoarthritis of right hip Colonoscopy refused Family History Mother No problems noted. Father No problems noted. Surgical History History of biopsy Hx of drainage of abscess S/P total right hip arthroplasty (10/04/22) History of eye surgery Social History Household Members: Spouse Housing: House Are you a primary associate director career services to a significant other at home: No Do you presently have visiting nurse or other home services: No Alcohol intake: never Patient Tobacco Use Status: Never used Tobacco e-Cigarette/Vaping Use: Never Used Second Hand Smoke Exposure: No Use of substances other than those prescribed or required for medical reasons: No Currently Displaying Signs/Symptoms of Drug Intoxication Withdrawal: No Have you been hit, kicked, punched, or otherwise hurt by someone within the past year? If so, by whom?: No Do you feel safe in your current relationship?: Yes Are you DNR?: No Advance Directives: No Advance Directives Information Provided: Yes Advance Directives on File: No Do you have a plan to hurt others: No Plan Recently lost weight without trying: No Nutrition Risks: No Nutritional Risk Poor oral hygiene: No service: No Current occupational status: disabled Sexual orientation: Straight/Heterosexual Cognitive needs: No Hearing needs: No Vision needs: No Meds Allergies Allergy/AdvReac Type Severity Reaction Status Date / Time Penicillins Allergy Intermediate Hives Verified 10/17/24 09:36 Quinolones Allergy Intermediate Rash Verified 10/17/24 09:36 trazodone Allergy Intermediate Rash/restless Verified 10/17/24 09:36 legs lisinopril AdvReac Intermediate Cough Verified 10/17/24 09:36 losartan AdvReac Intermediate Dizziness Verified 10/17/24 09:36 Active Medications: Current Medications Acetaminophen (Acetaminophen 325 Mg Tablet) 650 mg PO Q6H PRN PRN Reason: Pain, Mild 1-3,fever,headache Albuterol Sulfate (Albuterol Sulfate 90 Mcg 8 Gm Inhaler) 1 puff INHALE QID PRN PRN Reason: Shortness Of Breath Or Wheezing Albuterol Sulfate (Albuterol Sulfate (0.042%) 1.25 Mg/3 Ml Vial.Neb) 0.63 mg INHALE QID PRN PRN Reason: shortness of breath or wheezing Amlodipine Besylate (Amlodipine Besylate 10 Mg Tablet) 10 mg PO DAILY [facility]; Protocol Celecoxib (Celecoxib 200 Mg Capsule) 200 mg PO BID [facility] Colchicine (Colchicine 0.6 Mg Tablet) 0.6 mg PO DAILY PRN PRN Reason: gout Docusate Sodium (Docusate Sodium 100 Mg Capsule) 100 mg PO BID [facility] Enoxaparin Sodium (Enoxaparin Sodium 40 Mg/0.4 Ml Syringe) 40 mg SUBCUT Q24H [facility] Fluticasone/Vilanterol (Fluticasone/Vilanterol 100/25 Blst.W.Dev) 1 puff INHALE RDAILY [facility] Last Admin: 10/22/24 14:36 Dose: Not Given Hydromorphone HCl (Hydromorphone Hcl 0.5 Mg/0.5 Ml Syringe) 0.25 mg IVPUSH Q4H PRN; Protocol PRN Reason: Pain, Severe (Pain Scale 7-10) Lactated Ringer's (Lr) 1,000 mls @ 100 mls/hr IVCONT .Q10H [facility] Stop: 10/23/24 08:00 Last Admin: 10/22/24 13:00 Dose: 100 mls/hr Vancomycin HCl 1,500 mg/ (Sodium Chloride) 280 mls @ 270 mls/hr IV POSTOP ONE Stop: 10/22/24 22:02 Indomethacin (Indomethacin 25 Mg Capsule) 50 mg PO TID PRN PRN Reason: gout attack Loratadine (Loratadine 10 Mg Tablet) 10 mg PO DAILY [facility] Magnesium Oxide (Magnesium Oxide 400 Mg Tablet) 400 mg PO DAILY [facility] Olanzapine (Olanzapine 5 Mg Tablet) 5 mg PO BEDTIME [facility] Ondansetron HCl (Ondansetron Hcl 4 Mg/2 Ml Vial) 4 mg IVPUSH Q8H PRN PRN Reason: Nausea and Vomiting Last Admin: 10/22/24 16:53 Dose: 4 mg Oxycodone HCl (Oxycodone Hcl Immed Release 5 Mg Tablet) 5 mg PO Q4H PRN PRN Reason: Pain, Moderate(Pain Scale 4-6) Last Admin: 10/22/24 16:46 Dose: 5 mg Oxycodone HCl (Oxycodone Hcl Er 10 Mg Tab.Er.12h) 10 mg PO BID [facility] Prednisone (Prednisone 5 Mg Tablet) 5 mg PO MoTh@0900 [facility] Promethazine HCl (Promethazine Hcl 25 Mg Tablet) 25 mg PO Q4H PRN PRN Reason: Nausea and Vomiting Last Admin: 10/22/24 13:31 Dose: 25 mg Sodium Chloride (0.9 % Sodium Chloride Flush 3 Ml Syringe) 3 ml IVFLUSH QSHIFT [facility] Last Admin: 10/22/24 15:53 Dose: Not Given Home Medications ?Medication ?Instructions ?Recorded ?Confirmed ?Last Taken ?Type albuterol sulfate 90 mcg/actuation 1 inh inhalation QID PRN Shortness 09/25/24 09/25/24 10/22/24 05:15 History aerosol inhaler Of Breath Or Wheezing colchicine 0.6 mg tablet 0.6 mg PO DAILY PRN gout 09/25/24 09/25/24 Unknown History prednisone 5 mg tablet 5 mg PO MOTH ASTHMA 09/25/24 10/22/24 Unknown History cyclobenzaprine 10 mg tablet 10 mg PO BEDTIME 10/22/24 10/22/24 Unknown History Physical Exam Vital Signs and Narrative: Vital Signs: Last Vital Signs Temp 97.5 F 10/22/24 15:05 Pulse 85 10/22/24 15:05 Resp 18 10/22/24 15:05 BP 138/63 10/22/24 15:05 Pulse Ox 93 10/22/24 15:05 O2 Del Method Room Air 10/22/24 15:05 O2 Flow Rate 4 10/22/24 12:43 BMI result Body Mass Index 38.4 Constitutional - Awake and Alert, No apparent distress Eyes - PERRLA, EOMI Cardiovascular - S1S2, RRR, No edema Respiratory - Normal lung expansion, Normal respiratory effort, No respiratory distress, CTA bilaterally Gastrointestinal - NT / ND; +BS; No rebound or guarding Extremities - no calf tenderness bilaterally, no swelling Skin - Warm/Dry Neurological - Alert & oriented x3 Psychological - Appropriate affect Results Imaging Radiologist's Impressions: Impressions Pelvis X-Ray 10/22/24 10:45 IMPRESSION: Status post interval left total hip arthroplasty. Electronically signed by: Rohan Henry MD 10/22/2024 10:57 AM EDT RP Assessment and Plan (1) Primary localized osteoarthritis of left hip: Status: Acute Plan 62-year-old male with history of GERD, mild persistent asthma, general anxiety, bipolar disorder, hypertension, hyperlipidemia admitted to Orthopedic surgery for management of osteoarthritis of the right hip s/p right total hip arthroplasty pod 0 with consult placed to Hospital Medicine for medical management. # left hip osteoarthritis s/p left total hip arthroplasty -pod 0 -plan for general surgery # mild persistent asthma -continue maintenance inhalers -continue albuterol p.r.n. -continue prednisone # bipolar disorder/anxiety -continue home meds # hypertension-reasonably controlled -resume amlodipine a.m. #gout -indomethacin prn Thank you for allowing me to participate in this consult. Signing off at this time. Please do not hesitate to call for further questions.
[2024-10-22] MEDS: Acetaminophen 325 MG TABLET 650 MG PO (19:37)
[2024-10-22] MEDS: Docusate Sodium 100 MG CAPSULE PO (19:38)
[2024-10-22] MEDS: Celecoxib 200 MG CAPSULE PO (19:38)
[2024-10-22] MEDS: OLANZapine 5 MG TABLET PO (20:47)
[2024-10-23] MEDS: Lactated Ringers 1,000 ML 100 ML IVCONT (00:15)
[2024-10-23 03:19] VITALS: BP 164/69; PULSE 86; RESP 18; TEMP 37.2; O2SAT 93
[2024-10-23] MEDS: oxyCODONE HCl Immed Release 5 MG TABLET PO ×2 (06:12→10:30)
[2024-10-23] MEDS: Acetaminophen 325 MG TABLET 650 MG PO (06:13)
[2024-10-23 06:25] LABS: MANUAL DIFF FLAG NO
[2024-10-23 06:43] LABS: Anion Gap 10 (12-20); Basophils Percent Auto 0.2 % (0-2); Blood Urea Nitrogen 10 mg/dL (9-16); Calcium 8.5 mg/dL (8.4-10.2); Carbon Dioxide 25 mmol/L (22-29); Chloride 109 mmol/L (96-108); Creatinine Clr Calc Pharmacy 87.7; Eosinophils Percent Auto 0.2 % (0-4); Estimated Glomerular Filt Rate > 60; Glucose Fasting 127 mg/dL (60-99); Hematocrit 35.4 % (42.0-52.0); Hemoglobin 12.5 g/dl (14.0-18.0); Imm Gran Abs Auto 0.06 X10*3/uL (0.00-0.03); Imm Gran Pct Auto 0.5 % (0.0-0.4); Mean Corpuscular HGB Conc 35.3 g/dl (31.0-36.0); Mean Corpuscular Hemoglobin 29.9 pg (27.0-33.0); Mean Corpuscular Volume 84.7 fL (80.0-98.0); Mean Platelet Volume 9.6 fL (9.4-12.4); Monocytes Absolute Auto 0.9 X10*3/uL (0.1-1.2); Monocytes Percent Auto 7.1 % (2-11); Neutrophils Absolute Auto 10.5 x10*3/uL (2.0-8.3); Platelet Count 182 X10*3/uL (160-400); Potassium 3.9 mmol/L (3.3-5.1); Red Blood Count 4.18 X10*6/uL (4.60-5.80); Red Cell Distribution Width 13.1 % (11.0-16.0); Sodium 140 mmol/L (135-145); White Blood Count 12.5 X10*3/uL (4.8-10.8)
[2024-10-23] MEDS: Enoxaparin Sodium 40 MG/0.4 ML SYRINGE SUBCUT (07:17)
[2024-10-23] MEDS: Celecoxib 200 MG CAPSULE PO (07:17)
[2024-10-23] MEDS: Loratadine 10 MG TABLET PO (07:18)
[2024-10-23] MEDS: oxyCODONE HCl ER 10 MG TAB.ER.12H PO (07:18)
[2024-10-23] MEDS: Docusate Sodium 100 MG CAPSULE PO (07:18)
[2024-10-23] MEDS: amLODIPine Besylate 10 MG TABLET PO (07:18)
[2024-10-23] MEDS: Magnesium Oxide 400 MG TABLET PO (07:18)
[2024-10-23 07:31] VITALS: BP 173/83; PULSE 78; RESP 19; TEMP 37.2; O2SAT 95
[2024-10-23 07:51] VITALS: BP 173/83; PULSE 78; O2SAT 95
[2024-10-23 08:09] VITALS: PULSE 78; RESP 19; O2SAT 94
[2024-10-23] MEDS: Fluticasone/Vilanterol 100/25 BLST.W.DEV 1 PUFF INHALE (08:09)
[2024-10-23] MEDS: ondansetron HCL 4 MG/2 ML VIAL IVPUSH (08:21)
--- NOTE | 2024-10-23 08:30 | HO.POSTANES ---
Post Anesthesia Evaluation Post Anesthesia Evaluation Date of Service: 10/23/24 Vital Signs: Vital Signs Temp Pulse Resp BP Pulse Ox O2 Del Method 10/23/24 08:09 78 19 10/23/24 07:51 78 173/83 H 95 10/23/24 07:31 99 F 78 19 173/83 H 95 Room Air 10/23/24 03:19 99.0 F 86 18 164/69 H 93 Room Air 10/22/24 23:21 99.5 F 88 18 160/72 H 95 Room Air Anesthesia: General Endotracheal-GETA Mental Status: Awake Pain Control: Satisfactory Nausea/Vomiting: Mild Hydration: Adequate Anesthesia-Related Issues: No Anes. Related Issues
--- NOTE | 2024-10-23 09:11 | MHC.CM.PN ---
PATIENT LIVES IN A HOME W/ . FUNCTIONALLY INDEPENDENT. DENIES USE OF DME OR SERVICES. PCP CARMELINA HICKEY REPORTS HE HAS AN HCP NAMING HIS , [facility], [facility]. HE WILL BRING A COPY TO ORTHO F/U. DP: PHYSICAL THERAPY REC HOME W/ SERVICES. [facility], WHO HAS ACCEPTED. CLEARED FOR DC HOME TODAY. WILL TRANSPORT.
[2024-10-23 10:39] VITALS: PULSE 78
[2024-10-23 11:31] VITALS: BP 159/72; PULSE 79; RESP 18; TEMP 36.6; O2SAT 95
== END 2024-10-23 13:54 | disposition home health service (06) ==
LOC: HO.SSS 05:47 → HO.S3 10:37
PROVIDERS: Orthopaedic Surgery; PCP Physician Assistant; Visit Provider Physician Assistant
PROC: (CPT 27130; principal; 2024-10-22 07:30)
DX: M16.12 Unilateral primary osteoarthritis, left hip (principal); M25.552 Pain in left hip; R26.2 Difficulty in walking, not elsewhere classified; M79.10 Myalgia, unspecified site; M10.9 Gout, unspecified; J44.9 Chronic obstructive pulmonary disease, unspecified; J45.40 Moderate persistent asthma, uncomplicated; I10 Essential (primary) hypertension; E78.5 Hyperlipidemia, unspecified; E78.1 Pure hyperglyceridemia; R06.83 Snoring; F32.A Depression, unspecified; F41.1 Generalized anxiety disorder; Z96.641 Presence of right artificial hip joint; Z88.0 Allergy status to penicillin; Z88.8 Allergy status to other drugs, medicaments and biological substances; Z79.51 Long term (current) use of inhaled steroids; Z79.899 Other long term (current) drug therapy
CPT/HCPCS: 27130; 36415; 72170; 80048; 85025; 86850; 86900; 86901; 87640; 87641; 88304; 88311; 94640; 94664; 97110; 97116; 97161; 97165; 97535; C1713; C1776; J0131; J0690; J1100; J1171; J1650; J2003; J2250; J2405; J2704; J2795; J3010; J3371; J7120

== ENCOUNTER → 2024-10-22 05:47 | Outpatient (BNV) | payer MEDICARE, MEDICAID, SELFPAY | PROVIDERS: PCP Physician Assistant; Visit Provider Physician Assistant | DX: M16.12 Unilateral primary osteoarthritis, left hip (principal) | CPT/HCPCS: 99222 ==

== ENCOUNTER → 2024-10-22 05:47 | Outpatient (BNV) | payer MEDICARE, MEDICAID, SELFPAY | PROVIDERS: PCP Physician Assistant; Visit Provider Orthopaedic Surgery | DX: Z47.1 Aftercare following joint replacement surgery (principal); Z96.642 Presence of left artificial hip joint | CPT/HCPCS: 27130; 99024; G0180 ==

== ENCOUNTER → 2024-10-22 09:50 | Outpatient (BNV) | payer MEDICARE, MEDICAID, SELFPAY | PROVIDERS: PCP Physician Assistant; Visit Provider Radiology Diagnostic Radiology | DX: Z96.642 Presence of left artificial hip joint (principal) | CPT/HCPCS: 72170 ==

== ENCOUNTER 2024-11-07 09:49 | Outpatient (AMB) | payer MEDICARE, MEDICAID, SELFPAY ==
--- NOTE | 2024-11-07 09:55 | MHC.OFFVIS ---
Vital Signs 11/07/24 09:59 Height 5 ft 4 in Weight 205 lb BMI 35.2 Intake Visit Reasons: 2WK PO LT KAE 10/22/24 NE Intake Note: César is a 64 year old male who presents today for a post operative visit s/p left KAE on 10/22/24. Patient reports he is doing well, states his current pain level is 1-2 out of 10. States discomfort with loren. Allergies Penicillins Allergy (Intermediate, Verified 11/07/24 10:06) Hives Quinolones Allergy (Intermediate, Verified 11/07/24 10:06) Rash trazodone Allergy (Intermediate, Verified 11/07/24 10:06) Rash/restless legs lisinopril Adverse Reaction (Intermediate, Verified 11/07/24 10:06) Cough losartan Adverse Reaction (Intermediate, Verified 11/07/24 10:06) Dizziness Medication List - Last Reconciled 11/07/24 by Jacqueline Soto PA-C acetaminophen 650 mg (2 x 325 mg) PO Q6H PRN 30 days albuterol sulfate 90 mcg/actuation 1 inh inhalation QID PRN albuterol sulfate 0.63 mg (3 mL) inhalation QID PRN amlodipine 10 mg PO DAILY 90 days blood pressure monitor (Blood Pressure Kit) As directed blood pressure test kit-large As directed celecoxib 200 mg PO BID 30 days cetirizine 10 mg PO DAILY 90 days colchicine 0.6 mg PO DAILY PRN cyclobenzaprine 10 mg PO BEDTIME enoxaparin 40 mg (0.4 mL) subcut Q24H 42 days fenofibrate 54 mg PO DAILY 90 days fluticasone furoate-vilanterol 100-25 mcg/dose (Breo Ellipta) 1 inh inhalation Q24H 30 days indomethacin 50 mg PO TID PRN 7 days olanzapine 5 mg PO BEDTIME 90 days prednisone 5 mg PO MOTH [Raised toilet seat As directed] walker Folding Front wheeled walker duration 99 days HPI HPI 2WK PO LT KAE 10/22/24 NE: Details: 64-year-old gentleman returns to the office today 2 weeks status post left total hip arthroplasty on 10/22/[address] Ramos. Comes in today ambulating with a cane. He was doing quite well. He has completed home physical therapy and is ready to transition to outpatient physical therapy. He has discontinue the use of the oxycodone. [facility] Medical History Snores Gout Allergic rhinitis COPD (chronic obstructive pulmonary disease) Osteoarthritis of left hip Routine medical exam History of COVID-19 Nephrotic syndrome Depression Osteoarthritis Anxiety GERD (gastroesophageal reflux disease) Asthma Elevated cholesterol HTN (hypertension) Bipolar disorder Myalgia Osteoarthritis of right hip Colonoscopy refused Surgical History History of biopsy Hx of drainage of abscess S/P total right hip arthroplasty (10/04/22) History of eye surgery Family History Mother No problems noted. Father No problems noted. Social History Household Members: Spouse Housing: House Are you a primary career technical supervisor to a significant other at home: No Do you presently have visiting nurse or other home services: No 75 years or older and lives alone: No Alcohol intake: never Patient Tobacco Use Status: Never used Tobacco e-Cigarette/Vaping Use: Never Used Second Hand Smoke Exposure: No service: No Current occupational status: disabled Sexual orientation: Straight/Heterosexual Cognitive needs: No Hearing needs: No Vision needs: No Review of Systems Const All systems reviewed & are unremarkable except as noted in HPI and below Physical Exam Vital Signs: BMI result Body Mass Index 35.2 Extrem Other: Left hip incision clean dry and intact. No surrounding erythema or swelling. He has no pain with hip flexion or range of motion. Calf supple and nontender neurovascularly intact. Assessment & Plan Assessment & Plan (1) History of total left hip replacement: Code(s): Z96.642 - Presence of left artificial hip joint Category: Surgical Plan: [place] removed today Steri-Strips applied. He will continue to progress with activities as tolerated. If physical therapy order was placed today to transition to outpatient physical therapy. I did contact the Physical therapy Department who will set up an appointment with him over the next few days. He will see us back in [address] Ramos for routine postop appointment. Sooner if needed. Orders: Orders PT Evaluation and Treatment Today Z96.642 - Presence of left artificial hip joint Coding Level of Care Code Global (45996) Diagnoses History of total left hip replacement Z96.642
[2024-11-07 09:59] VITALS: BMI 35.2
== END 2024-11-07 10:37 | disposition home or self-care (01) ==
LOC: HO.HOS 09:50
PROVIDERS: PCP Physician Assistant; Visit Provider Physician Assistant
DX: Z96.642 Presence of left artificial hip joint (principal)
CPT/HCPCS: 99024

== ENCOUNTER → 2024-11-07 09:49 | Outpatient (BNVA) | payer MEDICARE, SELFPAY | PROVIDERS: PCP Physician Assistant; Visit Provider Physician Assistant | DX: Z47.1 Aftercare following joint replacement surgery (principal); Z96.642 Presence of left artificial hip joint | CPT/HCPCS: 99212 ==

== ENCOUNTER 2024-11-27 13:42 | Outpatient (AMB) | payer MEDICARE, MEDICAID, SELFPAY ==
[2024-11-27 14:03] VITALS: BP 140/72; PULSE 73; O2SAT 95; BMI 35.0
--- NOTE | 2024-11-27 14:03 | MHC.OFFVIS ---
Vital Signs 11/27/24 14:03 Height 5 ft 4 in Weight 203 lb 14.841 oz BMI 35.0 BP 140/72 H Blood Pressure Location Lt brachial Position Sitting Pulse 73 Pulse Source Pulse Oximeter Pulse Oximetry (%) 95 Oxygen Delivery Method Room Air Intake Visit Reasons: Asthma Intake Note: pt is here for follow up and states he is feeling good had hip replacement for about 5 weeks ago [place] P[employer] Required: No Allergies Penicillins Allergy (Intermediate, Verified 11/27/24 14:23) Hives Quinolones Allergy (Intermediate, Verified 11/27/24 14:23) Rash trazodone Allergy (Intermediate, Verified 11/27/24 14:23) Rash/restless legs lisinopril Adverse Reaction (Intermediate, Verified 11/27/24 14:23) Cough losartan Adverse Reaction (Intermediate, Verified 11/27/24 14:23) Dizziness Medication List - Last Reconciled 11/27/24 by Tomas Key MD acetaminophen 650 mg (2 x 325 mg) PO Q6H PRN 30 days albuterol sulfate 90 mcg/actuation 1 inh inhalation QID PRN albuterol sulfate 0.63 mg (3 mL) inhalation QID PRN amlodipine 10 mg PO DAILY 90 days blood pressure monitor (Blood Pressure Kit) As directed blood pressure test kit-large As directed celecoxib 200 mg PO BID 30 days cetirizine 10 mg PO DAILY 90 days colchicine 0.6 mg PO DAILY PRN cyclobenzaprine 10 mg PO BEDTIME enoxaparin 40 mg (0.4 mL) subcut Q24H 42 days fenofibrate 54 mg PO DAILY 90 days fluticasone furoate-vilanterol 100-25 mcg/dose (Breo Ellipta) 1 inh inhalation Q24H 30 days indomethacin 50 mg PO TID PRN 7 days olanzapine 5 mg PO BEDTIME 90 days [Raised toilet seat As directed] walker Folding Front wheeled walker duration 99 days Do you need a note to return to daycare/school/sports/work: No HPI HPI Asthma: Details: THIS 64 YEARS OLD VERY PLEASANT GENTLEMAN IS HERE FOR HIS. ROUTINE FOLLOW-UP AT THIS TIME HE IS NOT USING BREO, AND HE USES ALBUTEROL 2 PUFFS Q 4-6 HOURS P.R.N. WHEN OUTDOORS. AT HOME HE USES ALBUTEROL SOLUTION IN THE NEBULIZER Q 4-6 HOURS P.R.N. HE HAS MILD INTERMITTENT NASAL CONGESTION AND USES CETIRIZINE 10 MG ONCE A DAY P.R.N.. HE HAD HIP SURGERY WITHOUT ANY ISSUES. AT PRESENT HE DENIES ANY COUGH OR WHEEZING. HIS MUCUS PRODUCTION IS MUCH LESS AFTER HE ELIMINATED MILK AND DAIRY PRODUCTS FROM HIS DIET. [facility] Medical History Primary localized osteoarthritis of left hip Snores Gout Allergic rhinitis COPD (chronic obstructive pulmonary disease) Osteoarthritis of left hip Routine medical exam History of COVID-19 Nephrotic syndrome Depression Osteoarthritis Anxiety GERD (gastroesophageal reflux disease) Asthma Elevated cholesterol HTN (hypertension) Bipolar disorder Myalgia Osteoarthritis of right hip Colonoscopy refused Surgical History History of biopsy Hx of drainage of abscess S/P total right hip arthroplasty (10/04/22) History of eye surgery Family History Mother No problems noted. Father No problems noted. Social History Household Members: Spouse Housing: House Are you a primary memory care director to a significant other at home: No Do you presently have visiting nurse or other home services: No 75 years or older and lives alone: No Alcohol intake: never Patient Tobacco Use Status: Never used Tobacco e-Cigarette/Vaping Use: Never Used Second Hand Smoke Exposure: No service: No Current occupational status: disabled Sexual orientation: Straight/Heterosexual Cognitive needs: No Hearing needs: No Vision needs: No Review of Systems Const All systems reviewed & are unremarkable except as noted in HPI and below Eyes Reports no additional complaints ENT Reports no additional complaints Card Denies chest pain, Reports irregular heart rhythm and Reports leg edema Resp Reports as per HPI GI Reports no additional complaints Reports no additional complaints Musc Reports no additional complaints Skin/Breast Reports system reviewed and no additional complaints, except as documented Neuro Reports no additional complaints Psych Reports other (Being treated for bipolar disorder) Chris/Lymph Reports no additional complaints Physical Exam Vital Signs: Last Vital Signs Pulse 73 11/27/24 14:03 BP 140/72 H 11/27/24 14:03 Pulse Ox 95 11/27/24 14:03 Oxygen Delivery Method Room Air 11/27/24 14:03 BMI result Body Mass Index 35.0 Const General: comfortable, no acute distress, alert and awake Orientation/consciousness: patient oriented x3 HEENT Head: Yes normal to inspection General nose exam: No nasal polyps present, No nasal discharge present and Other nasal findings present (Mild nasal congestion) Face and sinus: Yes sinuses nontender Mouth: oropharynx normal Throat: Yes posterior oropharynx normal Eyes General: appearance normal, both eyes and all related structures Neck Neck: Yes normal visual inspection, Yes no lymphadenopathy, Yes trachea midline and Yes no JVD Thyroid: Thyroid normal Chest Chest palpation & inspection: normal inspection of the chest, normal palpation of entire chest wall and no tenderness Resp Other: Percussion note is resonant, breath sounds are moderately Distant with prolonged expiratory phase . There are no wheezes or rhonchi , and no crepitations. Cardio Palpation: normal PMI Rate: regular rate Rhythm: regular rhythm Heart sounds: no gallops and no murmurs GI Palpation (GI): Soft to palpation, nontender, No hepatosplenomegaly present and no masses Auscultation: normal bowel sounds Back/Spine/Pelvis Thoracic/Lumbar Spine: thoracic and lumbar spine normal to inspection Skin General skin exam: no rashes or lesions noted Neuro General: patient oriented x3 and no focal motor deficits Cranial nerves: Yes CN's II-XII intact bilaterally Extrem General: Yes normal to inspection, Yes no clubbing, cyanosis or edema and Yes no calf tenderness Psych Appearance: grossly normal and well kempt Speech and movement: Normal speech and movement present Assessment & Plan Assessment & Plan (1) Asthma: Comment: HE ACTUALLY HAS ASTHMA/COPD SYNDROME , IT IS MILD, STABLE AND WELL CONTROLLED AT THIS TIME Code(s): J45.909 - Unspecified asthma, uncomplicated Category: Medical Qualifiers: Asthma severity: mild Asthma persistence: intermittent Asthma complication type: uncomplicated Qualified Code(s): J45.20 - Mild intermittent asthma, uncomplicated Plan: KEEP BREO ON HAND BUT NO NEED TO USE ON A DAY-TO-DAY BASIS. ALBUTEROL HFA 2 PUFFS Q 6 HOURS P.R.N. WHEN OUTDOORS. IN THE HOUSE HE MIGHT USE ALBUTEROL SOLUTION 0.63 MG IN THE NEBULIZER Q 4-6 HOURS P.R.N.. (2) Allergic rhinitis: Comment: HE IS KNOWN TO HAVE MILD ALLERGIC RHINITIS AROUND THE YEAR. THAT MAY BE PART OF THE REASON WHY HE HAS FREQUENT COUGH WITH EXPECTORATION. AT PRESENT THE SYMPTOMS ARE MINIMAL. Code(s): J30.9 - Allergic rhinitis, unspecified Category: Medical Plan: MAY USE CETIRIZINE 10 MG ONCE A DAY P.R.N. Coding Level of Care Code Est Pt Level 3 (64445) Diagnoses Mild intermittent asthma without complication J45.20 Asthma severity: mild Asthma persistence: intermittent Asthma complication type: uncomplicated Allergic rhinitis J30.9
== END 2024-11-27 14:27 | disposition home or self-care (01) ==
LOC: HO.HPS 13:43
PROVIDERS: PCP Physician Assistant; Visit Provider Internal Medicine
DX: J45.20 Mild intermittent asthma, uncomplicated (principal); J30.9 Allergic rhinitis, unspecified
CPT/HCPCS: 99213

== ENCOUNTER → 2024-11-27 13:42 | Outpatient (BNVA) | payer MEDICARE, SELFPAY | PROVIDERS: PCP Physician Assistant; Visit Provider Internal Medicine | DX: J44.9 Chronic obstructive pulmonary disease, unspecified (principal); J45.20 Mild intermittent asthma, uncomplicated; J30.9 Allergic rhinitis, unspecified; Z79.899 Other long term (current) drug therapy | CPT/HCPCS: 99212 ==

== ENCOUNTER 2024-11-28 12:54 | Outpatient (REF) | payer MEDICARE, SELFPAY ==
--- NOTE | ~2024-11-28 | XR_ITS ---
EXAMINATION: XR PELVIS XR HIP 1V CLINICAL INFORMATION: M25.559 - Pain in unspecified hip COMPARISON: 10/22/2024. TECHNIQUE: AP view of the pelvis, crosstable lateral view left hip. FINDINGS: There has been a total left hip replacement. Femoral, and acetabular components are intact, well seated, in anatomic alignment. No periprosthetic lucency or fracture. No subsidence. No evidence of abnormal polyethylene wear. No significant heterotopic bone formation. Total right hip replacement noted in anatomic alignment without periprosthetic abnormality. Imaged pelvis intact. There are vascular calcifications in the soft tissues. XR/XR pelvis 1-2V IMPRESSION: Total left hip arthroplasty without complication evident. Electronically signed by: Gómez Geronimo MD 11/28/2024 01:38 PM EDT
--- NOTE | ~2024-11-28 | XR_ITS ---
EXAMINATION: XR PELVIS XR HIP 1V CLINICAL INFORMATION: M25.559 - Pain in unspecified hip COMPARISON: 10/22/2024. TECHNIQUE: AP view of the pelvis, crosstable lateral view left hip. FINDINGS: There has been a total left hip replacement. Femoral, and acetabular components are intact, well seated, in anatomic alignment. No periprosthetic lucency or fracture. No subsidence. No evidence of abnormal polyethylene wear. No significant heterotopic bone formation. Total right hip replacement noted in anatomic alignment without periprosthetic abnormality. Imaged pelvis intact. There are vascular calcifications in the soft tissues. XR/XR hip LT 1V IMPRESSION: Total left hip arthroplasty without complication evident. Electronically signed by: Gómez Geronimo MD 11/28/2024 01:38 PM EDT
== END 2024-11-28 12:55 | disposition home or self-care (01) ==
LOC: HO.HOSX 12:54
PROVIDERS: Visit Provider Orthopaedic Surgery
DX: M25.552 Pain in left hip (principal); Z96.642 Presence of left artificial hip joint
CPT/HCPCS: 72170; 73501; 99212

== ENCOUNTER 2024-11-28 12:54 | Outpatient (AMB) | payer MEDICARE, SELFPAY ==
[2024-11-28 13:01] VITALS: BMI 34.8
--- NOTE | 2024-11-28 13:01 | A.OFFVIS_ITS ---
Vital Signs 11/28/24 13:01 Height 5 ft 4 in Weight 203 lb BMI 34.8 Intake Visit Reasons: 6WK PO: L KAE w/NE 10/22/24 Intake Note: César is a 64 year old male who presents today for a post operative appointment about 6 weeks s/p Left KAE 10/22/24. Patient reports that he is dong well, he has some mild pain in the groin. He is dong a home exercise program currently. He takes Tylenol PRN. Allergies Penicillins Allergy (Intermediate, Verified 11/28/24 13:13) Hives Quinolones Allergy (Intermediate, Verified 11/28/24 13:13) Rash trazodone Allergy (Intermediate, Verified 11/28/24 13:13) Rash/restless legs lisinopril Adverse Reaction (Intermediate, Verified 11/28/24 13:13) Cough losartan Adverse Reaction (Intermediate, Verified 11/28/24 13:13) Dizziness HPI HPI 6WK PO: L KAE w/NE 10/22/24: Details: César is a 64 year old male who presents today for a post operative appointment about 6 weeks s/p Left KAE 10/22/24. Patient reports that he is dong well, he has some mild pain in the groin. He is dong a home exercise program currently. He takes Tylenol PRN. PFSH Medical History Primary localized osteoarthritis of left hip Snores Gout Allergic rhinitis COPD (chronic obstructive pulmonary disease) Osteoarthritis of left hip Routine medical exam History of COVID-19 Nephrotic syndrome Depression Osteoarthritis Anxiety GERD (gastroesophageal reflux disease) Asthma Elevated cholesterol HTN (hypertension) Bipolar disorder Myalgia Osteoarthritis of right hip Colonoscopy refused Surgical History History of biopsy Hx of drainage of abscess S/P total right hip arthroplasty (10/04/22) History of eye surgery Family History Mother No problems noted. Father No problems noted. Social History Household Members: Spouse Housing: House Are you a primary day care home provider to a significant other at home: No Do you presently have visiting nurse or other home services: No 75 years or older and lives alone: No Alcohol intake: never Patient Tobacco Use Status: Never used Tobacco e-Cigarette/Vaping Use: Never Used Second Hand Smoke Exposure: No service: No Current occupational status: disabled Sexual orientation: Straight/Heterosexual Cognitive needs: No Hearing needs: No Vision needs: No Physical Exam Vital Signs: BMI result Body Mass Index 34.8 Extrem Other: No pain with hip range of motion. Mild pain with resisted hip flexion. In cision clean dry and intact. Walking comfortably without cane or assistive device. Mild Trendelenburg gait on the left Results Reviewed Results Reviewed: I personally reviewed relevant radiographs. Left KAE in expected post operative position with no hardware complications or evidence of loosening Assessment & Plan Assessment & Plan (1) History of total left hip replacement: Code(s): Z96.642 - Presence of left artificial hip joint Category: Surgical Plan: 5 weeks status post left hip replacement. Continue Lovenox 1 more week. Continue exercise program. Walking. Doing well. Hip restrictions reviewed. Follow up 6 weeks. Orders: Orders XR pelvis 1-2V Today M25.559 - Pain in unspecified hip XR hip LT 1V Today M25.552 - Pain in left hip Coding Level of Care Code Global (63711) Diagnoses History of total left hip replacement Z96.642
== END 2024-11-28 13:28 | disposition home or self-care (01) ==
LOC: HO.HOS 12:55
PROVIDERS: Visit Provider Orthopaedic Surgery
DX: Z96.642 Presence of left artificial hip joint (principal)
CPT/HCPCS: 99024

== ENCOUNTER → 2024-11-28 13:04 | Outpatient (BNV) | payer MEDICARE, SELFPAY | PROVIDERS: Visit Provider Radiology Diagnostic Radiology | DX: M25.552 Pain in left hip (principal); Z96.642 Presence of left artificial hip joint | CPT/HCPCS: 72170; 73501 ==

== ENCOUNTER 2025-01-10 12:34 | Outpatient (AMB) | payer MEDICARE, SELFPAY ==
--- NOTE | 2025-01-10 12:57 | MHC.OFFVIS ---
Vital Signs 01/10/25 13:04 Height 5 ft 4 in Weight 203 lb BMI 34.8 Intake Visit Reasons: PO: L KAE w/NE 10/22/24 Intake Note: César is a 64 year old male who presents today for a post operative visit status post left total hip arthroplasty DOS: by NE. Patient reports that he is doing well, he complains of soreness in his thigh buttocks area. Allergies Penicillins Allergy (Intermediate, Verified 01/10/25 13:04) Hives Quinolones Allergy (Intermediate, Verified 01/10/25 13:04) Rash trazodone Allergy (Intermediate, Verified 01/10/25 13:04) Rash/restless legs lisinopril Adverse Reaction (Intermediate, Verified 01/10/25 13:04) Cough losartan Adverse Reaction (Intermediate, Verified 01/10/25 13:04) Dizziness Medication List - Last Reconciled 01/10/25 by Jacqueline Soto PA-C acetaminophen 650 mg (2 x 325 mg) PO Q6H PRN 30 days albuterol sulfate 90 mcg/actuation 1 inh inhalation QID PRN albuterol sulfate 0.63 mg (3 mL) inhalation QID PRN amlodipine 10 mg PO DAILY 90 days amoxicillin 2,000 mg (4 x 500 mg) PO ONCE 1 day blood pressure monitor (Blood Pressure Kit) As directed blood pressure test kit-large As directed celecoxib 200 mg PO BID 30 days cetirizine 10 mg PO DAILY 90 days colchicine 0.6 mg PO DAILY PRN cyclobenzaprine 10 mg PO BEDTIME 90 days doxycycline hyclate 100 mg PO DAILY 1 day enoxaparin 40 mg (0.4 mL) subcut Q24H 42 days fenofibrate 54 mg PO DAILY 90 days fluticasone furoate-vilanterol 100-25 mcg/dose (Breo Ellipta) 1 ea PO DAILY indomethacin 50 mg PO TID PRN 7 days olanzapine 5 mg PO BEDTIME 90 days [Raised toilet seat As directed] walker Folding Front wheeled walker duration 99 days HPI HPI PO: L KAE w/NE 10/22/24: Details: 64-year-old gentleman returns to the office today just shy of 3 months postop left total hip arthroplasty. He is doing well, advancing activities as tolerated. He has no concerns today. [facility] Medical History Primary localized osteoarthritis of left hip Snores Gout Allergic rhinitis COPD (chronic obstructive pulmonary disease) Osteoarthritis of left hip Routine medical exam History of COVID-19 Nephrotic syndrome Depression Osteoarthritis Anxiety GERD (gastroesophageal reflux disease) Asthma Elevated cholesterol HTN (hypertension) Bipolar disorder Myalgia Osteoarthritis of right hip Colonoscopy refused Surgical History History of biopsy Hx of drainage of abscess S/P total right hip arthroplasty (10/04/22) History of eye surgery Family History Mother No problems noted. Father No problems noted. Social History Household Members: Spouse Housing: House Are you a primary career services representative to a significant other at home: No Do you presently have visiting nurse or other home services: No 75 years or older and lives alone: No Alcohol intake: never Patient Tobacco Use Status: Never used Tobacco e-Cigarette/Vaping Use: Never Used Second Hand Smoke Exposure: No service: No Current occupational status: disabled Sexual orientation: Straight/Heterosexual Cognitive needs: No Hearing needs: No Vision needs: No Review of Systems Const All systems reviewed & are unremarkable except as noted in HPI and below Physical Exam Vital Signs: BMI result Body Mass Index 34.8 Extrem Other: No pain with hip range of motion. No significant pain with resisted hip flexion. Incision well healed. Walking comfortably without cane or assistive device. Assessment & Plan Assessment & Plan (1) History of total left hip replacement: Code(s): Z96.642 - Presence of left artificial hip joint Category: Surgical Plan: Discussed the importance of maintaining his hip strengthening exercises to avoid painless limp. We discussed advancing activities with caution as to reduce risk of dislocation or periprosthetic fracture. He will take antibiotics for dental work. A prescription for doxycycline was sent to his pharmacy today. He will see us back in 6 months for his 9 month postop appointment, sooner if needed. Medications: New amoxicillin take 4 capsules 1 hr prior to dental procedure 2,000 mg (4 x 500 mg) PO ONCE 4 tabs 3RF 1 day doxycycline hyclate dental prophylaxis-take 1 tab 1hr prior to dental exam 100 mg PO DAILY 1 tab 6RF 1 day Coding Level of Care Code Est Pt Level 3 (67992) Complex EM visit Add On G2211 Diagnoses History of total left hip replacement Z96.642
[2025-01-10 13:04] VITALS: BMI 34.8
== END 2025-01-10 13:49 | disposition home or self-care (01) ==
LOC: HO.HOS 12:35
PROVIDERS: PCP Physician Assistant; Visit Provider Physician Assistant
DX: Z47.1 Aftercare following joint replacement surgery (principal); Z96.642 Presence of left artificial hip joint
CPT/HCPCS: 99024

== ENCOUNTER → 2025-01-10 12:34 | Outpatient (BNVA) | payer MEDICARE, SELFPAY | PROVIDERS: PCP Physician Assistant; Visit Provider Physician Assistant | DX: Z47.1 Aftercare following joint replacement surgery (principal); Z96.642 Presence of left artificial hip joint | CPT/HCPCS: 99212 ==

== ENCOUNTER 2025-04-02 13:51 | Outpatient (AMB) | payer MEDICARE, MEDICAID, SELFPAY ==
[2025-04-02 13:54] VITALS: BP 142/67; PULSE 80; O2SAT 95; BMI 34.2
--- NOTE | 2025-04-02 13:54 | A.OFFVIS_ITS ---
Vital Signs 04/02/25 13:54 Height 5 ft 4 in Weight 199 lb BMI 34.2 BP 142/67 H Blood Pressure Location Lt brachial Position Sitting Pulse 80 Pulse Source Pulse Oximeter Pulse Oximetry (%) 95 Oxygen Delivery Method Room Air Intake Visit Reasons: Asthma Allergies Penicillins Allergy (Intermediate, Verified 04/02/25 14:07) Hives Quinolones Allergy (Intermediate, Verified 04/02/25 14:07) Rash trazodone Allergy (Intermediate, Verified 04/02/25 14:07) Rash/restless legs lisinopril Adverse Reaction (Intermediate, Verified 04/02/25 14:07) Cough losartan Adverse Reaction (Intermediate, Verified 04/02/25 14:07) Dizziness Medication List - Last Reconciled 04/02/25 by Tomas Key MD acetaminophen 650 mg (2 x 325 mg) PO Q6H PRN 30 days albuterol sulfate 90 mcg/actuation 1 inh inhalation QID PRN albuterol sulfate 0.63 mg (3 mL) inhalation QID PRN amlodipine 10 mg PO DAILY 90 days blood pressure monitor (Blood Pressure Kit) As directed blood pressure test kit-large As directed celecoxib 200 mg PO BID 30 days cephalexin 2,000 mg (4 x 500 mg) PO ONCE cetirizine 10 mg PO DAILY 90 days colchicine 0.6 mg PO DAILY PRN cyclobenzaprine 10 mg PO BEDTIME 90 days enoxaparin 40 mg (0.4 mL) subcut Q24H 42 days fenofibrate 54 mg PO DAILY 90 days fluticasone furoate-vilanterol 100-25 mcg/dose (Breo Ellipta) 1 ea PO DAILY indomethacin 50 mg PO TID PRN 7 days lorazepam 0.5 mg PO DAILY PRN 4 days olanzapine 5 mg PO BEDTIME 90 days [Raised toilet seat As directed] walker Folding Front wheeled walker duration 99 days Do you need a note to return to daycare/school/sports/work: No HPI HPI Asthma: Details: This 65 years old gentleman is here for follow-up after 4 months. He has had left hip surgery and recovered from that very well. He is happy that he does not have any residual pain her discomfort, except some stiffness in the morning. Breathing has been very stable using Breo only as needed with albuterol as needed. Is nasal allergies were under controlled but is during the last week he has increased nasal congestion with some postnasal drip. He has no fever or chills. [facility] Medical History Primary localized osteoarthritis of left hip Snores Gout Allergic rhinitis COPD (chronic obstructive pulmonary disease) Osteoarthritis of left hip Routine medical exam History of COVID-19 Nephrotic syndrome Depression Osteoarthritis Anxiety GERD (gastroesophageal reflux disease) Asthma Elevated cholesterol HTN (hypertension) Bipolar disorder Myalgia Osteoarthritis of right hip Colonoscopy refused Surgical History History of biopsy Hx of drainage of abscess S/P total right hip arthroplasty (10/04/22) History of eye surgery Family History Mother No problems noted. Father No problems noted. Social History Household Members: Spouse Housing: House Are you a primary floor care technician to a significant other at home: No Do you presently have visiting nurse or other home services: No 75 years or older and lives alone: No Alcohol intake: never Patient Tobacco Use Status: Never used Tobacco e-Cigarette/Vaping Use: Never Used Second Hand Smoke Exposure: No service: No Current occupational status: disabled Sexual orientation: Straight/Heterosexual Cognitive needs: No Hearing needs: No Vision needs: No Review of Systems Const All systems reviewed & are unremarkable except as noted in HPI and below Eyes Reports no additional complaints ENT Reports no additional complaints Card Denies chest pain, Reports irregular heart rhythm and Reports leg edema Resp Reports as per HPI GI Reports no additional complaints Reports no additional complaints Musc Reports no additional complaints Skin/Breast Reports system reviewed and no additional complaints, except as documented Neuro Reports no additional complaints Psych Reports other (Being treated for bipolar disorder) Chris/Lymph Reports no additional complaints Physical Exam Vital Signs: Last Vital Signs Pulse 80 04/02/25 13:54 BP 142/67 H 04/02/25 13:54 Pulse Ox 95 04/02/25 13:54 Oxygen Delivery Method Room Air 04/02/25 13:54 BMI result Body Mass Index 34.2 Const General: comfortable, no acute distress, alert and awake Orientation/consciousness: patient oriented x3 HEENT Head: Yes normal to inspection General nose exam: No nasal polyps present, No nasal discharge present and Other nasal findings present (Mild nasal congestion) Face and sinus: Yes sinuses nontender Mouth: oropharynx normal Throat: Yes posterior oropharynx normal Eyes General: appearance normal, both eyes and all related structures Neck Neck: Yes normal visual inspection, Yes no lymphadenopathy, Yes trachea midline and Yes no JVD Thyroid: Thyroid normal Chest Chest palpation & inspection: normal inspection of the chest, normal palpation of entire chest wall and no tenderness Resp Other: Percussion note is resonant, breath sounds are moderately Distant with prolonged expiratory phase . There are no wheezes or rhonchi , and no crepitations. Cardio Palpation: normal PMI Rate: regular rate Rhythm: regular rhythm Heart sounds: no gallops and no murmurs GI Palpation (GI): Soft to palpation, nontender, No hepatosplenomegaly present and no masses Auscultation: normal bowel sounds Back/Spine/Pelvis Thoracic/Lumbar Spine: thoracic and lumbar spine normal to inspection Skin General skin exam: no rashes or lesions noted Neuro General: patient oriented x3 and no focal motor deficits Cranial nerves: Yes CN's II-XII intact bilaterally Extrem General: Yes normal to inspection, Yes no clubbing, cyanosis or edema and Yes no calf tenderness Psych Appearance: grossly normal and well kempt Speech and movement: Normal speech and movement present Assessment & Plan Assessment & Plan (1) Asthma: Comment: HE ACTUALLY HAS ASTHMA/COPD SYNDROME , IT IS MILD, STABLE AND WELL CONTROLLED AT THIS TIME Code(s): J45.909 - Unspecified asthma, uncomplicated Category: Medical Qualifiers: Asthma severity: mild Asthma persistence: intermittent Asthma complication type: uncomplicated Qualified Code(s): J45.20 - Mild intermittent asthma, uncomplicated Plan: USE BREO 100-251 INHALATION DAILY WHEN SYMPTOMS WILL UP, THEN GO BACK TO PRN ALSO USE ALBUTEROL HFA 2 PUFFS Q 4-6 HOURS P.R.N. AND ALTERNATIVELY MAY USE ALBUTEROL 0.63 MG/3 ML IN THE NEBULIZER Q 4-6 HOURS P.R.N. (2) Allergic rhinitis: Comment: HE IS KNOWN TO HAVE MILD ALLERGIC RHINITIS AROUND THE YEAR. THAT MAY BE PART OF THE REASON WHY HE HAS FREQUENT COUGH WITH EXPECTORATION. IT FLARES UP EVERY NOW AND THEN. LATELY HAS BEEN CLEANING HIS HOUSE EXPOSED TO LOT OF DUST, AND HAS INCREASED NASAL CONGESTION FOR THE LAST 1 WEEK. Code(s): J30.9 - Allergic rhinitis, unspecified Category: Medical Plan: AVOID EXPOSURE TO DUST BY WEARING A MASK WHEN WORKING TO CLEAN THE HOUSE. CETIRIZINE 10 MG ONCE A DAY . FLONASE-52 SPRAYS EACH NOSTRIL DAILY . Coding Level of Care Code Est Pt Level 3 (50603) Diagnoses Mild intermittent asthma without complication J45.20 Asthma severity: mild Asthma persistence: intermittent Asthma complication type: uncomplicated Allergic rhinitis J30.9
--- OUTSIDE RECORDS SUMMARY | 2025-04-02 16:57 | XMS_ITS | Clinical Summary ---
Author Organization [employer] Address [address] [place] [address] Care Team Providers Care Net C Developer Name Role Phone Unavailable Primary Care Provider Unavailabl e Allergies Active Allergy Reactions Criticality Noted Date Comments Penicillins 01/10/2025 Medications amLODIPine (Norvasc) 10 MG tablet 5 Active colchicine 0.6 MG tablet 5 Active cyclobenzaprine (Flexeril) 10 MG tablet 5 Active doxycycline (Vibra-Tabs) 100 MG tablet 5 Active Enoxaparin Sodium 40 MG/0.4ML solution prefilled syringe 5 Active OLANZapine (ZyPREXA) 5 MG tablet 5 Active Breo Ellipta 100-25 MCG/ACT aerosol powder 5 Active albuterol (5 MG/ML) 0.5% nebulizer solution Take 5 mg by nebulization every 6 (six) hours if needed for wheezing. Active Active Problems No known active problems Encounters Date Type Department Care Team Description 01/14/2025 1:00 PM EDT Office Visit [facility] [address] [place] [address] Lee Downs DDS 01/10/2025 2:00 PM EDT Office Visit [facility] [address] [place] [address] Gm Schilling DMD from Last 3 Months Social History Tobacco Use Types Packs/Day Years Used Date Smoking Tobacco: Never Smokeless Tobacco: Never Tobacco Cessation:Counseling Given: Not Answered Alcohol Use Standard Drinks/Week Comments Never 0 (1 standard drink = 0.6 oz pur e alcohol) Sex and Gender Information Value Date Recorded Sex Assigned at Male 01/10/2025 2:04 PM EDT Legal Sex Male 1:55 PM EDT Gender Identity Male 01/10/2025 2:04 PM EDT Sexual Orientation Straight 01/10/2025 2: 04 PM EDT Last Filed Vital Signs Vital Sign Reading Time Taken Comments Blood Pressure 128/82 01/10/2025 2:17 PM EDT Pulse 70 01/10/2025 2:17 PM EDT Temperature - - Respiratory Rate - - Oxygen Saturation - - Inhaled Oxygen Concentration - - Weight - - Height - - Body Mass Index - - Plan of Treatment Upcoming Encounters Date Type Department Care Team (Late st Contact Info) Description 06/05/2025 8:00 AM EST Office Visit [facility] [address] [place] [address] Sissy, Karen [address] [place] [address] Health Maintenance Due Date Last Done Comments CT Colonography 1962 Colonoscopy 1962 Dental Oral Exam 1962 Dental Prophylaxis 1962 Dental X-Ray: Bitewings 1962 Dental X-Ray: Full Mouth 1962 Depression Screening 1962 FIT 1962 HIV Screening 1962 Lipid Panel 1962 SDOH Screening 1962 Sigmoidoscopy 1962 Disability Screening 1962 Alcohol/Substance Use Screening 1974 Hepatitis C Screening 02/12/1980 Zoster Vaccines (1 of 2) 02/12/2012 FOBT 05/18/2024 05/18/2023 COVID-19 Vaccine (1 - 2023-2 5 season) 2025 Influenza Vaccine (#1) 2025 08/13/2024 Tobacco Screening 01/14/2026 01/14/2025 Colorectal Cancer Screening 05/18/2026 FIT DNA/Cologuard 05/18/2026 05/18/2023 DTaP/Tdap/Td Vaccines (2 - T d or Tdap) 05/24/2026 05/24/2016 RSV Patients and Pa tients Aged 60 years or older (1 - 1-dose 75+ series) 2037 Pneumococcal Vaccine: 50+ Years Completed 4 HIB Vaccines Aged Out No longer eligi ble based on patient's age to complete this topic HPV Vaccines Aged Out No longer eligi ble based on patient's age to complete this topic Hepatitis A Vaccines Aged Out No long er eligible based on patient's age to complete this topic Hepatitis B Vaccines Aged Out No long er eligible based on patient's age to complete this topic IPV Vaccines Aged Out No longer eligi ble based on patient's age to complete this topic Meningococcal B Vaccine Aged Out No l onger eligible based on patient's age to complete this topic Meningococcal Vaccine Aged Out No janessa alina eligible based on patient's age to complete this topic RSV under 20 months Aged Out No longe r eligible based on patient's age to complete this topic Rotavirus Vaccines Aged Out No longer eligible based on patient's age to complete this topic Procedures Procedure Name Priority Date/Time Associated Diagnosis Comments CASE PRESENTATION, DETAILED AND EXTENSIVE TREATMENT PLANNING Routine 01/14/2025 1:00 PM EDT 29 EXTRACTION, ERUPTED TOOTH OR EXPOSED ROOT (ELEVATION/FORCEPS REMOVAL) Routine 01/14/2025 1:00 PM EDT CASE PRESENTATION, DETAILED AND EXTENSIVE TREATMENT PLANNING Routine 01/10/2025 2:00 PM EDT PALLIATIVE (EMERGENCY) TREATMENT OF DENTAL PAIN - MINOR PROCEDURE Routine 01/10/2025 2:00 PM EDT 29 INTRAORAL - PERIAPICAL FIRST RADIOGRAPHIC IMAGE Routine 01/10/2025 2:00 PM EDT from Last 3 Months Insurance DENTAL - [facility] PARTIAL (MEDICAID)
== END 2025-04-02 14:18 | disposition home or self-care (01) ==
LOC: HO.HPS 13:51
PROVIDERS: PCP Physician Assistant; Visit Provider Internal Medicine
DX: J45.20 Mild intermittent asthma, uncomplicated (principal); J30.9 Allergic rhinitis, unspecified
CPT/HCPCS: 99213

== ENCOUNTER → 2025-04-02 13:51 | Outpatient (BNVA) | payer MEDICARE, MEDICAID, SELFPAY | PROVIDERS: PCP Physician Assistant; Visit Provider Internal Medicine | DX: J45.20 Mild intermittent asthma, uncomplicated (principal); J30.9 Allergic rhinitis, unspecified; M10.9 Gout, unspecified; F31.9 Bipolar disorder, unspecified; J44.9 Chronic obstructive pulmonary disease, unspecified | CPT/HCPCS: 99212 ==

== ENCOUNTER 2025-04-17 11:22 | Outpatient (REF) | payer MEDICARE, MEDICAID, SELFPAY ==
[2025-04-17 11:52] LABS: Hematocrit 45.7 % (42.0-52.0); Hemoglobin 16.2 g/dl (14.0-18.0); Mean Corpuscular HGB Conc 35.4 g/dl (31.0-36.0); Mean Corpuscular Hemoglobin 30.0 pg (27.0-33.0); Mean Corpuscular Volume 84.6 fL (80.0-98.0); NRBC Abs Auto 0.000 X10*3/uL (0.0-0.012); NRBC Pct Auto 0.0 /100WBC (0.0-0.2); Platelet Count 179 X10*3/uL (160-400); Red Blood Count 5.40 X10*6/uL (4.60-5.80); White Blood Count 6.4 X10*3/uL (4.8-10.8)
[2025-04-17 12:22] LABS: Alanine Aminotransferase 36 U/L (0-40); Albumin Level 4.7 g/dL (3.5-5.0); Alkaline Phosphatase 91 U/L (39-117); Anion Gap 11 (12-20); Aspartate Amino Transferase 22 U/L (5-37); Blood Urea Nitrogen 13 mg/dL (9-16); Calcium 9.1 mg/dL (8.4-10.2); Carbon Dioxide 30 mmol/L (22-29); Chloride 106 mmol/L (96-108); Cholesterol 220 mg/dL (<200); Estimated Glomerular Filt Rate 52; HDL Cholesterol 30 mg/dL (>40); Potassium 3.9 mmol/L (3.3-5.1); Sodium 143 mmol/L (135-145); Total Protein 7.1 g/dL (6.5-8.0); Triglycerides 282 mg/dL (<150)
== END 2025-04-17 11:23 | disposition home or self-care (01) ==
LOC: HO.LAB 11:22
PROVIDERS: PCP Physician Assistant; Visit Provider Physician Assistant
DX: K21.9 Gastro-esophageal reflux disease without esophagitis (principal); I10 Essential (primary) hypertension; E78.5 Hyperlipidemia, unspecified
CPT/HCPCS: 36415; 80053; 80061; 85027

== ENCOUNTER 2025-04-21 15:25 | Outpatient (AMB) | payer MEDICARE, SELFPAY ==
--- NOTE | 2025-04-21 15:42 | MHC.PC.OV ---
Vital Signs 04/21/25 15:44 Height 5 ft 4 in Weight 198 lb 6 oz BMI 34.0 BP 120/70 Blood Pressure Location Lt brachial Position Sitting Pulse 72 Pulse Source Pulse Oximeter Temp 97.3 F Temp Source Temporal Artery Scan Pulse Oximetry (%) 97 Oxygen Delivery Method Room Air Intake Visit Reasons: 6 month f/u Intake Note: Patient is here to follow up on RLS, Hypertriglycerdemia, HTN, COPD. Trekking Guide Required: No Coffee Machine Technician: Present Accompanied by: Spouse Allergies Penicillins Allergy (Intermediate, Verified 04/21/25 16:10) Hives Quinolones Allergy (Intermediate, Verified 04/21/25 16:10) Rash trazodone Allergy (Intermediate, Verified 04/21/25 16:10) Rash/restless legs lisinopril Adverse Reaction (Intermediate, Verified 04/21/25 16:10) Cough losartan Adverse Reaction (Intermediate, Verified 04/21/25 16:10) Dizziness Medication List - Last Reconciled 04/21/25 by Ryan Velasquez PA-C acetaminophen 650 mg (2 x 325 mg) PO Q6H PRN 30 days albuterol sulfate 90 mcg/actuation 1 inh inhalation QID PRN albuterol sulfate 0.63 mg (3 mL) inhalation QID PRN amlodipine 10 mg PO DAILY 90 days blood pressure monitor (Blood Pressure Kit) As directed blood pressure test kit-large As directed celecoxib 200 mg PO BID 30 days cephalexin 2,000 mg (4 x 500 mg) PO ONCE cetirizine 10 mg PO DAILY 90 days colchicine 0.6 mg PO DAILY PRN cyclobenzaprine 10 mg PO BEDTIME 90 days fenofibrate 54 mg PO DAILY 90 days fluticasone furoate-vilanterol 100-25 mcg/dose (Breo Ellipta) 1 ea PO DAILY indomethacin 50 mg PO TID PRN 7 days lorazepam 0.5 mg PO DAILY PRN 4 days olanzapine 5 mg PO BEDTIME 90 days [Raised toilet seat As directed] walker Folding Front wheeled walker duration 99 days Tobacco use date assessed: 04/21/25 Dental Screening Dental Screen Date: 08/13/24 HPI 6 month f/u HPI Details Patient is a 65-year-old male here today for a follow-up visit? Patient has a past medical history significant for moderate persistent asthma, generalized anxiety disorder, HLD, GERD and hypertension. Patient is status post hip total replacement and reports he is feeling very well. He has been more physically active and has lost 10 lb since last office visit .. Hypertension: Patient continues with the use of amlodipine 10 mg with decent affect on his blood pressure. Today's blood pressure in office acceptable. .. Borderline high cholesterol: Recent lipid panel showing borderline high cholesterol and LDL. We did discuss perhaps starting statin therapy though he would like to work on lifestyle and dietary modifications for now. He continues on fenofibrate to reduce his triglycerides which are borderline high as well. .. Anxiety/ bipolar disorder: Continues on olanzapine 5 mg at night which has been able to stabilize his mood and help him sleep. .. Asthma: Patient continues to follow [place] [facility] The patient has asthma, which he describes as variable, with episodes of dyspnea. He has been managing it with medication and lifestyle modifications, including reducing dairy intake, which he believes has improved his symptoms. He recalls a severe asthma exacerbation over a year ago that required hospitalization and oxygen therapy. .. [facility] Medical History Primary localized osteoarthritis of left hip Snores Gout Allergic rhinitis COPD (chronic obstructive pulmonary disease) Osteoarthritis of left hip Routine medical exam History of COVID-19 Nephrotic syndrome Depression Osteoarthritis Anxiety GERD (gastroesophageal reflux disease) Asthma Elevated cholesterol HTN (hypertension) Bipolar disorder Myalgia Osteoarthritis of right hip Colonoscopy refused Surgical History History of biopsy Hx of drainage of abscess S/P total right hip arthroplasty (10/04/22) History of eye surgery Family History Mother No problems noted. Father No problems noted. Social History Household Members: Spouse Housing: House Are you a primary gericare aide to a significant other at home: No Do you presently have visiting nurse or other home services: No 75 years or older and lives alone: No Alcohol intake: never Patient Tobacco Use Status: Never used Tobacco e-Cigarette/Vaping Use: Never Used Second Hand Smoke Exposure: No service: No Current occupational status: disabled Sexual orientation: Straight/Heterosexual Cognitive needs: No Hearing needs: No Vision needs: No Questionnaire PHQ-9 Over the last 2 weeks, how often have you been bothered by any of the following problems? 1. Little interest or pleasure in doing things: not at all 2. Feeling down, depressed, or hopeless: more than half the days 3. Trouble falling or staying asleep, or sleeping too much: nearly every day 4. Feeling tired or having little energy: more than half the days 5. Poor appetite or overeating: not at all 6. Feeling bad about yourself - or that you are a failure or have let yourself or your family down: not at all 7. Trouble concentrating on things, such as reading the newspaper or watching television: more than half the days 8. Moving or speaking so slowly that other people could have noticed. Or the opposite - being so fidgety or restless that you have been moving around a lot more than usual: not at all 9. Thoughts that you would be better off or of hurting yourself in some way: not at all Total score: 9 Depression Screening Interpretation: Positive Depression Screening Done: Yes Source: Developed by Drs. Rohna Herndon, Lexi Graham, Jose Lorenzo and colleagues, with an educational pablo from [employer]. Thrive Questionnaire Date Thrive assessed: 10/23/24 I am a: Patient What is your living situation today?: I have a steady place to live Within the past 12 months, did the food you bought not last and you didn't have the money to get more?: Never true Within the past 12 months, did you worry whether your food would run out before you got money to buy more?: Never true Do you have trouble paying for medicines?: No Do you have trouble getting transportation to medical appointments?: No Do you have trouble paying your heating and electricity bill?: No Do you have trouble taking care of your child, family member or friend?: No Do you have trouble with day-to-day activities such as bathing, preparing meals, shopping, managing finances, etc.?: No Are you currently unemployed and looking for a job?: No Are you interested in more education?: No Please select the resources that you would like help with: None Currently or been in a relationship where the following occur: No concerns reported THRIVE Score: 0 AUDIT C Alcohol Use Questionnaire (AUDIT-C) 1. How often do you have a drink containing alcohol?: Never Total Score: 0 JOSE-7 AMB Questionnaire JOSE-7 Date JOSE - 7 assessed: 08/13/24 Feeling nervous, anxious, or on edge: 0 = Not at all Not being able to stop or control worryin = More than half the days Worrying too much about different things: 2 = More than half the days Trouble relaxin = More than half the days Being so restless that it is hard to sit still: 0 = Not at all Becoming easily annoyed or irritable: 0 = Not at all Feeling afraid as if something awful might happen: 0 = Not at all Total JOSE-7 score (0-4 normal; 5-9 mild; 10-14 moderate; 15-21 severe): 6 Source: Developed by Drs. Rohan Herndon, Lexi Graham, Jose Lorenzo and colleagues, with an educational pablo from [employer]. Review of Systems Const Denies headache(s) Eyes Denies loss of vision ENT Denies vertigo, Denies dizziness, Denies headache(s) and Denies sore throat Card Denies chest pain, Denies leg edema and Denies lightheadedness Resp Denies cough, Denies hemoptysis and Denies wheezing GI Denies abdominal pain, Denies melena, Denies constipation, Denies diarrhea and Denies vomiting Denies dysuria, Denies urinary frequency and Denies urinary urgency Musc Denies arthralgias, Denies joint swelling, Denies numbness and Denies tingling Neuro Denies Abnormal speech present, Denies behavioral changes, Denies vertigo, Denies dizziness, Denies headache(s), Denies loss of vision, Denies memory loss, Denies numbness and Denies tingling Psych Denies anxiety, Denies behavioral changes, Denies depression, Denies memory loss and Denies panic attacks Chris/Lymph Denies easy bleeding and Denies easy bruising Aller/Immun Denies wheezing Physical exam (Primary Care) Vital Signs: Last Vital Signs Temp 97.3 F 04/21/25 15:44 Pulse 72 04/21/25 15:44 BP 120/70 04/21/25 15:44 Pulse Ox 97 04/21/25 15:44 Oxygen Delivery Method Room Air 04/21/25 15:44 BMI result Body Mass Index 34.0 BMI Assessment/Plan discussion: High BMI High, discussed plan: lifestyle, weight reduction, dietary and physical activity Tobacco/Smoking Status: Tobacco use Status Tobacco use date assessed 04/21/25 04/21/25 15:52 Patient Tobacco Use Status Never used Tobacco 04/21/25 15:52 e-Cigarette/Vaping Use Never Used 04/21/25 15:52 PHQ-9: PHQ-9 Score PHQ-9: Total score 9 04/21/25 16:11 Depression Screening Interpretation: Positive Thrive Assessment: Date of Thrive Assessment Date Thrive assessed 10/23/24 04/21/25 15:52 Currently or been in a relationship where the following occur: No concerns reported Const General: healthy appearing, no acute distress, alert and awake Nutritional Appearance: well nourished Orientation/consciousness: oriented to person, oriented to place and oriented to time HENMT Ears: TM's normal bilaterally General nose exam: Normal nasal mucous membranes and turbinates present Eyes Conjunctivae: conjunctivae normal Sclerae: sclerae normal Pupils: Equal, round and reactive pupils present Neck Neck: Yes no lymphadenopathy and Yes no JVD Thyroid: Thyroid normal Carotids: no bruits Resp Effort & Inspection: normal respiratory effort and not tachypneic Auscultation: no crackles, no rales, no rhonchi and no wheezes Cardio Rate: regular rate Rhythm: regular rhythm Heart sounds: no murmurs and normal S1 and S2 GI Palpation (GI): Soft to palpation, nontender, no hepatomegaly and no splenomegaly Auscultation: normal bowel sounds Skin General skin exam: no rashes or lesions noted and dry skin Neuro General: oriented to person, oriented to place and oriented to time Cranial nerves: Yes Equal, round and reactive pupils present Speech: No Abnormal speech present Gait exam (Neuro): Normal gait present Motor exam (neuro): no tremor noted Extrem Right upper extremity: full ROM Left upper extremity: full ROM Right lower extremity: full ROM; no edema Left lower extremity: full ROM; no edema Psych Mental Status: mental status grossly normal Speech and movement: Normal speech and movement present Affect: normal affect Attitude: cooperative Thought process: Normal thought process present Coding Level of Care Code Est Pt Level 4 (91127) Diagnoses Bipolar I disorder F31.9 Primary hypertension I10 Hypertension type: primary hypertension Mild intermittent asthma without complication J45.20 Asthma complication type: uncomplicated Asthma persistence: intermittent Asthma severity: mild Borderline high cholesterol E78.9 Class 1 obesity E66.811 Assessment & Plan Assessment & Plan (1) Bipolar I disorder: Comment: HISTORY OF BIPOLAR DISORDER WHICH IS CONTROLLED WITH OLANZAPINE. AND HE USES CLONAZEPAM 0.5 MG AT BEDTIME TO SLEEP. Code(s): F31.9 - Bipolar disorder, unspecified Category: Medical Plan: Patient continues on olanzapine with good effect on his sleep and mood. (2) Hypertension: Code(s): I10 - Essential (primary) hypertension Category: Medical Qualifiers: Hypertension type: primary hypertension Qualified Code(s): I10 - Essential (primary) hypertension Plan: Patient's blood pressure acceptable today in office. He continues on amlodipine 10 mg with good effect on his blood pressure. Goal blood pressures to remain below 140/90 (3) Asthma: Comment: HE ACTUALLY HAS ASTHMA/COPD SYNDROME , IT IS MILD, STABLE AND WELL CONTROLLED AT THIS TIME Code(s): J45.909 - Unspecified asthma, uncomplicated Category: Medical Qualifiers: Asthma complication type: uncomplicated Asthma persistence: intermittent Asthma severity: mild Qualified Code(s): J45.20 - Mild intermittent asthma, uncomplicated Plan: Continues to follow [place] [facility]. Continues on maintenance inhaler Breo with good effect Asthma management will include continued avoidance of dairy products to reduce mucus production and potential exacerbations, as well as adherence to prescribed medications. (4) Borderline high cholesterol: Code(s): E78.9 - Disorder of lipoprotein metabolism, unspecified Category: Medical Plan: , the patient is advised to implement dietary changes, focusing on reducing intake of sweets and high-fat foods, to manage cholesterol levels. Regular monitoring of lipid levels will be conducted to assess the effectiveness of lifestyle modifications. Goal LDL is to be below 130 (5) Class 1 obesity: Code(s): E66.811 - Obesity, class 1 Category: Medical Plan: Patient does understand his BMI is over 30 will work on being more physically active and adapting to better eating habits to reduce his weight. We did discuss that the use of his olanzapine likely is causing it hard to be able to lose weight due to the side effect of the medication.
[2025-04-21 15:44] VITALS: BP 120/70; PULSE 72; TEMP 36.3; O2SAT 97; BMI 34.0
--- OUTSIDE RECORDS SUMMARY | 2025-04-21 17:25 | XMS_ITS | Clinical Summary ---
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 Name Role Phone Unavailable Primary Care Provider [...] Active Active Problems No known active problems Social History Tobacco Use Types Packs/Day Years [...] Description 06/05/2025 8:00 AM EST Office Visit [facility] [address] [place] [address] Simon Sheehanaris [address] [place] [address] Health Maintenance Due Date Last Done Comments [...] 2) 02/12/2012 FOBT 05/18/2024 05/18/2023 COVID-19 Vaccine ( - 2023-2 5 season) 2025 Influenza Vaccine (#1) 2025 08/13/2024 Tobacco Screening 01/14/2026 01/14/2025 Colorectal Cancer Screening 05/18/2026 FIT DNA/Cologuard 05/18/2026 05/18/2023 DTaP/Tdap/Td Vaccines (2 - T d or Tdap) 05/24/2026 05/24/2016 RSV Patients and Pa tients Aged 60 years or older (1 - 1-dose 75+ series) 2037 Pneumococcal Vaccine: 50+ Years Completed HIB Vaccines Aged Out No longer eligi [...] on patient's age to complete this topic Insurance DENTAL - HSN PARTIAL (MEDICAID)
== END 2025-04-21 16:31 | disposition home or self-care (01) ==
LOC: HO.HMCH 15:26
PROVIDERS: PCP Physician Assistant; Visit Provider Physician Assistant
DX: F31.9 Bipolar disorder, unspecified (principal); I10 Essential (primary) hypertension; J45.20 Mild intermittent asthma, uncomplicated; E78.9 Disorder of lipoprotein metabolism, unspecified; E66.811 Obesity, class 1

== ENCOUNTER → 2025-04-21 15:25 | Outpatient (BNVA) | payer MEDICARE, SELFPAY | PROVIDERS: PCP Physician Assistant; Visit Provider Physician Assistant | DX: F31.9 Bipolar disorder, unspecified (principal); I10 Essential (primary) hypertension; J45.20 Mild intermittent asthma, uncomplicated; E78.9 Disorder of lipoprotein metabolism, unspecified; E66.811 Obesity, class 1; Z68.34 Body mass index [BMI] 34.0-34.9, adult; Z71.3 Dietary counseling and surveillance | CPT/HCPCS: 99212 ==

== ENCOUNTER 2025-07-07 10:37 | Outpatient (REF) | payer MEDICARE, SELFPAY ==
--- NOTE | ~2025-07-07 | XR_ITS ---
EXAMINATION: XR PELVIS CLINICAL INFORMATION: M25.559 - Pain in unspecified hip COMPARISON: November 28, 2024 TECHNIQUE: AP view of the pelvis. FINDINGS: Limited due to the exclusion of the iliac crests, bilaterally. Metallic prosthesis with an acetabular and femoral component well-seated in the osseous structures. No gross malalignment. No lytic or blastic lesions. No gross loosening. Degenerative changes in the symphysis pubis. XR/XR pelvis 1-2V IMPRESSION: Total hip arthroplasty prosthesis, bilaterally. Satisfactory. Electronically signed by: Parth Krishnamurthy MD 07/07/2025 11:40 AM [facility] GODINEZ
== END 2025-07-07 10:38 | disposition home or self-care (01) ==
LOC: HO.HOSX 10:37
PROVIDERS: PCP Physician Assistant; Visit Provider Orthopaedic Surgery
DX: M25.552 Pain in left hip (principal); Z96.642 Presence of left artificial hip joint
CPT/HCPCS: 72170

== ENCOUNTER 2025-07-07 10:37 | Outpatient (AMB) | payer MEDICARE, SELFPAY ==
[2025-07-07 11:18] VITALS: BMI 34.0
--- NOTE | 2025-07-07 11:18 | A.OFFVIS_ITS ---
Vital Signs 07/07/25 11:18 Height 5 ft 4 in Weight 198 lb BMI 34.0 Intake Visit Reasons: OV- Left KAE 10/22/24 Intake Note: César is a 65 year old male who presents today for a follow up of his Left Hip about 8 months s/p Left KAE 10/22/24. Allergies Penicillins Allergy (Intermediate, Verified 04/21/25 16:10) Hives Quinolones Allergy (Intermediate, Verified 04/21/25 16:10) Rash trazodone Allergy (Intermediate, Verified 04/21/25 16:10) Rash/restless legs lisinopril Adverse Reaction (Intermediate, Verified 04/21/25 16:10) Cough losartan Adverse Reaction (Intermediate, Verified 04/21/25 16:10) Dizziness HPI Comments Details: Interval History The patient is a 65-year-old male presenting for follow-up for left total hip arthroplasty performed 8 months ago. The patient reports experiencing intermittent stabbing pain in the left thigh, which began approximately one month ago. He describes the pain as coming and going, with no specific pattern, and notes that it does not occur during walking or other activities. The patient suspects the pain may be related to increased physical activity due to preparing for a move. He denies any numbness, tingling, or burning sensations in the affected area. The patient has not experienced any changes in his ability to walk and reports no pain in the groin or other areas. Results [facility] Medical History Primary localized osteoarthritis of left hip Snores Gout Allergic rhinitis COPD (chronic obstructive pulmonary disease) Osteoarthritis of left hip Routine medical exam History of COVID-19 Nephrotic syndrome Depression Osteoarthritis Anxiety GERD (gastroesophageal reflux disease) Asthma Elevated cholesterol HTN (hypertension) Bipolar disorder Myalgia Osteoarthritis of right hip Colonoscopy refused Surgical History History of biopsy Hx of drainage of abscess S/P total right hip arthroplasty (10/04/22) History of eye surgery Family History Mother No problems noted. Father No problems noted. Social History Household Members: Spouse Housing: House Are you a primary field care coordinator to a significant other at home: No Do you presently have visiting nurse or other home services: No 75 years or older and lives alone: No Alcohol intake: never Patient Tobacco Use Status: Never used Tobacco e-Cigarette/Vaping Use: Never Used Second Hand Smoke Exposure: No service: No Current occupational status: disabled Sexual orientation: Straight/Heterosexual Cognitive needs: No Hearing needs: No Vision needs: No Physical Exam Exam Exam: Physical Exam - General Appearance: The patient appears well-developed, well-nourished, and in no acute distress. - Musculoskeletal: Examination of the left thigh reveals tenderness in the quadriceps muscle area, but no pain on knee extension. Vital Signs: BMI result Body Mass Index 34.0 Results Reviewed Results Reviewed: Left KAE in expected post operative position with no hardware complications or evidence of loosening Assessment & Plan Assessment & Plan (1) History of total left hip replacement: Code(s): Z96.642 - Presence of left artificial hip joint Category: Surgical Plan Plan 1. Intermittent Left Thigh Pain Post-Total Hip Arthroplasty (Kae) The plan includes ordering an x-ray of the left hip to rule out any underlying issues related to the total hip arthroplasty, although it is not expected to show significant findings. The patient is advised to monitor the pain and reduce physical activity if it exacerbates the symptoms. Follow-up is recommended if the pain persists or worsens, to consider further diagnostic evaluation or intervention. Discussion Notes During the discussion, the patient expressed concern about the intermittent stabbing pain in his left thigh, questioning whether it could be related to nerve or tendon issues. The clinician explained that intermittent pain can be challenging to diagnose, especially when the patient is otherwise walking no rmally and feeling well. The patient was informed that an x-ray could be ordered to rule out any significant issues, although it might not reveal the cause of the pain. The patient agreed to monitor his symptoms and adjust his activity level as needed, with a plan to follow up if the pain persists or worsens. Orders: Orders XR pelvis 1-2V Today M25.559 - Pain in unspecified hip Coding Level of Care Code Est Pt Level 3 (70230) Diagnoses History of total left hip replacement Z96.642
== END 2025-07-07 11:47 | disposition home or self-care (01) ==
LOC: HO.HOS 10:38
PROVIDERS: PCP Physician Assistant; Visit Provider Orthopaedic Surgery
DX: M79.652 Pain in left thigh (principal); Z96.642 Presence of left artificial hip joint
CPT/HCPCS: 99213

== ENCOUNTER → 2025-07-07 11:21 | Outpatient (BNV) | payer MEDICARE, SELFPAY | PROVIDERS: PCP Physician Assistant; Visit Provider Radiology Diagnostic Radiology | DX: M25.551 Pain in right hip (principal); M25.552 Pain in left hip; Z96.643 Presence of artificial hip joint, bilateral | CPT/HCPCS: 72170 ==